=== PATIENT | female | born 1950 | race African-American/Black ===

== ENCOUNTER 2017-01-01 10:14 | Inpatient (IN) | payer MEDICARE ==
[~2017-01-01] VITALS: Ht 157.5 cm; Wt 42.6 kg
[2017-01-01] MEDS ORDERED: LORA0.5T IV (13:45)
[2017-01-01] MEDS ORDERED: CITA40TA12 PO (13:45)
[2017-01-01] MEDS ORDERED: POTA20TA82 PO (13:45)
[2017-01-01] MEDS ORDERED: NICO1PAT21 TD (13:45)
[2017-01-01] MEDS ORDERED: ALPR1TAB6 PO (13:45)
[2017-01-01] MEDS ORDERED: HYDR-2766 PO (13:45)
[2017-01-01] MEDS ORDERED: LISI-334 PO (13:45)
[2017-01-01] MEDS ORDERED: ONDA4TAB12 IV (13:45)
[2017-01-01] MEDS ORDERED: ZOLP10TA4 PO (13:45)
[2017-01-01] MEDS ORDERED: DRON5CAP PO (13:45)
[2017-01-01] MEDS ORDERED: CHLO25TA PO (13:45)
[2017-01-01 13:49] VITALS: BP 126/71
[2017-01-01 13:51] VITALS: BP 126/71
[2017-01-01] MEDS: POTASSIUM CHLORIDE 10MEQ 100 ML IV SCH ×2 (14:04→15:50)
[2017-01-01 15:31] VITALS: BP 137/75
[2017-01-01] MEDS ORDERED: hydrALAZINE 20 MG/ML VIAL. IVP PRN (15:45)
[2017-01-01] MEDS ORDERED: DOCUSATE SODIUM 100 MG CAPSULE. PO PRN (15:45)
[2017-01-01] MEDS ORDERED: DEXTROSE 50% 25 GM / 50ML DISP.SYRIN. IV PRN (15:45)
[2017-01-01] MEDS ORDERED: ACETAMINOPHEN 325 MG TABLET. PO PRN (15:45)
[2017-01-01] MEDS ORDERED: ALBUTEROL SULFATE 2.5 MG/3 ML NEBU. NEB PRN (15:45)
[2017-01-01] MEDS ORDERED: traMADol 50 MG TABLET PO PRN (15:45)
[2017-01-01] MEDS ORDERED: MORPHINE SULFATE 2 MG/ML DISP.SYRIN. IV PRN (15:45)
--- NOTE | 2017-01-01 15:48 | PDOC1 ---
History and Physical Date of Admission Date of Admission 01/01/17 Identification/Chief Complaint Chief Complaint N/V, abd pain, weight loss Problems: Source Source: Caregiver, Chart review, Patient History of Present Illness History of Present Illness 66yo F, h/o cervical Ca with RT 10s year ago, HTN, DM, was sent from [facility] for N/ V abd pain. Pt has been having intermittent N/V, abd pain for a couple years, worse since last Sunday. The pain is located at RUQ, severe, 10/10, no radiation, low po intake, lost 10 pounds over 2 months. N/V, non bloody, no bilious. Pt got moreno CT on 11/20/2016, showed some adenopathy, and RUQ fluid collection. pt visited dr. De Leon last Sunday, no intervention done. smoker. Past Medical History Cardiovascular: HTN Endocrine: Diabetes Past Surgical History Past Surgical History: No pertinent history Family History Family History: Hypertension Social History Smoke: 1 pack per day ALCOHOL: rare Drugs: None Current Medications Current Medications Current Medications Medications (Trade) Dose Ordered Sig/Ashley Start Time Stop Time Status Last Admin Dose Admin Potassium Chloride 100 ml @ 100 mls/hr Q1H 01/01/17 14:00 01/01/17 15:59 01/01/17 14:04 100 MLS/HR Allergies Allergies Allergies Coded Allergies Type Severity Reaction Last Updated Verified No Known Drug Allergies 01/01/17 No ROS Review of System CONSTITUTIONAL: No fever or chills EYES: No recent changes SKIN: No rash or itching CARDIOVASCULAR: No chest pain, syncope, palpitations, or edema RESPIRATORY: No SOB or cough GASTROINTESTINAL: No nausea, vomiting or abdominal pain NEUROLOGICAL: No headaches or weakness ENDOCRINE: No cold or heat intolerance GENITOURINARY: No urgency or frequency of urination MUSCULOSKELETAL: No back pain or joint pain LYMPHATICS: No enlarged lymph nodes PSYCHIATRIC: No anxiety or depression Physical Exam Physical Exam GEN.: No apparent distress. Alert and oriented. anxious, restless with pain. thin, poor nutrition. HEENT: Head is normocephalic, atraumatic NECK: Supple. LUNGS: bl coarse bs. HEART: RRR, S1, S2 present. Peripheral pulses intact ABDOMEN: Soft, Positive bowel sounds. RUQ moderate tenderness, no guarding or rebound. EXTREMITIES: Without any cyanosis. NEUROLOGIC: Normal speech, normal tone PSYCHIATRIC: Normal affect, normal mood. SKIN: No ulcerations Vitals Vitals Vital Signs Date Time Temp Pulse Resp B/P (MAP) Pulse Ox O2 Delivery O2 Flow Rate FiO2 01/01/17 15:31 98.6 90 12 137/75 (95) 100 Room Air 98.6 Labs Labs Laboratory Tests Test 01/01/17 13:32 Glucose (Fingerstick) 109 mg/dL (70-99) Laboratory Tests Test 01/01/17 13:32 Glucose (Fingerstick) 109 mg/dL (70-99) VTE Prophylaxis Ordered VTE Prophylaxis Devices: Yes VTE Pharmacological Prophylaxi: Yes Assessment/Plan Assessment/Plan N/V, abdominal pain with weight loss, not clear etiology yet CT 11/2016 showed adenopathy HTN DM2 ON MEtformin low po intake moderate malnutrition h/o cervical Ca post RT 10ys ago tobaccoism hypokalemia plan: gi, onco consult moreno CT again cont home meds PPN for now full liquid diet replete k pain control ssi dvt, gi ppx repeat all labs PTOT albuterol prn JESSEE HINTON MD Jan 01, 2017 15:48
[2017-01-01] MEDS: LISINOPRIL 20 MG TABLET PO SCH (16:00)
[2017-01-01] MEDS: CITALOPRAM 20 MG TABLET. PO SCH (16:00)
[2017-01-01] MEDS ORDERED: IOHEXOL 300 MG/ML 75 ML VIAL IV ONE (16:00)
[2017-01-01] MEDS ORDERED: IOHEXOL 240 MG/ML 50ML VIAL. PO ONE (16:00)
[2017-01-01] MEDS: CHLORTHALIDONE 25 MG TABLET. PO SCH (16:00)
[2017-01-01] MEDS ORDERED: CONTRAST GIVEN MC PRN (16:00)
[2017-01-01] MEDS: HYDROcodone/APAP 10/325 1 TAB TABLET PO PRN ×2 (16:12→22:12)
[2017-01-01] MEDS: ONDANSETRON PF 4 MG/2 ML VIAL. IV PRN (16:13)
[2017-01-01] MEDS: DRONABINOL 2.5 MG CAPSULE. PO SCH (16:13)
[2017-01-01] MEDS: ALPRAZolam 1 MG TABLET PO SCH ×2 (16:13→20:22)
[2017-01-01] MEDS: AMINO AC 3%/ELECTROLYTE/GLYCER 1,000 ML IV SCH (16:14)
[2017-01-01 16:55] LABS: PROTHROMBIN TIME PATIENT 12.4 SEC (11.7-14.0)
[2017-01-01] MEDS: INSULIN ASPART 300 UNITS/3 ML INSULN.PEN SQ SCH (17:00)
--- NOTE | 2017-01-01 17:09 | PDOC ---
Provider Note Provider Note Med onc consult: Central retroperitoneal lymphadenopathy as well as probable lymphadenopathy in the disha hepatis and hepatogastric region. There may be serosal implants along the liver dome. Findings are suggestive of a neoplasm per CT at [facility] to obtain f/u CT and GI consult. see dictation [id number]. KATHY AQUINO MD Jan 01, 2017 17:09
[2017-01-01] MEDS: ENOXAPARIN 40 MG/0.4 ML SYRINGE. SQ SCH (17:46)
[2017-01-01 19:20] VITALS: BP 141/87
[2017-01-01] MEDS: ZOLPIDEM 5 MG TABLET. PO PRN (20:22)
[2017-01-01 23:25] VITALS: BP 152/96
[2017-01-02] MEDS: LORazepam 0.5 MG TABLET PO PRN ×3 (01:55→20:38)
[2017-01-02 03:25] VITALS: BP 165/87
[2017-01-02] MEDS: ONDANSETRON PF 4 MG/2 ML VIAL. IV PRN (03:27)
--- NOTE | 2017-01-02 04:10 | CONS ---
DATE OF CONSULTATION: 01/01/2017 REQUESTING PHYSICIAN: Dr. Ainsley Zaragoza. REASON FOR CONSULTATION: Lymphadenopathy, abdominal discomfort, nausea, vomiting and concerned for possible malignancy. HISTORY OF PRESENT ILLNESS: The patient is a 66-year-old -[place] female, who reports poor appetite and weight loss for at least a year that started in 2015 and she has lost about 22 pounds as of 01/01/2017. She also reports chronic nausea and vomiting, but she experienced worsening symptoms from 12/29/2016, which prompted her to go to the Emergency Room. She was evaluated at [facility] and subsequently admitted to [facility] on 01/01/2017. She also reports abdominal pain, mostly in the right side. She denies hematemesis, melena or hematochezia, no hemoptysis or hematuria. She had a CT scan done on 11/20/2016 that showed lymphadenopathy and right upper quadrant fluid collection. I will obtain these reports. No fevers, chills or night sweats. No history of diarrhea or constipation. She reports having had a colonoscopy in 2015. She is up to date on mammogram for screening. She denies any lymphadenopathy, no history of a lumps or masses noted. PAST MEDICAL HISTORY: Hypertension and diabetes mellitus. PAST SURGICAL HISTORY: None. FAMILY HISTORY: Both her brother and sister had cancer, one known type. SOCIAL HISTORY: She smokes 1 pack of cigarettes per day since the age of 22. I have advised her to quit smoking. No alcohol abuse. REVIEW OF SYSTEMS: A 12-point review of system was performed. Pertinent positives are mentioned in the history of present illness. Rest of the system review is negative. PHYSICAL EXAMINATION: GENERAL APPEARANCE: The patient is a 66-year-old -[place] female, who is in no acute cardiorespiratory distress. VITAL SIGNS: Blood pressure 137/75, temperature 98.6. HEENT: Head atraumatic, normocephalic. Eyes: No icterus. NECK: Supple. CHEST: Bilaterally symmetrical. HEART: S1, S2 normal. ABDOMEN: Soft, nontender. No hepatosplenomegaly. CENTRAL NERVOUS SYSTEM: No focal deficits. LYMPHATICS: No lymphadenopathy. SKIN: No rashes. PSYCHOLOGIC: Mood and affect are appropriate. MUSCULOSKELETAL: No joint effusions. LABORATORY DATA: Glucose 109 on 01/01/2017. On 12/31/2016, WBC 9.8, hemoglobin 13.3, platelet count 484, MCV 85. Other labs from 12/31/2016 revealed sodium 136 potassium 3, creatinine 0.9, glucose 117, calcium 9.1, total bilirubin 0.3, AST 14, ALT 15, alkaline phosphatase 66, total protein 7.6, albumin 3.7. CT chest, abdomen and pelvis on 11/20/2016 at [facility], revealed central retroperitoneal lymphadenopathy as the last probable lymphadenopathy in the disha hepatis and hepatogastric region. There may be serosal implants along the liver dome. Findings are suggestive of neoplasm or lymphoma. IMPRESSION AND PLAN: 1. Lymphadenopathy noted on CT scan on 11/20/2016 at [facility]. There is evidence of central retroperitoneal lymphadenopathy as well as probable lymphadenopathy in the disha hepatis and hepatogastric region. The conglomerate film notes in the aortocaval region measuring 3.6 x 2.5 cm. There is abnormal region of low density along the dome of the liver measuring 6 cm, which may represent serosal implants. This is concerning for a malignancy. She has symptoms of nausea and vomiting, abdominal pain, weight loss and poor appetite. I agreed to consult Gastroenterology for further evaluation. She may need upper endoscopy to reevaluate for malignancy. I discussed in detail with the patient regarding the concern for malignancy and need for further workup. She understands and agrees with the plan. 2. Nausea, vomiting. Plan gastrointestinal consultation. 3. Abdominal pain. Continue supportive care. GI evaluation awaited. CT chest reveals evidence of lymphadenopathy in the subcarinal region as well as cardiophrenic and internal mammary region. The patient is also concerning for metastatic lymph nodes. ` KATHY AQUINO MD DR: SUNITHA/kathy JOB#: [id number] / [id number] CHERI
[2017-01-02] MEDS: HYDROcodone/APAP 10/325 1 TAB TABLET PO PRN ×4 (04:42→22:23)
[2017-01-02] MEDS: AMINO AC 3%/ELECTROLYTE/GLYCER 1,000 ML IV SCH ×2 (04:48→16:12)
[2017-01-02 06:29] LABS: BASO # 0.1 x10^3/uL (0.0-0.2); BASO % 1 % (0-3); EOS % 1 % (0-3); HEMATOCRIT 38.8 % (36.0-47.0); HEMOGLOBIN 12.8 g/dL (12.0-15.5); LYMPH # 1.3 x10^3/uL (1.0-4.8); LYMPH % 17 % (24-48); MEAN CORPUSCULAR HEMOGLOBIN 29 pg (25-35); MEAN CORPUSCULAR HGB CONC 33 g/dL (31-37); MEAN CORPUSCULAR VOLUME 87 fL (79-100); MONO % 15 % (0-9); NEUT % 66 % (31-73); PLATELET COUNT 470 x10^3/uL (140-400); RED BLOOD COUNT 4.45 x10^6/uL (3.50-5.40); RED CELL DISTRIBUTION WIDTH 14.3 % (11.5-14.5); WHITE BLOOD COUNT 7.3 x10^3/uL (4.0-11.0)
[2017-01-02 07:00] VITALS: BP 143/87
[2017-01-02 07:06] LABS: CALCIUM 8.8 mg/dL (8.5-10.1); CREATININE 0.8 mg/dL (0.6-1.0); GFR 86.3; POTASSIUM 4.5 mmol/L (3.5-5.1)
[2017-01-02 07:09] LABS: ALBUMIN 3.3 g/dL (3.4-5.0); DIRECT BILIRUBIN 0.2 mg/dL (0.0-0.2); TOTAL BILIRUBIN 0.5 mg/dL (0.2-1.0); TOTAL PROTEIN 6.8 g/dL (6.4-8.2)
[2017-01-02] MEDS: POTASSIUM CHLORIDE 20 MEQ TABLET.ER. PO SCH (07:51)
[2017-01-02] MEDS: PANTOPRAZOLE 40 MG TABLET.DR. PO SCH (07:51)
[2017-01-02] MEDS: ALPRAZolam 1 MG TABLET PO SCH ×3 (07:51→22:23)
[2017-01-02] MEDS: CITALOPRAM 20 MG TABLET. PO SCH (07:51)
[2017-01-02] MEDS: LISINOPRIL 20 MG TABLET PO SCH (07:52)
[2017-01-02] MEDS: CHLORTHALIDONE 25 MG TABLET. PO SCH (07:52)
[2017-01-02] MEDS: INSULIN ASPART 300 UNITS/3 ML INSULN.PEN SQ SCH ×3 (07:55→16:54)
--- NOTE | 2017-01-02 09:13 | PDOC2 ---
GI CONSULT Reason For Consult: Abd pain HPI: HPI: 66 y/o AA female transferred from [facility]. Records indicate she was evaluated there for n/v, abd pain, and dehydration. She tells me she has had decreased appetite and weight loss of about 22 pounds during the past year w/ episodic n/ v. On Marinol (says no help) and Zofran at home. Usually doesn't have abd pain , currently has some right-sided discomfort. Occasional GERD symptoms, avoids spicy foods. Had some loose stools after CT yesterday, usually no issues w/ diarrhea or constipation. Denies hematemesis, hematochezia, melena. No NSAIDs , takes hydrocodone for headaches. Had CT A/P w/ IV contrast in 11/2016 which showed lymphadenopathy in subcarinal, cardiophrenia, and internal mammary region concerning for metastasis; also central retroperitoneal lymphadenopathy w / probable lymphadenopathy in the disha hepatis and hepatogastric region w/ possible serosal implants along the liver dome. Saw Dr. Jimenez yesterday, CT chest/A/P pending. EGD and colonoscopy w/ Dr. Mariah Jenkins in 01/2015 (for weight loss and h/o colon polyps) showed suspect extrinsic pressure along greater curvature of stomach, irregular Z-line (path c/w reflux, no Arteaga's), and hyperplastic colon polyp w/ fair prep. Gastric biopsy + for H. pylori and random small bowel biopsy negative for pathology. Unclear if treated for H. pylori. Chart suggests h/o pancreatitis; she's unsure about this. PMH: PMH: COPD, HTN, DM, osteoporosis, anxiety/depression, cervical cancer, appendectomy, hysterectomy FH: Family History: Cancer, Other (brother was an alcoholic, sister had lupus, another sister had a "hole in her stomach") Social History: Smoke: 1 pack per day ALCOHOL: none (previously drank occasionally) Drugs: None ROS: GEN: +night sweats HEENT: Denies blurred vision, sore throat CV: Denies chest pain RESP: +SOA (stable) GI: Per HPI : Denies hematuria, dysuria ENDO: +weight loss NEURO: Denies confusion, dizziness MSK: +weakness SKIN: Denies jaundice, pruritus Vitals: Vitals: Vital Signs Date Time Temp Pulse Resp B/P (MAP) Pulse Ox O2 Delivery O2 Flow Rate FiO2 01/02/17 07:52 111 143/87 01/02/17 07:00 98.0 16 Room Air 94.0 98.0 01/02/17 03:25 95 Labs: Labs: Laboratory Tests Test 01/01/17 13:32 01/01/17 16:40 01/01/17 17:00 01/01/17 21:18 Glucose (Fingerstick) 109 mg/dL (70-99) 105 mg/dL (70-99) 104 mg/dL (70-99) Prothrombin Time 12.4 SEC (11.7-14.0) Prothromb Time International Ratio 1.0 (0.8-1.1) Test 01/02/17 04:40 01/02/17 07:34 White Blood Count 7.3 x10^3/uL (4.0-11.0) Red Blood Count 4.45 x10^6/uL (3.50-5.40) Hemoglobin 12.8 g/dL (12.0-15.5) Hematocrit 38.8 % (36.0-47.0) Mean Corpuscular Volume 87 fL (79-100) Mean Corpuscular Hemoglobin 29 pg (25-35) Mean Corpuscular Hemoglobin Concent 33 g/dL (31-37) Red Cell Distribution Width 14.3 % (11.5-14.5) Platelet Count 470 x10^3/uL (140-400) Neutrophils (%) (Auto) 66 % (31-73) Lymphocytes (%) (Auto) 17 % (24-48) Monocytes (%) (Auto) 15 % (0-9) Eosinophils (%) (Auto) 1 % (0-3) Basophils (%) (Auto) 1 % (0-3) Neutrophils # (Auto) 4.9 x10^3uL (1.8-7.7) Lymphocytes # (Auto) 1.3 x10^3/uL (1.0-4.8) Monocytes # (Auto) 1.1 x10^3/uL (0.0-1.1) Eosinophils # (Auto) 0.0 x10^3/uL (0.0-0.7) Basophils # (Auto) 0.1 x10^3/uL (0.0-0.2) Sodium Level 130 mmol/L (136-145) Potassium Level 4.5 mmol/L (3.5-5.1) Chloride Level 95 mmol/L (98-107) Carbon Dioxide Level 25 mmol/L (21-32) Anion Gap 10 (6-14) Blood Urea Nitrogen 28 mg/dL (7-20) Creatinine 0.8 mg/dL (0.6-1.0) Estimated GFR (Cockcroft-Gault) 86.3 Glucose Level 105 mg/dL (70-99) Calcium Level 8.8 mg/dL (8.5-10.1) Total Bilirubin 0.5 mg/dL (0.2-1.0) Direct Bilirubin 0.2 mg/dL (0.0-0.2) Aspartate Amino Transf (AST/SGOT) 14 U/L (15-37) Alanine Aminotransferase (ALT/SGPT) 15 U/L (14-59) Alkaline Phosphatase 56 U/L (46-116) Total Protein 6.8 g/dL (6.4-8.2) Albumin 3.3 g/dL (3.4-5.0) Glucose (Fingerstick) 120 mg/dL (70-99) Allergies: Coded Allergies: No Known Drug Allergies (Unverified , 01/01/17) Medications: Current Medications Medications (Trade) Dose Ordered Sig/Ashley Route PRN Reason Start Time Stop Time Status Last Admin Dose Admin Potassium Chloride 100 ml @ 100 mls/hr Q1H IV 01/01/17 14:00 01/01/17 15:59 DC 01/01/17 15:50 Alprazolam (Xanax) 1 mg TID PO 01/01/17 16:00 01/02/17 07:51 Chlorthalidone (Thalitone) 25 mg DAILY PO 01/01/17 16:00 01/02/17 07:52 Acetaminophen/ Hydrocodone Bitart (Lortab 10/325) 1 tab PRN QID PRN PO PAIN 01/01/17 15:45 01/02/17 04:42 Lisinopril (Prinivil) 20 mg DAILY PO 01/01/17 16:00 01/02/17 07:52 Lorazepam (Ativan) 0.5 mg PRN Q8HRS PRN PO ANXIETY 01/01/17 16:00 01/02/17 01:55 Citalopram Hydrobromide (CeleXA) 40 mg DAILY PO 01/01/17 16:00 01/02/17 07:51 Dronabinol (Marinol) 5 mg BIDACLD PO 01/01/17 16:30 01/01/17 16:13 Potassium Chloride (Klor-Con) 20 meq DAILYWBKFT PO 01/02/17 08:00 01/02/17 07:51 Zolpidem Tartrate (Ambien) 5 mg PRN QHS PRN PO INSOMNIA 01/01/17 15:45 01/01/17 20:22 Ondansetron HCl (Zofran) 4 mg PRN Q6HRS PRN IV NAUSEA/VOMITING 01/01/17 15:45 01/02/17 03:27 Pantoprazole Sodium (Protonix) 40 mg DAILYAC PO 01/02/17 07:30 01/02/17 07:51 Enoxaparin Sodium (Lovenox 40mg Syringe) 40 mg Q24H SQ 01/01/17 17:00 01/01/17 17:46 Amino Acids/ Glycerin/ Electrolytes 1,000 ml @ 80 mls/hr [id number] IV 01/01/17 17:00 01/02/17 04:48 Iohexol (Omnipaque 240 Mg/ml) 50 ml 1X ONCE PO 01/01/17 16:00 01/01/17 16:01 DC 01/01/17 17:13 Iohexol (Omnipaque 300 Mg/ml) 75 ml 1X ONCE IV 01/01/17 16:00 01/01/17 16:01 DC 01/01/17 17:11 Imaging: Imaging: CT chest/abd/pelv 01/01/17 PENDING PE: GEN: NAD, thin HEENT: Atraumatic, PERRL LUNGS: decreased HEART: RRR ABD: NABS, S/ND, some RUQ to RLQ discomfort, ?right flank EXTREMITY: No edema SKIN: No rashes, no jaundice NEURO/PSYCH: A & O 3 A/P: A/P: Decreased appetite, weight loss, n/v -for 1 year, 22 pounds lost -on Marinol and Zofran at home Right-sided pain -on this occasion only Abnormal CT A/P -from 11/2016: lymphadenopathy in subcarinal, cardiophrenia, and internal mammary region concerning for metastasis; also central retroperitoneal lymphadenopathy w/ probable lymphadenopathy in the disha hepatis and hepatogastric region w/ possible serosal implants along the liver dome GERD -occasional symptoms, avoids spicy foods H. pylori -on gastric biopsy from EGD in 01/2015, ?treated CRC screen -colonoscopy w/ fair prep in 01/2015, hyperplastic polyp -- Await CT results, will review w/ Dr. Bowles. SHAAN PITTMAN Jan 02, 2017 09:13
--- NOTE | 2017-01-02 09:18 | PDOC ---
PROGRESS NOTES Chief Complaint Chief Complaint Possible GI malignancy noted on CT abd (? Mets vs Lymphoma) Wt Loss DN HTN History of Present Illness History of Present Illness Pt seen and examined Very anxious Notes and labs reviewed Ct reviewed Vitals Vitals Vital Signs Date Time Temp Pulse Resp B/P (MAP) Pulse Ox O2 Delivery O2 Flow Rate FiO2 01/02/17 08:00 Room Air 01/02/17 07:52 111 143/87 01/02/17 07:00 98.0 16 94.0 98.0 01/02/17 03:25 95 Physical Exam General: Alert, Oriented X3, Cooperative Heart: Regular rate, Normal S1, Normal S2 Lungs: Clear Abdomen: Normal bowel sounds, Soft Extremities: No clubbing, No cyanosis Skin: No rashes, No breakdown Labs LABS Laboratory Tests Test 01/01/17 13:32 01/01/17 16:40 01/01/17 17:00 01/01/17 21:18 Glucose (Fingerstick) 109 mg/dL (70-99) 105 mg/dL (70-99) 104 mg/dL (70-99) Prothrombin Time 12.4 SEC (11.7-14.0) Prothromb Time International Ratio 1.0 (0.8-1.1) Test 01/02/17 04:40 01/02/17 07:34 White Blood Count 7.3 x10^3/uL (4.0-11.0) Red Blood Count 4.45 x10^6/uL (3.50-5.40) Hemoglobin 12.8 g/dL (12.0-15.5) Hematocrit 38.8 % (36.0-47.0) Mean Corpuscular Volume 87 fL (79-100) Mean Corpuscular Hemoglobin 29 pg (25-35) Mean Corpuscular Hemoglobin Concent 33 g/dL (31-37) Red Cell Distribution Width 14.3 % (11.5-14.5) Platelet Count 470 x10^3/uL (140-400) Neutrophils (%) (Auto) 66 % (31-73) Lymphocytes (%) (Auto) 17 % (24-48) Monocytes (%) (Auto) 15 % (0-9) Eosinophils (%) (Auto) 1 % (0-3) Basophils (%) (Auto) 1 % (0-3) Neutrophils # (Auto) 4.9 x10^3uL (1.8-7.7) Lymphocytes # (Auto) 1.3 x10^3/uL (1.0-4.8) Monocytes # (Auto) 1.1 x10^3/uL (0.0-1.1) Eosinophils # (Auto) 0.0 x10^3/uL (0.0-0.7) Basophils # (Auto) 0.1 x10^3/uL (0.0-0.2) Sodium Level 130 mmol/L (136-145) Potassium Level 4.5 mmol/L (3.5-5.1) Chloride Level 95 mmol/L (98-107) Carbon Dioxide Level 25 mmol/L (21-32) Anion Gap 10 (6-14) Blood Urea Nitrogen 28 mg/dL (7-20) Creatinine 0.8 mg/dL (0.6-1.0) Estimated GFR (Cockcroft-Gault) 86.3 Glucose Level 105 mg/dL (70-99) Calcium Level 8.8 mg/dL (8.5-10.1) Total Bilirubin 0.5 mg/dL (0.2-1.0) Direct Bilirubin 0.2 mg/dL (0.0-0.2) Aspartate Amino Transf (AST/SGOT) 14 U/L (15-37) Alanine Aminotransferase (ALT/SGPT) 15 U/L (14-59) Alkaline Phosphatase 56 U/L (46-116) Total Protein 6.8 g/dL (6.4-8.2) Albumin 3.3 g/dL (3.4-5.0) Glucose (Fingerstick) 120 mg/dL (70-99) Review of Systems Review of Systems co anxiety co pain Assessment and Plan Assessmemt and Plan Possible GI malignancy noted on CT abd (? Mets vs Lymphoma) Wt Loss DN HTN Plan GI consult to consider endoscopy Recheck labs Dr Jimenez Following Home meds PPN Narcotics Prognosis guarded Problems: Comment Review of Relevant I have reviewed the following items arnulfo (where applicable) has been applied. Labs Laboratory Tests Test 01/01/17 13:32 01/01/17 16:40 01/01/17 17:00 01/01/17 21:18 Glucose (Fingerstick) 109 mg/dL (70-99) 105 mg/dL (70-99) 104 mg/dL (70-99) Prothrombin Time 12.4 SEC (11.7-14.0) Prothromb Time International Ratio 1.0 (0.8-1.1) Test 01/02/17 04:40 01/02/17 07:34 White Blood Count 7.3 x10^3/uL (4.0-11.0) Red Blood Count 4.45 x10^6/uL (3.50-5.40) Hemoglobin 12.8 g/dL (12.0-15.5) Hematocrit 38.8 % (36.0-47.0) Mean Corpuscular Volume 87 fL (79-100) Mean Corpuscular Hemoglobin 29 pg (25-35) Mean Corpuscular Hemoglobin Concent 33 g/dL (31-37) Red Cell Distribution Width 14.3 % (11.5-14.5) Platelet Count 470 x10^3/uL (140-400) Neutrophils (%) (Auto) 66 % (31-73) Lymphocytes (%) (Auto) 17 % (24-48) Monocytes (%) (Auto) 15 % (0-9) Eosinophils (%) (Auto) 1 % (0-3) Basophils (%) (Auto) 1 % (0-3) Neutrophils # (Auto) 4.9 x10^3uL (1.8-7.7) Lymphocytes # (Auto) 1.3 x10^3/uL (1.0-4.8) Monocytes # (Auto) 1.1 x10^3/uL (0.0-1.1) Eosinophils # (Auto) 0.0 x10^3/uL (0.0-0.7) Basophils # (Auto) 0.1 x10^3/uL (0.0-0.2) Sodium Level 130 mmol/L (136-145) Potassium Level 4.5 mmol/L (3.5-5.1) Chloride Level 95 mmol/L (98-107) Carbon Dioxide Level 25 mmol/L (21-32) Anion Gap 10 (6-14) Blood Urea Nitrogen 28 mg/dL (7-20) Creatinine 0.8 mg/dL (0.6-1.0) Estimated GFR (Cockcroft-Gault) 86.3 Glucose Level 105 mg/dL (70-99) Calcium Level 8.8 mg/dL (8.5-10.1) Total Bilirubin 0.5 mg/dL (0.2-1.0) Direct Bilirubin 0.2 mg/dL (0.0-0.2) Aspartate Amino Transf (AST/SGOT) 14 U/L (15-37) Alanine Aminotransferase (ALT/SGPT) 15 U/L (14-59) Alkaline Phosphatase 56 U/L (46-116) Total Protein 6.8 g/dL (6.4-8.2) Albumin 3.3 g/dL (3.4-5.0) Glucose (Fingerstick) 120 mg/dL (70-99) Laboratory Tests Test 01/01/17 13:32 01/01/17 16:40 01/01/17 17:00 01/01/17 21:18 Glucose (Fingerstick) 109 mg/dL (70-99) 105 mg/dL (70-99) 104 mg/dL (70-99) Prothrombin Time 12.4 SEC (11.7-14.0) Prothromb Time International Ratio 1.0 (0.8-1.1) Test 01/02/17 04:40 01/02/17 07:34 White Blood Count 7.3 x10^3/uL (4.0-11.0) Red Blood Count 4.45 x10^6/uL (3.50-5.40) Hemoglobin 12.8 g/dL (12.0-15.5) Hematocrit 38.8 % (36.0-47.0) Mean Corpuscular Volume 87 fL (79-100) Mean Corpuscular Hemoglobin 29 pg (25-35) Mean Corpuscular Hemoglobin Concent 33 g/dL (31-37) Red Cell Distribution Width 14.3 % (11.5-14.5) Platelet Count 470 x10^3/uL (140-400) Neutrophils (%) (Auto) 66 % (31-73) Lymphocytes (%) (Auto) 17 % (24-48) Monocytes (%) (Auto) 15 % (0-9) Eosinophils (%) (Auto) 1 % (0-3) Basophils (%) (Auto) 1 % (0-3) Neutrophils # (Auto) 4.9 x10^3uL (1.8-7.7) Lymphocytes # (Auto) 1.3 x10^3/uL (1.0-4.8) Monocytes # (Auto) 1.1 x10^3/uL (0.0-1.1) Eosinophils # (Auto) 0.0 x10^3/uL (0.0-0.7) Basophils # (Auto) 0.1 x10^3/uL (0.0-0.2) Sodium Level 130 mmol/L (136-145) Potassium Level 4.5 mmol/L (3.5-5.1) Chloride Level 95 mmol/L (98-107) Carbon Dioxide Level 25 mmol/L (21-32) Anion Gap 10 (6-14) Blood Urea Nitrogen 28 mg/dL (7-20) Creatinine 0.8 mg/dL (0.6-1.0) Estimated GFR (Cockcroft-Gault) 86.3 Glucose Level 105 mg/dL (70-99) Calcium Level 8.8 mg/dL (8.5-10.1) Total Bilirubin 0.5 mg/dL (0.2-1.0) Direct Bilirubin 0.2 mg/dL (0.0-0.2) Aspartate Amino Transf (AST/SGOT) 14 U/L (15-37) Alanine Aminotransferase (ALT/SGPT) 15 U/L (14-59) Alkaline Phosphatase 56 U/L (46-116) Total Protein 6.8 g/dL (6.4-8.2) Albumin 3.3 g/dL (3.4-5.0) Glucose (Fingerstick) 120 mg/dL (70-99) Medications Current Medications Potassium Chloride 100 ml @ 100 mls/hr Q1H IV Last administered on 01/01/17 15:50; Start 01/01/17 at 14:00; Stop 01/01/17 at 15:59; Status DC Alprazolam (Xanax) 1 mg TID PO Last administered on 01/02/17 07:51; Start at 16:00 Chlorthalidone (Thalitone) 25 mg DAILY PO Last administered on 01/02/17 07:52 ; Start 01/01/17 at 16:00 Acetaminophen/ Hydrocodone Bitart (Lortab 10) 1 tab PRN QID PRN PO PAIN Last administered on 01/02/17 04:42; Start 01/01/17 at 15:45 Lisinopril (Prinivil) 20 mg DAILY PO Last administered on 01/02/17 07:52; Start 01/01/17 at 16:00 Lorazepam (Ativan) 0.5 mg PRN Q8HRS PRN PO ANXIETY Last administered on 01:55; Start 01/01/17 at 16:00 Citalopram Hydrobromide (CeleXA) 40 mg DAILY PO Last administered on 01/02/17 07:51; Start 01/01/17 at 16:00 Dronabinol (Marinol) 5 mg BIDACLD PO Last administered on 01/01/17 16:13; Start 01/01/17 at 16:30 Potassium Chloride (Klor-Con) 20 meq DAILYWBKFT PO Last administered on 07:51; Start 01/02/17 at 08:00 Zolpidem Tartrate (Ambien) 5 mg PRN QHS PRN PO INSOMNIA Last administered on 20:22; Start 01/01/17 at 15:45 Acetaminophen (Tylenol) 650 mg PRN Q6HRS PRN PO FEVER; Start 01/01/17 at 15:45 Ondansetron HCl (Zofran) 4 mg PRN Q6HRS PRN IV NAUSEA/VOMITING Last administered on 01/02/17 03:27; Start 01/01/17 at 15:45 Morphine Sulfate 2 mg PRN Q2HR PRN IV PAIN; Start 01/01/17 at 15:45 Tramadol HCl (Ultram) 50 mg PRN Q6HRS PRN PO PAIN; Start 01/01/17 at 15:45 Hydralazine HCl (Apresoline) 10 mg PRN Q4HRS PRN IVP ELEVATED BP, SEE COMMENTS ; Start 01/01/17 at 15:45 Docusate Sodium (Colace) 100 mg PRN DAILY PRN PO CONSTIPATION; Start 01/01/17 at 15:45 Pantoprazole Sodium (Protonix) 40 mg DAILYAC PO Last administered on 01/02/17 07:51; Start 01/02/17 at 07:30 Enoxaparin Sodium (Lovenox 40mg Syringe) 40 mg Q24H SQ Last administered on 17:46; Start 01/01/17 at 17:00 Amino Acids/ Glycerin/ Electrolytes 1,000 ml @ 80 mls/hr [id number] IV Last administered on 01/02/17 04:48; Start 01/01/17 at 17:00 Albuterol Sulfate (Ventolin Neb Soln) 2.5 mg PRN Q4HRS PRN NEB SHORTNESS OF BREATH; Start 01/01/17 at 15:45 Insulin Aspart (NovoLOG) 0-9 UNITS TIDWMEALS SQ ; Start 01/01/17 at 17:00 Dextrose (Dextrose 50%-Water Syringe) 12.5 gm PRN Q15MIN PRN IV SEE COMMENTS; Start 01/01/17 at 15:45 Iohexol (Omnipaque 240 Mg/ml) 50 ml 1X ONCE PO Last administered on 01/01/17 17:13; Start 01/01/17 at 16:00; Stop 01/01/17 at 16:01; Status DC Iohexol (Omnipaque 300 Mg/ml) 75 ml 1X ONCE IV Last administered on 01/01/17 17:11; Start 01/01/17 at 16:00; Stop 01/01/17 at 16:01; Status DC Info (Do NOT chart on this entry -- for MONITORING) 1 each PRN DAILY PRN MC SEE COMMENTS; Start 01/01/17 at 16:00; Stop 01/03/17 at 15:59 Nicotine (Nicoderm Cq 21mg) 1 patch PRN DAILY PRN TD SMOKING CESSATION; Start 01/02/17 at 09:15 Active Scripts Active Reported Zolpidem Tartrate 10 Mg Tablet 10 Mg PO PRN QHS PRN Potassium Chloride 20 Meq Tablet.er 20 Meq PO DAILY Ondansetron Odt (Ondansetron) 4 Mg Tab.rapdis 4 Mg IV PRN Q4HRS PRN NICODERM CQ 21mg (Nicotine) 1 Each Patch.td24 1 Patch TD DAILY Lorazepam 0.5 Mg Tablet 0.5 Mg IV Q8HRS Lisinopril 20 Mg Tablet 20 Mg PO DAILY Hydrocodone-Apap 10-325 (Hydrocodone Bit/Acetaminophen) 1 Each Tablet 1 Tab PO QID PRN Marinol (Dronabinol) 5 Mg Capsule 5 Mg PO BIDACLD Celexa (Citalopram Hydrobromide) 40 Mg Tablet 40 Mg PO DAILY Chlorthalidone 25 Mg Tablet 25 Mg PO DAILY Alprazolam 1 Mg Tablet 1 Mg PO TID Vitals/I & O Vital Sign - Last 24 Hours 01/01/17 01/01/17 01/01/17 01/01/17 12:41 13:49 13:51 15:31 Temp 97.9 97.9 98.6 97.9 97.9 98.6 Pulse 98 98 90 Resp 12 12 12 B/P (MAP) 126/71 (89) 126/71 (89) 137/75 (95) Pulse Ox 98 98 100 O2 Delivery Room Air Room Air Room Air 01/01/17 01/01/17 01/01/17 01/01/17 16:00 16:12 19:20 20:00 Temp 98.4 98.4 Pulse 90 99 Resp 18 B/P (MAP) 137/75 141/87 (105) Pulse Ox 97 O2 Delivery Room Air Room Air Room Air 01/01/17 01/01/17 01/01/17 01/02/17 22:12 23:12 23:25 03:25 Temp 98.6 98.4 98.6 98.4 Pulse 113 93 Resp 16 16 18 18 B/P (MAP) 152/96 (114) 165/87 (113) Pulse Ox 95 95 O2 Delivery Room Air Room Air Room Air Room Air 01/02/17 01/02/17 01/02/17 01/02/17 04:42 07:00 07:52 08:00 Temp 98.0 98.0 Pulse 113 111 Resp 16 16 B/P (MAP) 143/87 (105) 143/87 O2 Delivery Room Air Room Air Room Air O2 Flow Rate 94.0 Intake and Output 01/01/17 01/01/17 01/02/17 15:00 23:00 07:00 Intake Total 0 ml 0 ml 0 ml Balance 0 ml 0 ml 0 ml ANGEL RENE III DO Jan 02, 2017 09:18
--- NOTE | 2017-01-02 09:36 | RAD ---
Indication: right upper quadrant pain. History of lymphoma. Axial images of the chest abdomen and pelvis were obtained. Both oral and IV contrast were administered. 75 cc of Omnipaque 300 was administered intravenously. Note is made of a previous exam 11/20/2016. CT chest: Findings There is no significant axillary adenopathy. No significant hilar adenopathy is seen. Mild prominence of the subcarinal region compatible with some adenopathy as well as in the cardiophrenic fat is noted, unchanged. A few intramammary lymph nodes are noted also appearing similar. There is no acute parenchymal infiltrate. There is an unchanged pulmonary nodule in the right lower lobe. There has not been a significant change in the appearance of the chest compared to the previous exam CT abdomen and pelvis: Findings The liver and spleen appear unremarkable. Spleen size is normal. There is a left renal cysts similar to the previous exam. The adrenal glands are unchanged. Some enlargement of the right adrenal gland is noted similar to the previous exam likely reflecting an adenoma. The pancreas appears unremarkable. Periaortic adenopathy is noted as well as some enlarged nodes in the area of the disha hepatis. There may be similar findings along the dome of the liver medially.. All of these findings are similar to the previous exam. A new finding in the abdomen is not seen. There is no significant adenopathy identified in either groin. No acute finding is apparent in the pelvis. IMPRESSION: No acute finding in the chest. Unchanged soft tissue masses, likely reflecting adenopathy as outlined above Unchanged pulmonary nodule in the right lower lobe. No acute finding seen in the abdomen or pelvis. Retroperitoneal adenopathy is noted appearing similar to the study 11/20/2016 PQRS Compliance Statement: One or more of the following individualized dose reduction techniques were utilized for this examination: 1. Automated exposure control 2. Adjustment of the mA and/or kV according to patient size 3. Use of iterative reconstruction technique
[2017-01-02] MEDS: DRONABINOL 2.5 MG CAPSULE. PO SCH ×2 (10:19→16:13)
[2017-01-02] MEDS: NICOTINE 21MG PATCH. TD PRN (10:19)
[2017-01-02 11:00] VITALS: BP 177/99
[2017-01-02] MEDS: fentaNYL PF VIAL 100 MCG/2 ML VIAL IV PRN ×2 (14:48→20:33)
[2017-01-02 14:56] VITALS: BP 138/89
[2017-01-02] MEDS: ENOXAPARIN 40 MG/0.4 ML SYRINGE. SQ SCH (16:16)
--- NOTE | 2017-01-02 17:25 | PDOC ---
PROGRESS NOTES Subjective Subjective c/c - f/u of Lymphadenopathy ROS - -has abd pain Objective Objective Vital Signs Date Time Temp Pulse Resp B/P (MAP) Pulse Ox O2 Delivery O2 Flow Rate FiO2 01/02/17 17:05 Room Air 01/02/17 14:56 98.0 96 18 138/89 (105) 97 98.0 01/02/17 07:00 94.0 Intake and Output 01/02/17 07:00 Intake Total 0 ml Balance 0 ml Intake Oral 0 ml Physical Exam Heart: Normal S1, Normal S2 General: Alert, Oriented X3 Lungs: Clear to auscultation Neuro: Normal speech Psych/Mental Status: Mental status NL Assessment Assessment IMPRESSION AND PLAN: 1. Lymphadenopathy noted on CT scan on 11/20/[address] [facility]. There is evidence of central retroperitoneal lymphadenopathy as well as probable lymphadenopathy in the disha hepatis and hepatogastric region. The conglomerate film notes in the aortocaval region measuring 3.6 x 2.5 cm. There is abnormal region of low density along the dome of the liver measuring 6 cm, which may represent serosal implants. This is concerning for a malignancy. She has symptoms of nausea and vomiting, abdominal pain, weight loss and poor appetite. I agreed to consult Gastroenterology for further evaluation. She may need upper endoscopy to reevaluate for malignancy. I discussed in detail with the patient regarding the concern for malignancy and need for further workup. She understands and agrees with the plan. 2. Nausea, vomiting. Appreciate gastrointestinal consultation. EGD planned , if non-diagnostic, then plan CT guided LN bx. 3. Abdominal pain. Continue supportive care. GI evaluation awaited. CT chest reveals evidence of lymphadenopathy in the subcarinal region as well as cardiophrenic and internal mammary region. The patient is also concerning for metastatic lymph nodes. Comment Review of Relevant I have reviewed the following items arnulfo (where applicable) has been applied. Labs Laboratory Tests Test 01/01/17 13:32 01/01/17 16:40 01/01/17 17:00 01/01/17 21:18 Glucose (Fingerstick) 109 mg/dL (70-99) 105 mg/dL (70-99) 104 mg/dL (70-99) Prothrombin Time 12.4 SEC (11.7-14.0) Prothromb Time International Ratio 1.0 (0.8-1.1) Test 01/02/17 04:40 01/02/17 07:34 01/02/17 16:41 White Blood Count 7.3 x10^3/uL (4.0-11.0) Red Blood Count 4.45 x10^6/uL (3.50-5.40) Hemoglobin 12.8 g/dL (12.0-15.5) Hematocrit 38.8 % (36.0-47.0) Mean Corpuscular Volume 87 fL (79-100) Mean Corpuscular Hemoglobin 29 pg (25-35) Mean Corpuscular Hemoglobin Concent 33 g/dL (31-37) Red Cell Distribution Width 14.3 % (11.5-14.5) Platelet Count 470 x10^3/uL (140-400) Neutrophils (%) (Auto) 66 % (31-73) Lymphocytes (%) (Auto) 17 % (24-48) Monocytes (%) (Auto) 15 % (0-9) Eosinophils (%) (Auto) 1 % (0-3) Basophils (%) (Auto) 1 % (0-3) Neutrophils # (Auto) 4.9 x10^3uL (1.8-7.7) Lymphocytes # (Auto) 1.3 x10^3/uL (1.0-4.8) Monocytes # (Auto) 1.1 x10^3/uL (0.0-1.1) Eosinophils # (Auto) 0.0 x10^3/uL (0.0-0.7) Basophils # (Auto) 0.1 x10^3/uL (0.0-0.2) Sodium Level 130 mmol/L (136-145) Potassium Level 4.5 mmol/L (3.5-5.1) Chloride Level 95 mmol/L (98-107) Carbon Dioxide Level 25 mmol/L (21-32) Anion Gap 10 (6-14) Blood Urea Nitrogen 28 mg/dL (7-20) Creatinine 0.8 mg/dL (0.6-1.0) Estimated GFR (Cockcroft-Gault) 86.3 Glucose Level 105 mg/dL (70-99) Calcium Level 8.8 mg/dL (8.5-10.1) Total Bilirubin 0.5 mg/dL (0.2-1.0) Direct Bilirubin 0.2 mg/dL (0.0-0.2) Aspartate Amino Transf (AST/SGOT) 14 U/L (15-37) Alanine Aminotransferase (ALT/SGPT) 15 U/L (14-59) Alkaline Phosphatase 56 U/L (46-116) Total Protein 6.8 g/dL (6.4-8.2) Albumin 3.3 g/dL (3.4-5.0) Glucose (Fingerstick) 120 mg/dL (70-99) 106 mg/dL (70-99) Laboratory Tests Test 01/01/17 21:18 01/02/17 04:40 01/02/17 07:34 01/02/17 16:41 Glucose (Fingerstick) 104 mg/dL (70-99) 120 mg/dL (70-99) 106 mg/dL (70-99) White Blood Count 7.3 x10^3/uL (4.0-11.0) Red Blood Count 4.45 x10^6/uL (3.50-5.40) Hemoglobin 12.8 g/dL (12.0-15.5) Hematocrit 38.8 % (36.0-47.0) Mean Corpuscular Volume 87 fL (79-100) Mean Corpuscular Hemoglobin 29 pg (25-35) Mean Corpuscular Hemoglobin Concent 33 g/dL (31-37) Red Cell Distribution Width 14.3 % (11.5-14.5) Platelet Count 470 x10^3/uL (140-400) Neutrophils (%) (Auto) 66 % (31-73) Lymphocytes (%) (Auto) 17 % (24-48) Monocytes (%) (Auto) 15 % (0-9) Eosinophils (%) (Auto) 1 % (0-3) Basophils (%) (Auto) 1 % (0-3) Neutrophils # (Auto) 4.9 x10^3uL (1.8-7.7) Lymphocytes # (Auto) 1.3 x10^3/uL (1.0-4.8) Monocytes # (Auto) 1.1 x10^3/uL (0.0-1.1) Eosinophils # (Auto) 0.0 x10^3/uL (0.0-0.7) Basophils # (Auto) 0.1 x10^3/uL (0.0-0.2) Sodium Level 130 mmol/L (136-145) Potassium Level 4.5 mmol/L (3.5-5.1) Chloride Level 95 mmol/L (98-107) Carbon Dioxide Level 25 mmol/L (21-32) Anion Gap 10 (6-14) Blood Urea Nitrogen 28 mg/dL (7-20) Creatinine 0.8 mg/dL (0.6-1.0) Estimated GFR (Cockcroft-Gault) 86.3 Glucose Level 105 mg/dL (70-99) Calcium Level 8.8 mg/dL (8.5-10.1) Total Bilirubin 0.5 mg/dL (0.2-1.0) Direct Bilirubin 0.2 mg/dL (0.0-0.2) Aspartate Amino Transf (AST/SGOT) 14 U/L (15-37) Alanine Aminotransferase (ALT/SGPT) 15 U/L (14-59) Alkaline Phosphatase 56 U/L (46-116) Total Protein 6.8 g/dL (6.4-8.2) Albumin 3.3 g/dL (3.4-5.0) Medications Current Medications Potassium Chloride 100 ml @ 100 mls/hr Q1H IV Last administered on 01/01/17 15:50; Start 01/01/17 at 14:00; Stop 01/01/17 at 15:59; Status DC Alprazolam (Xanax) 1 mg TID PO Last administered on 01/02/17 12:50; Start at 16:00 Chlorthalidone (Thalitone) 25 mg DAILY PO Last administered on 01/02/17 07:52 ; Start 01/01/17 at 16:00 Acetaminophen/ Hydrocodone Bitart (Lortab 10/325) 1 tab PRN QID PRN PO PAIN Last administered on 01/02/17 16:12; Start 01/01/17 at 15:45 Lisinopril (Prinivil) 20 mg DAILY PO Last administered on 01/02/17 07:52; Start 01/01/17 at 16:00 Lorazepam (Ativan) 0.5 mg PRN Q8HRS PRN PO ANXIETY Last administered on 10:46; Start 01/01/17 at 16:00 Citalopram Hydrobromide (CeleXA) 40 mg DAILY PO Last administered on 01/02/17 07:51; Start 01/01/17 at 16:00 Dronabinol (Marinol) 5 mg BIDACLD PO Last administered on 01/02/17 16:13; Start 01/01/17 at 16:30 Potassium Chloride (Klor-Con) 20 meq DAILYWBKFT PO Last administered on 07:51; Start 01/02/17 at 08:00 Zolpidem Tartrate (Ambien) 5 mg PRN QHS PRN PO INSOMNIA Last administered on 20:22; Start 01/01/17 at 15:45 Acetaminophen (Tylenol) 650 mg PRN Q6HRS PRN PO FEVER; Start 01/01/17 at 15:45 Ondansetron HCl (Zofran) 4 mg PRN Q6HRS PRN IV NAUSEA/VOMITING Last administered on 01/02/17 03:27; Start 01/01/17 at 15:45 Morphine Sulfate 2 mg PRN Q2HR PRN IV PAIN; Start 01/01/17 at 15:45 Tramadol HCl (Ultram) 50 mg PRN Q6HRS PRN PO PAIN; Start 01/01/17 at 15:45 Hydralazine HCl (Apresoline) 10 mg PRN Q4HRS PRN IVP ELEVATED BP, SEE COMMENTS ; Start 01/01/17 at 15:45 Docusate Sodium (Colace) 100 mg PRN DAILY PRN PO CONSTIPATION; Start 01/01/17 at 15:45 Pantoprazole Sodium (Protonix) 40 mg DAILYAC PO Last administered on 01/02/17 07:51; Start 01/02/17 at 07:30 Enoxaparin Sodium (Lovenox 40mg Syringe) 40 mg Q24H SQ Last administered on 16:16; Start 01/01/17 at 17:00 Amino Acids/ Glycerin/ Electrolytes 1,000 ml @ 80 mls/hr [id number] IV Last administered on 01/02/17 16:12; Start 01/01/17 at 17:00 Albuterol Sulfate (Ventolin Neb Soln) 2.5 mg PRN Q4HRS PRN NEB SHORTNESS OF BREATH; Start 01/01/17 at 15:45 Insulin Aspart (NovoLOG) 0-9 UNITS TIDWMEALS SQ ; Start 01/01/17 at 17:00 Dextrose (Dextrose 50%-Water Syringe) 12.5 gm PRN Q15MIN PRN IV SEE COMMENTS; Start 01/01/17 at 15:45 Iohexol (Omnipaque 240 Mg/ml) 50 ml 1X ONCE PO Last administered on 01/01/17 17:13; Start 01/01/17 at 16:00; Stop 01/01/17 at 16:01; Status DC Iohexol (Omnipaque 300 Mg/ml) 75 ml 1X ONCE IV Last administered on 01/01/17 17:11; Start 01/01/17 at 16:00; Stop 01/01/17 at 16:01; Status DC Info (Do NOT chart on this entry -- for MONITORING) 1 each PRN DAILY PRN MC SEE COMMENTS; Start 01/01/17 at 16:00; Stop 01/03/17 at 15:59 Nicotine (Nicoderm Cq 21mg) 1 patch PRN DAILY PRN TD SMOKING CESSATION Last administered on 01/02/17 10:19; Start 01/02/17 at 09:15 Fentanyl Citrate (Fentanyl 2ml Vial) 50 mcg PRN Q2HR PRN IV PAIN Last administered on 01/02/17 14:48; Start 01/02/17 at 10:30 Ringer's Solution 1,000 ml @ 50 mls/hr Q20H IV ; Start 01/03/17 at 07:00; Stop 01/03/17 at 18:59 Active Scripts Active Reported Zolpidem Tartrate 10 Mg Tablet 10 Mg PO PRN QHS PRN Potassium Chloride 20 Meq Tablet.er 20 Meq PO DAILY Ondansetron Odt (Ondansetron) 4 Mg Tab.rapdis 4 Mg IV PRN Q4HRS PRN NICODERM CQ 21mg (Nicotine) 1 Each Patch.td24 1 Patch TD DAILY Lorazepam 0.5 Mg Tablet 0.5 Mg IV Q8HRS Lisinopril 20 Mg Tablet 20 Mg PO DAILY Hydrocodone-Apap 10-325 (Hydrocodone Bit/Acetaminophen) 1 Each Tablet 1 Tab PO QID PRN Marinol (Dronabinol) 5 Mg Capsule 5 Mg PO BIDACLD Celexa (Citalopram Hydrobromide) 40 Mg Tablet 40 Mg PO DAILY Chlorthalidone 25 Mg Tablet 25 Mg PO DAILY Alprazolam 1 Mg Tablet 1 Mg PO TID Vitals/I & O Vital Sign - Last 24 Hours 01/01/17 01/01/17 01/01/17 01/01/17 19:20 20:00 22:12 23:12 Temp 98.4 98.4 Pulse 99 Resp 18 16 16 B/P (MAP) 141/87 (105) Pulse Ox 97 O2 Delivery Room Air Room Air Room Air 01/01/17 01/02/17 01/02/17 01/02/17 23:25 03:25 04:42 07:00 Temp 98.6 98.4 98.0 98.6 98.4 98.0 Pulse 113 93 113 Resp 18 18 16 16 B/P (MAP) 152/96 (114) 165/87 (113) 143/87 (105) Pulse Ox 95 95 O2 Delivery Room Air Room Air Room Air Room Air O2 Flow Rate 94.0 01/02/17 01/02/17 01/02/17 01/02/17 07:52 08:00 10:19 11:00 Temp 98.1 98.1 Pulse 111 96 Resp 14 18 B/P (MAP) 143/87 177/99 (125) Pulse Ox 97 O2 Delivery Room Air Room Air Room Air 01/02/17 01/02/17 01/02/17 01/02/17 14:48 14:56 15:17 16:12 Temp 98.0 98.0 Pulse 96 Resp 18 B/P (MAP) 138/89 (105) Pulse Ox 97 97 O2 Delivery Room Air Room Air Room Air Room Air 01/02/17 17:05 O2 Delivery Room Air Intake and Output 01/01/17 01/01/17 01/02/17 15:00 23:00 07:00 Intake Total 0 ml 0 ml 0 ml Balance 0 ml 0 ml 0 ml Nutrition Consultation Dietary Evaluation: Recommendations by RD: PPN/TPN, Add supplement feedings Comments: continue ppn for short term nutrition at this time Ensure w/ meals in place of milk Expected Outcomes/Goals: to meet > 50% est nutr needs via po intake Interpretation of weight loss: >1-2% in 1 week Malnutrition Findings: Food and Nutrition Intake (Sev: <50% est energy req 5days 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
[2017-01-02 19:25] VITALS: BP 114/72
[2017-01-02] MEDS: ZOLPIDEM 5 MG TABLET. PO PRN (22:23)
[2017-01-02 23:25] VITALS: BP 132/85
[2017-01-03] VITALS (16 sets, daily range): BP systolic 104–144; BP diastolic 58–87
[2017-01-03] MEDS: fentaNYL PF VIAL 100 MCG/2 ML VIAL IV PRN ×4 (04:20→20:04)
[2017-01-03] MEDS: AMINO AC 3%/ELECTROLYTE/GLYCER 1,000 ML IV SCH ×2 (04:21→16:40)
[2017-01-03] MEDS: PANTOPRAZOLE 40 MG TABLET.DR. PO SCH ×2 (06:55→07:30)
[2017-01-03] MEDS: POTASSIUM CHLORIDE 20 MEQ TABLET.ER. PO SCH ×2 (06:55→08:00)
[2017-01-03] MEDS: CITALOPRAM 20 MG TABLET. PO SCH ×2 (06:55→09:00)
[2017-01-03] MEDS: LISINOPRIL 20 MG TABLET PO SCH (06:55)
[2017-01-03] MEDS: ALPRAZolam 1 MG TABLET PO SCH ×4 (06:56→21:54)
[2017-01-03] MEDS: CHLORTHALIDONE 25 MG TABLET. PO SCH ×2 (06:56→09:00)
[2017-01-03] MEDS ORDERED: IV RINGERS,LACTATED 1000ML 1,000 ML IV SCH (07:00)
[2017-01-03] MEDS: INSULIN ASPART 300 UNITS/3 ML INSULN.PEN SQ SCH ×3 (07:51→16:41)
[2017-01-03] MEDS ORDERED: PROPOFOL 20 ML IV ONE (09:14)
--- NOTE | 2017-01-03 09:26 | PDOC4 ---
PROCEDURE Procedure EGD Indication; N, V, wt. loss Meds: per anesthesia Findings: E--Grade II-III reflux esophagitis at 39cm. G--2mm AVM distal body, otherwise normal. Known H.pylori, so not biopsied. D--Normal to proximal 3rd portion. Radha. well. IMP: Reflux esophagitis; some likely related to the vomiting. Non-bleeding gastric AVM REC: PPI po Would pursue LN bx. If continued emesis, SBFT. Thanks. JOSE LUIS PEDRAZA MD Jan 03, 2017 09:26
[2017-01-03] MEDS: DRONABINOL 2.5 MG CAPSULE. PO SCH ×2 (11:02→16:40)
[2017-01-03] MEDS ORDERED: LIDOCAINE 1% / SOD BICARB 8.4% 20 ML VIAL. IJ ONE ×2 (14:41→15:30)
[2017-01-03] MEDS ORDERED: MIDAZOLAM HCL/PF 2 MG/2 ML VIAL. ONE ×2 (15:01→15:24)
[2017-01-03] MEDS ORDERED: fentaNYL PF VIAL 100 MCG/2 ML VIAL IV ONE (15:30)
[2017-01-03] MEDS ORDERED: MIDAZOLAM HCL/PF 2 MG/2 ML VIAL. IV ONE (15:30)
--- NOTE | 2017-01-03 15:50 | PDOC ---
MODERATE SEDATION ASSESSMENT RISKS/ALTERNATIVES Risks/Alternatives Risks and alternatives of this type of sedation and procedure discussed with: RISK/ALTERNATIVES: Patient H & P ON CHART H & P H & P on chart and reviewed for co-morbid conditions and appropriate labs. H&P ON CHART: Yes STATUS PREG STATUS ASSESSED: N/A MEDS/ALLERGIES REVIEWED Meds/Allergies Reviewed Medications and Allergies including time and route of recently administered narcotics and sedatives. MEDS/ALLERGIES REVIEWED: Yes ASA RATING ASA RATING: III AIRWAY ASSESSMENT Airway Assessment Airway patency, oral function limitations, presence of caps, crowns, dentures, partials, and ability to extend neck assessed. AIRWAY ASSESSMENT: Yes MALLAMPATI SCORE MALLAMPATI SCORE: II PRE-SEDATION ASSESSMENT PRE-SEDATION ASSESSMENT: Yes GREGORY MEDINA MD Jan 03, 2017 15:50
--- NOTE | 2017-01-03 15:55 | PDOC ---
Exam Medical Center Manager Medical Center Manager Herlinda Sales Leader Sales Leader Tereso Corrales Pre-Procedure Diagnosis Pre-Procedure Diagnosis 56 YO female smoker with abdominal pain, weight loss, and multifocal lymphadenopathy---? met disease of unknown primary vs lymphoma Post-Procedure Diagnosis Post-Procedure Diagnosis Same Procedure Performed Procedure Performed CT guided bx of enlarged epicardial lymph node within right anterior cardiophrenic angle Type of Anesthesia Type of Anesthesia Local + Mod sedation Estimated Blood Loss EBL: Trace Specimens Specimans 5 18G core bx fragments---all in formalin---insufficient bx material for cell flow Condition of Patient Condition of Patient Stable. No apparent complication. Disposition Disposition From IR/CT return to 660 for recovery. F/u with HIMS, GI, and oncology. Full report to follow. GREGORY MEDINA MD Jan 03, 2017 15:55
--- NOTE | 2017-01-03 16:13 | RAD ---
CT-guided biopsy of enlarging epicardial lymphadenopathy Indication: 66-year-old female smoker with abdominal pain, significant weight loss, and multifocal lymphadenopathy. CT-guided biopsy of retroperitoneal lymphadenopathy was requested, however, an enlarging epicardial node projected within right anterior cardiophrenic angle, was considered more accessible, and was selected for biopsy. Anesthesia: 21 minutes moderate sedation was provided utilizing a total of 3 mg Versed and 150 mcg fentanyl, IV. The patient was appropriately monitored by a qualified independent observer throughout the time of moderate sedation. Consent: The procedure was explained in its entirety to the patient and/or the patient's designated visitor services representative by a member of the treatment team. This included a discussion of risks and benefits and acceptable alternatives to the procedure, as well as expected consequences of no treatment at all. Discussion of risks included, but was not limited to, those that are most frequent and those that are rare, but possibly severe or life-threatening, as well as the possibility of unforeseen complications. Procedure: Informed consent was obtained from the patient. She was placed supine on the CT scanner. Preliminary noncontrast CT images confirmed the presence of a 2 cm epicardial lymph node projecting into right anterior cardiophrenic angle. An overlying right anterior skin site suitable for CT-guided biopsy was selected and marked. That area was prepped and draped in the usual sterile fashion. Moderate sedation was provided with IV Versed and fentanyl. Using aseptic technique, local anesthesia, and CT guidance, a 17-gauge guide needle was successfully advanced to anterior margin of the enlarged epicardial node. A total of 5 18-gauge core biopsies were performed. These biopsies were productive of only very small fragments of tissue, all of which were submitted in formalin to pathology. The biopsy fragments were considered insufficient to submitted for cell flow. The biopsy guide needle was removed and a sterile dressing was applied. Patient tolerated the procedure well without apparent complication. Impression: Uneventful CT-guided biopsy of enlarged epicardial lymph node, as described. PQRS Compliance Statement: One or more of the following individualized dose reduction techniques was utilized for this procedure: 1. Automated exposure control. 2. Adjustment of MA and/or KV according to patient size. 3. Iterative reconstruction technique.
--- NOTE | 2017-01-03 16:27 | PDOC ---
PROGRESS NOTES Chief Complaint Chief Complaint Possible GI malignancy noted on CT abd (? Mets vs Lymphoma) Wt Loss DN HTN History of Present Illness History of Present Illness Pt seen and examined Very anxious Notes and labs reviewed Awaiting EGD Vitals Vitals Vital Signs Date Time Temp Pulse Resp B/P (MAP) Pulse Ox O2 Delivery O2 Flow Rate FiO2 01/03/17 15:36 98 17 95 Nasal Cannula 2.0 01/03/17 10:46 97.9 125/72 (89) 97.9 Physical Exam General: Alert, Oriented X3 Heart: Normal S1, Normal S2 Lungs: Clear Abdomen: Normal bowel sounds, Soft Extremities: No clubbing, No cyanosis Skin: No rashes, No breakdown Labs LABS Laboratory Tests Test 01/02/17 16:41 01/02/17 21:27 01/03/17 07:28 01/03/17 11:05 Glucose (Fingerstick) 106 mg/dL (70-99) 104 mg/dL (70-99) 107 mg/dL (70-99) 96 mg/dL (70-99) Test 01/03/17 16:13 Glucose (Fingerstick) 90 mg/dL (70-99) Review of Systems Review of Systems co severe anxiety co pain Assessment and Plan Assessmemt and Plan Possible GI malignancy noted on CT abd (? Mets vs Lymphoma) Wt Loss DN HTN Plan Await EGD with [facility] med[facility] PPN Problems: Comment Review of Relevant I have reviewed the following items arnulfo (where applicable) has been applied. Labs Laboratory Tests Test 01/01/17 16:40 01/01/17 17:00 01/01/17 21:18 01/02/17 04:40 Prothrombin Time 12.4 SEC (11.7-14.0) Prothromb Time International Ratio 1.0 (0.8-1.1) Glucose (Fingerstick) 105 mg/dL (70-99) 104 mg/dL (70-99) White Blood Count 7.3 x10^3/uL (4.0-11.0) Red Blood Count 4.45 x10^6/uL (3.50-5.40) Hemoglobin 12.8 g/dL (12.0-15.5) Hematocrit 38.8 % (36.0-47.0) Mean Corpuscular Volume 87 fL (79-100) Mean Corpuscular Hemoglobin 29 pg (25-35) Mean Corpuscular Hemoglobin Concent 33 g/dL (31-37) Red Cell Distribution Width 14.3 % (11.5-14.5) Platelet Count 470 x10^3/uL (140-400) Neutrophils (%) (Auto) 66 % (31-73) Lymphocytes (%) (Auto) 17 % (24-48) Monocytes (%) (Auto) 15 % (0-9) Eosinophils (%) (Auto) 1 % (0-3) Basophils (%) (Auto) 1 % (0-3) Neutrophils # (Auto) 4.9 x10^3uL (1.8-7.7) Lymphocytes # (Auto) 1.3 x10^3/uL (1.0-4.8) Monocytes # (Auto) 1.1 x10^3/uL (0.0-1.1) Eosinophils # (Auto) 0.0 x10^3/uL (0.0-0.7) Basophils # (Auto) 0.1 x10^3/uL (0.0-0.2) Sodium Level 130 mmol/L (136-145) Potassium Level 4.5 mmol/L (3.5-5.1) Chloride Level 95 mmol/L (98-107) Carbon Dioxide Level 25 mmol/L (21-32) Anion Gap 10 (6-14) Blood Urea Nitrogen 28 mg/dL (7-20) Creatinine 0.8 mg/dL (0.6-1.0) Estimated GFR (Cockcroft-Gault) 86.3 Glucose Level 105 mg/dL (70-99) Calcium Level 8.8 mg/dL (8.5-10.1) Total Bilirubin 0.5 mg/dL (0.2-1.0) Direct Bilirubin 0.2 mg/dL (0.0-0.2) Aspartate Amino Transf (AST/SGOT) 14 U/L (15-37) Alanine Aminotransferase (ALT/SGPT) 15 U/L (14-59) Alkaline Phosphatase 56 U/L (46-116) Total Protein 6.8 g/dL (6.4-8.2) Albumin 3.3 g/dL (3.4-5.0) Test 01/02/17 07:34 01/02/17 16:41 01/02/17 21:27 01/03/17 07:28 Glucose (Fingerstick) 120 mg/dL (70-99) 106 mg/dL (70-99) 104 mg/dL (70-99) 107 mg/dL (70-99) Test 01/03/17 11:05 01/03/17 16:13 Glucose (Fingerstick) 96 mg/dL (70-99) 90 mg/dL (70-99) Laboratory Tests Test 01/02/17 16:41 01/02/17 21:27 01/03/17 07:28 01/03/17 11:05 Glucose (Fingerstick) 106 mg/dL (70-99) 104 mg/dL (70-99) 107 mg/dL (70-99) 96 mg/dL (70-99) Test 01/03/17 16:13 Glucose (Fingerstick) 90 mg/dL (70-99) Medications Current Medications Potassium Chloride 100 ml @ 100 mls/hr Q1H IV Last administered on 01/01/17 15:50; Start 01/01/17 at 14:00; Stop 01/01/17 at 15:59; Status DC Alprazolam (Xanax) 1 mg TID PO Last administered on 01/02/17 22:23; Start at 16:00 Chlorthalidone (Thalitone) 25 mg DAILY PO Last administered on 01/02/17 07:52 ; Start 01/01/17 at 16:00 Acetaminophen/ Hydrocodone Bitart (Lortab 10/325) 1 tab PRN QID PRN PO PAIN Last administered on 01/02/17 22:23; Start 01/01/17 at 15:45 Lisinopril (Prinivil) 20 mg DAILY PO Last administered on 01/02/17 07:52; Start 01/01/17 at 16:00 Lorazepam (Ativan) 0.5 mg PRN Q8HRS PRN PO ANXIETY Last administered on 20:38; Start 01/01/17 at 16:00 Citalopram Hydrobromide (CeleXA) 40 mg DAILY PO Last administered on 01/02/17 07:51; Start 01/01/17 at 16:00 Dronabinol (Marinol) 5 mg BIDACLD PO Last administered on 01/02/17 16:13; Start 01/01/17 at 16:30 Potassium Chloride (Klor-Con) 20 meq DAILYWBKFT PO Last administered on 07:51; Start 01/02/17 at 08:00 Zolpidem Tartrate (Ambien) 5 mg PRN QHS PRN PO INSOMNIA Last administered on 22:23; Start 01/01/17 at 15:45 Acetaminophen (Tylenol) 650 mg PRN Q6HRS PRN PO FEVER; Start 01/01/17 at 15:45 Ondansetron HCl (Zofran) 4 mg PRN Q6HRS PRN IV NAUSEA/VOMITING Last administered on 01/02/17 03:27; Start 01/01/17 at 15:45 Morphine Sulfate 2 mg PRN Q2HR PRN IV PAIN; Start 01/01/17 at 15:45 Tramadol HCl (Ultram) 50 mg PRN Q6HRS PRN PO PAIN; Start 01/01/17 at 15:45 Hydralazine HCl (Apresoline) 10 mg PRN Q4HRS PRN IVP ELEVATED BP, SEE COMMENTS ; Start 01/01/17 at 15:45 Docusate Sodium (Colace) 100 mg PRN DAILY PRN PO CONSTIPATION; Start 01/01/17 at 15:45 Pantoprazole Sodium (Protonix) 40 mg DAILYAC PO Last administered on 01/02/17 07:51; Start 01/02/17 at 07:30 Enoxaparin Sodium (Lovenox 40mg Syringe) 40 mg Q24H SQ Last administered on 16:16; Start 01/01/17 at 17:00 Amino Acids/ Glycerin/ Electrolytes 1,000 ml @ 80 mls/hr [id number] IV Last administered on 01/03/17 04:21; Start 01/01/17 at 17:00 Albuterol Sulfate (Ventolin Neb Soln) 2.5 mg PRN Q4HRS PRN NEB SHORTNESS OF BREATH; Start 01/01/17 at 15:45 Insulin Aspart (NovoLOG) 0-9 UNITS TIDWMEALS SQ ; Start 01/01/17 at 17:00 Dextrose (Dextrose 50%-Water Syringe) 12.5 gm PRN Q15MIN PRN IV SEE COMMENTS; Start 01/01/17 at 15:45 Iohexol (Omnipaque 240 Mg/ml) 50 ml 1X ONCE PO Last administered on 01/01/17 17:13; Start 01/01/17 at 16:00; Stop 01/01/17 at 16:01; Status DC Iohexol (Omnipaque 300 Mg/ml) 75 ml 1X ONCE IV Last administered on 01/01/17 17:11; Start 01/01/17 at 16:00; Stop 01/01/17 at 16:01; Status DC Info (Do NOT chart on this entry -- for MONITORING) 1 each PRN DAILY PRN MC SEE COMMENTS; Start 01/01/17 at 16:00; Stop 01/03/17 at 15:59; Status DC Nicotine (Nicoderm Cq 21mg) 1 patch PRN DAILY PRN TD SMOKING CESSATION Last administered on 01/02/17 10:19; Start 01/02/17 at 09:15 Fentanyl Citrate (Fentanyl 2ml Vial) 50 mcg PRN Q2HR PRN IV PAIN Last administered on 01/03/17 10:12; Start 01/02/17 at 10:30 Ringer's Solution 1,000 ml @ 50 mls/hr Q20H IV Last administered on 01/03/17 09:06; Start 01/03/17 at 07:00; Stop 01/03/17 at 18:59 Propofol 20 ml @ As Directed STK-MED ONCE IV ; Start 01/03/17 at 09:14; Stop at 09:15; Status DC Lorazepam (Ativan) 1 mg PRN Q4HRS PRN IV ANXIETY / AGITATION Last administered on 01/03/17 11:12; Start 01/03/17 at 11:00 Lidocaine/Sodium Bicarbonate (Buffered Lidocaine 1%) 20 ml STK-MED ONCE IJ ; Start 01/03/17 at 14:41; Stop 01/03/17 at 14:42; Status DC Midazolam HCl (Versed) 2 mg STK-MED ONCE .ROUTE ; Start 01/03/17 at 15:01; Stop 01/03/17 at 15:02; Status DC Midazolam HCl (Versed) 2 mg STK-MED ONCE .ROUTE ; Start 01/03/17 at 15:24; Stop 01/03/17 at 15:25; Status DC Lidocaine/Sodium Bicarbonate (Buffered Lidocaine 1%) 2 ml 1X ONCE IJ Last administered on 01/03/17 15:35; Start 01/03/17 at 15:30; Stop 01/03/17 at 15:35 ; Status DC Midazolam HCl (Versed) 3 mg 1X ONCE IV Last administered on 01/03/17 15:36; Start 01/03/17 at 15:30; Stop 01/03/17 at 15:35; Status DC Fentanyl Citrate (Fentanyl 2ml Vial) 150 mcg 1X ONCE IV Last administered on 15:36; Start 01/03/17 at 15:30; Stop 01/03/17 at 15:35; Status DC Active Scripts Active Reported Zolpidem Tartrate 10 Mg Tablet 10 Mg PO PRN QHS PRN Potassium Chloride 20 Meq Tablet.er 20 Meq PO DAILY Ondansetron Odt (Ondansetron) 4 Mg Tab.rapdis 4 Mg IV PRN Q4HRS PRN NICODERM CQ 21mg (Nicotine) 1 Each Patch.td24 1 Patch TD DAILY Lorazepam 0.5 Mg Tablet 0.5 Mg IV Q8HRS Lisinopril 20 Mg Tablet 20 Mg PO DAILY Hydrocodone-Apap 10-325 (Hydrocodone Bit/Acetaminophen) 1 Each Tablet 1 Tab PO QID PRN Marinol (Dronabinol) 5 Mg Capsule 5 Mg PO BIDACLD Celexa (Citalopram Hydrobromide) 40 Mg Tablet 40 Mg PO DAILY Chlorthalidone 25 Mg Tablet 25 Mg PO DAILY Alprazolam 1 Mg Tablet 1 Mg PO TID Vitals/I & O Vital Sign - Last 24 Hours 01/02/17 01/02/17 01/02/17 01/02/17 19:25 20:00 20:33 22:23 Temp 98.6 98.6 Pulse 106 Resp 18 17 B/P (MAP) 114/72 (86) Pulse Ox 94 97 97 O2 Delivery Room Air Room Air Room Air Room Air 01/02/17 01/02/17 01/03/17 01/03/17 23:23 23:25 04:20 04:50 Temp 98.1 98.1 Pulse 88 Resp 17 18 18 17 B/P (MAP) 132/85 (101) Pulse Ox 97 95 95 95 O2 Delivery Room Air Room Air Room Air 01/03/17 01/03/17 01/03/17 01/03/17 07:13 07:49 07:51 09:00 Temp 96.3 98.6 96.3 98.6 Pulse 107 86 Resp 18 20 B/P (MAP) 112/67 (82) Pulse Ox 96 96 O2 Delivery Room Air Room Air Room Air 01/03/17 01/03/17 01/03/17 01/03/17 09:13 09:22 09:32 09:42 Temp 98.3 98.3 98.3 98.3 98.3 98.3 Pulse 102 92 72 Resp 20 B/P (MAP) 85/50 109/65 142/80 Pulse Ox 99 91 94 O2 Delivery Room Air Room Air Room Air Room Air O2 Flow Rate 94.0 01/03/17 01/03/17 01/03/17 01/03/17 10:12 10:39 10:46 15:14 Temp 97.9 97.9 Pulse 86 90 Resp 18 19 B/P (MAP) 125/72 (89) Pulse Ox 94 95 O2 Delivery Room Air Room Air Room Air Nasal Cannula O2 Flow Rate 2.0 01/03/17 01/03/17 01/03/17 01/03/17 15:19 15:24 15:29 15:36 Pulse 91 98 98 Resp 12 12 14 17 Pulse Ox 96 95 95 96 O2 Delivery Nasal Cannula Nasal Cannula Nasal Cannula Nasal Cannula O2 Flow Rate 2.0 2.0 2.0 2.0 01/03/17 15:36 Pulse 98 Resp 17 Pulse Ox 95 O2 Delivery Nasal Cannula O2 Flow Rate 2.0 Intake and Output 01/02/17 01/02/17 01/03/17 15:00 23:00 07:00 Intake Total 350 ml 200 ml Balance 350 ml 200 ml Nutrition Consultation Dietary Evaluation: Recommendations by RD: PPN/TPN, Add supplement feedings Comments: continue ppn for short term nutrition at this time Ensure w/ meals in place of milk Expected Outcomes/Goals: to meet > 50% est nutr needs via po intake Interpretation of weight loss: >1-2% in 1 week Malnutrition Findings: Food and Nutrition Intake (Sev: <50% est energy req 5days 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
[2017-01-03] MEDS: ENOXAPARIN 40 MG/0.4 ML SYRINGE. SQ SCH (16:40)
[2017-01-03] MEDS: HYDROcodone/APAP 10/325 1 TAB TABLET PO PRN ×2 (16:41→21:54)
[2017-01-03] MEDS: ZOLPIDEM 5 MG TABLET. PO PRN (21:54)
[2017-01-04] MEDS: AMINO AC 3%/ELECTROLYTE/GLYCER 1,000 ML IV SCH ×2 (04:45→17:03)
[2017-01-04] MEDS: HYDROcodone/APAP 10/325 1 TAB TABLET PO PRN ×4 (04:47→19:02)
[2017-01-04 06:20] LABS: CEA 2.9 ng/mL (0.0-4.7)
[2017-01-04 07:00] VITALS: BP 111/70
[2017-01-04] MEDS: PANTOPRAZOLE 40 MG TABLET.DR. PO SCH (07:34)
[2017-01-04] MEDS: INSULIN ASPART 300 UNITS/3 ML INSULN.PEN SQ SCH ×3 (08:00→16:53)
[2017-01-04] MEDS: CHLORTHALIDONE 25 MG TABLET. PO SCH (08:21)
[2017-01-04] MEDS: ALPRAZolam 1 MG TABLET PO SCH ×3 (08:21→20:38)
[2017-01-04] MEDS: CITALOPRAM 20 MG TABLET. PO SCH (08:21)
[2017-01-04] MEDS: LISINOPRIL 20 MG TABLET PO SCH (08:22)
[2017-01-04] MEDS: POTASSIUM CHLORIDE 20 MEQ TABLET.ER. PO SCH (08:25)
[2017-01-04] MEDS: fentaNYL PF VIAL 100 MCG/2 ML VIAL IV PRN ×2 (08:28→21:55)
--- NOTE | 2017-01-04 09:19 | PDOC ---
PROGRESS NOTES Subjective Subjective c/c - Lymphadenopathy ROS - n/v better Objective Objective Vital Signs Date Time Temp Pulse Resp B/P (MAP) Pulse Ox O2 Delivery O2 Flow Rate FiO2 01/04/17 08:28 Room Air 01/04/17 08:22 91 111/70 01/04/17 07:00 98.0 16 93 98.0 01/03/17 15:36 2.0 Intake and Output 01/04/17 07:00 Intake Total 1200 ml Balance 1200 ml Intake Oral 700 ml IV Total 500 ml # Voids 3 Physical Exam Heart: Normal S1, Normal S2 General: Alert, Oriented X3 Lungs: Clear to auscultation Assessment Assessment IMPRESSION AND PLAN: 1. Lymphadenopathy noted on CT scan on 11/20/2016 at [facility]. There is evidence of central retroperitoneal lymphadenopathy as well as probable lymphadenopathy in the disha hepatis and hepatogastric region. The conglomerate film notes in the aortocaval region measuring 3.6 x 2.5 cm. There is abnormal region of low density along the dome of the liver measuring 6 cm, which may represent serosal implants. This is concerning for a malignancy. She has symptoms of nausea and vomiting, abdominal pain, weight loss and poor appetite. I agreed to consult Gastroenterology for further evaluation. She may need upper endoscopy to reevaluate for malignancy. I discussed in detail with the patient regarding the concern for malignancy and need for further workup. She understands and agrees with the plan. s/p EGD 01/02/17, showed reflux, no masses s/p CT guided LN bx 01/03/17. f/u with me next week to discuss results and management. 2. Nausea, vomiting. Appreciate gastrointestinal consultation. s/p EGD 01/02/17 , showed reflux, no masses s/p CT guided LN bx 01/03/17. 3. Abdominal pain. Continue supportive care. GI evaluation awaited. CT chest reveals evidence of lymphadenopathy in the subcarinal region as well as cardiophrenic and internal mammary region. The patient is also concerning for metastatic lymph nodes. Comment Review of Relevant I have reviewed the following items arnulfo (where applicable) has been applied. Labs Laboratory Tests Test 01/02/17 16:41 01/02/17 21:27 01/03/17 07:28 01/03/17 11:05 Glucose (Fingerstick) 106 mg/dL (70-99) 104 mg/dL (70-99) 107 mg/dL (70-99) 96 mg/dL (70-99) Test 01/03/17 16:13 01/03/17 20:30 Glucose (Fingerstick) 90 mg/dL (70-99) 94 mg/dL (70-99) Laboratory Tests Test 01/03/17 11:05 01/03/17 16:13 01/03/17 20:30 Glucose (Fingerstick) 96 mg/dL (70-99) 90 mg/dL (70-99) 94 mg/dL (70-99) Medications Current Medications Potassium Chloride 100 ml @ 100 mls/hr Q1H IV Last administered on 01/01/17 15:50; Start 01/01/17 at 14:00; Stop 01/01/17 at 15:59; Status DC Alprazolam (Xanax) 1 mg TID PO Last administered on 01/04/17 08:21; Start at 16:00 Chlorthalidone (Thalitone) 25 mg DAILY PO Last administered on 01/04/17 08:21 ; Start 01/01/17 at 16:00 Acetaminophen/ Hydrocodone Bitart (Lortab 10/325) 1 tab PRN QID PRN PO PAIN Last administered on 01/04/17 04:47; Start 01/01/17 at 15:45 Lisinopril (Prinivil) 20 mg DAILY PO Last administered on 01/04/17 08:22; Start 01/01/17 at 16:00 Lorazepam (Ativan) 0.5 mg PRN Q8HRS PRN PO ANXIETY Last administered on 20:38; Start 01/01/17 at 16:00 Citalopram Hydrobromide (CeleXA) 40 mg DAILY PO Last administered on 01/04/17 08:21; Start 01/01/17 at 16:00 Dronabinol (Marinol) 5 mg BIDACLD PO Last administered on 01/03/17 16:40; Start 01/01/17 at 16:30 Potassium Chloride (Klor-Con) 20 meq DAILYWBKFT PO Last administered on 08:25; Start 01/02/17 at 08:00 Zolpidem Tartrate (Ambien) 5 mg PRN QHS PRN PO INSOMNIA Last administered on 21:54; Start 01/01/17 at 15:45 Acetaminophen (Tylenol) 650 mg PRN Q6HRS PRN PO FEVER; Start 01/01/17 at 15:45 Ondansetron HCl (Zofran) 4 mg PRN Q6HRS PRN IV NAUSEA/VOMITING Last administered on 01/02/17 03:27; Start 01/01/17 at 15:45 Morphine Sulfate 2 mg PRN Q2HR PRN IV PAIN; Start 01/01/17 at 15:45 Tramadol HCl (Ultram) 50 mg PRN Q6HRS PRN PO PAIN; Start 01/01/17 at 15:45 Hydralazine HCl (Apresoline) 10 mg PRN Q4HRS PRN IVP ELEVATED BP, SEE COMMENTS ; Start 01/01/17 at 15:45 Docusate Sodium (Colace) 100 mg PRN DAILY PRN PO CONSTIPATION; Start 01/01/17 at 15:45 Pantoprazole Sodium (Protonix) 40 mg DAILYAC PO Last administered on 01/04/17 07:34; Start 01/02/17 at 07:30 Enoxaparin Sodium (Lovenox 40mg Syringe) 40 mg Q24H SQ Last administered on 16:40; Start 01/01/17 at 17:00 Amino Acids/ Glycerin/ Electrolytes 1,000 ml @ 80 mls/hr [id number] IV Last administered on 01/04/17 04:45; Start 01/01/17 at 17:00 Albuterol Sulfate (Ventolin Neb Soln) 2.5 mg PRN Q4HRS PRN NEB SHORTNESS OF BREATH; Start 01/01/17 at 15:45 Insulin Aspart (NovoLOG) 0-9 UNITS TIDWMEALS SQ ; Start 01/01/17 at 17:00 Dextrose (Dextrose 50%-Water Syringe) 12.5 gm PRN Q15MIN PRN IV SEE COMMENTS; Start 01/01/17 at 15:45 Iohexol (Omnipaque 240 Mg/ml) 50 ml 1X ONCE PO Last administered on 01/01/17 17:13; Start 01/01/17 at 16:00; Stop 01/01/17 at 16:01; Status DC Iohexol (Omnipaque 300 Mg/ml) 75 ml 1X ONCE IV Last administered on 01/01/17 17:11; Start 01/01/17 at 16:00; Stop 01/01/17 at 16:01; Status DC Info (Do NOT chart on this entry -- for MONITORING) 1 each PRN DAILY PRN MC SEE COMMENTS; Start 01/01/17 at 16:00; Stop 01/03/17 at 15:59; Status DC Nicotine (Nicoderm Cq 21mg) 1 patch PRN DAILY PRN TD SMOKING CESSATION Last administered on 01/02/17 10:19; Start 01/02/17 at 09:15 Fentanyl Citrate (Fentanyl 2ml Vial) 50 mcg PRN Q2HR PRN IV PAIN Last administered on 01/04/17 08:28; Start 01/02/17 at 10:30 Ringer's Solution 1,000 ml @ 50 mls/hr Q20H IV Last administered on 01/03/17 09:06; Start 01/03/17 at 07:00; Stop 01/03/17 at 18:59; Status DC Propofol 20 ml @ As Directed STK-MED ONCE IV ; Start 01/03/17 at 09:14; Stop at 09:15; Status DC Lorazepam (Ativan) 1 mg PRN Q4HRS PRN IV ANXIETY / AGITATION Last administered on 01/03/17 11:12; Start 01/03/17 at 11:00 Lidocaine/Sodium Bicarbonate (Buffered Lidocaine 1%) 20 ml STK-MED ONCE IJ ; Start 01/03/17 at 14:41; Stop 01/03/17 at 14:42; Status DC Midazolam HCl (Versed) 2 mg STK-MED ONCE .ROUTE ; Start 01/03/17 at 15:01; Stop 01/03/17 at 15:02; Status DC Midazolam HCl (Versed) 2 mg STK-MED ONCE .ROUTE ; Start 01/03/17 at 15:24; Stop 01/03/17 at 15:25; Status DC Lidocaine/Sodium Bicarbonate (Buffered Lidocaine 1%) 2 ml 1X ONCE IJ Last administered on 01/03/17 15:35; Start 01/03/17 at 15:30; Stop 01/03/17 at 15:35 ; Status DC Midazolam HCl (Versed) 3 mg 1X ONCE IV Last administered on 01/03/17 15:36; Start 01/03/17 at 15:30; Stop 01/03/17 at 15:35; Status DC Fentanyl Citrate (Fentanyl 2ml Vial) 150 mcg 1X ONCE IV Last administered on t 15:36; Start 01/03/17 at 15:30; Stop 01/03/17 at 15:35; Status DC Active Scripts Active Reported Zolpidem Tartrate 10 Mg Tablet 10 Mg PO PRN QHS PRN Potassium Chloride 20 Meq Tablet.er 20 Meq PO DAILY Ondansetron Odt (Ondansetron) 4 Mg Tab.rapdis 4 Mg IV PRN Q4HRS PRN NICODERM CQ 21mg (Nicotine) 1 Each Patch.td24 1 Patch TD DAILY Lorazepam 0.5 Mg Tablet 0.5 Mg IV Q8HRS Lisinopril 20 Mg Tablet 20 Mg PO DAILY Hydrocodone-Apap 10-325 (Hydrocodone Bit/Acetaminophen) 1 Each Tablet 1 Tab PO QID PRN Marinol (Dronabinol) 5 Mg Capsule 5 Mg PO BIDACLD Celexa (Citalopram Hydrobromide) 40 Mg Tablet 40 Mg PO DAILY Chlorthalidone 25 Mg Tablet 25 Mg PO DAILY Alprazolam 1 Mg Tablet 1 Mg PO TID Vitals/I & O Vital Sign - Last 24 Hours 01/03/17 01/03/17 01/03/17 01/03/17 09:22 09:32 09:42 10:12 Temp 98.3 98.3 98.3 98.3 98.3 98.3 Pulse 102 92 72 Resp 20 20 20 B/P (MAP) 85/50 109/65 142/80 Pulse Ox 99 91 94 O2 Delivery Room Air Room Air Room Air Room Air 01/03/17 01/03/17 01/03/17 01/03/17 10:46 15:14 15:19 15:24 Temp 97.9 97.9 Pulse 86 90 91 98 Resp 18 19 12 12 B/P (MAP) 125/72 (89) Pulse Ox 94 95 96 95 O2 Delivery Room Air Nasal Cannula Nasal Cannula Nasal Cannula O2 Flow Rate 2.0 2.0 2.0 01/03/17 01/03/17 01/03/17 01/03/17 15:29 15:36 15:36 16:00 Temp 97.9 97.9 Pulse 98 98 92 Resp 14 17 17 18 B/P (MAP) 112/76 (88) Pulse Ox 95 96 95 95 O2 Delivery Nasal Cannula Nasal Cannula Nasal Cannula Room Air O2 Flow Rate 2.0 2.0 2.0 01/03/17 01/03/17 01/03/17 01/03/17 16:15 16:30 16:41 16:45 Pulse 95 79 82 Resp 17 17 17 B/P (MAP) 120/72 (88) 111/68 (82) 105/69 (81) Pulse Ox 95 95 97 O2 Delivery Room Air Room Air Room Air Room Air 01/03/17 01/03/17 01/03/17 01/03/17 16:49 17:15 17:44 18:40 Pulse 93 85 101 Resp 17 B/P (MAP) 125/77 (93) 128/86 (100) 109/58 (75) Pulse Ox 96 97 95 O2 Delivery Room Air Room Air Room Air Room Air 01/03/17 01/03/17 01/03/17 01/03/17 19:50 20:00 20:04 20:34 Temp 97.5 97.5 Pulse 93 Resp 18 17 18 B/P (MAP) 107/64 (78) Pulse Ox 97 95 95 O2 Delivery Room Air Room Air Room Air Room Air 01/03/17 01/03/17 01/04/17 01/04/17 21:54 22:52 04:47 05:47 Temp 97.9 97.9 Pulse 88 Resp 18 18 B/P (MAP) 115/74 (88) Pulse Ox 95 98 99 99 O2 Delivery Room Air Room Air Room Air Room Air 01/04/17 01/04/17 01/04/17 07:00 08:22 08:28 Temp 98.0 98.0 Pulse 91 91 Resp 16 B/P (MAP) 111/70 (84) 111/70 Pulse Ox 93 O2 Delivery Room Air Room Air Intake and Output 01/03/17 01/03/17 01/04/17 15:00 23:00 07:00 Intake Total 500 ml 300 ml 400 ml Balance 500 ml 300 ml 400 ml Nutrition Consultation Dietary Evaluation: Recommendations by RD: PPN/TPN, Add supplement feedings Comments: continue ppn for short term nutrition at this time Ensure w/ meals in place of milk Expected Outcomes/Goals: to meet > 50% est nutr needs via po intake Interpretation of weight loss: >1-2% in 1 week Malnutrition Findings: Food and Nutrition Intake (Sev: <50% est energy req 5days 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
[2017-01-04] MEDS: NICOTINE 21MG PATCH. TD PRN (09:30)
--- NOTE | 2017-01-04 10:25 | PDOC ---
Subjective: Subjective: Feeling better, tolerating diet. Objective: Objective: D/w Dr. Jimenez. Had lymph node biopsy yesterday. Per RN - doing well, tolerating PO, plans to advance diet at lunch. Back pain only. Vital Signs: Vital Signs Date Time Temp Pulse Resp B/P (MAP) Pulse Ox O2 Delivery O2 Flow Rate FiO2 01/04/17 09:32 Room Air 01/04/17 08:22 91 111/70 01/04/17 07:00 98.0 16 93 98.0 01/03/17 15:36 2.0 Labs: Laboratory Tests Test 01/03/17 11:05 01/03/17 16:13 01/03/17 20:30 Glucose (Fingerstick) 96 mg/dL (70-99) 90 mg/dL (70-99) 94 mg/dL (70-99) Imaging: EGD 01/03/17 E--Grade II-III reflux esophagitis at 39cm. G--2mm AVM distal body, otherwise normal. Known H.pylori, so not biopsied. D--Normal to proximal 3rd portion. IMP: Reflux esophagitis; some likely related to the vomiting. Non-bleeding gastric AVM PE: GEN: NAD, sitting on edge of bed, thin LUNGS: CTAB HEART: RRR ABD: S/ND/NT NEURO/PSYCH: A & O 3 A/P: Decreased appetite, weight loss, n/v -EGD as above w/ reflux and non-bleeding gastric AVM, on PPI -colonoscopy w/ fair prep in 01/2015, hyperplastic polyp Lymphadenopathy -s/p biopsy yesterday -- Tolerating PO. Continue PPI, DC per primary, plans to f/u w/ onc for results. SHAAN PITTMAN Jan 04, 2017 10:25
[2017-01-04 11:00] VITALS: BP 100/58
[2017-01-04] MEDS: DRONABINOL 2.5 MG CAPSULE. PO SCH ×2 (11:34→16:54)
--- NOTE | 2017-01-04 11:37 | PDOC ---
PROGRESS NOTES Chief Complaint Chief Complaint Possible GI malignancy noted on CT abd (? Mets vs Lymphoma) Wt Loss DN HTN History of Present Illness History of Present Illness Pt seen and examined Very anxious Notes and labs reviewed Awaiting pathology report. Tried to call path Vitals Vitals Vital Signs Date Time Temp Pulse Resp B/P (MAP) Pulse Ox O2 Delivery O2 Flow Rate FiO2 01/04/17 11:00 97.9 100 16 100/58 (72) 95 Room Air 97.9 01/03/17 15:36 2.0 Physical Exam General: Alert, Oriented X3 Heart: Normal S1, Normal S2 Lungs: Clear Abdomen: Normal bowel sounds, Soft Extremities: No clubbing, No cyanosis Skin: No rashes, No breakdown Labs LABS Laboratory Tests Test 01/03/17 16:13 01/03/17 20:30 Glucose (Fingerstick) 90 mg/dL (70-99) 94 mg/dL (70-99) Review of Systems Review of Systems co pain co anxiety Assessment and Plan Assessmemt and Plan Possible GI malignancy noted on CT abd (? Mets vs Lymphoma) Wt Loss DN HTN Plan Awaiting path report PTOT Labs Home meds Ativan Problems: Comment Review of Relevant I have reviewed the following items arnulfo (where applicable) has been applied. Labs Laboratory Tests Test 01/02/17 16:41 01/02/17 21:27 01/03/17 07:28 01/03/17 11:05 Glucose (Fingerstick) 106 mg/dL (70-99) 104 mg/dL (70-99) 107 mg/dL (70-99) 96 mg/dL (70-99) Test 01/03/17 16:13 01/03/17 20:30 Glucose (Fingerstick) 90 mg/dL (70-99) 94 mg/dL (70-99) Laboratory Tests Test 01/03/17 16:13 01/03/17 20:30 Glucose (Fingerstick) 90 mg/dL (70-99) 94 mg/dL (70-99) Medications Current Medications Potassium Chloride 100 ml @ 100 mls/hr Q1H IV Last administered on 01/01/17 15:50; Start 01/01/17 at 14:00; Stop 01/01/17 at 15:59; Status DC Alprazolam (Xanax) 1 mg TID PO Last administered on 01/04/17 08:21; Start at 16:00 Chlorthalidone (Thalitone) 25 mg DAILY PO Last administered on 01/04/17 08:21 ; Start 01/01/17 at 16:00 Acetaminophen/ Hydrocodone Bitart (Lortab 10/325) 1 tab PRN QID PRN PO PAIN Last administered on 01/04/17 09:32; Start 01/01/17 at 15:45 Lisinopril (Prinivil) 20 mg DAILY PO Last administered on 01/04/17 08:22; Start 01/01/17 at 16:00 Lorazepam (Ativan) 0.5 mg PRN Q8HRS PRN PO ANXIETY Last administered on 20:38; Start 01/01/17 at 16:00 Citalopram Hydrobromide (CeleXA) 40 mg DAILY PO Last administered on 01/04/17 08:21; Start 01/01/17 at 16:00 Dronabinol (Marinol) 5 mg BIDACLD PO Last administered on 01/04/17 11:34; Start 01/01/17 at 16:30 Potassium Chloride (Klor-Con) 20 meq DAILYWBKFT PO Last administered on 08:25; Start 01/02/17 at 08:00 Zolpidem Tartrate (Ambien) 5 mg PRN QHS PRN PO INSOMNIA Last administered on 21:54; Start 01/01/17 at 15:45 Acetaminophen (Tylenol) 650 mg PRN Q6HRS PRN PO FEVER; Start 01/01/17 at 15:45 Ondansetron HCl (Zofran) 4 mg PRN Q6HRS PRN IV NAUSEA/VOMITING Last administered on 01/02/17 03:27; Start 01/01/17 at 15:45 Morphine Sulfate 2 mg PRN Q2HR PRN IV PAIN; Start 01/01/17 at 15:45 Tramadol HCl (Ultram) 50 mg PRN Q6HRS PRN PO PAIN; Start 01/01/17 at 15:45 Hydralazine HCl (Apresoline) 10 mg PRN Q4HRS PRN IVP ELEVATED BP, SEE COMMENTS ; Start 01/01/17 at 15:45 Docusate Sodium (Colace) 100 mg PRN DAILY PRN PO CONSTIPATION; Start 01/01/17 at 15:45 Pantoprazole Sodium (Protonix) 40 mg DAILYAC PO Last administered on 01/04/17 07:34; Start 01/02/17 at 07:30 Enoxaparin Sodium (Lovenox 40mg Syringe) 40 mg Q24H SQ Last administered on 16:40; Start 01/01/17 at 17:00 Amino Acids/ Glycerin/ Electrolytes 1,000 ml @ 80 mls/hr [id number] IV Last administered on 01/04/17 04:45; Start 01/01/17 at 17:00 Albuterol Sulfate (Ventolin Neb Soln) 2.5 mg PRN Q4HRS PRN NEB SHORTNESS OF BREATH; Start 01/01/17 at 15:45 Insulin Aspart (NovoLOG) 0-9 UNITS TIDWMEALS SQ ; Start 01/01/17 at 17:00 Dextrose (Dextrose 50%-Water Syringe) 12.5 gm PRN Q15MIN PRN IV SEE COMMENTS; Start 01/01/17 at 15:45 Iohexol (Omnipaque 240 Mg/ml) 50 ml 1X ONCE PO Last administered on 01/01/17 17:13; Start 01/01/17 at 16:00; Stop 01/01/17 at 16:01; Status DC Iohexol (Omnipaque 300 Mg/ml) 75 ml 1X ONCE IV Last administered on 01/01/17 17:11; Start 01/01/17 at 16:00; Stop 01/01/17 at 16:01; Status DC Info (Do NOT chart on this entry -- for MONITORING) 1 each PRN DAILY PRN MC SEE COMMENTS; Start 01/01/17 at 16:00; Stop 01/03/17 at 15:59; Status DC Nicotine (Nicoderm Cq 21mg) 1 patch PRN DAILY PRN TD SMOKING CESSATION Last administered on 01/04/17 09:30; Start 01/02/17 at 09:15 Fentanyl Citrate (Fentanyl 2ml Vial) 50 mcg PRN Q2HR PRN IV PAIN Last administered on 01/04/17 08:28; Start 01/02/17 at 10:30 Ringer's Solution 1,000 ml @ 50 mls/hr Q20H IV Last administered on 01/03/17 09:06; Start 01/03/17 at 07:00; Stop 01/03/17 at 18:59; Status DC Propofol 20 ml @ As Directed STK-MED ONCE IV ; Start 01/03/17 at 09:14; Stop at 09:15; Status DC Lorazepam (Ativan) 1 mg PRN Q4HRS PRN IV ANXIETY / AGITATION Last administered on 01/03/17 11:12; Start 01/03/17 at 11:00 Lidocaine/Sodium Bicarbonate (Buffered Lidocaine 1%) 20 ml STK-MED ONCE IJ ; Start 01/03/17 at 14:41; Stop 01/03/17 at 14:42; Status DC Midazolam HCl (Versed) 2 mg STK-MED ONCE .ROUTE ; Start 01/03/17 at 15:01; Stop 01/03/17 at 15:02; Status DC Midazolam HCl (Versed) 2 mg STK-MED ONCE .ROUTE ; Start 01/03/17 at 15:24; Stop 01/03/17 at 15:25; Status DC Lidocaine/Sodium Bicarbonate (Buffered Lidocaine 1%) 2 ml 1X ONCE IJ Last administered on 01/03/17 15:35; Start 01/03/17 at 15:30; Stop 01/03/17 at 15:35 ; Status DC Midazolam HCl (Versed) 3 mg 1X ONCE IV Last administered on 01/03/17 15:36; Start 01/03/17 at 15:30; Stop 01/03/17 at 15:35; Status DC Fentanyl Citrate (Fentanyl 2ml Vial) 150 mcg 1X ONCE IV Last administered on 15:36; Start 01/03/17 at 15:30; Stop 01/03/17 at 15:35; Status DC Active Scripts Active Reported Zolpidem Tartrate 10 Mg Tablet 10 Mg PO PRN QHS PRN Potassium Chloride 20 Meq Tablet.er 20 Meq PO DAILY Ondansetron Odt (Ondansetron) 4 Mg Tab.rapdis 4 Mg IV PRN Q4HRS PRN NICODERM CQ 21mg (Nicotine) 1 Each Patch.td24 1 Patch TD DAILY Lorazepam 0.5 Mg Tablet 0.5 Mg IV Q8HRS Lisinopril 20 Mg Tablet 20 Mg PO DAILY Hydrocodone-Apap 10-325 (Hydrocodone Bit/Acetaminophen) 1 Each Tablet 1 Tab PO QID PRN Marinol (Dronabinol) 5 Mg Capsule 5 Mg PO BIDACLD Celexa (Citalopram Hydrobromide) 40 Mg Tablet 40 Mg PO DAILY Chlorthalidone 25 Mg Tablet 25 Mg PO DAILY Alprazolam 1 Mg Tablet 1 Mg PO TID Vitals/I & O Vital Sign - Last 24 Hours 01/03/17 01/03/17 01/03/17 01/03/17 15:14 15:19 15:24 15:29 Pulse 90 91 98 98 Resp 19 12 12 14 Pulse Ox 95 96 95 95 O2 Delivery Nasal Cannula Nasal Cannula Nasal Cannula Nasal Cannula O2 Flow Rate 2.0 2.0 2.0 2.0 01/03/17 01/03/17 01/03/17 01/03/17 15:36 15:36 16:00 16:15 Temp 97.9 97.9 Pulse 98 92 95 Resp 18 17 B/P (MAP) 112/76 (88) 120/72 (88) Pulse Ox 96 95 95 95 O2 Delivery Nasal Cannula Nasal Cannula Room Air Room Air O2 Flow Rate 2.0 2.0 01/03/17 01/03/17 01/03/17 01/03/17 16:30 16:41 16:45 16:49 Pulse 79 82 Resp 17 17 B/P (MAP) 111/68 (82) 105/69 (81) Pulse Ox 95 97 O2 Delivery Room Air Room Air Room Air Room Air 01/03/17 01/03/17 01/03/17 01/03/17 17:15 17:44 18:40 19:50 Temp 97.5 97.5 Pulse 93 85 101 93 Resp 17 17 17 18 B/P (MAP) 125/77 (93) 128/86 (100) 109/58 (75) 107/64 (78) Pulse Ox 96 97 95 97 O2 Delivery Room Air Room Air Room Air Room Air 01/03/17 01/03/17 01/03/17 01/03/17 20:00 20:04 20:34 21:54 Resp 17 18 Pulse Ox 95 95 95 O2 Delivery Room Air Room Air Room Air Room Air 01/03/17 01/04/17 01/04/1722/17 22:52 04:47 05:47 07:00 Temp 97.9 98.0 97.9 98.0 Pulse 88 91 Resp 18 18 16 B/P (MAP) 115/74 (88) 111/70 (84) Pulse Ox 98 99 99 93 O2 Delivery Room Air Room Air Room Air Room Air 01/04/17 01/04/17 01/04/17 01/04/17 07:40 08:22 08:28 09:32 Pulse 91 B/P (MAP) 111/70 O2 Delivery Room Air Room Air Room Air 01/04/17 11:00 Temp 97.9 97.9 Pulse 100 Resp 16 B/P (MAP) 100/58 (72) Pulse Ox 95 O2 Delivery Room Air Intake and Output 01/03/17 01/03/17 01/04/17 15:00 23:00 07:00 Intake Total 500 ml 300 ml 400 ml Balance 500 ml 300 ml 400 ml Nutrition Consultation Dietary Evaluation: Recommendations by RD: PPN/TPN, Add supplement feedings Comments: continue ppn for short term nutrition at this time Ensure w/ meals in place of milk Expected Outcomes/Goals: to meet > 50% est nutr needs via po intake Interpretation of weight loss: >1-2% in 1 week Malnutrition Findings: Food and Nutrition Intake (Sev: <50% est energy req 5days 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
[2017-01-04 15:00] VITALS: BP 99/59
[2017-01-04] MEDS: ENOXAPARIN 40 MG/0.4 ML SYRINGE. SQ SCH (16:57)
[2017-01-04 19:00] VITALS: BP 109/64
[2017-01-04] MEDS: ZOLPIDEM 5 MG TABLET. PO PRN (21:55)
[2017-01-04] MEDS: LORazepam 0.5 MG TABLET PO PRN (21:55)
[2017-01-04 23:00] VITALS: BP 100/56
[2017-01-05] MEDS: fentaNYL PF VIAL 100 MCG/2 ML VIAL IV PRN ×2 (00:52→03:08)
[2017-01-05] MEDS: AMINO AC 3%/ELECTROLYTE/GLYCER 1,000 ML IV SCH (03:09)
[2017-01-05] MEDS: HYDROcodone/APAP 10/325 1 TAB TABLET PO PRN ×2 (05:59→11:53)
[2017-01-05 07:00] VITALS: BP 112/69
[2017-01-05] MEDS: INSULIN ASPART 300 UNITS/3 ML INSULN.PEN SQ SCH ×2 (08:00→11:53)
[2017-01-05] MEDS: ALPRAZolam 1 MG TABLET PO SCH (08:01)
[2017-01-05] MEDS: PANTOPRAZOLE 40 MG TABLET.DR. PO SCH (08:01)
[2017-01-05] MEDS: CHLORTHALIDONE 25 MG TABLET. PO SCH (08:01)
[2017-01-05 08:03] VITALS: BP 112/69
[2017-01-05] MEDS: POTASSIUM CHLORIDE 20 MEQ TABLET.ER. PO SCH (08:03)
[2017-01-05] MEDS: CITALOPRAM 20 MG TABLET. PO SCH (08:03)
[2017-01-05] MEDS: LISINOPRIL 20 MG TABLET PO SCH (08:03)
--- NOTE | 2017-01-05 10:55 | PDOC ---
PROGRESS NOTES Subjective Subjective c/c - f/u of Lymphadenopathy Objective Objective Vital Signs Date Time Temp Pulse Resp B/P (MAP) Pulse Ox O2 Delivery O2 Flow Rate FiO2 01/05/17 08:03 84 112/69 01/05/17 08:01 Room Air 01/05/17 07:00 98.2 16 95 98.2 01/04/17 21:55 18.0 Intake and Output 01/05/17 07:00 Intake Total 1729 ml Balance 1729 ml Intake Oral 840 ml IV Total 889 ml # Voids 4 Physical Exam Heart: Normal S1, Normal S2 General: Alert, Oriented X3 Lungs: Clear to auscultation Neuro: Normal speech Psych/Mental Status: Mental status NL Assessment Assessment IMPRESSION AND PLAN: 1. Lymphadenopathy noted on CT scan on 11/20/2016 at [facility]. There is evidence of central retroperitoneal lymphadenopathy as well as probable lymphadenopathy in the disha hepatis and hepatogastric region. The conglomerate film notes in the aortocaval region measuring 3.6 x 2.5 cm. There is abnormal region of low density along the dome of the liver measuring 6 cm, which may represent serosal implants. This is concerning for a malignancy. She has symptoms of nausea and vomiting, abdominal pain, weight loss and poor appetite. I agreed to consult Gastroenterology for further evaluation. She may need upper endoscopy to reevaluate for malignancy. I discussed in detail with the patient regarding the concern for malignancy and need for further workup. She understands and agrees with the plan. s/p EGD 01/02/17, showed reflux, no masses s/p CT guided LN bx 01/03/17. f/u with me next week to discuss results and management. I d/w RN. 2. Nausea, vomiting. Appreciate gastrointestinal consultation. s/p EGD 01/02/17 , showed reflux, no masses s/p CT guided LN bx 01/03/17. Improved. 3. Abdominal pain. Continue supportive care. GI evaluation awaited. CT chest reveals evidence of lymphadenopathy in the subcarinal region as well as cardiophrenic and internal mammary region. The patient is also concerning for metastatic lymph nodes. Improved. Comment Review of Relevant I have reviewed the following items arnulfo (where applicable) has been applied. Labs Laboratory Tests Test 01/03/17 11:05 01/03/17 16:13 01/03/17 20:30 01/04/17 07:22 Glucose (Fingerstick) 96 mg/dL (70-99) 90 mg/dL (70-99) 94 mg/dL (70-99) 106 mg/dL (70-99) Test 01/04/17 11:55 01/04/17 16:37 01/04/17 20:58 01/05/17 07:37 Glucose (Fingerstick) 82 mg/dL (70-99) 89 mg/dL (70-99) 91 mg/dL (70-99) 89 mg/dL (70-99) Laboratory Tests Test 01/04/17 11:55 01/04/17 16:37 01/04/17 20:58 01/05/17 07:37 Glucose (Fingerstick) 82 mg/dL (70-99) 89 mg/dL (70-99) 91 mg/dL (70-99) 89 mg/dL (70-99) Medications Current Medications Potassium Chloride 100 ml @ 100 mls/hr Q1H IV Last administered on 01/01/17 15:50; Start 01/01/17 at 14:00; Stop 01/01/17 at 15:59; Status DC Alprazolam (Xanax) 1 mg TID PO Last administered on 01/05/17 08:01; Start at 16:00 Chlorthalidone (Thalitone) 25 mg DAILY PO Last administered on 01/05/17 08:01 ; Start 01/01/17 at 16:00 Acetaminophen/ Hydrocodone Bitart (Lortab 10/325) 1 tab PRN QID PRN PO PAIN Last administered on 01/05/17 05:59; Start 01/01/17 at 15:45 Lisinopril (Prinivil) 20 mg DAILY PO Last administered on 01/05/17 08:03; Start 01/01/17 at 16:00 Lorazepam (Ativan) 0.5 mg PRN Q8HRS PRN PO ANXIETY Last administered on 21:55; Start 01/01/17 at 16:00 Citalopram Hydrobromide (CeleXA) 40 mg DAILY PO Last administered on 01/05/17 08:03; Start 01/01/17 at 16:00 Dronabinol (Marinol) 5 mg BIDACLD PO Last administered on 01/04/17 16:54; Start 01/01/17 at 16:30 Potassium Chloride (Klor-Con) 20 meq DAILYWBKFT PO Last administered on 08:03; Start 01/02/17 at 08:00 Zolpidem Tartrate (Ambien) 5 mg PRN QHS PRN PO INSOMNIA Last administered on 21:55; Start 01/01/17 at 15:45 Acetaminophen (Tylenol) 650 mg PRN Q6HRS PRN PO FEVER; Start 01/01/17 at 15:45 Ondansetron HCl (Zofran) 4 mg PRN Q6HRS PRN IV NAUSEA/VOMITING Last administered on 01/02/17 03:27; Start 01/01/17 at 15:45 Morphine Sulfate 2 mg PRN Q2HR PRN IV PAIN; Start 01/01/17 at 15:45 Tramadol HCl (Ultram) 50 mg PRN Q6HRS PRN PO PAIN; Start 01/01/17 at 15:45 Hydralazine HCl (Apresoline) 10 mg PRN Q4HRS PRN IVP ELEVATED BP, SEE COMMENTS ; Start 01/01/17 at 15:45 Docusate Sodium (Colace) 100 mg PRN DAILY PRN PO CONSTIPATION; Start 01/01/17 at 15:45 Pantoprazole Sodium (Protonix) 40 mg DAILYAC PO Last administered on 01/05/17 08:01; Start 01/02/17 at 07:30 Enoxaparin Sodium (Lovenox 40mg Syringe) 40 mg Q24H SQ Last administered on 16:57; Start 01/01/17 at 17:00 Amino Acids/ Glycerin/ Electrolytes 1,000 ml @ 80 mls/hr [id number] IV Last administered on 01/05/17 03:09; Start 01/01/17 at 17:00 Albuterol Sulfate (Ventolin Neb Soln) 2.5 mg PRN Q4HRS PRN NEB SHORTNESS OF BREATH; Start 01/01/17 at 15:45 Insulin Aspart (NovoLOG) 0-9 UNITS TIDWMEALS SQ ; Start 01/01/17 at 17:00 Dextrose (Dextrose 50%-Water Syringe) 12.5 gm PRN Q15MIN PRN IV SEE COMMENTS; Start 01/01/17 at 15:45 Iohexol (Omnipaque 240 Mg/ml) 50 ml 1X ONCE PO Last administered on 01/01/17 17:13; Start 01/01/17 at 16:00; Stop 01/01/17 at 16:01; Status DC Iohexol (Omnipaque 300 Mg/ml) 75 ml 1X ONCE IV Last administered on 01/01/17 17:11; Start 01/01/17 at 16:00; Stop 01/01/17 at 16:01; Status DC Info (Do NOT chart on this entry -- for MONITORING) 1 each PRN DAILY PRN MC SEE COMMENTS; Start 01/01/17 at 16:00; Stop 01/03/17 at 15:59; Status DC Nicotine (Nicoderm Cq 21mg) 1 patch PRN DAILY PRN TD SMOKING CESSATION Last administered on 01/04/17 09:30; Start 01/02/17 at 09:15 Fentanyl Citrate (Fentanyl 2ml Vial) 50 mcg PRN Q2HR PRN IV PAIN Last administered on 01/05/17 03:08; Start 01/02/17 at 10:30 Ringer's Solution 1,000 ml @ 50 mls/hr Q20H IV Last administered on 01/03/17 09:06; Start 01/03/17 at 07:00; Stop 01/03/17 at 18:59; Status DC Propofol 20 ml @ As Directed STK-MED ONCE IV ; Start 01/03/17 at 09:14; Stop at 09:15; Status DC Lorazepam (Ativan) 1 mg PRN Q4HRS PRN IV ANXIETY / AGITATION Last administered on 01/03/17 11:12; Start 01/03/17 at 11:00 Lidocaine/Sodium Bicarbonate (Buffered Lidocaine 1%) 20 ml STK-MED ONCE IJ ; Start 01/03/17 at 14:41; Stop 01/03/17 at 14:42; Status DC Midazolam HCl (Versed) 2 mg STK-MED ONCE .ROUTE ; Start 01/03/17 at 15:01; Stop 01/03/17 at 15:02; Status DC Midazolam HCl (Versed) 2 mg STK-MED ONCE .ROUTE ; Start 01/03/17 at 15:24; Stop 01/03/17 at 15:25; Status DC Lidocaine/Sodium Bicarbonate (Buffered Lidocaine 1%) 2 ml 1X ONCE IJ Last administered on 01/03/17 15:35; Start 01/03/17 at 15:30; Stop 01/03/17 at 15:35 ; Status DC Midazolam HCl (Versed) 3 mg 1X ONCE IV Last administered on 01/03/17 15:36; Start 01/03/17 at 15:30; Stop 01/03/17 at 15:35; Status DC Fentanyl Citrate (Fentanyl 2ml Vial) 150 mcg 1X ONCE IV Last administered on 15:36; Start 01/03/17 at 15:30; Stop 01/03/17 at 15:35; Status DC Active Scripts Active Reported Zolpidem Tartrate 10 Mg Tablet 10 Mg PO PRN QHS PRN Potassium Chloride 20 Meq Tablet.er 20 Meq PO DAILY Ondansetron Odt (Ondansetron) 4 Mg Tab.rapdis 4 Mg IV PRN Q4HRS PRN NICODERM CQ 21mg (Nicotine) 1 Each Patch.td24 1 Patch TD DAILY Lisinopril 20 Mg Tablet 20 Mg PO DAILY Hydrocodone-Apap 10-325 (Hydrocodone Bit/Acetaminophen) 1 Each Tablet 1 Tab PO QID PRN Marinol (Dronabinol) 5 Mg Capsule 5 Mg PO BIDACLD Celexa (Citalopram Hydrobromide) 40 Mg Tablet 40 Mg PO DAILY Chlorthalidone 25 Mg Tablet 25 Mg PO DAILY Alprazolam 1 Mg Tablet 1 Mg PO TID Vitals/I & O Vital Sign - Last 24 Hours 01/04/17 01/04/17 01/04/17 01/04/17 11:00 14:13 15:00 19:00 Temp 97.9 97.9 98.1 97.9 97.9 98.1 Pulse 100 94 103 Resp 16 16 18 B/P (MAP) 100/58 (72) 99/59 (72) 109/64 (79) Pulse Ox 95 96 95 O2 Delivery Room Air Room Air Room Air Room Air 01/04/17 01/04/17 01/04/17 01/04/17 19:02 20:00 20:02 21:55 Resp 17 Pulse Ox 96 96 O2 Delivery Room Air Room Air Room Air O2 Flow Rate 18.0 01/04/17 01/05/17 01/05/17 01/05/17 23:00 00:52 03:08 03:38 Temp 97.9 97.9 Pulse 102 Resp 18 17 17 B/P (MAP) 100/56 (71) Pulse Ox 94 95 96 96 O2 Delivery Room Air Room Air Room Air Room Air 01/05/17 01/05/17 01/05/17 01/05/17 05:59 07:00 08:00 08:01 Temp 98.2 98.2 Pulse 84 Resp 17 16 B/P (MAP) 112/69 (83) Pulse Ox 96 95 O2 Delivery Room Air Room Air Room Air Room Air 01/05/17 08:03 Pulse 84 B/P (MAP) 112/69 Intake and Output 01/04/17 01/04/17 01/05/17 15:00 23:00 07:00 Intake Total 1489 ml 240 ml Balance 1489 ml 240 ml Nutrition Consultation Dietary Evaluation: Recommendations by RD: PPN/TPN, Add supplement feedings Comments: continue ppn for short term nutrition at this time Ensure w/ meals in place of milk Expected Outcomes/Goals: to meet > 50% est nutr needs via po intake Interpretation of weight loss: >1-2% in 1 week Malnutrition Findings: Food and Nutrition Intake (Sev: <50% est energy req 5days 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
[2017-01-05] MEDS: DRONABINOL 2.5 MG CAPSULE. PO SCH (11:53)
--- NOTE | 2017-01-05 17:15 | DS ---
DATE OF DISCHARGE: 01/05/2017 ADMISSION DIAGNOSIS: Lymphoma versus some other neoplasm and weight loss. DISCHARGE DIAGNOSIS: Probable neoplasm. (Biopsy was done. We are awaiting the results. She wants to go home. We are going to have her follow up with Hematology/Oncology next week). CONSULTS: Dr. Jimenez and Dr. Bowles. PROCEDURES: EGD with biopsy. HOSPITAL COURSE: The patient is a pleasant elderly female who basically presented with weight loss, weakness, nausea, and abdominal pain. A CAT scan was showing lymphadenopathy and possible mass in her abdomen. She was admitted. She was taken for an EGD with biopsies. We are still awaiting the results of the pathology. ANGEL RENE DO DR: GILLIAN/kathy JOB#: [id number] / [id number]
--- NOTE | 2017-01-05 19:06 | DS ---
DATE OF DISCHARGE: 01/05/2017 DISCHARGE DIAGNOSIS: Lymphadenopathy versus possible gastrointestinal malignancy. DISCHARGE DIAGNOSIS: Lymphoma versus gastrointestinal malignancy (biopsy was done by Dr. Pate. We are awaiting pathology report). HOSPITAL COURSE: The patient is a pleasant elderly female who presented with weight loss, weakness, nausea, and some pain. CAT scan was showing concerns for lymphadenopathy versus possible malignancy. She was admitted. We consulted Gastroenterology. An EGD was done. No obvious cancers were noted. We then consulted Interventional Radiology to perform a biopsy of one of the lymph nodes. That biopsy was done, but the results are pending. The patient wants to go home. We plan to discharge. She was seen and examined this morning. Her heart sounds were normal. Her lungs were clear. Abdomen was soft. Extremities have no edema. We plan to discharge. She is to see Dr. Jimenez next week. DISPOSITION: Home. ACTIVITY: As tolerated. DIET: Low sodium. MEDICATIONS: Please see the MRAD. TOTAL TIME ON DISCHARGE: 31 minutes. ANGEL RENE DO DR: GILLIAN/kathy JOB#: [id number] / [id number]
--- NOTE | 2017-01-08 12:23 | PATHOLOGY ---
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 COMMENT: Immunoperoxidase stains were performed and reveal the following results: TTF-1: negative CK7: positive P40: negative P63: negative P16: positive CK20: negative ER: positive IL: positive BRST positive This case was discussed with Dr. Holden Pate on 01/05/2017 2 pm. Based on the immunoperoxidase stains the primaries include breast, uterus, cervix and ovary. ER, IL and BRST are positive in breast tumors. P16 suggest uterine cervix and uterus. Suggest clinical correlation and mammogram of the breast. This case was also reviewed by Dr. Maritza Bejarano. ([facility]; d/t: 01/05/2017) REPORT ELECTRONICALLY SIGNED BY: Trent Vera M.D. DATE/TIME: 01/08/2017 12:21 * * * * * * * * GROSS PATHOLOGY: Received in formalin labeled "Yeimy Marin, right anterior chest wall nodule," are multiple fragmented needle cores of catalan soft tissue ranging from 0.1 to 0.3 cm in length, which are submitted entirely in cassette A1. ([facility]; 01/04/17) INITIAL CPT CODE(S): A; 15769, 85735, 64504, 47822, 10998, 46425, 30296, 42620, 58703 Professional services performed by [facility] [place] [address] Technical services performed by [facility] at [address] [place] [address], [facility] [address], [place] [address]. SPECIMEN(S) RECEIVED: A.Epicardial node biopsy CLINICAL HISTORY: Metastatic disease with unknown primary vs. lymphoma; weight loss, adenopathy, remote history of cervical cancer PATIENT: YEIMY MARIN /AGE: 3 1950 (Age: 66) PATIENT #: [id number] ALT CASE #: SPECIMEN COLLECTION DATE: 01/03/2017 SPECIMEN RECEIVED DATE: 01/04/2017 [facility] - [id number] [place] [address] - PHONE: [phone] * * * END OF REPORT * * *
== END 2017-01-05 12:45 | disposition home or self-care (01) | DRG 829 ==
LOC: 6 SOUTH 12:21
PROVIDERS: ADMIT Internal Medicine; ATTEND Internal Medicine
PROC: 07BD3ZX Excision of Aortic Lymphatic, Percutaneous Approach, Diagnostic (ICD-10-PCS; 2017-01-03)
PROC: 0DJ08ZZ Inspection of Upper Intestinal Tract, Via Natural or Artificial Opening Endoscopic (ICD-10-PCS; principal; 2017-01-03 10:00)
DX: C76.8 Malignant neoplasm of other specified ill-defined sites (principal); C85.93 Non-Hodgkin lymphoma, unspecified, intra-abdominal lymph nodes; E44.0 Moderate protein-calorie malnutrition; Z68.1 Body mass index [BMI] 19.9 or less, adult; K55.20 Angiodysplasia of colon without hemorrhage; K21.0 Gastro-esophageal reflux disease with esophagitis; Z85.41 Personal history of malignant neoplasm of cervix uteri; E11.9 Type 2 diabetes mellitus without complications; E87.6 Hypokalemia; E86.0 Dehydration; F17.210 Nicotine dependence, cigarettes, uncomplicated; F32.9 Major depressive disorder, single episode, unspecified; F41.9 Anxiety disorder, unspecified; I10 Essential (primary) hypertension; R59.1 Generalized enlarged lymph nodes; J44.9 Chronic obstructive pulmonary disease, unspecified; M81.0 Age-related osteoporosis without current pathological fracture; Z80.9 Family history of malignant neoplasm, unspecified; Z81.1 Family history of alcohol abuse and dependence; Z82.49 Family history of ischemic heart disease and other diseases of the circulatory system; Z86.010 Personal history of colon polyps; Z90.710 Acquired absence of both cervix and uterus; Z90.49 Acquired absence of other specified parts of digestive tract
CPT/HCPCS: 36415; 38505; 71260; 74177; 77012; 80048; 80076; 82378; 82962; 85027; 85610; 86301; 88305; 88341; 88342; 99406; C1892; J1650; J1815; J2060; J2250; J2405; J2704; J3010; J3480; J7120; Q0167; Q9966; Q9967

== ENCOUNTER → 2017-01-25 | Outpatient (CLI) | payer MEDICARE ==
[2017-01-05 08:03] VITALS: BP 112/69
[~2017-01-25] MED LIST: ALPR1TAB6 PO; CHLO25TA PO; CITA40TA12 PO; DRON5CAP PO; HYDR-2766 PO; LISI-334 PO; LORA0.5T IV; NICO1PAT21 TD; ONDA4TAB12 IV; POTA20TA82 PO; ZOLP10TA4 PO
--- NOTE | 2017-01-26 10:20 | RAD ---
FDG tumor localization scan, PET/CT, 01/25/2017: History: Cervical cancer, metastatic disease, possible breast cancer Following IV injection of 11.4 mCi of 18 F-FDG, imaging was performed from the skull base to the proximal thighs. The noncontrast CT component was performed for attenuation correction and anatomic localization purposes rather than for primary diagnosis. The patient's blood glucose level the time of injection was 190 MG/DL. No hypermetabolic lesion is identified in the neck. There is a hypermetabolic lymph node in the internal mammary region in the right upper chest. There is also hypermetabolic adenopathy in the subcarinal region demonstrating a maximum SUV of 10.2. Nodules in the right epicardial fat along the superomedial aspect of the right hemidiaphragm are also hypermetabolic. The larges of these measures 2.1 cm and demonstrates maximum SUV of 8.0 This is the nodule which was recently biopsied. A 6 mm right lower lobe pulmonary nodule does not demonstrate abnormal FDG uptake. There are multiple hypermetabolic lymph nodes in the upper abdomen including the disha hepatis, celiac, pericaval, para-aortic and retrocrural regions. There is a plaque-lie area of hypermetabolic soft tissue along the medial aspect of the right lobe of the liver extending up into the subdiaphragmatic region. There is hypermetabolic tissue involving the right adrenal gland. This upper abdominal hypermetabolic tissue demonstrates maximum SUVs in the 10-12 range. Normal GI tract and urinary tract activity is present. There is a paucity of intra-abdominal fat in this patient. The bowel activity in the pelvis is confluent due to poor separation of these bowel loops. No underlying hypermetabolic pelvic mass is identified, although if present, it would be difficult to distinguish from this bowel activity. No abnormal breast FDG uptake is seen. No hypermetabolic bony lesion is detected. IMPRESSION: Multiple hypermetabolic foci in the upper abdomen, right epicardial/pleurodiaphragmatic region, subcarinal and right internal mammary regions compatible with metastatic disease.
== END | disposition home or self-care (01) ==
LOC: PETSC 12:56
PROVIDERS: ATTEND Internal Medicine Hematology & Oncology
DX: C53.9 Malignant neoplasm of cervix uteri, unspecified (principal); C50.911 Malignant neoplasm of unspecified site of right female breast; R59.1 Generalized enlarged lymph nodes
CPT/HCPCS: 78815; A9552

== ENCOUNTER → 2017-01-31 | Outpatient (CLI) | payer MEDICARE ==
[~2017-01-31] VITALS: Ht 157.5 cm; Wt 39.5 kg
[~2017-01-31] MED LIST changes: +ALEN70TA5 PO; +HEPARIN PF 500 UNIT/5 ML DISP.SYRIN. IV ONE; +LIDOCAINE 1%/EPI 1:100,000 20 ML VIAL. INJ ONE; +LIDOCAINE 1%/EPI 1:100,000 20 ML VIAL. ONE; +METF500T4 PO; +METO100T2 PO; +MIDAZOLAM HCL/PF 2 MG/2 ML VIAL. IV ONE; +UBID100C26 PO; +VANCOMYCIN 1GM IVPB FOR OMNI 250 ML IRR ONE; +fentaNYL PF VIAL 100 MCG/2 ML VIAL IV ONE
[2017-01-31 09:08] VITALS: BP 108/74
[2017-01-31 09:37] LABS: BASO % 0 % (0-3); EOS % 3 % (0-3); HEMATOCRIT 38.6 % (36.0-47.0); HEMOGLOBIN 12.8 g/dL (12.0-15.5); LYMPH # 1.3 x10^3/uL (1.0-4.8); LYMPH % 23 % (24-48); MEAN CORPUSCULAR HEMOGLOBIN 29 pg (25-35); MEAN CORPUSCULAR HGB CONC 33 g/dL (31-37); MEAN CORPUSCULAR VOLUME 86 fL (79-100); MONO % 13 % (0-9); NEUT % 60 % (31-73); PLATELET COUNT 399 x10^3/uL (140-400); RED BLOOD COUNT 4.47 x10^6/uL (3.50-5.40); RED CELL DISTRIBUTION WIDTH 14.1 % (11.5-14.5); WHITE BLOOD COUNT 5.6 x10^3/uL (4.0-11.0)
[2017-01-31 09:40] LABS: PROTHROMBIN TIME PATIENT 12.4 SEC (11.7-14.0)
[2017-01-31 10:55] VITALS: BP 112/65
--- NOTE | 2017-01-31 11:02 | RAD ---
Procedure: Ultrasound and fluoroscopically guided placement of right internal jugular power port.. 01/31/2017 10:56 AM Clinical Indication: Chemotherapy access. Sedation: Conscious sedation was administered for 30 minutes. The patient was monitored by a qualified independent observer throughout the time of sedation. Please refer to the medical record for exact doses of medications utilized to achieve moderate sedation. Fluoroscopy time: 0.4 minutes Dose area product: 0.4 Gycm2 Consent: The procedure was explained in its entirety to the patient or the patients designated credit and collections representative by a member of the treatment team, including a discussion of the risks, benefits and commonly accepted alternatives to the procedure, as well as the expected consequences of no therapy whatsoever. Discussion of the risks included, but was not limited to, those that are most frequent and those that are rare but possibly severe or life-threatening, as well as the possibility of unforeseen complications. Sterility: All elements of maximal sterile barrier technique including the use of a cap, mask, sterile gown, sterile gloves, large sterile sheet, appropriate hand hygiene, and 2% chlorhexidine for cutaneous antisepsis (or acceptable alternative antiseptic per current guidelines) were followed for this procedure. Technique and Findings: Following informed consent, the patient was prepped and draped in the usual sterile fashion. Ultrasound interrogation of the right neck revealed patency and compressibility of the right internal jugular vein. A 21-gauge micropuncture was then used to gain access to this vein under ultrasound guidance. A hard copy ultrasound image was recorded. The needle was exchanged over a wire for a sheath. A 1 inch incision was made several centimeters inferior to the sternotomy site. The catheter was tunneled from this site dermatotomy site in the neck. Catheter was advanced through peel-away sheath such that its tip was in the proximal right atrium with the patient supine. The catheter was trimmed to length and connected to the port reservoir. The wound was closed in layers using 4-0 Vicryl suture. Sterile dressing was applied. Impression: Successful ultrasound and fluoroscopically guided placement of a right internal jugular PowerPort
[2017-01-31 11:21] VITALS: BP 111/67
[2017-01-31 11:30] VITALS: BP 102/66
[2017-01-31 11:45] VITALS: BP 124/74
[2017-01-31 12:00] VITALS: BP 102/66
== END | disposition home or self-care (01) ==
LOC: INTRAD 08:19
PROVIDERS: ATTEND Internal Medicine Hematology & Oncology
DX: C50.919 Malignant neoplasm of unspecified site of unspecified female breast (principal); I10 Essential (primary) hypertension; J44.9 Chronic obstructive pulmonary disease, unspecified; K21.9 Gastro-esophageal reflux disease without esophagitis; E11.9 Type 2 diabetes mellitus without complications; F41.9 Anxiety disorder, unspecified; Z79.01 Long term (current) use of anticoagulants; Z85.41 Personal history of malignant neoplasm of cervix uteri; Z90.710 Acquired absence of both cervix and uterus; Z87.39 Personal history of other diseases of the musculoskeletal system and connective tissue; Z86.39 Personal history of other endocrine, nutritional and metabolic disease; Z72.0 Tobacco use
CPT/HCPCS: 36415; 36561; 76937; 77001; 85027; 85610; 99152; 99153; C1751; C1887; C1892; J0690; J1644; J2250; J3010; J3490

== ENCOUNTER → 2017-04-19 | Outpatient (CLI) | payer MEDICARE ==
[2017-01-31 12:00] VITALS: BP 102/66
[~2017-04-19] MED LIST changes: -HEPARIN PF 500 UNIT/5 ML DISP.SYRIN. IV ONE; -LIDOCAINE 1%/EPI 1:100,000 20 ML VIAL. INJ ONE; -LIDOCAINE 1%/EPI 1:100,000 20 ML VIAL. ONE; -MIDAZOLAM HCL/PF 2 MG/2 ML VIAL. IV ONE; -VANCOMYCIN 1GM IVPB FOR OMNI 250 ML IRR ONE; -fentaNYL PF VIAL 100 MCG/2 ML VIAL IV ONE
--- NOTE | 2017-04-19 12:04 | RAD ---
PET ONCOLOGY CLINICAL INDICATION: History of right breast cancer status post hemotherapy. Restaging scan. FDG PET-CT of the Body TECHNIQUE: The patient received an IV injection of 10.6 mCi 18F-FDG in the right antecubital fossa. After an initial uptake phase of approximately 60-90 minutes, a CT scan without oral contrast, without IV contrast was acquired. Subsequently, positron emission tomography images from the skull base to mid thigh were obtained. CT, PET and fused images were reconstructed in transaxial, coronal, and sagittal projections and interpreted from a workstation. The patient's plasma glucose was 24 mg/dl. An IV contrast enhanced CT scan of the neck/chest/abdomen/pelvis was also acquired as part of this study. Please see separate dictation. PRIOR STUDIES: 01/25/2017 CORRELATIVE STUDIES: CT from 01/01/2017 FINDINGS: CT: Limited study due to lack of IV contrast. The visualized sections through the head are within normal limits. Thyroid within normal limits. Left chest wall Chemo-Port noted with its tear in the SVC. No axillary, mediastinal adenopathy. Evaluation of hilar adenopathy limited due to lack of IV contrast. Heart is normal in size. Coronary artery calcifications noted. No pericardial or pleural effusion. 1.6 x 1.1 cm oval base nodule seen in the anterior aspect of the right lower lobe (series 3 image 190), previously 2.0 x 1.8 cm. Stable 6 mm right lower lobe. Visualized noncontrast appearance of the liver, spleen, gallbladder, pancreas, kidneys within normal limits. Bilateral adrenal gland thickening noted. No bowel obstruction. Severe scarring disease of the abdominal aorta and bilateral iliac arteries. Rectum is significantly distended with stool. Surgical clips are seen in the pelvis. Uterus is surgically absent. No obvious blastic or lytic osseous lesions. PET: The right pericardial pleural-based nodule demonstrates no significant metabolic activity. Previously seen hypermetabolic right internal mammary chain lymph nodes not visualized on current study. Previously seen hypermetabolic subcarinal lymph node does not show hypermetabolic activity on current study. Interval decrease in the hypermetabolic activity in the right subdiaphragmatic recess with SUV max of 4, previously 5. Interval decrease in the hypermetabolic activity in the paracaval region with SUV max of 4, previously 8. Interval decrease in the metabolic activity in the right retrocrural lymph node with SUV max of 2, previously 5. IMPRESSION: PET-CT from the skull base to mid thigh demonstrates: Limited evaluation due to lack of IV contrast. CT was primarily used for anatomic localization. 1. Interval decrease in the metabolic activity in the previously seen right epicardial, subcarinal ,upper abdominal lymph nodes suggesting treatment response. 2. Stable 6 mm right lower lobe pulmonary nodule.
== END | disposition home or self-care (01) ==
LOC: PETSC 07:40
PROVIDERS: ATTEND Internal Medicine Hematology & Oncology
DX: R91.1 Solitary pulmonary nodule (principal); Z85.3 Personal history of malignant neoplasm of breast
CPT/HCPCS: 78815; A9552

== ENCOUNTER → 2017-08-02 | Outpatient (CLI) | payer MEDICARE | END | disposition home or self-care (01) | LOC: PETSC 12:30 | DX: C50.911 Malignant neoplasm of unspecified site of right female breast (principal); J43.9 Emphysema, unspecified; I25.10 Atherosclerotic heart disease of native coronary artery without angina pectoris; R91.1 Solitary pulmonary nodule | CPT/HCPCS: 78815; A9552 ==

== ENCOUNTER → 2017-09-20 | Outpatient (CLI) | payer MEDICARE ==
[~2017-09-20] MED LIST changes: -ALEN70TA5 PO; -ALPR1TAB6 PO; -CHLO25TA PO; -CITA40TA12 PO; +CONTRAST GIVEN MC; -DRON5CAP PO; -HYDR-2766 PO; -LISI-334 PO; -LORA0.5T IV; -METF500T4 PO; -METO100T2 PO; -NICO1PAT21 TD; -ONDA4TAB12 IV; -POTA20TA82 PO; -UBID100C26 PO; -ZOLP10TA4 PO
[2017-09-20] MEDS: IOHEXOL 300 MG/ML 100ML VIAL. IV (08:55)
== END | disposition home or self-care (01) ==
LOC: CT 08:33
DX: J43.9 Emphysema, unspecified (principal); I25.10 Atherosclerotic heart disease of native coronary artery without angina pectoris; R91.1 Solitary pulmonary nodule
CPT/HCPCS: 71275; Q9967

== ENCOUNTER → 2017-10-04 | Outpatient (CLI) | payer MEDICARE ==
[2017-10-04] MEDS: GADOBUTROL 7.5 MMOL/7.5 ML VIAL IV (11:21)
== END | disposition home or self-care (01) ==
LOC: NM 09:35
DX: C50.811 Malignant neoplasm of overlapping sites of right female breast (principal); Z17.0 Estrogen receptor positive status [ER+]; Z86.73 Personal history of transient ischemic attack (TIA), and cerebral infarction without residual deficits
CPT/HCPCS: 70553; 78306; 96374; A9503; A9585

== ENCOUNTER 2017-11-30 09:37 | Inpatient (IN) | payer MEDICARE ==
[2017-11-30 10:39] LABS: ADD MAN DIFF? NO
[2017-11-30 10:43] LABS: BILIRUBIN,URINE NEGATIVE (NEG); CLARITY,URINE CLEAR; COLOR,URINE YELLOW; GLUCOSE,URINE NEGATIVE (NEG); NITRITE,URINE NEGATIVE (NEG); PH,URINE 5.5; PROTEIN,URINE 30 mg/dL (NEG-TRACE); UROBILINOGEN,URINE 0.2 mg/dL (0.2 mg/dL)
[2017-11-30 10:45] LABS: BASO # 0.1 x10^3/uL (0.0-0.2); BASO % 2 % (0-3); EOS # 0.1 x10^3/uL (0.0-0.7); EOS % 2 % (0-3); HEMATOCRIT 35.2 % (36.0-47.0); HEMOGLOBIN 11.7 g/dL (12.0-15.5); LYMPH # 1.8 x10^3/uL (1.0-4.8); LYMPH % 31 % (24-48); MEAN CORPUSCULAR HEMOGLOBIN 29 pg (25-35); MEAN CORPUSCULAR HGB CONC 33 g/dL (31-37); MEAN CORPUSCULAR VOLUME 86 fL (79-100); MONO # 0.8 x10^3/uL (0.0-1.1); MONO % 13 % (0-9); NEUT # 3.1 x10^3uL (1.8-7.7); NEUT % 52 % (31-73); PLATELET COUNT 433 x10^3/uL (140-400); RED CELL DISTRIBUTION WIDTH 16.5 % (11.5-14.5); WHITE BLOOD COUNT 5.9 x10^3/uL (4.0-11.0)
[2017-11-30 10:49] LABS: ANION GAP 12 (6-14); BLOOD UREA NITROGEN 48 mg/dL (7-20); BUN/CREATININE RATIO 17 (6-20); CALCIUM 8.5 mg/dL (8.5-10.1); CARBON DIOXIDE 25 mmol/L (21-32); CHLORIDE 95 mmol/L (98-107); CREATININE 2.9 mg/dL (0.6-1.0); GFR 19.5; GLUCOSE 90 mg/dL (70-99); POTASSIUM 4.5 mmol/L (3.5-5.1); SODIUM 132 mmol/L (136-145)
[2017-11-30 10:55] LABS: ALBUMIN 3.7 g/dL (3.4-5.0); ALK PHOS 72 U/L (46-116); ALT (SGPT) 12 U/L (14-59); AST (SGOT) 11 U/L (15-37); LIPASE 107 U/L (73-393); MAGNESIUM 1.6 mg/dL (1.8-2.4); TOTAL BILIRUBIN 0.3 mg/dL (0.2-1.0); TOTAL PROTEIN 7.5 g/dL (6.4-8.2)
[2017-11-30] MEDS: IV NORMAL SALINE 1000ML BAG 1,000 ML IV ×3 (10:56→21:24)
[2017-11-30 10:57] LABS: LACTIC ACID 1.4 mmol/L (0.4-2.0)
[2017-11-30 11:07] LABS: BACTERIA,URINE 0 /HPF (0-FEW); RBC,URINE 0 /HPF (0-2); SQUAMOUS EPITHELIAL CELL,UR FEW /LPF; WBC,URINE 0 /HPF (0-4)
[2017-11-30] MEDS: MAGNESIUM OXIDE 400 MG TABLET PO ×2 (12:31→16:49)
[2017-11-30] MEDS: ONDANSETRON PF 4 MG/2 ML VIAL. IV (14:41)
[2017-11-30] MEDS ORDERED: ONDANSETRON ODT 4 MG TAB.RAPDIS. PO (15:15)
[2017-11-30] MEDS: NICOTINE 21MG PATCH. TD (15:36)
[2017-11-30] MEDS: ALPRAZolam 1 MG TABLET PO ×2 (15:38→21:17)
[2017-11-30] MEDS: metFORMIN 500 MG TABLET PO (15:39)
[2017-11-30] MEDS: HYDROcodone/APAP 10/325 1 TAB TABLET PO ×2 (15:39→21:25)
[2017-11-30] MEDS: CITALOPRAM 20 MG TABLET. PO (16:00)
[2017-11-30] MEDS: CHLORTHALIDONE 25 MG TABLET. PO (16:49)
[2017-11-30] MEDS: LISINOPRIL 20 MG TABLET PO (16:49)
[2017-11-30] MEDS: DRONABINOL 2.5 MG CAPSULE. PO (16:50)
[2017-11-30 17:02] LABS: POC GLUCOSE 102 mg/dL (70-99)
[2017-11-30] MEDS: METOPROLOL TART IMMED RELEASE 50 MG TABLET. PO (20:15)
[2017-11-30 21:28] LABS: POC GLUCOSE 59 mg/dL (70-99)
[2017-11-30] MEDS: ZOLPIDEM 5 MG TABLET. PO (22:18)
[2017-11-30] MEDS: NICOTINE POLACRILEX 2MG GUM PACKAGE of 12. BC (22:31)
[2017-11-30 22:37] LABS: POC GLUCOSE 100 mg/dL (70-99)
[2017-12-01] MEDS: HYDROcodone/APAP 10/325 1 TAB TABLET PO ×3 (04:02→17:31)
[2017-12-01 08:04] LABS: POC GLUCOSE 96 mg/dL (70-99)
[2017-12-01] MEDS ORDERED: NON FORMULARY ITEM (Ubidecarenone (Coq-10) 200 MG) PO (09:00)
[2017-12-01] MEDS: NICOTINE 21MG PATCH. TD (09:00)
[2017-12-01] MEDS: metFORMIN 500 MG TABLET PO ×2 (09:15→17:28)
[2017-12-01] MEDS: LISINOPRIL 20 MG TABLET PO (09:15)
[2017-12-01] MEDS: CITALOPRAM 20 MG TABLET. PO (09:15)
[2017-12-01] MEDS: ALPRAZolam 1 MG TABLET PO ×3 (09:16→20:55)
[2017-12-01] MEDS: METOPROLOL TART IMMED RELEASE 50 MG TABLET. PO ×2 (09:16→20:56)
[2017-12-01] MEDS: CHLORTHALIDONE 25 MG TABLET. PO (09:16)
[2017-12-01] MEDS: NICOTINE POLACRILEX 2MG GUM PACKAGE of 12. BC (09:22)
[2017-12-01] MEDS: IV NORMAL SALINE 1000ML BAG 1,000 ML IV (10:48)
[2017-12-01 11:11] LABS: POC GLUCOSE 75 mg/dL (70-99)
[2017-12-01 12:29] LABS: HEMATOCRIT 32.9 % (36.0-47.0); HEMOGLOBIN 10.8 g/dL (12.0-15.5); MEAN CORPUSCULAR HEMOGLOBIN 29 pg (25-35); MEAN CORPUSCULAR HGB CONC 33 g/dL (31-37); MEAN CORPUSCULAR VOLUME 88 fL (79-100); PLATELET COUNT 399 x10^3/uL (140-400); RED BLOOD COUNT 3.73 x10^6/uL (3.50-5.40); RED CELL DISTRIBUTION WIDTH 17.1 % (11.5-14.5); WHITE BLOOD COUNT 5.1 x10^3/uL (4.0-11.0)
[2017-12-01] MEDS: DRONABINOL 2.5 MG CAPSULE. PO ×2 (12:45→17:28)
[2017-12-01 12:50] LABS: ALBUMIN/GLOBULIN RATIO 0.8 (1.0-1.7); ALK PHOS 57 U/L (46-116); ALT (SGPT) 11 U/L (14-59); ANION GAP 6 (6-14); AST (SGOT) 10 U/L (15-37); BLOOD UREA NITROGEN 32 mg/dL (7-20); BUN/CREATININE RATIO 27 (6-20); CALCIUM 8.1 mg/dL (8.5-10.1); CARBON DIOXIDE 26 mmol/L (21-32); CHLORIDE 106 mmol/L (98-107); CREATININE 1.2 mg/dL (0.6-1.0); GFR 53.9; GLUCOSE 103 mg/dL (70-99); POTASSIUM 4.6 mmol/L (3.5-5.1); SODIUM 138 mmol/L (136-145); TOTAL BILIRUBIN 0.4 mg/dL (0.2-1.0); TOTAL PROTEIN 6.6 g/dL (6.4-8.2)
[2017-12-01 16:52] LABS: POC GLUCOSE 56 mg/dL (70-99)
[2017-12-01] MEDS: ZOLPIDEM 5 MG TABLET. PO (20:55)
[2017-12-01 21:22] LABS: POC GLUCOSE 101 mg/dL (70-99)
[2017-12-02] MEDS: HYDROcodone/APAP 10/325 1 TAB TABLET PO ×3 (00:37→12:13)
[2017-12-02 04:57] LABS: HEMATOCRIT 33.3 % (36.0-47.0); HEMOGLOBIN 10.9 g/dL (12.0-15.5); MEAN CORPUSCULAR HEMOGLOBIN 29 pg (25-35); MEAN CORPUSCULAR HGB CONC 33 g/dL (31-37); MEAN CORPUSCULAR VOLUME 88 fL (79-100); PLATELET COUNT 439 x10^3/uL (140-400); RED BLOOD COUNT 3.78 x10^6/uL (3.50-5.40); RED CELL DISTRIBUTION WIDTH 16.9 % (11.5-14.5); WHITE BLOOD COUNT 4.4 x10^3/uL (4.0-11.0)
[2017-12-02 05:25] LABS: ALBUMIN 2.9 g/dL (3.4-5.0); ALBUMIN/GLOBULIN RATIO 0.9 (1.0-1.7); ALK PHOS 104 U/L (46-116); ALT (SGPT) 51 U/L (14-59); ANION GAP 7 (6-14); AST (SGOT) 48 U/L (15-37); BLOOD UREA NITROGEN 23 mg/dL (7-20); BUN/CREATININE RATIO 23 (6-20); CARBON DIOXIDE 27 mmol/L (21-32); CHLORIDE 109 mmol/L (98-107); GFR 66.5; GLUCOSE 90 mg/dL (70-99); POTASSIUM 4.5 mmol/L (3.5-5.1); SODIUM 143 mmol/L (136-145); TOTAL BILIRUBIN 0.2 mg/dL (0.2-1.0); TOTAL PROTEIN 6.3 g/dL (6.4-8.2)
[2017-12-02 08:13] LABS: POC GLUCOSE 65 mg/dL (70-99)
[2017-12-02] MEDS: METOPROLOL TART IMMED RELEASE 50 MG TABLET. PO (08:15)
[2017-12-02] MEDS: CITALOPRAM 20 MG TABLET. PO (08:16)
[2017-12-02] MEDS: metFORMIN 500 MG TABLET PO (08:16)
[2017-12-02] MEDS: ALPRAZolam 1 MG TABLET PO ×2 (08:16→14:00)
[2017-12-02] MEDS: MAGNESIUM OXIDE 400 MG TABLET PO (08:16)
[2017-12-02] MEDS: LISINOPRIL 20 MG TABLET PO (08:16)
[2017-12-02] MEDS: NICOTINE POLACRILEX 2MG GUM PACKAGE of 12. BC (08:17)
[2017-12-02] MEDS: CHLORTHALIDONE 25 MG TABLET. PO (08:17)
[2017-12-02] MEDS: NICOTINE 21MG PATCH. TD (09:00)
[2017-12-02 11:48] LABS: POC GLUCOSE 132 mg/dL (70-99)
[2017-12-02] MEDS: DRONABINOL 2.5 MG CAPSULE. PO (12:10)
[2017-12-02 17:12] LABS: POC GLUCOSE 72 mg/dL (70-99)
[2017-12-07] MEDS ORDERED: NON FORMULARY ITEM (Alendronate Sodium 70 MG) PO (09:00)
== END 2017-12-02 16:00 | disposition home or self-care (01) | DRG 683 ==
LOC: ER 09:37 → 5 NORTH 12:10
DX: N17.9 Acute kidney failure, unspecified (principal); C85.90 Non-Hodgkin lymphoma, unspecified, unspecified site; C50.819 Malignant neoplasm of overlapping sites of unspecified female breast; E83.42 Hypomagnesemia; E87.1 Hypo-osmolality and hyponatremia; D47.3 Essential (hemorrhagic) thrombocythemia; E86.0 Dehydration; D63.0 Anemia in neoplastic disease; E11.9 Type 2 diabetes mellitus without complications; F12.90 Cannabis use, unspecified, uncomplicated; I10 Essential (primary) hypertension; J44.9 Chronic obstructive pulmonary disease, unspecified; K21.9 Gastro-esophageal reflux disease without esophagitis; K52.9 Noninfective gastroenteritis and colitis, unspecified; Z17.0 Estrogen receptor positive status [ER+]; Z80.9 Family history of malignant neoplasm, unspecified; Z83.3 Family history of diabetes mellitus; Z85.41 Personal history of malignant neoplasm of cervix uteri; Z87.891 Personal history of nicotine dependence; Z90.49 Acquired absence of other specified parts of digestive tract; Z90.710 Acquired absence of both cervix and uterus; Z92.21 Personal history of antineoplastic chemotherapy; F32.9 Major depressive disorder, single episode, unspecified; Z71.89 Other specified counseling
CPT/HCPCS: 36415; 80053; 81001; 82962; 83605; 83690; 83735; 85025; 85027; 96360; 99285; 99285-25; J2405; J7030; Q0167

== ENCOUNTER → 2017-12-13 | Outpatient (CLI) | payer MEDICARE | END | disposition home or self-care (01) | LOC: PETSC 14:01 | DX: C50.811 Malignant neoplasm of overlapping sites of right female breast (principal); Z17.0 Estrogen receptor positive status [ER+] | CPT/HCPCS: 78815; A9552 ==

== ENCOUNTER → 2018-03-14 | Outpatient (CLI) | payer MEDICARE ==
[2017-12-02 08:16] VITALS: BP 179/74
[~2018-03-14] MED LIST changes: +ALEN70TA5 PO; +ALPR1TAB6 PO; +CHLO25TA PO; +CITA40TA12 PO; -CONTRAST GIVEN MC; +DRON5CAP PO; +HYDR-2766 PO; +LISI-334 PO; +LORA0.5T IV; +MAGN400T22 PO; +METF500T5 PO; +METO100T7 PO; +NICO1PAT21 TD; +ONDA4TAB12 IV; +POTA20TA82 PO; +UBID100C26 PO; +ZOLP10TA4 PO
--- NOTE | 2018-03-14 11:49 | RAD ---
FDG tumor localization scan, PET/CT, 03/14/2018: History: Restaging breast cancer Following IV injection of 13.6 mCi of 18 F-FDG, imaging was performed from the skull base to the proximal thighs. The noncontrast CT component was performed for attenuation correction and anatomic localization purposes rather than for primary diagnosis. The patient's blood glucose level at the time of injection was 93 MG/DL. Physiologic activity is present in the neck. There is a hypermetabolic soft tissue nodule in the right internal mammary region which demonstrates a maximum SUV of 3.4. This nodule measures approximately 8 x 18 mm and has increased in size since 12/13/2017. A small nodule in the right epicardial fat just posterior to the lower chest wall has also increased slightly in size. It is hypermetabolic with a maximum SUV of 4.5 compared to a value of 4.1 on the previous study. The hypermetabolic process along the superomedial aspect of the right lobe of the liver has increased in size. It demonstrates a maximum SUV of 5.6 similar to that seen on the previous study. There are now small hypermetabolic retrocrural foci noted in the right retrocrural region. Hypermetabolic foci seen in the periaortic and celiac regions also appear to progress slightly. These are difficult to clearly localize on the CT component due to a paucity of intra-abdominal fat and cannot be clearly from bowel in some areas. The celiac region hypermetabolic focus demonstrates a maximum SUV of 6.2, similar to that seen on the previous study. A hypermetabolic lesion which probably involves the right adrenal gland demonstrates a maximum SUV of 5.9 compared to value of 5.5 on the previous study. The CT component demonstrates a 6 mm nodule in the right lower lobe which appears to be unchanged and remains FDG-PET negative. There is a new 5 mm spiculated nodule in the posterior aspect of the right lower lobe as seen on image 133 of series [address] images. It does not demonstrate increased FDG uptake. IMPRESSION: 1. Hypermetabolic foci in the upper abdomen, liver and right. peridiaphragmatic region have progressed slightly with new hypermetabolic foci now seen in the right internal mammary and right retrocrural regions, compatible with worsening metastatic disease. 2. New small right lower lobe pulmonary nodule which does not show abnormal FDG uptake, however, that may be due to its small size.
== END | disposition home or self-care (01) ==
LOC: PETSC 08:15
PROVIDERS: ATTEND Internal Medicine Hematology & Oncology
DX: R91.1 Solitary pulmonary nodule (principal); I10 Essential (primary) hypertension; E11.9 Type 2 diabetes mellitus without complications; J43.9 Emphysema, unspecified; E87.6 Hypokalemia; K21.9 Gastro-esophageal reflux disease without esophagitis; Z87.891 Personal history of nicotine dependence; Z85.3 Personal history of malignant neoplasm of breast; Z86.39 Personal history of other endocrine, nutritional and metabolic disease; Z87.39 Personal history of other diseases of the musculoskeletal system and connective tissue; Z86.010 Personal history of colon polyps; Z92.21 Personal history of antineoplastic chemotherapy; Z90.49 Acquired absence of other specified parts of digestive tract; Z90.710 Acquired absence of both cervix and uterus; Z68.1 Body mass index [BMI] 19.9 or less, adult; Z83.3 Family history of diabetes mellitus; Z81.1 Family history of alcohol abuse and dependence
CPT/HCPCS: 78815; A9552

== ENCOUNTER 2018-05-03 10:05 | Inpatient (IN) | payer MEDICARE ==
[~2018-05-03] VITALS: Ht 157.5 cm; Wt 37.6 kg
[~2018-05-03 10:05] MED LIST changes: +METF500T16 PO; -METF500T5 PO
[2018-05-03] MEDS ORDERED: IV NORMAL SALINE 500ML BAG 500 ML IV ONE (10:30)
[2018-05-03 10:36] LABS: BASO % 1 % (0-3); EOS # 0.1 x10^3/uL (0.0-0.7); EOS % 2 % (0-3); HEMATOCRIT 36.8 % (36.0-47.0); HEMOGLOBIN 12.7 g/dL (12.0-15.5); LYMPH # 1.7 x10^3/uL (1.0-4.8); LYMPH % 38 % (24-48); MEAN CORPUSCULAR HEMOGLOBIN 30 pg (25-35); MEAN CORPUSCULAR HGB CONC 34 g/dL (31-37); MEAN CORPUSCULAR VOLUME 88 fL (79-100); MONO # 0.3 x10^3/uL (0.0-1.1); MONO % 7 % (0-9); NEUT # 2.4 x10^3uL (1.8-7.7); NEUT % 53 % (31-73); PLATELET COUNT 370 x10^3/uL (140-400); RED BLOOD COUNT 4.19 x10^6/uL (3.50-5.40); RED CELL DISTRIBUTION WIDTH 15.1 % (11.5-14.5); WHITE BLOOD COUNT 4.6 x10^3/uL (4.0-11.0)
--- NOTE | 2018-05-03 10:47 | PHYS DOC ---
Past Medical History Past Medical History: Diabetes-Type II, Hypertension Additional Past Medical Histor: LYMPHOMA,CERVICAL CANCER Past Surgical History: Appendectomy, Hysterectomy Additional Past Surgical Histo: LEFT FOOT Smoking: Cigarettes Alcohol Use: None Adult General Chief Complaint Chief Complaint: DIZZY/LIGHT HEADED HPI HPI 67-year-old female currently undergoing chemotherapy for age for breast cancer. She started her chemotherapy (Ibrance) about one week ago. She's been having nausea and vomiting for the first few days of therapy and then over the past 2- 3 days she's been very weak at home. She denies any pain at this point. Her weaknesses worse when she stands up. She denies fevers or chills. adenocarcinoma of breast origin. Cancer Hx: "PET scan on 01/25/2017 revealed multiple hypermetabolic foci in the upper abdomen, right epicardial/pleurodiaphragmatic region, subcarinal and right internal mammary region compatible with metastatic disease. Mammogram on 01/24/2017 was negative. The ER was positive at 76%, MS positive 14.7%, HER-2/soha negative. She was started on palliative chemotherapy with Abraxane on 02/02/2017 for management of stage IV breast cancer. She has been responding well. Followup PET scans revealed improvement in the metabolic activity in the above-mentioned lymph nodes. She received cycle #10, day #8 of Abraxane treatment on 11/23/2017. " "PAST MEDICAL HISTORY: Cancer of the cervix on 07/19/2005, T1b N0 M0. She had surgery at [facility]. No history of radiation therapy. Other history also includes hypertension, diabetes mellitus. FAMILY HISTORY: Positive for diabetes. Brother and sister had cancer of unknown type. SOCIAL HISTORY: She has a history of smoking 1 pack of cigarettes per day since the age of 22." Review of systems is negative for chest pain shortness of breath abdominal pain. Positive for vomiting. Negative for neck pain or headache. All other review of systems is negative unless otherwise noted in history of present illness. ED course: 67-year-old female with a history of stage IV breast cancer currently healing undergoing palliative chemotherapy presenting to the emergency department with nausea vomiting and dehydration. On arrival she is hypotensive. IV fluids initiated. Blood work obtained along with EKG. EKG shows sinus rhythm with a regular rate. ST segments congruent. Not suggestive of ACS. Patient's blood pressure came up with IV fluid administration. Chemistry shows elevated creatinine with mildly low magnesium. We will admit the patient in the hospital for renal consultation. Dr. AZAR excessive patient for admission. Impression: Hypomagnesemia, acute kidney injury versus renal failure, stage IV breast cancer. Dehydration. Review of Systems Review of Systems SEE ABOVE. Current Medications Current Medications Current Medications Medications (Trade) Dose Ordered Sig/Ashley Start Time Stop Time Status Last Admin Dose Admin Sodium Chloride 500 ml @ 500 mls/hr 1X ONCE 05/03/18 10:30 05/03/18 11:29 DC 05/03/18 10:35 500 MLS/HR Allergies Allergies Allergies Coded Allergies Type Severity Reaction Last Updated Verified No Known Drug Allergies 01/03/17 No Physical Exam Physical Exam SEE ABOVE Constitutional: moderately cachectic in appearance, no acute distress. HENT: Normocephalic, atraumatic, bilateral external ears normal, oropharynx moist, no oral exudates, nose normal. [] Eyes: PERRLA, EOMI, conjunctiva normal, no discharge. [] Neck: Normal range of motion, no tenderness, supple, no stridor. Cardiovascular:Heart rate regular rhythm, no murmur [] Lungs & Thorax: Bilateral breath sounds clear to auscultation Abdomen: Bowel sounds normal, soft, no tenderness, no masses, no pulsatile masses. [] Skin: Warm, dry, no erythema, no rash. [] Back: No tenderness, no CVA tenderness. [] Extremities: No tenderness, no cyanosis, no clubbing, ROM intact, no edema. Neurologic: Alert and oriented X 3, normal motor function, normal sensory function, no focal deficits noted. [] Psychologic: Affect normal, judgement normal, mood normal. [] Current Patient Data Vital Signs Vital Signs Date Time Temp Pulse Resp B/P (MAP) Pulse Ox O2 Delivery O2 Flow Rate FiO2 05/03/18 10:29 98.0 87 16 73/52 (59) 94 Room Air 98.0 Lab Values Laboratory Tests Test 05/03/18 10:11 05/03/18 10:50 05/03/18 11:35 White Blood Count 4.6 x10^3/uL (4.0-11.0) Red Blood Count 4.19 x10^6/uL (3.50-5.40) Hemoglobin 12.7 g/dL (12.0-15.5) Hematocrit 36.8 % (36.0-47.0) Mean Corpuscular Volume 88 fL (79-100) Mean Corpuscular Hemoglobin 30 pg (25-35) Mean Corpuscular Hemoglobin Concent 34 g/dL (31-37) Red Cell Distribution Width 15.1 % (11.5-14.5) H Platelet Count 370 x10^3/uL (140-400) Neutrophils (%) (Auto) 53 % (31-73) Lymphocytes (%) (Auto) 38 % (24-48) Monocytes (%) (Auto) 7 % (0-9) Eosinophils (%) (Auto) 2 % (0-3) Basophils (%) (Auto) 1 % (0-3) Neutrophils # (Auto) 2.4 x10^3uL (1.8-7.7) Lymphocytes # (Auto) 1.7 x10^3/uL (1.0-4.8) Monocytes # (Auto) 0.3 x10^3/uL (0.0-1.1) Eosinophils # (Auto) 0.1 x10^3/uL (0.0-0.7) Basophils # (Auto) 0.0 x10^3/uL (0.0-0.2) Sodium Level 131 mmol/L (136-145) L Potassium Level 3.5 mmol/L (3.5-5.1) Chloride Level 93 mmol/L (98-107) L Carbon Dioxide Level 26 mmol/L (21-32) Anion Gap 12 (6-14) Blood Urea Nitrogen 72 mg/dL (7-20) H Creatinine 3.7 mg/dL (0.6-1.0) H Estimated GFR (Cockcroft-Gault) 14.7 Glucose Level 101 mg/dL (70-99) H Calcium Level 8.4 mg/dL (8.5-10.1) L Magnesium Level 1.6 mg/dL (1.8-2.4) L Total Bilirubin 0.5 mg/dL (0.2-1.0) Direct Bilirubin 0.2 mg/dL (0.0-0.2) Aspartate Amino Transferase (AST) 11 U/L (15-37) L Alanine Aminotransferase (ALT) 13 U/L (14-59) L Alkaline Phosphatase 49 U/L (46-116) Troponin I Quantitative < 0.017 ng/mL (0.000-0.055) Total Protein 6.2 g/dL (6.4-8.2) L Albumin 3.3 g/dL (3.4-5.0) L Lipase 78 U/L (73-393) Urine Collection Type Unknown Urine Color Yellow Urine Clarity Clear Urine pH 5.0 Urine Specific [place] 1.020 Urine Protein Negative mg/dL (NEG-TRACE) Urine Glucose (UA) Negative mg/dL (NEG) Urine Ketones (Stick) Negative mg/dL (NEG) Urine Blood Negative (NEG) Urine Nitrite Negative (NEG) Urine Bilirubin Negative (NEG) Urine Urobilinogen Dipstick 0.2 mg/dL (0.2 mg/dL) Urine Leukocyte Esterase Negative (NEG) Urine RBC 0 /HPF (0-2) Urine WBC 0 /HPF (0-4) Urine Squamous Epithelial Cells Few /LPF Urine Bacteria 0 /HPF (0-FEW) Laboratory Tests 05/03/18 10:11 Laboratory Tests 05/03/18 10:50 EKG EKG [] Radiology/Procedures Radiology/Procedures [] Course & Med Decision Making Course & Med Decision Making Pertinent Labs and Imaging studies reviewed. (See chart for details) [] Dragon Disclaimer Dragon Disclaimer This electronic medical record was generated, in whole or in part, using a voice recognition dictation system. Departure Departure Disposition: ADMITTED INPATIENT Condition: STABLE Referrals: SHELBY TRAN MD (PCP) DANGELO POTTS MD May 03, 2018 10:46
[2018-05-03 11:08] LABS: CALCIUM 8.4 mg/dL (8.5-10.1); CREATININE 3.7 mg/dL (0.6-1.0); GFR 14.7; POTASSIUM 3.5 mmol/L (3.5-5.1)
[2018-05-03 11:14] LABS: ALBUMIN 3.3 g/dL (3.4-5.0); DIRECT BILIRUBIN 0.2 mg/dL (0.0-0.2); MAGNESIUM 1.6 mg/dL (1.8-2.4); TOTAL BILIRUBIN 0.5 mg/dL (0.2-1.0); TOTAL PROTEIN 6.2 g/dL (6.4-8.2)
[2018-05-03 11:47] LABS: BILIRUBIN,URINE NEGATIVE (NEG); CLARITY,URINE CLEAR; COLOR,URINE YELLOW; NITRITE,URINE NEGATIVE (NEG); PROTEIN,URINE NEGATIVE (NEG-TRACE); UROBILINOGEN,URINE 0.2 mg/dL (0.2 mg/dL)
[2018-05-03 12:00] LABS: BACTERIA,URINE 0 /HPF (0-FEW); RBC,URINE 0 /HPF (0-2); SQUAMOUS EPITHELIAL CELL,UR FEW /LPF; WBC,URINE 0 /HPF (0-4)
[2018-05-03] MEDS ORDERED: MORPHINE SULFATE 2 MG/ML VIAL. IV PRN (12:00)
[2018-05-03] MEDS ORDERED: IV NORMAL SALINE 1000ML BAG 1,000 ML IV SCH (12:00)
[2018-05-03] MEDS ORDERED: ONDANSETRON PF 4 MG/2 ML VIAL. IV PRN ×2 (12:00→15:45)
[2018-05-03] MEDS ORDERED: HYDROcodone/APAP 5/325MG 1 TAB TABLET PO ONE (12:45)
--- NOTE | 2018-05-03 13:26 | EKG ---
[facility] [address] [place] [address] Test Date: 2018-05-03 Test Time: 10:23:21 Pat Name: MATEO PORTER Department: Room: 410 Gender: F Protocol Manager: : [id number] Requested By: DANGELO POTTS Order Number: [id number] Reading MD: Ryan Villanueva MD Measurements Intervals [place] Rate: 83 P: 76 FL: 118 QRS: 74 QRSD: 86 T: 84 QT: 400 QTc: 471 Interpretive Statements SINUS RHYTHM PAC Electronically Signed On 05-04-2018 13:46:46 CDT by Ryan Villanueva MD
[2018-05-03] MEDS ORDERED: DEXTROSE 50% 25 GM / 50ML DISP.SYRIN. IV PRN ×2 (14:00→16:15)
[2018-05-03] MEDS ORDERED: MAGNESIUM SULFATE 2GM 50 ML IV ONE (14:30)
[2018-05-03 15:00] VITALS: BP_SYST 100; BP_SYST 104; BP_SYST 121; BP_DIAS 61; BP_DIAS 65; BP_DIAS 66
[2018-05-03] MEDS ORDERED: HYDROcodone/APAP 5/325MG 1 TAB TABLET PO PRN (15:00)
[2018-05-03] MEDS ORDERED: ONDANSETRON ODT 4 MG TAB.RAPDIS. PO PRN (15:45)
[2018-05-03] MEDS: IV RINGERS,LACTATED 1000ML 1,000 ML IV SCH ×3 (15:45→23:00)
[2018-05-03] MEDS ORDERED: LACTULOSE 20 GM/30 ML SOLUTION. PO PRN (15:45)
[2018-05-03] MEDS ORDERED: HYDROcodone/APAP 10/325 1 TAB TABLET PO PRN (15:45)
[2018-05-03] MEDS: ALPRAZolam 1 MG TABLET PO SCH ×2 (15:56→20:59)
[2018-05-03] MEDS: PSYLLIUM HUSK (SUGAR FREE) 1 PKT PACKET PO SCH (16:00)
[2018-05-03] MEDS: POLYETHYLENE GLYCOL 3350 17 GM PACKET. PO SCH (16:00)
[2018-05-03] MEDS ORDERED: PROCHLORPERAZINE 10 MG/2 ML VIAL. IV PRN (16:00)
[2018-05-03] MEDS: DRONABINOL 2.5 MG CAPSULE. PO SCH (16:01)
[2018-05-03] MEDS: NICOTINE 21MG PATCH. TD SCH (16:03)
--- NOTE | 2018-05-03 16:13 | PDOC1 ---
History and Physical Date of Admission Date of Admission DATE: 05/03/18 TIME: 15:53 Identification/Chief Complaint Chief Complaint Nausea/Vomiting Abdominal pain Acute renal failure Failure to thrive Stage IV breast cancer Hypomagnesemia Source Source: Patient History of Present Illness History of Present Illness 67-year-old female w/ PMHx cervical cancer (07/19/2005 [id number]), HTN, DM, Depression, Anxiety who currently undergoing chemotherapy for breast cancer. She started new chemotherapy (Ibrance) about one week ago. She's been having nausea and vomiting for the first few days of therapy and then over the past 2- 3 days she's been very weak at home. She denies any pain at this point. Her weaknesses worse when she stands up. She denies fevers or chills. She has not eaten or drank anything for the past 3 days. On further review she has vague abdominal pain as well as some constipation. She also c/o nicotine dependence, still smoking, has a slight cough. She also c/ o weakness and insomnia. EKG shows sinus rhythm with a regular rate. ST segments congruent. Not suggestive of ACS. Patient's blood pressure came up with IV fluid administration. Chemistry shows elevated creatinine with mildly low magnesium. Accompanied by her daughter who is an RN. Cancer Hx: "PET scan on 01/25/2017 revealed multiple hypermetabolic foci in the upper abdomen, right epicardial/pleurodiaphragmatic region, subcarinal and right internal mammary region compatible with metastatic disease. Mammogram on 2016 was negative. The ER was positive at 76%, NV positive 14.7%, HER-2/soha negative. She was started on palliative chemotherapy with Abraxane on 2016 for management of stage IV breast cancer. Followup PET scans revealed improvement in the metabolic activity in the above- mentioned lymph nodes. She received cycle #10, day #8 of Abraxane treatment on 11/23/2017. " Review of systems is negative for chest pain shortness of breath abdominal pain. Positive for vomiting. Negative for neck pain or headache. All other review of systems is negative unless otherwise noted in history of present illness. Past Medical History Cardiovascular: HTN Endocrine: Diabetes Past Surgical History Past Surgical History: No pertinent history Family History Family History: Hypertension Social History ALCOHOL: none Drugs: None Current Problem List Problem List Problems Medical Problems: (1) Dehydration Status: Acute Current Medications Current Medications Current Medications Sodium Chloride 500 ml @ 500 mls/hr 1X ONCE IV Last administered on at 10:35; Start 05/03/18 at 10:30; Stop 05/03/18 at 11:29; Status DC Ondansetron HCl (Zofran) 4 mg PRN Q8HRS PRN IV NAUSEA/VOMITING; Start at 12:00; Stop 05/03/18 at 15:40; Status DC Morphine Sulfate (Morphine Sulfate) 2 mg PRN Q2HR PRN IV PAIN; Start 05/03/18 at 12:00; Stop 05/04/18 at 11:59 Sodium Chloride 1,000 ml @ 100 mls/hr Q10H IV Last administered on 05/03/18at 12:44; Start 05/03/18 at 12:00; Stop 05/03/18 at 14:55; Status DC Acetaminophen/ Hydrocodone Bitart (Lortab 5/325) 2 tab 1X ONCE PO Last administered on 05/03/18at 12:44; Start 05/03/18 at 12:45; Stop 05/03/18 at 12 :46; Status DC Dextrose (Dextrose 50%-Water Syringe) 12.5 gm PRN Q15MIN PRN IV SEE COMMENTS; Start 05/03/18 at 14:00 Magnesium Sulfate 50 ml @ 25 mls/hr 1X ONCE IV ; Start 05/03/18 at 14:30; Stop 05/03/18 at 16:29 Ringer's Solution 1,000 ml @ 125 mls/hr Q8H IV ; Start 05/03/18 at 15:00 Acetaminophen/ Hydrocodone Bitart (Lortab 5/325) 1 tab PRN Q4HRS PRN PO MILD PAIN; Start 05/03/18 at 15:00 Acetaminophen/ Hydrocodone Bitart (Lortab 5/325) 2 tab PRN Q4HRS PRN PO MODERATE PAIN; Start 05/03/18 at 15:00 Ondansetron HCl (Zofran) 4 mg PRN Q6HRS PRN IV NAUSEA/VOMITING; Start at 15:45 Senna/Docusate Sodium (Senna Plus) 1 tab BID PO ; Start 05/03/18 at 21:00 Lactulose (Lactulose) 20 gm PRN Q12HR PRN PO CONSTIPATION; Start 05/03/18 at 15:45 Heparin Sodium (Porcine) (Heparin Sodium) 5,000 unit Q8HRS SQ ; Start 05/03/18 at 22:00 Alprazolam (Xanax) 1 mg TID PO ; Start 05/03/18 at 16:00 Ondansetron HCl (Zofran Odt) 4 mg PRN Q4HRS PRN PO NAUSEA/VOMITING; Start at 15:45 Citalopram Hydrobromide (CeleXA) 40 mg DAILY PO ; Start 05/04/18 at 09:00 Dronabinol (Marinol) 5 mg BIDACLD PO ; Start 05/03/18 at 16:30 Acetaminophen/ Hydrocodone Bitart (Lortab 10/325) 1 tab PRN QID PRN PO SEVERE PAIN; Start 05/03/18 at 15:45 Magnesium Oxide (Magnesium Oxide) 400 mg DAILY PO ; Start 05/04/18 at 09:00 Metoprolol Tartrate (Lopressor) 100 mg BID PO ; Start 05/03/18 at 21:00 Non-Formulary Medication (Ubidecarenone (Coq-10)) 200 mg DAILY PO ; Start 05/04 at 09:00; Status UNV Ringer's Solution 1,000 ml @ 125 mls/hr Q8H IV ; Start 05/03/18 at 15:45 Prochlorperazine Edisylate (Compazine) 10 mg PRN Q6HRS PRN IV NAUSEA/VOMITING; Start 05/03/18 at 16:00 Mirtazapine (Remeron) 7.5 mg QHS PO ; Start 05/03/18 at 21:00; Status UNV Active Scripts Active Mag-Oxide (Magnesium Oxide) 400 Mg Tablet 400 Mg PO DAILY 30 Days Reported Coq-10 (Ubidecarenone) 100 Mg Capsule 200 Mg PO DAILY Metoprolol Tartrate 100 Mg Tablet 100 Mg PO BID Metformin Hcl 500 Mg Tablet 500 Mg PO BIDWMEALS Ondansetron Odt (Ondansetron) 4 Mg Tab.rapdis 4 Mg IV PRN Q4HRS PRN Lisinopril 20 Mg Tablet 20 Mg PO DAILY Hydrocodone-Apap 10-325 (Hydrocodone Bit/Acetaminophen) 1 Each Tablet 1 Tab PO QID PRN Marinol (Dronabinol) 5 Mg Capsule 5 Mg PO BIDACLD Celexa (Citalopram Hydrobromide) 40 Mg Tablet 40 Mg PO DAILY Alprazolam 1 Mg Tablet 1 Mg PO TID Allergies Allergies: Coded Allergies: No Known Drug Allergies (Unverified , 01/03/17) ROS General: YES: Fatigue, Malaise, Appetite; No: Chills, Night Sweats, Other PSYCHOLOGICAL ROS: YES: Anxiety, Depression; No: Behavioral Disorder, Concentration difficultie, Decreased libido, Disorientation, Hallucinations, Hostility, Irritablity, Memory difficulties, Mood Swings, Obsessive thoughts, Physical abuse, Sexual abuse, Sleep disturbances, Suicidal ideation, Other Eyes: No Blurry vision, No Decreased vision, No Double vision, No Dry eyes, No Excessive tearing, No Eye Pain, No Itchy Eyes, No Loss of vision, No Photophobia , No Scotomata, No Uses contacts, No Uses glasses, No Other HEENT: No: Heacaches, Visual Changes, Hearing change, Nasal congestion, Nasal discharge, Oral lesions, Sinus pain, Sore Throat, Epistaxis, Sneezing, Snoring, Tinnitus, Vertigo, Vocal changes, Other ALLERGY AND IMMUNOLOGY: No: Hives, Insect Bite Sensitivity, Itchy/Watery Eyes, Nasal Congestion, Post Nasal Drip, Seasonal Allergies, Other Hematological and Lymphatic: No: Bleeding Problems, Blood Clots, Blood Transfusions, Brusing, Night Sweats, Pallor, Swollen Lymph Nodes, Other ENDOCRINE: YES: Hair Pattern Changes, Malaise/lethargy, Unexpected Weight Changes; No: Breast Changes, Galactorrhea, Hot Flashes, Mood Swings, Palpitations, Polydipsia/polyuria, Skin Changes, Temperature Intolerance, Other Breast: No New/Changing Breast Lumps, No Nipple changes, No Nipple discharge, No Other Respiratory: YES: Cough; No: Hemoptysis, Orthopnea, Pleuritic Pain, Shortness of breath, SOB with excertion, Sputum Changes, Stridor, Tachypnea, Wheezing, Other Cardiovascular: No Chest Pain, No Palpitations, No Orthopnea, No Paroxysmal Noc. Dyspnea, No Edema, No Lt Headedness, No Other Gastrointestinal: Yes Nausea, Yes Vomiting, Yes Abdominal Pain, Yes Constipation; No Diarrhea, No Melena, No Hematochezia, No Other Genitourinary: YES Retention; No Dysuria, No Frequency, No Incontinence, No Hematuria, No Discharge, No Urgency, No Pain, No Flank Pain, No Other, No , No , No , No , No , No , No Musculoskeletal: Yes Muscular Weakness; No Gait Disturbance, No Joint Pain, No Joint Stiffness, No Joint Swelling, No Muscle Pain, No Pain In:, No Swelling In:, No Other Neurological: No Behavorial Changes, No Bowel/Bladder ControlChng, No Confusion , No Dizziness, No Gait Disturbance, No Headaches, No Impaired Coord/balance, No Memory Loss, No Numbness/Tingling, No Seizures, No Speech Problems, No Tremors, No Visual Changes, No Weakness, No Other Skin: No Dry Skin, No Eczema, No Hair Changes, No Lumps, No Mole Changes, No Mottling, No Nail Changes, No Pruritus, No Rash, No Skin Lesion Changes, No Other, No Acne Physical Exam General: Alert, Oriented X3, Cooperative, No acute distress, Other (Cachexia, wasting temporal and muscular) HEENT: Atraumatic, PERRLA, EOMI, Mucous membr. moist/pink Lungs: Normal air movement, Other (Slight wheeze) Heart: S1S2, RRR, no murmurs Abdomen: Normal bowel sounds, Soft, No hepatosplenomegaly, No masses, Other ( RUQ tenderness) Male Genitals Exam: normal genitalia, normal prostate Rectal Exam: not examined Extremities: No clubbing, No cyanosis, No edema, Normal pulses, No tenderness/ swelling Skin: No rashes, No breakdown, No significant lesion Neuro: Normal gait, Normal speech, Strength at 5/5 X4 ext, Normal tone, Sensation intact, Cranial nerves 3-12 NL, Reflexes 2+ Psych/Mental Status: Mental status NL, Mood NL Vitals Vitals Vital Signs Date Time Temp Pulse Resp B/P (MAP) Pulse Ox O2 Delivery O2 Flow Rate FiO2 05/03/18 15:00 107 104/65 (78) 97 Room Air 05/03/18 15:00 97.7 18 97.7 Labs Labs Laboratory Tests Test 05/03/18 10:11 05/03/18 10:50 05/03/18 11:35 05/03/18 13:40 White Blood Count 4.6 x10^3/uL (4.0-11.0) Red Blood Count 4.19 x10^6/uL (3.50-5.40) Hemoglobin 12.7 g/dL (12.0-15.5) Hematocrit 36.8 % (36.0-47.0) Mean Corpuscular Volume 88 fL (79-100) Mean Corpuscular Hemoglobin 30 pg (25-35) Mean Corpuscular Hemoglobin Concent 34 g/dL (31-37) Red Cell Distribution Width 15.1 % (11.5-14.5) Platelet Count 370 x10^3/uL (140-400) Neutrophils (%) (Auto) 53 % (31-73) Lymphocytes (%) (Auto) 38 % (24-48) Monocytes (%) (Auto) 7 % (0-9) Eosinophils (%) (Auto) 2 % (0-3) Basophils (%) (Auto) 1 % (0-3) Neutrophils # (Auto) 2.4 x10^3uL (1.8-7.7) Lymphocytes # (Auto) 1.7 x10^3/uL (1.0-4.8) Monocytes # (Auto) 0.3 x10^3/uL (0.0-1.1) Eosinophils # (Auto) 0.1 x10^3/uL (0.0-0.7) Basophils # (Auto) 0.0 x10^3/uL (0.0-0.2) Sodium Level 131 mmol/L (136-145) Potassium Level 3.5 mmol/L (3.5-5.1) Chloride Level 93 mmol/L (98-107) Carbon Dioxide Level 26 mmol/L (21-32) Anion Gap 12 (6-14) Blood Urea Nitrogen 72 mg/dL (7-20) Creatinine 3.7 mg/dL (0.6-1.0) Estimated GFR (Cockcroft-Gault) 14.7 Glucose Level 101 mg/dL (70-99) Calcium Level 8.4 mg/dL (8.5-10.1) Magnesium Level 1.6 mg/dL (1.8-2.4) Total Bilirubin 0.5 mg/dL (0.2-1.0) Direct Bilirubin 0.2 mg/dL (0.0-0.2) Aspartate Amino Transf (AST/SGOT) 11 U/L (15-37) Alanine Aminotransferase (ALT/SGPT) 13 U/L (14-59) Alkaline Phosphatase 49 U/L (46-116) Troponin I Quantitative < 0.017 ng/mL (0.000-0.055) Total Protein 6.2 g/dL (6.4-8.2) Albumin 3.3 g/dL (3.4-5.0) Lipase 78 U/L (73-393) Urine Collection Type Unknown Urine Color Yellow Urine Clarity Clear Urine pH 5.0 Urine Specific [place] 1.020 Urine Protein Negative mg/dL (NEG-TRACE) Urine Glucose (UA) Negative mg/dL (NEG) Urine Ketones (Stick) Negative mg/dL (NEG) Urine Blood Negative (NEG) Urine Nitrite Negative (NEG) Urine Bilirubin Negative (NEG) Urine Urobilinogen Dipstick 0.2 mg/dL (0.2 mg/dL) Urine Leukocyte Esterase Negative (NEG) Urine RBC 0 /HPF (0-2) Urine WBC 0 /HPF (0-4) Urine Squamous Epithelial Cells Few /LPF Urine Bacteria 0 /HPF (0-FEW) Glucose (Fingerstick) 77 mg/dL (70-99) Test 05/03/18 13:54 Glucose (Fingerstick) 75 mg/dL (70-99) Laboratory Tests Test 05/03/18 10:11 05/03/18 10:50 05/03/18 11:35 05/03/18 13:40 White Blood Count 4.6 x10^3/uL (4.0-11.0) Red Blood Count 4.19 x10^6/uL (3.50-5.40) Hemoglobin 12.7 g/dL (12.0-15.5) Hematocrit 36.8 % (36.0-47.0) Mean Corpuscular Volume 88 fL (79-100) Mean Corpuscular Hemoglobin 30 pg (25-35) Mean Corpuscular Hemoglobin Concent 34 g/dL (31-37) Red Cell Distribution Width 15.1 % (11.5-14.5) Platelet Count 370 x10^3/uL (140-400) Neutrophils (%) (Auto) 53 % (31-73) Lymphocytes (%) (Auto) 38 % (24-48) Monocytes (%) (Auto) 7 % (0-9) Eosinophils (%) (Auto) 2 % (0-3) Basophils (%) (Auto) 1 % (0-3) Neutrophils # (Auto) 2.4 x10^3uL (1.8-7.7) Lymphocytes # (Auto) 1.7 x10^3/uL (1.0-4.8) Monocytes # (Auto) 0.3 x10^3/uL (0.0-1.1) Eosinophils # (Auto) 0.1 x10^3/uL (0.0-0.7) Basophils # (Auto) 0.0 x10^3/uL (0.0-0.2) Sodium Level 131 mmol/L (136-145) Potassium Level 3.5 mmol/L (3.5-5.1) Chloride Level 93 mmol/L (98-107) Carbon Dioxide Level 26 mmol/L (21-32) Anion Gap 12 (6-14) Blood Urea Nitrogen 72 mg/dL (7-20) Creatinine 3.7 mg/dL (0.6-1.0) Estimated GFR (Cockcroft-Gault) 14.7 Glucose Level 101 mg/dL (70-99) Calcium Level 8.4 mg/dL (8.5-10.1) Magnesium Level 1.6 mg/dL (1.8-2.4) Total Bilirubin 0.5 mg/dL (0.2-1.0) Direct Bilirubin 0.2 mg/dL (0.0-0.2) Aspartate Amino Transf (AST/SGOT) 11 U/L (15-37) Alanine Aminotransferase (ALT/SGPT) 13 U/L (14-59) Alkaline Phosphatase 49 U/L (46-116) Troponin I Quantitative < 0.017 ng/mL (0.000-0.055) Total Protein 6.2 g/dL (6.4-8.2) Albumin 3.3 g/dL (3.4-5.0) Lipase 78 U/L (73-393) Urine Collection Type Unknown Urine Color Yellow Urine Clarity Clear Urine pH 5.0 Urine Specific [place] 1.020 Urine Protein Negative mg/dL (NEG-TRACE) Urine Glucose (UA) Negative mg/dL (NEG) Urine Ketones (Stick) Negative mg/dL (NEG) Urine Blood Negative (NEG) Urine Nitrite Negative (NEG) Urine Bilirubin Negative (NEG) Urine Urobilinogen Dipstick 0.2 mg/dL (0.2 mg/dL) Urine Leukocyte Esterase Negative (NEG) Urine RBC 0 /HPF (0-2) Urine WBC 0 /HPF (0-4) Urine Squamous Epithelial Cells Few /LPF Urine Bacteria 0 /HPF (0-FEW) Glucose (Fingerstick) 77 mg/dL (70-99) Test 05/03/18 13:54 Glucose (Fingerstick) 75 mg/dL (70-99) VTE Prophylaxis Ordered VTE Prophylaxis Devices: Yes VTE Pharmacological Prophylaxi: Yes Assessment/Plan Assessment/Plan A/P: Nausea/Vomiting - possibly chemo related or gastroenteritis, renal failure related. Zofran, compazine Abdominal pain - Likely gastroenteritis, supportive care, IVF, pain control Acute renal failure - likely pre-renal dehydration, IVF, consulted nephrology Failure to thrive - likely related to overwhelming cancer diagnosis, will add remeron, nutritional supplements. PT/OT if she is stronger tomorrow Stage IV breast cancer - extensive history Hypomagnesemia - replaced, will repeat level and follow this and K, may account for her weakness DM - hold metformin, sliding scale HTN - hold lisinopril for ARF, will monitor Diet - ADA PPX - heparin FULL CODE Inpatient for acute renal failure at least 2 midnights [place] MCGHEE MD May 03, 2018 16:13
[2018-05-03] MEDS: INSULIN LISPRO 300 UNITS/3 ML INSULN.PEN. SQ SCH (16:14)
--- NOTE | 2018-05-03 16:36 | PDOC2 ---
CONSULT Date of Consult Date of Consult DATE: 05/03/18 TIME: 16:26 Reason for Consult Reason for Consult: ROMULO Identification/Chief Complaint Chief Complaint Nausea, Vomiting Source Source: Caregiver, Chart review, Patient History of Present Illness Reason for Visit: 67-year-old AAF w/ PMHx cervical cancer HTN, DM, currently undergoing chemotherapy for breast cancer. She started new chemotherapy (Ibrance) about one week ago. She's been having nausea and vomiting since Sunday/sunday and feeling weak at home. As per daughter refused to go to hospital as she is stubborn No fevers or chills. Decreased PO intake , unable to keep anything down Had vague abdominal pain n. She is still smoking, denies any UTI symptoms, she did notice decreased UOP Yesterday, but improved since recieving IVF . Denies Orthostatic symptoms currently. No more Vomiting since Hospitalization Past Medical History Cardiovascular: HTN Endocrine: Diabetes Past Surgical History Past Surgical History: No pertinent history Family History Family History: Hypertension Social History ALCOHOL: none Drugs: None Current Problem List Problem List Problems Medical Problems: (1) Dehydration Status: Acute Current Medications Current Medications Current Medications Sodium Chloride 500 ml @ 500 mls/hr 1X ONCE IV Last administered on at 10:35; Start 05/03/18 at 10:30; Stop 05/03/18 at 11:29; Status DC Ondansetron HCl (Zofran) 4 mg PRN Q8HRS PRN IV NAUSEA/VOMITING; Start at 12:00; Stop 05/03/18 at 15:40; Status DC Morphine Sulfate (Morphine Sulfate) 2 mg PRN Q2HR PRN IV PAIN; Start 05/03/18 at 12:00; Stop 05/04/18 at 11:59 Sodium Chloride 1,000 ml @ 100 mls/hr Q10H IV Last administered on 05/03/18at 12:44; Start 05/03/18 at 12:00; Stop 05/03/18 at 14:55; Status DC Acetaminophen/ Hydrocodone Bitart (Lortab 5/325) 2 tab 1X ONCE PO Last administered on 05/03/18at 12:44; Start 05/03/18 at 12:45; Stop 05/03/18 at 12 :46; Status DC Dextrose (Dextrose 50%-Water Syringe) 12.5 gm PRN Q15MIN PRN IV SEE COMMENTS; Start 05/03/18 at 14:00; Stop 05/03/18 at 16:10; Status DC Magnesium Sulfate 50 ml @ 25 mls/hr 1X ONCE IV Last administered on at 15:56; Start 05/03/18 at 14:30; Stop 05/03/18 at 16:29 Ringer's Solution 1,000 ml @ 125 mls/hr Q8H IV Last administered on at 15:56; Start 05/03/18 at 15:00 Acetaminophen/ Hydrocodone Bitart (Lortab 5/325) 1 tab PRN Q4HRS PRN PO MILD PAIN; Start 05/03/18 at 15:00 Acetaminophen/ Hydrocodone Bitart (Lortab 5/325) 2 tab PRN Q4HRS PRN PO MODERATE PAIN; Start 05/03/18 at 15:00 Ondansetron HCl (Zofran) 4 mg PRN Q6HRS PRN IV NAUSEA/VOMITING; Start at 15:45 Senna/Docusate Sodium (Senna Plus) 1 tab BID PO ; Start 05/03/18 at 21:00 Lactulose (Lactulose) 20 gm PRN Q12HR PRN PO CONSTIPATION; Start 05/03/18 at 15:45 Heparin Sodium (Porcine) (Heparin Sodium) 5,000 unit Q8HRS SQ ; Start 05/03/18 at 22:00 Alprazolam (Xanax) 1 mg TID PO Last administered on 05/03/18at 15:56; Start at 16:00 Ondansetron HCl (Zofran Odt) 4 mg PRN Q4HRS PRN PO NAUSEA/VOMITING; Start at 15:45 Citalopram Hydrobromide (CeleXA) 40 mg DAILY PO ; Start 05/04/18 at 09:00 Dronabinol (Marinol) 5 mg BIDACLD PO Last administered on 05/03/18at 16:01; Start 05/03/18 at 16:30 Acetaminophen/ Hydrocodone Bitart (Lortab 10/325) 1 tab PRN QID PRN PO SEVERE PAIN; Start 05/03/18 at 15:45 Magnesium Oxide (Magnesium Oxide) 400 mg DAILY PO ; Start 05/04/18 at 09:00 Metoprolol Tartrate (Lopressor) 100 mg BID PO ; Start 05/03/18 at 21:00 Non-Formulary Medication (Ubidecarenone (Coq-10)) 200 mg DAILY PO ; Start 05/04 at 09:00; Status UNV Ringer's Solution 1,000 ml @ 125 mls/hr Q8H IV ; Start 05/03/18 at 15:45 Prochlorperazine Edisylate (Compazine) 10 mg PRN Q6HRS PRN IV NAUSEA/VOMITING; Start 05/03/18 at 16:00 Mirtazapine (Remeron) 7.5 mg QHS PO ; Start 05/03/18 at 21:00 Psyllium Hydrophilic Mucilloid (Metamucil Fiber Packet) 1 pkt DAILY PO Last administered on 05/03/18at 16:00; Start 05/03/18 at 16:30 Polyethylene Glycol (miraLAX PACKET) 17 gm DAILY PO Last administered on at 16:00; Start 05/03/18 at 16:30 Nicotine (Nicoderm Cq 21mg) 1 patch DAILY TD Last administered on 05/03/18at 16 :03; Start 05/03/18 at 16:30 Insulin Human Lispro (HumaLOG) 0-5 UNITS TIDWMEALS SQ ; Start 05/03/18 at 17:00 Dextrose (Dextrose 50%-Water Syringe) 12.5 gm PRN Q15MIN PRN IV SEE COMMENTS; Start 05/03/18 at 16:15 Active Scripts Active Mag-Oxide (Magnesium Oxide) 400 Mg Tablet 400 Mg PO DAILY 30 Days Reported Coq-10 (Ubidecarenone) 100 Mg Capsule 200 Mg PO DAILY Metoprolol Tartrate 100 Mg Tablet 100 Mg PO BID Metformin Hcl 500 Mg Tablet 500 Mg PO BIDWMEALS Ondansetron Odt (Ondansetron) 4 Mg Tab.rapdis 4 Mg IV PRN Q4HRS PRN Lisinopril 20 Mg Tablet 20 Mg PO DAILY Hydrocodone-Apap 10-325 (Hydrocodone Bit/Acetaminophen) 1 Each Tablet 1 Tab PO QID PRN Marinol (Dronabinol) 5 Mg Capsule 5 Mg PO BIDACLD Celexa (Citalopram Hydrobromide) 40 Mg Tablet 40 Mg PO DAILY Alprazolam 1 Mg Tablet 1 Mg PO TID Allergies Allergies: Coded Allergies: No Known Drug Allergies (Unverified , 01/03/17) ROS Review of System As per HPI Physical Exam Physical Exam GEN: NAD HEENT- OM dry NECK: No CVS: RRR Resp- CTA, Non labored GI: BS + ve, NO Bruit, Non Tender, Non Distended : No CVA tenderness, No Suprapubic Tenderness, No [place] Skin No rash Neuro- Grossly normal Ext- No LE edema Vital Signs Vital Signs Date Time Temp Pulse Resp B/P (MAP) Pulse Ox O2 Delivery O2 Flow Rate FiO2 05/03/18 15:00 107 104/65 (78) 97 Room Air 05/03/18 15:00 97.7 18 97.7 Assessment & Plan ROMULO- Pre-renal - dehydration sec to vomiting K and Bicarb stable holding PETER-I Continue IVF , monitor I/O Hyponatremia Mild- pre-renal , continue IVF Nausea/Vomiting - due to chemo for Breast cancer Stage IV breast cancer - As per onc Hypomagnesemia - replaced, DM - metformin held , HTN - BP Low Agree with holding lisinopril for ARF Discussed with Pt , daughter and RN Labs Labs Laboratory Tests Test 05/03/18 10:11 05/03/18 10:50 05/03/18 11:35 05/03/18 13:40 White Blood Count 4.6 x10^3/uL (4.0-11.0) Red Blood Count 4.19 x10^6/uL (3.50-5.40) Hemoglobin 12.7 g/dL (12.0-15.5) Hematocrit 36.8 % (36.0-47.0) Mean Corpuscular Volume 88 fL (79-100) Mean Corpuscular Hemoglobin 30 pg (25-35) Mean Corpuscular Hemoglobin Concent 34 g/dL (31-37) Red Cell Distribution Width 15.1 % (11.5-14.5) Platelet Count 370 x10^3/uL (140-400) Neutrophils (%) (Auto) 53 % (31-73) Lymphocytes (%) (Auto) 38 % (24-48) Monocytes (%) (Auto) 7 % (0-9) Eosinophils (%) (Auto) 2 % (0-3) Basophils (%) (Auto) 1 % (0-3) Neutrophils # (Auto) 2.4 x10^3uL (1.8-7.7) Lymphocytes # (Auto) 1.7 x10^3/uL (1.0-4.8) Monocytes # (Auto) 0.3 x10^3/uL (0.0-1.1) Eosinophils # (Auto) 0.1 x10^3/uL (0.0-0.7) Basophils # (Auto) 0.0 x10^3/uL (0.0-0.2) Sodium Level 131 mmol/L (136-145) Potassium Level 3.5 mmol/L (3.5-5.1) Chloride Level 93 mmol/L (98-107) Carbon Dioxide Level 26 mmol/L (21-32) Anion Gap 12 (6-14) Blood Urea Nitrogen 72 mg/dL (7-20) Creatinine 3.7 mg/dL (0.6-1.0) Estimated GFR (Cockcroft-Gault) 14.7 Glucose Level 101 mg/dL (70-99) Calcium Level 8.4 mg/dL (8.5-10.1) Magnesium Level 1.6 mg/dL (1.8-2.4) Total Bilirubin 0.5 mg/dL (0.2-1.0) Direct Bilirubin 0.2 mg/dL (0.0-0.2) Aspartate Amino Transf (AST/SGOT) 11 U/L (15-37) Alanine Aminotransferase (ALT/SGPT) 13 U/L (14-59) Alkaline Phosphatase 49 U/L (46-116) Troponin I Quantitative < 0.017 ng/mL (0.000-0.055) Total Protein 6.2 g/dL (6.4-8.2) Albumin 3.3 g/dL (3.4-5.0) Lipase 78 U/L (73-393) Urine Collection Type Unknown Urine Color Yellow Urine Clarity Clear Urine pH 5.0 Urine Specific [place] 1.020 Urine Protein Negative mg/dL (NEG-TRACE) Urine Glucose (UA) Negative mg/dL (NEG) Urine Ketones (Stick) Negative mg/dL (NEG) Urine Blood Negative (NEG) Urine Nitrite Negative (NEG) Urine Bilirubin Negative (NEG) Urine Urobilinogen Dipstick 0.2 mg/dL (0.2 mg/dL) Urine Leukocyte Esterase Negative (NEG) Urine RBC 0 /HPF (0-2) Urine WBC 0 /HPF (0-4) Urine Squamous Epithelial Cells Few /LPF Urine Bacteria 0 /HPF (0-FEW) Glucose (Fingerstick) 77 mg/dL (70-99) Test 05/03/18 13:54 Glucose (Fingerstick) 75 mg/dL (70-99) Laboratory Tests Test 05/03/18 10:11 05/03/18 10:50 05/03/18 11:35 05/03/18 13:40 White Blood Count 4.6 x10^3/uL (4.0-11.0) Red Blood Count 4.19 x10^6/uL (3.50-5.40) Hemoglobin 12.7 g/dL (12.0-15.5) Hematocrit 36.8 % (36.0-47.0) Mean Corpuscular Volume 88 fL (79-100) Mean Corpuscular Hemoglobin 30 pg (25-35) Mean Corpuscular Hemoglobin Concent 34 g/dL (31-37) Red Cell Distribution Width 15.1 % (11.5-14.5) Platelet Count 370 x10^3/uL (140-400) Neutrophils (%) (Auto) 53 % (31-73) Lymphocytes (%) (Auto) 38 % (24-48) Monocytes (%) (Auto) 7 % (0-9) Eosinophils (%) (Auto) 2 % (0-3) Basophils (%) (Auto) 1 % (0-3) Neutrophils # (Auto) 2.4 x10^3uL (1.8-7.7) Lymphocytes # (Auto) 1.7 x10^3/uL (1.0-4.8) Monocytes # (Auto) 0.3 x10^3/uL (0.0-1.1) Eosinophils # (Auto) 0.1 x10^3/uL (0.0-0.7) Basophils # (Auto) 0.0 x10^3/uL (0.0-0.2) Sodium Level 131 mmol/L (136-145) Potassium Level 3.5 mmol/L (3.5-5.1) Chloride Level 93 mmol/L (98-107) Carbon Dioxide Level 26 mmol/L (21-32) Anion Gap 12 (6-14) Blood Urea Nitrogen 72 mg/dL (7-20) Creatinine 3.7 mg/dL (0.6-1.0) Estimated GFR (Cockcroft-Gault) 14.7 Glucose Level 101 mg/dL (70-99) Calcium Level 8.4 mg/dL (8.5-10.1) Magnesium Level 1.6 mg/dL (1.8-2.4) Total Bilirubin 0.5 mg/dL (0.2-1.0) Direct Bilirubin 0.2 mg/dL (0.0-0.2) Aspartate Amino Transf (AST/SGOT) 11 U/L (15-37) Alanine Aminotransferase (ALT/SGPT) 13 U/L (14-59) Alkaline Phosphatase 49 U/L (46-116) Troponin I Quantitative < 0.017 ng/mL (0.000-0.055) Total Protein 6.2 g/dL (6.4-8.2) Albumin 3.3 g/dL (3.4-5.0) Lipase 78 U/L (73-393) Urine Collection Type Unknown Urine Color Yellow Urine Clarity Clear Urine pH 5.0 Urine Specific [place] 1.020 Urine Protein Negative mg/dL (NEG-TRACE) Urine Glucose (UA) Negative mg/dL (NEG) Urine Ketones (Stick) Negative mg/dL (NEG) Urine Blood Negative (NEG) Urine Nitrite Negative (NEG) Urine Bilirubin Negative (NEG) Urine Urobilinogen Dipstick 0.2 mg/dL (0.2 mg/dL) Urine Leukocyte Esterase Negative (NEG) Urine RBC 0 /HPF (0-2) Urine WBC 0 /HPF (0-4) Urine Squamous Epithelial Cells Few /LPF Urine Bacteria 0 /HPF (0-FEW) Glucose (Fingerstick) 77 mg/dL (70-99) Test 05/03/18 13:54 Glucose (Fingerstick) 75 mg/dL (70-99) Review All relevant outside records, renal labs, imaging studies, telemetry/EKG's were reviewed. DEBBY CASTANON MD May 03, 2018 16:36
[2018-05-03] MEDS ORDERED: ZOLP10TA4 PO (17:11)
[2018-05-03] MEDS: HYDROcodone/APAP 5/325MG 1 TAB TABLET PO PRN ×2 (17:55→21:49)
[2018-05-03 19:20] VITALS: BP 99/56
[2018-05-03] MEDS: SENNOSIDES/DOCUSATE 8.6/50MG TABLET. PO SCH (20:59)
[2018-05-03] MEDS: MIRTAZAPINE 7.5 MG TABLET. PO SCH (20:59)
[2018-05-03] MEDS: HEPARIN for SUB-Q USE 5,000 UNIT/ML VIAL. SQ SCH (21:53)
[2018-05-03] MEDS: METOPROLOL TART IMMED RELEASE 50 MG TABLET. PO SCH (23:25)
[2018-05-03 23:33] VITALS: BP 85/49
[2018-05-04] VITALS (9 sets, daily range): BP systolic 93–135; BP diastolic 53–78
[2018-05-04] MEDS: IV RINGERS,LACTATED 1000ML 1,000 ML IV SCH ×5 (00:30→17:07)
--- NOTE | 2018-05-04 00:44 | CONS ---
DATE OF CONSULTATION: 05/03/2018 REQUESTING PHYSICIAN: Dr. Ziggy Lu. REASON FOR CONSULTATION: Breast cancer, now admitted with renal failure. HISTORY OF PRESENT ILLNESS: The patient is a 67-year-old female who was diagnosed with poorly differentiated adenocarcinoma of breast origin by a CT-guided lymph node biopsy of the epicardial lymph node on 01/03/2017. PET scan on 01/25/2017 revealed multiple hypermetabolic foci in the upper abdomen, right epicardial and pleural diaphragmatic region, subcarinal and right internal mammary regions compatible with metastatic disease. ER positive 76%, NE positive 14.7%, HER2/soha negative. She was started on chemotherapy with Abraxane on 02/02/2017. She received 13 cycles that was completed on 03/08/2018. PET scan on 03/14/2018 revealed hypermetabolic foci in the upper abdomen and the liver and the right tomas-diaphragmatic region, which have progressed and there is also a new foci in the right internal mammary and retrocrural regions compatible with worsening metastatic disease. She was started on treatment on Ibrance and letrozole on 04/24/2018. She took her last dose of Ibrance on 05/01/2018 and then she quit taking it because of significant nausea and vomiting. Her oral intake has been very poor and she has noticed worsening generalized weakness. She was advised to go to the Emergency Room. She was admitted to [facility] on 05/03/2018 and she was started on IV fluids. She was noted to be in renal failure with a creatinine of 3.7 and a BUN of 72 on 05/03/2018. PAST MEDICAL HISTORY: Arthritis, cervical cancer, diabetes mellitus, hypertension, stomach cancer. FAMILY HISTORY: Positive for hypertension. SOCIAL HISTORY: She is single. She has history of cigarette smoking 1 pack per day. REVIEW OF SYSTEMS: A 12-point review of system was performed. Pertinent positives are mentioned in the history of present illness. Rest of the system review is negative. PHYSICAL EXAMINATION: GENERAL APPEARANCE: The patient is a 67-year-old female who is in no acute cardiorespiratory distress. VITAL SIGNS: Blood pressure 121/66, temperature 97.7. HEENT: Atraumatic, normocephalic. Eyes: No icterus. NECK: Supple. CHEST: Bilaterally symmetrical. No crepitations or rhonchi heard. HEART: S1, S2 normal. ABDOMEN: Soft, nontender. CENTRAL NERVOUS SYSTEM: No focal deficits. LYMPHATICS: No lymphadenopathy. SKIN: No rashes. PSYCHOLOGIC: Mood and affect are appropriate. MUSCULOSKELETAL: No joint effusions. LABORATORY DATA: WBC 4.6, hemoglobin 12.7, platelet count 370, BUN 72, creatinine 3.7. IMPRESSION AND PLAN: 1. Stage 4 breast cancer with evidence of metastatic disease to the epicardial lymph node, which was biopsied on 01/03/2017 and confirmed the diagnosis. She also has evidence of lymphadenopathy in the retroperitoneum and peritoneal implants. ER positive, NE positive, HER2/soha negative. She was initially started on Abraxane and she had a good response. She received treatment from 02/02/2017 through 03/08/2018. PET scan on 03/14/2018 revealed progressive disease and hence this was discontinued and she was started on Ibrance and letrozole on 04/24/2018 and she stopped it on 05/01/2018 because of side effects. I have advised her not to resume Ibrance anymore as she is unable to tolerate it. Okay to continue letrozole as a single agent. I will continue to monitor for response. Letrozole can be resumed after she feels better. 2. Acute renal failure secondary to dehydration. She has had nausea and vomiting contributing to poor oral intake and dehydration. Appreciate Nephrology consultation. Continue hydration and management per Nephrology. 3. Nausea, vomiting due to Ibrance, resolved. KATHY AQUINO MD DR: SUNITHA/kathy JOB#: [id number] / [id number] MTDD
[2018-05-04 05:03] LABS: BASO % 1 % (0-3); EOS # 0.1 x10^3/uL (0.0-0.7); EOS % 4 % (0-3); HEMATOCRIT 31.7 % (36.0-47.0); HEMOGLOBIN 10.8 g/dL (12.0-15.5); LYMPH # 2.1 x10^3/uL (1.0-4.8); LYMPH % 53 % (24-48); MEAN CORPUSCULAR HEMOGLOBIN 30 pg (25-35); MEAN CORPUSCULAR HGB CONC 34 g/dL (31-37); MEAN CORPUSCULAR VOLUME 88 fL (79-100); MONO # 0.4 x10^3/uL (0.0-1.1); MONO % 9 % (0-9); NEUT # 1.3 x10^3uL (1.8-7.7); NEUT % 34 % (31-73); PLATELET COUNT 302 x10^3/uL (140-400); RED BLOOD COUNT 3.61 x10^6/uL (3.50-5.40); RED CELL DISTRIBUTION WIDTH 14.8 % (11.5-14.5)
[2018-05-04 05:09] LABS: CALCIUM 8.6 mg/dL (8.5-10.1); CREATININE 2.4 mg/dL (0.6-1.0); GFR 24.2; POTASSIUM 3.8 mmol/L (3.5-5.1)
[2018-05-04] MEDS: HYDROcodone/APAP 5/325MG 1 TAB TABLET PO PRN ×4 (05:56→21:05)
[2018-05-04] MEDS: HEPARIN for SUB-Q USE 5,000 UNIT/ML VIAL. SQ SCH ×3 (06:02→21:10)
--- NOTE | 2018-05-04 07:36 | PDOC ---
PROGRESS NOTES Chief Complaint Chief Complaint ARF History of Present Illness History of Present Illness 67-year-old female w/ PMHx cervical cancer (07/19/2005 [id number]), HTN, DM, Depression, Anxiety who currently undergoing chemotherapy for breast cancer. She started new chemotherapy (Ibrance) about one week ago. She's been having nausea and vomiting for the first few days of therapy and then over the past 2- 3 days she's been very weak at home. She denies any pain at this point. Her weaknesses worse when she stands up. She denies fevers or chills. She had not eaten or drank anything for the past 3 days prior to admit. On further review she has vague abdominal pain as well as some constipation. She also c/o nicotine dependence, still smoking, has a slight cough. She also c/ o weakness and insomnia. EKG shows sinus rhythm with a regular rate. ST segments congruent. Not suggestive of ACS. Patient's blood pressure came up with IV fluid administration. Chemistry shows elevated creatinine with mildly low magnesium. Cancer Hx: "PET scan on 01/25/2017 revealed multiple hypermetabolic foci in the upper abdomen, right epicardial/pleurodiaphragmatic region, subcarinal and right internal mammary region compatible with metastatic disease. Mammogram on 2016 was negative. The ER was positive at 76%, FL positive 14.7%, HER-2/soha negative. She was started on palliative chemotherapy with Abraxane on 2016 for management of stage IV breast cancer. Followup PET scans revealed improvement in the metabolic activity in the above- mentioned lymph nodes. She received cycle #10, day #8 of Abraxane treatment on 11/23/2017. " Review of systems is negative for chest pain shortness of breath abdominal pain. Positive for vomiting. Negative for neck pain or headache. All other review of systems is negative unless otherwise noted in history of present illness. Today she is feeling a little better, c/o constipation and tenesmus. No CP or SOB, has a little better appetite. No dysuria. Cr improved to 2.4 A/P: Nausea/Vomiting - possibly chemo related or gastroenteritis, renal failure related. Zofran, compazine Abdominal pain - Likely gastroenteritis, supportive care, IVF, pain control. Bowel regimen today Acute renal failure - likely pre-renal dehydration, IVF, consulted nephrology Failure to thrive - likely related to overwhelming cancer diagnosis, remeron, nutritional supplements. PT/OT if she is stronger tomorrow Stage IV breast cancer - extensive history Hypomagnesemia - replaced, will repeat level and follow this and K, may account for her weakness DM - hold metformin, sliding scale HTN - hold lisinopril for ARF, will monitor Diet - ADA PPX - heparin FULL CODE Inpatient for acute renal failure at least 2 midnights Vitals Vitals Vital Signs Date Time Temp Pulse Resp B/P (MAP) Pulse Ox O2 Delivery O2 Flow Rate FiO2 05/04/18 07:00 16 Nasal Cannula 05/04/18 03:38 98.0 99 135/78 (97) 93 98.0 05/04/18 01:30 2.0 Physical Exam General: Alert, Oriented X3, Cooperative, No acute distress, Other (Cachexia, wasting temporal and muscular) Lungs: Clear Abdomen: Normal bowel sounds, Soft, No hepatosplenomegaly, No masses, Other ( RUQ tenderness) Extremities: No clubbing, No cyanosis, No edema, Normal pulses, No tenderness/ swelling Skin: No rashes, No breakdown, No significant lesion Labs LABS Laboratory Tests Test 05/03/18 10:11 05/03/18 10:50 05/03/18 11:35 05/03/18 13:40 White Blood Count 4.6 x10^3/uL (4.0-11.0) Red Blood Count 4.19 x10^6/uL (3.50-5.40) Hemoglobin 12.7 g/dL (12.0-15.5) Hematocrit 36.8 % (36.0-47.0) Mean Corpuscular Volume 88 fL (79-100) Mean Corpuscular Hemoglobin 30 pg (25-35) Mean Corpuscular Hemoglobin Concent 34 g/dL (31-37) Red Cell Distribution Width 15.1 % (11.5-14.5) Platelet Count 370 x10^3/uL (140-400) Neutrophils (%) (Auto) 53 % (31-73) Lymphocytes (%) (Auto) 38 % (24-48) Monocytes (%) (Auto) 7 % (0-9) Eosinophils (%) (Auto) 2 % (0-3) Basophils (%) (Auto) 1 % (0-3) Neutrophils # (Auto) 2.4 x10^3uL (1.8-7.7) Lymphocytes # (Auto) 1.7 x10^3/uL (1.0-4.8) Monocytes # (Auto) 0.3 x10^3/uL (0.0-1.1) Eosinophils # (Auto) 0.1 x10^3/uL (0.0-0.7) Basophils # (Auto) 0.0 x10^3/uL (0.0-0.2) Sodium Level 131 mmol/L (136-145) Potassium Level 3.5 mmol/L (3.5-5.1) Chloride Level 93 mmol/L (98-107) Carbon Dioxide Level 26 mmol/L (21-32) Anion Gap 12 (6-14) Blood Urea Nitrogen 72 mg/dL (7-20) Creatinine 3.7 mg/dL (0.6-1.0) Estimated GFR (Cockcroft-Gault) 14.7 Glucose Level 101 mg/dL (70-99) Calcium Level 8.4 mg/dL (8.5-10.1) Magnesium Level 1.6 mg/dL (1.8-2.4) Total Bilirubin 0.5 mg/dL (0.2-1.0) Direct Bilirubin 0.2 mg/dL (0.0-0.2) Aspartate Amino Transf (AST/SGOT) 11 U/L (15-37) Alanine Aminotransferase (ALT/SGPT) 13 U/L (14-59) Alkaline Phosphatase 49 U/L (46-116) Troponin I Quantitative < 0.017 ng/mL (0.000-0.055) Total Protein 6.2 g/dL (6.4-8.2) Albumin 3.3 g/dL (3.4-5.0) Lipase 78 U/L (73-393) Urine Collection Type Unknown Urine Color Yellow Urine Clarity Clear Urine pH 5.0 Urine Specific [place] 1.020 Urine Protein Negative mg/dL (NEG-TRACE) Urine Glucose (UA) Negative mg/dL (NEG) Urine Ketones (Stick) Negative mg/dL (NEG) Urine Blood Negative (NEG) Urine Nitrite Negative (NEG) Urine Bilirubin Negative (NEG) Urine Urobilinogen Dipstick 0.2 mg/dL (0.2 mg/dL) Urine Leukocyte Esterase Negative (NEG) Urine RBC 0 /HPF (0-2) Urine WBC 0 /HPF (0-4) Urine Squamous Epithelial Cells Few /LPF Urine Bacteria 0 /HPF (0-FEW) Glucose (Fingerstick) 77 mg/dL (70-99) Test 05/03/18 13:54 05/03/18 16:06 05/03/18 21:30 05/04/18 03:30 Glucose (Fingerstick) 75 mg/dL (70-99) 115 mg/dL (70-99) 102 mg/dL (70-99) White Blood Count 4.0 x10^3/uL (4.0-11.0) Red Blood Count 3.61 x10^6/uL (3.50-5.40) Hemoglobin 10.8 g/dL (12.0-15.5) Hematocrit 31.7 % (36.0-47.0) Mean Corpuscular Volume 88 fL (79-100) Mean Corpuscular Hemoglobin 30 pg (25-35) Mean Corpuscular Hemoglobin Concent 34 g/dL (31-37) Red Cell Distribution Width 14.8 % (11.5-14.5) Platelet Count 302 x10^3/uL (140-400) Neutrophils (%) (Auto) 34 % (31-73) Lymphocytes (%) (Auto) 53 % (24-48) Monocytes (%) (Auto) 9 % (0-9) Eosinophils (%) (Auto) 4 % (0-3) Basophils (%) (Auto) 1 % (0-3) Neutrophils # (Auto) 1.3 x10^3uL (1.8-7.7) Lymphocytes # (Auto) 2.1 x10^3/uL (1.0-4.8) Monocytes # (Auto) 0.4 x10^3/uL (0.0-1.1) Eosinophils # (Auto) 0.1 x10^3/uL (0.0-0.7) Basophils # (Auto) 0.0 x10^3/uL (0.0-0.2) Sodium Level 134 mmol/L (136-145) Potassium Level 3.8 mmol/L (3.5-5.1) Chloride Level 97 mmol/L (98-107) Carbon Dioxide Level 26 mmol/L (21-32) Anion Gap 11 (6-14) Blood Urea Nitrogen 72 mg/dL (7-20) Creatinine 2.4 mg/dL (0.6-1.0) Estimated GFR (Cockcroft-Gault) 24.2 Glucose Level 89 mg/dL (70-99) Calcium Level 8.6 mg/dL (8.5-10.1) Assessment and Plan Assessmemt and Plan Problems Medical Problems: (1) Dehydration Status: Acute Comment Review of Relevant I have reviewed the following items arnulfo (where applicable) has been applied. Labs Laboratory Tests Test 05/03/18 10:11 05/03/18 10:50 05/03/18 11:35 05/03/18 13:40 White Blood Count 4.6 x10^3/uL (4.0-11.0) Red Blood Count 4.19 x10^6/uL (3.50-5.40) Hemoglobin 12.7 g/dL (12.0-15.5) Hematocrit 36.8 % (36.0-47.0) Mean Corpuscular Volume 88 fL (79-100) Mean Corpuscular Hemoglobin 30 pg (25-35) Mean Corpuscular Hemoglobin Concent 34 g/dL (31-37) Red Cell Distribution Width 15.1 % (11.5-14.5) Platelet Count 370 x10^3/uL (140-400) Neutrophils (%) (Auto) 53 % (31-73) Lymphocytes (%) (Auto) 38 % (24-48) Monocytes (%) (Auto) 7 % (0-9) Eosinophils (%) (Auto) 2 % (0-3) Basophils (%) (Auto) 1 % (0-3) Neutrophils # (Auto) 2.4 x10^3uL (1.8-7.7) Lymphocytes # (Auto) 1.7 x10^3/uL (1.0-4.8) Monocytes # (Auto) 0.3 x10^3/uL (0.0-1.1) Eosinophils # (Auto) 0.1 x10^3/uL (0.0-0.7) Basophils # (Auto) 0.0 x10^3/uL (0.0-0.2) Sodium Level 131 mmol/L (136-145) Potassium Level 3.5 mmol/L (3.5-5.1) Chloride Level 93 mmol/L (98-107) Carbon Dioxide Level 26 mmol/L (21-32) Anion Gap 12 (6-14) Blood Urea Nitrogen 72 mg/dL (7-20) Creatinine 3.7 mg/dL (0.6-1.0) Estimated GFR (Cockcroft-Gault) 14.7 Glucose Level 101 mg/dL (70-99) Calcium Level 8.4 mg/dL (8.5-10.1) Magnesium Level 1.6 mg/dL (1.8-2.4) Total Bilirubin 0.5 mg/dL (0.2-1.0) Direct Bilirubin 0.2 mg/dL (0.0-0.2) Aspartate Amino Transf (AST/SGOT) 11 U/L (15-37) Alanine Aminotransferase (ALT/SGPT) 13 U/L (14-59) Alkaline Phosphatase 49 U/L (46-116) Troponin I Quantitative < 0.017 ng/mL (0.000-0.055) Total Protein 6.2 g/dL (6.4-8.2) Albumin 3.3 g/dL (3.4-5.0) Lipase 78 U/L (73-393) Urine Collection Type Unknown Urine Color Yellow Urine Clarity Clear Urine pH 5.0 Urine Specific [place] 1.020 Urine Protein Negative mg/dL (NEG-TRACE) Urine Glucose (UA) Negative mg/dL (NEG) Urine Ketones (Stick) Negative mg/dL (NEG) Urine Blood Negative (NEG) Urine Nitrite Negative (NEG) Urine Bilirubin Negative (NEG) Urine Urobilinogen Dipstick 0.2 mg/dL (0.2 mg/dL) Urine Leukocyte Esterase Negative (NEG) Urine RBC 0 /HPF (0-2) Urine WBC 0 /HPF (0-4) Urine Squamous Epithelial Cells Few /LPF Urine Bacteria 0 /HPF (0-FEW) Glucose (Fingerstick) 77 mg/dL (70-99) Test 05/03/18 13:54 05/03/18 16:06 05/03/18 21:30 05/04/18 03:30 Glucose (Fingerstick) 75 mg/dL (70-99) 115 mg/dL (70-99) 102 mg/dL (70-99) White Blood Count 4.0 x10^3/uL (4.0-11.0) Red Blood Count 3.61 x10^6/uL (3.50-5.40) Hemoglobin 10.8 g/dL (12.0-15.5) Hematocrit 31.7 % (36.0-47.0) Mean Corpuscular Volume 88 fL (79-100) Mean Corpuscular Hemoglobin 30 pg (25-35) Mean Corpuscular Hemoglobin Concent 34 g/dL (31-37) Red Cell Distribution Width 14.8 % (11.5-14.5) Platelet Count 302 x10^3/uL (140-400) Neutrophils (%) (Auto) 34 % (31-73) Lymphocytes (%) (Auto) 53 % (24-48) Monocytes (%) (Auto) 9 % (0-9) Eosinophils (%) (Auto) 4 % (0-3) Basophils (%) (Auto) 1 % (0-3) Neutrophils # (Auto) 1.3 x10^3uL (1.8-7.7) Lymphocytes # (Auto) 2.1 x10^3/uL (1.0-4.8) Monocytes # (Auto) 0.4 x10^3/uL (0.0-1.1) Eosinophils # (Auto) 0.1 x10^3/uL (0.0-0.7) Basophils # (Auto) 0.0 x10^3/uL (0.0-0.2) Sodium Level 134 mmol/L (136-145) Potassium Level 3.8 mmol/L (3.5-5.1) Chloride Level 97 mmol/L (98-107) Carbon Dioxide Level 26 mmol/L (21-32) Anion Gap 11 (6-14) Blood Urea Nitrogen 72 mg/dL (7-20) Creatinine 2.4 mg/dL (0.6-1.0) Estimated GFR (Cockcroft-Gault) 24.2 Glucose Level 89 mg/dL (70-99) Calcium Level 8.6 mg/dL (8.5-10.1) Laboratory Tests Test 05/03/18 10:11 05/03/18 10:50 05/03/18 11:35 10/19/18 13:40 White Blood Count 4.6 x10^3/uL (4.0-11.0) Red Blood Count 4.19 x10^6/uL (3.50-5.40) Hemoglobin 12.7 g/dL (12.0-15.5) Hematocrit 36.8 % (36.0-47.0) Mean Corpuscular Volume 88 fL (79-100) Mean Corpuscular Hemoglobin 30 pg (25-35) Mean Corpuscular Hemoglobin Concent 34 g/dL (31-37) Red Cell Distribution Width 15.1 % (11.5-14.5) Platelet Count 370 x10^3/uL (140-400) Neutrophils (%) (Auto) 53 % (31-73) Lymphocytes (%) (Auto) 38 % (24-48) Monocytes (%) (Auto) 7 % (0-9) Eosinophils (%) (Auto) 2 % (0-3) Basophils (%) (Auto) 1 % (0-3) Neutrophils # (Auto) 2.4 x10^3uL (1.8-7.7) Lymphocytes # (Auto) 1.7 x10^3/uL (1.0-4.8) Monocytes # (Auto) 0.3 x10^3/uL (0.0-1.1) Eosinophils # (Auto) 0.1 x10^3/uL (0.0-0.7) Basophils # (Auto) 0.0 x10^3/uL (0.0-0.2) Sodium Level 131 mmol/L (136-145) Potassium Level 3.5 mmol/L (3.5-5.1) Chloride Level 93 mmol/L (98-107) Carbon Dioxide Level 26 mmol/L (21-32) Anion Gap 12 (6-14) Blood Urea Nitrogen 72 mg/dL (7-20) Creatinine 3.7 mg/dL (0.6-1.0) Estimated GFR (Cockcroft-Gault) 14.7 Glucose Level 101 mg/dL (70-99) Calcium Level 8.4 mg/dL (8.5-10.1) Magnesium Level 1.6 mg/dL (1.8-2.4) Total Bilirubin 0.5 mg/dL (0.2-1.0) Direct Bilirubin 0.2 mg/dL (0.0-0.2) Aspartate Amino Transf (AST/SGOT) 11 U/L (15-37) Alanine Aminotransferase (ALT/SGPT) 13 U/L (14-59) Alkaline Phosphatase 49 U/L (46-116) Troponin I Quantitative < 0.017 ng/mL (0.000-0.055) Total Protein 6.2 g/dL (6.4-8.2) Albumin 3.3 g/dL (3.4-5.0) Lipase 78 U/L (73-393) Urine Collection Type Unknown Urine Color Yellow Urine Clarity Clear Urine pH 5.0 Urine Specific [place] 1.020 Urine Protein Negative mg/dL (NEG-TRACE) Urine Glucose (UA) Negative mg/dL (NEG) Urine Ketones (Stick) Negative mg/dL (NEG) Urine Blood Negative (NEG) Urine Nitrite Negative (NEG) Urine Bilirubin Negative (NEG) Urine Urobilinogen Dipstick 0.2 mg/dL (0.2 mg/dL) Urine Leukocyte Esterase Negative (NEG) Urine RBC 0 /HPF (0-2) Urine WBC 0 /HPF (0-4) Urine Squamous Epithelial Cells Few /LPF Urine Bacteria 0 /HPF (0-FEW) Glucose (Fingerstick) 77 mg/dL (70-99) Test 05/03/18 13:54 05/03/18 16:06 05/03/18 21:30 05/04/18 03:30 Glucose (Fingerstick) 75 mg/dL (70-99) 115 mg/dL (70-99) 102 mg/dL (70-99) White Blood Count 4.0 x10^3/uL (4.0-11.0) Red Blood Count 3.61 x10^6/uL (3.50-5.40) Hemoglobin 10.8 g/dL (12.0-15.5) Hematocrit 31.7 % (36.0-47.0) Mean Corpuscular Volume 88 fL (79-100) Mean Corpuscular Hemoglobin 30 pg (25-35) Mean Corpuscular Hemoglobin Concent 34 g/dL (31-37) Red Cell Distribution Width 14.8 % (11.5-14.5) Platelet Count 302 x10^3/uL (140-400) Neutrophils (%) (Auto) 34 % (31-73) Lymphocytes (%) (Auto) 53 % (24-48) Monocytes (%) (Auto) 9 % (0-9) Eosinophils (%) (Auto) 4 % (0-3) Basophils (%) (Auto) 1 % (0-3) Neutrophils # (Auto) 1.3 x10^3uL (1.8-7.7) Lymphocytes # (Auto) 2.1 x10^3/uL (1.0-4.8) Monocytes # (Auto) 0.4 x10^3/uL (0.0-1.1) Eosinophils # (Auto) 0.1 x10^3/uL (0.0-0.7) Basophils # (Auto) 0.0 x10^3/uL (0.0-0.2) Sodium Level 134 mmol/L (136-145) Potassium Level 3.8 mmol/L (3.5-5.1) Chloride Level 97 mmol/L (98-107) Carbon Dioxide Level 26 mmol/L (21-32) Anion Gap 11 (6-14) Blood Urea Nitrogen 72 mg/dL (7-20) Creatinine 2.4 mg/dL (0.6-1.0) Estimated GFR (Cockcroft-Gault) 24.2 Glucose Level 89 mg/dL (70-99) Calcium Level 8.6 mg/dL (8.5-10.1) Medications Current Medications Sodium Chloride 500 ml @ 500 mls/hr 1X ONCE IV Last administered on at 10:35; Start 05/03/18 at 10:30; Stop 05/03/18 at 11:29; Status DC Ondansetron HCl (Zofran) 4 mg PRN Q8HRS PRN IV NAUSEA/VOMITING; Start at 12:00; Stop 05/03/18 at 15:40; Status DC Morphine Sulfate (Morphine Sulfate) 2 mg PRN Q2HR PRN IV PAIN; Start 05/03/18 at 12:00; Stop 05/04/18 at 11:59 Sodium Chloride 1,000 ml @ 100 mls/hr Q10H IV Last administered on 05/03/18at 12:44; Start 05/03/18 at 12:00; Stop 05/03/18 at 14:55; Status DC Acetaminophen/ Hydrocodone Bitart (Lortab 5/325) 2 tab 1X ONCE PO Last administered on 05/03/18at 12:44; Start 05/03/18 at 12:45; Stop 05/03/18 at 12 :46; Status DC Dextrose (Dextrose 50%-Water Syringe) 12.5 gm PRN Q15MIN PRN IV SEE COMMENTS; Start 05/03/18 at 14:00; Stop 05/03/18 at 16:10; Status DC Magnesium Sulfate 50 ml @ 25 mls/hr 1X ONCE IV Last administered on at 15:56; Start 05/03/18 at 14:30; Stop 05/03/18 at 16:29; Status DC Ringer's Solution 1,000 ml @ 125 mls/hr Q8H IV Last administered on at 07:20; Start 05/03/18 at 15:00 Acetaminophen/ Hydrocodone Bitart (Lortab 5/325) 1 tab PRN Q4HRS PRN PO MILD PAIN; Start 05/03/18 at 15:00 Acetaminophen/ Hydrocodone Bitart (Lortab 5/325) 2 tab PRN Q4HRS PRN PO MODERATE PAIN Last administered on 05/04/18at 05:56; Start 05/03/18 at 15:00 Ondansetron HCl (Zofran) 4 mg PRN Q6HRS PRN IV NAUSEA/VOMITING; Start at 15:45 Senna/Docusate Sodium (Senna Plus) 1 tab BID PO Last administered on at 20:59; Start 05/03/18 at 21:00 Lactulose (Lactulose) 20 gm PRN Q12HR PRN PO CONSTIPATION; Start 05/03/18 at 15:45 Heparin Sodium (Porcine) (Heparin Sodium) 5,000 unit Q8HRS SQ Last administered on 05/04/18at 06:02; Start 05/03/18 at 22:00 Alprazolam (Xanax) 1 mg TID PO Last administered on 05/03/18at 20:59; Start at 16:00 Ondansetron HCl (Zofran Odt) 4 mg PRN Q4HRS PRN PO NAUSEA/VOMITING; Start at 15:45 Citalopram Hydrobromide (CeleXA) 40 mg DAILY PO ; Start 05/04/18 at 09:00 Dronabinol (Marinol) 5 mg BIDACLD PO Last administered on 05/03/18at 16:01; Start 05/03/18 at 16:30 Acetaminophen/ Hydrocodone Bitart (Lortab 10/325) 1 tab PRN QID PRN PO SEVERE PAIN; Start 05/03/18 at 15:45 Magnesium Oxide (Magnesium Oxide) 400 mg DAILY PO ; Start 05/04/18 at 09:00 Metoprolol Tartrate (Lopressor) 100 mg BID PO ; Start 05/03/18 at 21:00 Non-Formulary Medication (Ubidecarenone (Coq-10)) 200 mg DAILY PO ; Start 05/04 at 09:00; Status UNV Ringer's Solution 1,000 ml @ 125 mls/hr Q8H IV Last administered on at 00:44; Start 05/03/18 at 15:45 Prochlorperazine Edisylate (Compazine) 10 mg PRN Q6HRS PRN IV NAUSEA/VOMITING; Start 05/03/18 at 16:00 Mirtazapine (Remeron) 7.5 mg QHS PO Last administered on 05/03/18at 20:59; Start 05/03/18 at 21:00 Psyllium Hydrophilic Mucilloid (Metamucil Fiber Packet) 1 pkt DAILY PO Last administered on 05/03/18at 16:00; Start 05/03/18 at 16:30 Polyethylene Glycol (miraLAX PACKET) 17 gm DAILY PO Last administered on at 16:00; Start 05/03/18 at 16:30 Nicotine (Nicoderm Cq 21mg) 1 patch DAILY TD Last administered on 05/03/18at 16 :03; Start 05/03/18 at 16:30 Insulin Human Lispro (HumaLOG) 0-5 UNITS TIDWMEALS SQ ; Start 05/03/18 at 17:00 Dextrose (Dextrose 50%-Water Syringe) 12.5 gm PRN Q15MIN PRN IV SEE COMMENTS; Start 05/03/18 at 16:15 Active Scripts Active Mag-Oxide (Magnesium Oxide) 400 Mg Tablet 400 Mg PO DAILY 30 Days Reported Zolpidem Tartrate 10 Mg Tablet 10 Mg PO HS PRN Coq-10 (Ubidecarenone) 100 Mg Capsule 200 Mg PO DAILY Metoprolol Tartrate 100 Mg Tablet 100 Mg PO BID Metformin Hcl 500 Mg Tablet 500 Mg PO BIDWMEALS Ondansetron Odt (Ondansetron) 4 Mg Tab.rapdis 4 Mg IV PRN Q4HRS PRN Lisinopril 20 Mg Tablet 20 Mg PO DAILY Hydrocodone-Apap 10-325 (Hydrocodone Bit/Acetaminophen) 1 Each Tablet 1 Tab PO QID PRN Marinol (Dronabinol) 5 Mg Capsule 5 Mg PO BIDACLD Celexa (Citalopram Hydrobromide) 40 Mg Tablet 40 Mg PO DAILY Alprazolam 1 Mg Tablet 1 Mg PO TID Vitals/I & O Vital Sign - Last 24 Hours 05/03/18 05/03/18 05/03/18 05/03/18 10:29 11:00 12:30 14:30 Temp 98.0 98.0 Pulse 87 72 72 Resp 16 16 16 B/P (MAP) 73/52 (59) Pulse Ox 94 97 97 O2 Delivery Room Air Room Air 05/03/18 05/03/18 05/03/18 05/03/18 15:00 15:00 15:00 17:55 Temp 97.7 97.7 Pulse 91 70 107 Resp 18 B/P (MAP) 121/66 (84) 100/61 (74) 104/65 (78) Pulse Ox 97 97 97 O2 Delivery Room Air Room Air Room Air 05/03/18 05/03/18 05/03/18 05/03/18 19:20 20:30 21:49 23:25 Temp 98.2 98.2 Pulse 105 85 Resp 18 18 B/P (MAP) 99/56 (70) 49/81 Pulse Ox 93 O2 Delivery Room Air Room Air Room Air 05/03/18 05/04/18 05/04/18 05/04/18 23:33 00:30 01:00 01:30 Temp 98.3 98.4 98.3 98.4 98.3 98.4 98.3 98.4 Pulse 81 82 82 86 Resp 18 18 18 18 B/P (MAP) 85/49 (61) 124/53 (76) 120/53 (75) 118/53 (74) Pulse Ox 95 97 98 98 O2 Delivery Room Air Nasal Cannula Nasal Cannula Nasal Cannula O2 Flow Rate 2.0 2.0 2.0 05/04/18 05/04/18 05/04/18 03:38 05:56 07:00 Temp 98.0 98.0 Pulse 99 Resp 18 16 16 B/P (MAP) 135/78 (97) Pulse Ox 93 O2 Delivery Room Air Room Air Nasal Cannula Intake and Output 05/03/18 05/03/18 05/04/18 15:00 23:00 07:00 Intake Total 500 ml 1291 ml Output Total 800 ml Balance 500 ml 491 ml W[place] MCGHEE MD May 04, 2018 07:36
[2018-05-04] MEDS: INSULIN LISPRO 300 UNITS/3 ML INSULN.PEN. SQ SCH ×3 (08:00→17:00)
[2018-05-04] MEDS: METOPROLOL TART IMMED RELEASE 50 MG TABLET. PO SCH ×2 (09:00→21:00)
[2018-05-04] MEDS ORDERED: NON FORMULARY ITEM (Ubidecarenone (Coq-10) 200 MG) PO SCH (09:00)
[2018-05-04] MEDS: POLYETHYLENE GLYCOL 3350 17 GM PACKET. PO SCH ×2 (09:00→09:52)
[2018-05-04] MEDS: MAGNESIUM OXIDE 400 MG TABLET PO SCH (09:51)
[2018-05-04] MEDS: ALPRAZolam 1 MG TABLET PO SCH ×3 (09:52→21:05)
[2018-05-04] MEDS: CITALOPRAM 20 MG TABLET. PO SCH (09:52)
[2018-05-04] MEDS: PSYLLIUM HUSK (SUGAR FREE) 1 PKT PACKET PO SCH (09:52)
[2018-05-04] MEDS: NICOTINE 21MG PATCH. TD SCH (09:54)
[2018-05-04] MEDS: SENNOSIDES/DOCUSATE 8.6/50MG TABLET. PO SCH ×2 (09:54→21:04)
[2018-05-04] MEDS: DRONABINOL 2.5 MG CAPSULE. PO SCH ×2 (11:41→17:05)
--- NOTE | 2018-05-04 12:48 | PDOC ---
SUBJECTIVE ROS F/u[ pAKI Patient is feeling much better today. She has used the bathroom a few times. Urine output is improving. She denies orthostasis currently CVS: no Orthopnea, no CP RESP: no SOB, no FAIRCHILD GI: no Nausea, no Vomiting : no Dysuria, no Urgency OBJECTIVE Vital Signs Vital Signs Date Time Temp Pulse Resp B/P (MAP) Pulse Ox O2 Delivery O2 Flow Rate FiO2 05/04/18 11:44 18 05/04/18 11:00 98.5 105 100/56 (71) 92 Room Air 98.5 05/04/18 01:30 2.0 I & 0 Intake and Output 05/04/18 07:00 Intake Total 1791 ml Output Total 800 ml Balance 991 ml Intake Oral 360 ml IV Total 1431 ml Output Urine Total 800 ml # Voids 3 # Bowel Movements 1 PHYSICAL EXAM Physical Exam GEN: Awake, Oriented x 3, In no distress, somewhat thin and cachectic Afro- [place] female EYES: Vision Unchanged, Conjunctiva Normal EN: No EN Drainage, Mucous Membranes moist NECK: no JVD, no JVP, Supple, no Thyromegaly CVS: S1S2, ? Soft Murmur, No Gallop, No Rub,no Edema RESP: no Rales, no Rhonchi,no Acc. Muscle Use GI: BS + ve, NO Bruit, Non Tender, Non Distended : no CVA tenderness, n Suprapubic Tenderness DIAGNOSIS/ASSESSMENT Assessment & Plan Acute renal failure: This appears to be improving with volume repletion. Low blood pressure may have contributed also. Hemodynamics appeared to be improving Volume depletion: This appears to be improving currently. She is relatively asymptomatic now. We suspect this is due to nausea vomiting Hyponatremia Mild- as above and associated with nausea vomiting also. Improving with IVF as ordered. Nausea/Vomiting - due to chemo for Breast cancer Hypotension appears to be improving now with volume repletion, Ct iVf fo rnow COMMENT/RELEVANT DATA Meds Current Medications Medications (Trade) Dose Ordered Sig/Ashley Start Time Stop Time Status Last Admin Dose Admin Acetaminophen/ Hydrocodone Bitart (Lortab 10/325) 1 tab PRN QID PRN 05/03/18 15:45 05/04/18 11:12 DC Acetaminophen/ Hydrocodone Bitart (Lortab 5/325) 2 tab PRN Q4HRS PRN 05/03/18 15:00 05/04/18 11:44 2 TAB Alprazolam (Xanax) 1 mg TID 05/03/18 16:00 05/04/18 09:52 1 MG Citalopram Hydrobromide (CeleXA) 40 mg DAILY 05/04/18 09:00 05/04/18 09:52 40 MG Dextrose (Dextrose 50%-Water Syringe) 12.5 gm PRN Q15MIN PRN 05/03/18 16:15 Dronabinol (Marinol) 5 mg BIDACLD 05/03/18 16:30 05/04/18 11:41 5 MG Heparin Sodium (Porcine) (Heparin Sodium) 5,000 unit Q8HRS 05/03/18 22:00 05/04/18 06:02 5,000 UNIT Insulin Human Lispro (HumaLOG) 0-5 UNITS TIDWMEALS 05/03/18 17:00 Lactulose (Lactulose) 20 gm PRN Q12HR PRN 05/03/18 15:45 Magnesium Oxide (Magnesium Oxide) 400 mg DAILY 05/04/18 09:00 05/04/18 09:51 400 MG Magnesium Sulfate 50 ml @ 25 mls/hr 1X ONCE 05/03/18 14:30 05/03/18 16:29 DC 05/03/18 15:56 25 MLS/HR Metoprolol Tartrate (Lopressor) 100 mg BID 05/03/18 21:00 Mirtazapine (Remeron) 7.5 mg QHS 05/03/18 21:00 05/03/18 20:59 7.5 MG Morphine Sulfate (Morphine Sulfate) 2 mg PRN Q2HR PRN 05/03/18 12:00 05/04/18 11:59 DC Nicotine (Nicoderm Cq 21mg) 1 patch DAILY 05/03/18 16:30 05/04/18 09:54 1 PATCH Non-Formulary Medication (Ubidecarenone (Coq-10)) 200 mg DAILY 05/04/18 09:00 UNV Ondansetron HCl (Zofran Odt) 4 mg PRN Q4HRS PRN 05/03/18 15:45 Ondansetron HCl (Zofran) 4 mg PRN Q6HRS PRN 05/03/18 15:45 Polyethylene Glycol (miraLAX PACKET) 17 gm DAILY 05/03/18 16:30 05/03/18 16:00 17 GM Prochlorperazine Edisylate (Compazine) 10 mg PRN Q6HRS PRN 05/03/18 16:00 Psyllium Hydrophilic Mucilloid (Metamucil Fiber Packet) 1 pkt DAILY 05/03/18 16:30 05/04/18 09:52 1 PKT Ringer's Solution 1,000 ml @ 125 mls/hr Q8H 05/03/18 15:45 05/04/18 10:02 125 MLS/HR Senna/Docusate Sodium (Senna Plus) 1 tab BID 05/03/18 21:00 05/04/18 09:54 1 TAB Sodium Chloride 1,000 ml @ 100 mls/hr Q10H 05/03/18 12:00 05/03/18 14:55 DC 05/03/18 12:44 100 MLS/HR Lab Laboratory Tests Test 05/03/18 13:40 05/03/18 13:54 05/03/18 16:06 05/03/18 21:30 Glucose (Fingerstick) 77 mg/dL (70-99) 75 mg/dL (70-99) 115 mg/dL (70-99) 102 mg/dL (70-99) Test 05/04/18 03:30 05/04/18 08:01 05/04/18 11:44 White Blood Count 4.0 x10^3/uL (4.0-11.0) Red Blood Count 3.61 x10^6/uL (3.50-5.40) Hemoglobin 10.8 g/dL (12.0-15.5) Hematocrit 31.7 % (36.0-47.0) Mean Corpuscular Volume 88 fL (79-100) Mean Corpuscular Hemoglobin 30 pg (25-35) Mean Corpuscular Hemoglobin Concent 34 g/dL (31-37) Red Cell Distribution Width 14.8 % (11.5-14.5) Platelet Count 302 x10^3/uL (140-400) Neutrophils (%) (Auto) 34 % (31-73) Lymphocytes (%) (Auto) 53 % (24-48) Monocytes (%) (Auto) 9 % (0-9) Eosinophils (%) (Auto) 4 % (0-3) Basophils (%) (Auto) 1 % (0-3) Neutrophils # (Auto) 1.3 x10^3uL (1.8-7.7) Lymphocytes # (Auto) 2.1 x10^3/uL (1.0-4.8) Monocytes # (Auto) 0.4 x10^3/uL (0.0-1.1) Eosinophils # (Auto) 0.1 x10^3/uL (0.0-0.7) Basophils # (Auto) 0.0 x10^3/uL (0.0-0.2) Sodium Level 134 mmol/L (136-145) Potassium Level 3.8 mmol/L (3.5-5.1) Chloride Level 97 mmol/L (98-107) Carbon Dioxide Level 26 mmol/L (21-32) Anion Gap 11 (6-14) Blood Urea Nitrogen 72 mg/dL (7-20) Creatinine 2.4 mg/dL (0.6-1.0) Estimated GFR (Cockcroft-Gault) 24.2 Glucose Level 89 mg/dL (70-99) Calcium Level 8.6 mg/dL (8.5-10.1) Glucose (Fingerstick) 89 mg/dL (70-99) 130 mg/dL (70-99) Results All relevant outside records, renal labs, imaging studies, telemetry/EKG's were reviewed. NIGHAT MARSHALL MD May 04, 2018 12:48
[2018-05-04] MEDS: MIRTAZAPINE 7.5 MG TABLET. PO SCH (21:05)
[2018-05-05 03:00] VITALS: BP 136/83
[2018-05-05] MEDS: HYDROcodone/APAP 5/325MG 1 TAB TABLET PO PRN ×5 (03:59→23:09)
[2018-05-05] MEDS: HEPARIN for SUB-Q USE 5,000 UNIT/ML VIAL. SQ SCH ×3 (05:59→23:12)
[2018-05-05 07:00] VITALS: BP 130/86
--- NOTE | 2018-05-05 07:27 | PDOC ---
PROGRESS NOTES Chief Complaint Chief Complaint ARF Deconditioning Constipation Lung Cancer stage IV History of Present Illness History of Present Illness 67-year-old female w/ PMHx cervical cancer (07/19/2005 [id number]), HTN, DM, Depression, Anxiety who currently undergoing chemotherapy for breast cancer. She started new chemotherapy (Ibrance) about one week ago. She's been having nausea and vomiting for the first few days of therapy and then over the past 2- 3 days she's been very weak at home. She denies any pain at this point. Her weaknesses worse when she stands up. She denies fevers or chills. She had not eaten or drank anything for the past 3 days prior to admit. On further review she has vague abdominal pain as well as some constipation. She also c/o nicotine dependence, still smoking, has a slight cough. She also c/ o weakness and insomnia. EKG shows sinus rhythm with a regular rate. ST segments congruent. Not suggestive of ACS. Patient's blood pressure came up with IV fluid administration. Chemistry shows elevated creatinine with mildly low magnesium. Cancer Hx: "PET scan on 01/25/2017 revealed multiple hypermetabolic foci in the upper abdomen, right epicardial/pleurodiaphragmatic region, subcarinal and right internal mammary region compatible with metastatic disease. Mammogram on 2016 was negative. The ER was positive at 76%, [place] positive 14.7%, HER-2/soha negative. She was started on palliative chemotherapy with Abraxane on 2016 for management of stage IV breast cancer. Followup PET scans revealed improvement in the metabolic activity in the above- mentioned lymph nodes. She received cycle #10, day #8 of Abraxane treatment on 11/23/2017. " Review of systems is negative for chest pain shortness of breath abdominal pain. Positive for vomiting. Negative for neck pain or headache. All other review of systems is negative unless otherwise noted in history of present illness. Today she is feeling much better, c/o constipation and tenesmus. No CP or SOB, has a little better appetite. No dysuria. Cr improved, labs still pending today. Phos was low and she muscularly weak. A/P: Nausea/Vomiting - possibly chemo related or gastroenteritis, renal failure related. Zofran, compazine Abdominal pain - Likely gastroenteritis, supportive care, IVF, pain control. Bowel regimen today Hypophosphatemia - will replace prior to d/c home Acute renal failure - likely pre-renal dehydration, IVF, consulted nephrology Failure to thrive - likely related to overwhelming cancer diagnosis, remeron, nutritional supplements. PT/OT if she is stronger tomorrow Stage IV breast cancer - extensive history Hypomagnesemia - replaced, will repeat level and follow this and K, may account for her weakness DM - hold metformin, sliding scale HTN - hold lisinopril for ARF, will monitor Diet - ADA PPX - heparin FULL CODE Inpatient for acute renal failure at least 2 midnights Vitals Vitals Vital Signs Date Time Temp Pulse Resp B/P (MAP) Pulse Ox O2 Delivery O2 Flow Rate FiO2 05/05/18 03:59 20 95 Room Air 05/05/18 03:00 98.4 98 136/83 (100) 98.4 Physical Exam General: Alert, Oriented X3, Cooperative, No acute distress, Other (Cachexia, wasting temporal and muscular) Lungs: Clear Abdomen: Normal bowel sounds, Soft, No hepatosplenomegaly, No masses, Other ( RUQ tenderness) Extremities: No clubbing, No cyanosis, No edema, Normal pulses, No tenderness/ swelling Skin: No rashes, No breakdown, No significant lesion Labs LABS Laboratory Tests Test 05/04/18 08:01 05/04/18 11:44 05/04/18 17:21 05/04/18 20:46 Glucose (Fingerstick) 89 mg/dL (70-99) 130 mg/dL (70-99) 88 mg/dL (70-99) 113 mg/dL (70-99) Assessment and Plan Assessmemt and Plan Problems Medical Problems: (1) Dehydration Status: Acute Comment Review of Relevant I have reviewed the following items arnulfo (where applicable) has been applied. Labs Laboratory Tests Test 05/03/18 10:11 05/03/18 10:50 05/03/18 11:35 05/03/18 13:40 White Blood Count 4.6 x10^3/uL (4.0-11.0) Red Blood Count 4.19 x10^6/uL (3.50-5.40) Hemoglobin 12.7 g/dL (12.0-15.5) Hematocrit 36.8 % (36.0-47.0) Mean Corpuscular Volume 88 fL (79-100) Mean Corpuscular Hemoglobin 30 pg (25-35) Mean Corpuscular Hemoglobin Concent 34 g/dL (31-37) Red Cell Distribution Width 15.1 % (11.5-14.5) Platelet Count 370 x10^3/uL (140-400) Neutrophils (%) (Auto) 53 % (31-73) Lymphocytes (%) (Auto) 38 % (24-48) Monocytes (%) (Auto) 7 % (0-9) Eosinophils (%) (Auto) 2 % (0-3) Basophils (%) (Auto) 1 % (0-3) Neutrophils # (Auto) 2.4 x10^3uL (1.8-7.7) Lymphocytes # (Auto) 1.7 x10^3/uL (1.0-4.8) Monocytes # (Auto) 0.3 x10^3/uL (0.0-1.1) Eosinophils # (Auto) 0.1 x10^3/uL (0.0-0.7) Basophils # (Auto) 0.0 x10^3/uL (0.0-0.2) Sodium Level 131 mmol/L (136-145) Potassium Level 3.5 mmol/L (3.5-5.1) Chloride Level 93 mmol/L (98-107) Carbon Dioxide Level 26 mmol/L (21-32) Anion Gap 12 (6-14) Blood Urea Nitrogen 72 mg/dL (7-20) Creatinine 3.7 mg/dL (0.6-1.0) Estimated GFR (Cockcroft-Gault) 14.7 Glucose Level 101 mg/dL (70-99) Calcium Level 8.4 mg/dL (8.5-10.1) Magnesium Level 1.6 mg/dL (1.8-2.4) Total Bilirubin 0.5 mg/dL (0.2-1.0) Direct Bilirubin 0.2 mg/dL (0.0-0.2) Aspartate Amino Transf (AST/SGOT) 11 U/L (15-37) Alanine Aminotransferase (ALT/SGPT) 13 U/L (14-59) Alkaline Phosphatase 49 U/L (46-116) Troponin I Quantitative < 0.017 ng/mL (0.000-0.055) Total Protein 6.2 g/dL (6.4-8.2) Albumin 3.3 g/dL (3.4-5.0) Lipase 78 U/L (73-393) Urine Collection Type Unknown Urine Color Yellow Urine Clarity Clear Urine pH 5.0 Urine Specific [place] 1.020 Urine Protein Negative mg/dL (NEG-TRACE) Urine Glucose (UA) Negative mg/dL (NEG) Urine Ketones (Stick) Negative mg/dL (NEG) Urine Blood Negative (NEG) Urine Nitrite Negative (NEG) Urine Bilirubin Negative (NEG) Urine Urobilinogen Dipstick 0.2 mg/dL (0.2 mg/dL) Urine Leukocyte Esterase Negative (NEG) Urine RBC 0 /HPF (0-2) Urine WBC 0 /HPF (0-4) Urine Squamous Epithelial Cells Few /LPF Urine Bacteria 0 /HPF (0-FEW) Glucose (Fingerstick) 77 mg/dL (70-99) Test 05/03/18 13:54 05/03/18 16:06 05/03/18 21:30 05/04/18 03:30 Glucose (Fingerstick) 75 mg/dL (70-99) 115 mg/dL (70-99) 102 mg/dL (70-99) White Blood Count 4.0 x10^3/uL (4.0-11.0) Red Blood Count 3.61 x10^6/uL (3.50-5.40) Hemoglobin 10.8 g/dL (12.0-15.5) Hematocrit 31.7 % (36.0-47.0) Mean Corpuscular Volume 88 fL (79-100) Mean Corpuscular Hemoglobin 30 pg (25-35) Mean Corpuscular Hemoglobin Concent 34 g/dL (31-37) Red Cell Distribution Width 14.8 % (11.5-14.5) Platelet Count 302 x10^3/uL (140-400) Neutrophils (%) (Auto) 34 % (31-73) Lymphocytes (%) (Auto) 53 % (24-48) Monocytes (%) (Auto) 9 % (0-9) Eosinophils (%) (Auto) 4 % (0-3) Basophils (%) (Auto) 1 % (0-3) Neutrophils # (Auto) 1.3 x10^3uL (1.8-7.7) Lymphocytes # (Auto) 2.1 x10^3/uL (1.0-4.8) Monocytes # (Auto) 0.4 x10^3/uL (0.0-1.1) Eosinophils # (Auto) 0.1 x10^3/uL (0.0-0.7) Basophils # (Auto) 0.0 x10^3/uL (0.0-0.2) Sodium Level 134 mmol/L (136-145) Potassium Level 3.8 mmol/L (3.5-5.1) Chloride Level 97 mmol/L (98-107) Carbon Dioxide Level 26 mmol/L (21-32) Anion Gap 11 (6-14) Blood Urea Nitrogen 72 mg/dL (7-20) Creatinine 2.4 mg/dL (0.6-1.0) Estimated GFR (Cockcroft-Gault) 24.2 Glucose Level 89 mg/dL (70-99) Calcium Level 8.6 mg/dL (8.5-10.1) Test 05/04/18 08:01 05/04/18 11:44 05/04/18 17:21 05/04/18 20:46 Glucose (Fingerstick) 89 mg/dL (70-99) 130 mg/dL (70-99) 88 mg/dL (70-99) 113 mg/dL (70-99) Laboratory Tests Test 05/04/18 08:01 05/04/18 11:44 05/04/18 17:21 05/04/18 20:46 Glucose (Fingerstick) 89 mg/dL (70-99) 130 mg/dL (70-99) 88 mg/dL (70-99) 113 mg/dL (70-99) Medications Current Medications Sodium Chloride 500 ml @ 500 mls/hr 1X ONCE IV Last administered on at 10:35; Start 05/03/18 at 10:30; Stop 05/03/18 at 11:29; Status DC Ondansetron HCl (Zofran) 4 mg PRN Q8HRS PRN IV NAUSEA/VOMITING; Start at 12:00; Stop 05/03/18 at 15:40; Status DC Morphine Sulfate (Morphine Sulfate) 2 mg PRN Q2HR PRN IV PAIN; Start 05/03/18 at 12:00; Stop 05/04/18 at 11:59; Status DC Sodium Chloride 1,000 ml @ 100 mls/hr Q10H IV Last administered on 05/03/18at 12:44; Start 05/03/18 at 12:00; Stop 05/03/18 at 14:55; Status DC Acetaminophen/ Hydrocodone Bitart (Lortab 5/325) 2 tab 1X ONCE PO Last administered on 05/03/18at 12:44; Start 05/03/18 at 12:45; Stop 05/03/18 at 12 :46; Status DC Dextrose (Dextrose 50%-Water Syringe) 12.5 gm PRN Q15MIN PRN IV SEE COMMENTS; Start 05/03/18 at 14:00; Stop 05/03/18 at 16:10; Status DC Magnesium Sulfate 50 ml @ 25 mls/hr 1X ONCE IV Last administered on at 15:56; Start 05/03/18 at 14:30; Stop 05/03/18 at 16:29; Status DC Ringer's Solution 1,000 ml @ 125 mls/hr Q8H IV Last administered on at 07:20; Start 05/03/18 at 15:00; Stop 05/04/18 at 11:13; Status DC Acetaminophen/ Hydrocodone Bitart (Lortab 5/325) 1 tab PRN Q4HRS PRN PO MILD PAIN; Start 05/03/18 at 15:00 Acetaminophen/ Hydrocodone Bitart (Lortab 5/325) 2 tab PRN Q4HRS PRN PO MODERATE-SEVERE PAIN Last administered on 05/05/18at 03:59; Start 05/03/18 at 15:00 Ondansetron HCl (Zofran) 4 mg PRN Q6HRS PRN IV NAUSEA/VOMITING 1ST CHOICE; Start 05/03/18 at 15:45 Senna/Docusate Sodium (Senna Plus) 1 tab BID PO Last administered on at 21:04; Start 05/03/18 at 21:00 Lactulose (Lactulose) 20 gm PRN Q12HR PRN PO CONSTIPATION; Start 05/03/18 at 15:45 Heparin Sodium (Porcine) (Heparin Sodium) 5,000 unit Q8HRS SQ Last administered on 05/05/18at 05:59; Start 05/03/18 at 22:00 Alprazolam (Xanax) 1 mg TID PO Last administered on 05/04/18at 21:05; Start at 16:00 Ondansetron HCl (Zofran Odt) 4 mg PRN Q4HRS PRN PO NAUSEA/VOMITING; Start at 15:45 Citalopram Hydrobromide (CeleXA) 40 mg DAILY PO Last administered on at 09:52; Start 05/04/18 at 09:00 Dronabinol (Marinol) 5 mg BIDACLD PO Last administered on 05/04/18 17:05; Start 05/03/18 at 16:30 Acetaminophen/ Hydrocodone Bitart (Lortab 10/325) 1 tab PRN QID PRN PO SEVERE PAIN; Start 05/03/18 at 15:45; Stop 05/04/18 at 11:12; Status DC Magnesium Oxide (Magnesium Oxide) 400 mg DAILY PO Last administered on at 09:51; Start 05/04/18 at 09:00 Metoprolol Tartrate (Lopressor) 100 mg BID PO ; Start 05/03/18 at 21:00 Non-Formulary Medication (Ubidecarenone (Coq-10)) 200 mg DAILY PO ; Start 05/04 at 09:00; Status UNV Ringer's Solution 1,000 ml @ 125 mls/hr Q8H IV Last administered on at 00:30; Start 05/03/18 at 15:45 Prochlorperazine Edisylate (Compazine) 10 mg PRN Q6HRS PRN IV NAUSEA/VOMITING 2ND CHOICE; Start 05/03/18 at 16:00 Mirtazapine (Remeron) 7.5 mg QHS PO Last administered on 05/04/18at 21:05; Start 05/03/18 at 21:00 Psyllium Hydrophilic Mucilloid (Metamucil Fiber Packet) 1 pkt DAILY PO Last administered on 05/04/18 09:52; Start 05/03/18 at 16:30 Polyethylene Glycol (miraLAX PACKET) 17 gm DAILY PO Last administered on at 16:00; Start 05/03/18 at 16:30 Nicotine (Nicoderm Cq 21mg) 1 patch DAILY TD Last administered on 05/04/18at 09 :54; Start 05/03/18 at 16:30 Insulin Human Lispro (HumaLOG) 0-5 UNITS TIDWMEALS SQ ; Start 05/03/18 at 17:00 Dextrose (Dextrose 50%-Water Syringe) 12.5 gm PRN Q15MIN PRN IV SEE COMMENTS; Start 05/03/18 at 16:15 Active Scripts Active Mag-Oxide (Magnesium Oxide) 400 Mg Tablet 400 Mg PO DAILY 30 Days Reported Zolpidem Tartrate 10 Mg Tablet 10 Mg PO HS PRN Coq-10 (Ubidecarenone) 100 Mg Capsule 200 Mg PO DAILY Metoprolol Tartrate 100 Mg Tablet 100 Mg PO BID Metformin Hcl 500 Mg Tablet 500 Mg PO BIDWMEALS Ondansetron Odt (Ondansetron) 4 Mg Tab.rapdis 4 Mg IV PRN Q4HRS PRN Lisinopril 20 Mg Tablet 20 Mg PO DAILY Hydrocodone-Apap 10-325 (Hydrocodone Bit/Acetaminophen) 1 Each Tablet 1 Tab PO QID PRN Marinol (Dronabinol) 5 Mg Capsule 5 Mg PO BIDACLD Celexa (Citalopram Hydrobromide) 40 Mg Tablet 40 Mg PO DAILY Alprazolam 1 Mg Tablet 1 Mg PO TID Vitals/I & O Vital Sign - Last 24 Hours 05/04/18 05/04/18 05/04/18 05/04/18 08:00 09:00 11:00 11:44 Temp 98.5 98.5 Pulse 93 105 Resp 18 B/P (MAP) 126/72 100/56 (71) Pulse Ox 92 O2 Delivery Room Air Room Air 05/04/18 05/04/18 05/04/18 05/04/18 15:00 15:49 16:49 19:00 Temp 98.4 98.0 98.4 98.0 Pulse 109 107 Resp 18 18 B/P (MAP) 93/58 (70) 103/62 (76) Pulse Ox 92 96 O2 Delivery Room Air Room Air Room Air Room Air 05/04/18 05/04/18 05/04/18 05/05/18 20:00 21:00 23:00 03:00 Temp 98.2 98.4 98.2 98.4 Pulse 107 97 98 Resp 18 18 B/P (MAP) 103/62 110/73 (85) 136/83 (100) Pulse Ox 95 94 O2 Delivery Room Air Room Air Room Air 05/05/18 03:59 Resp 20 Pulse Ox 95 O2 Delivery Room Air WASHINGTON MCGHEE MD May 05, 2018 07:27
[2018-05-05] MEDS: MAGNESIUM OXIDE 400 MG TABLET PO SCH (08:26)
[2018-05-05] MEDS: METOPROLOL TART IMMED RELEASE 50 MG TABLET. PO SCH ×2 (08:26→20:39)
[2018-05-05] MEDS: CITALOPRAM 20 MG TABLET. PO SCH (08:26)
[2018-05-05] MEDS: SENNOSIDES/DOCUSATE 8.6/50MG TABLET. PO SCH ×2 (08:26→20:38)
[2018-05-05] MEDS: PSYLLIUM HUSK (SUGAR FREE) 1 PKT PACKET PO SCH (08:27)
[2018-05-05] MEDS: POLYETHYLENE GLYCOL 3350 17 GM PACKET. PO SCH (08:27)
[2018-05-05] MEDS: NICOTINE 21MG PATCH. TD SCH (08:27)
[2018-05-05] MEDS: ALPRAZolam 1 MG TABLET PO SCH ×3 (08:27→20:39)
[2018-05-05] MEDS: IV RINGERS,LACTATED 1000ML 1,000 ML IV SCH ×3 (08:30→23:09)
[2018-05-05] MEDS: INSULIN LISPRO 300 UNITS/3 ML INSULN.PEN. SQ SCH ×3 (08:36→17:06)
[2018-05-05 11:00] VITALS: BP 104/65
[2018-05-05] MEDS: DRONABINOL 2.5 MG CAPSULE. PO SCH ×2 (11:22→16:34)
[2018-05-05 15:00] VITALS: BP 118/75
[2018-05-05 19:57] VITALS: BP 117/69
[2018-05-05] MEDS: MIRTAZAPINE 7.5 MG TABLET. PO SCH (20:38)
[2018-05-05 23:17] VITALS: BP 145/82
[2018-05-06 03:26] VITALS: BP 155/90
[2018-05-06] MEDS: HYDROcodone/APAP 5/325MG 1 TAB TABLET PO PRN ×2 (04:14→08:58)
[2018-05-06] MEDS: IV RINGERS,LACTATED 1000ML 1,000 ML IV SCH (06:12)
[2018-05-06] MEDS: HEPARIN for SUB-Q USE 5,000 UNIT/ML VIAL. SQ SCH (06:15)
[2018-05-06 06:44] LABS: ALBUMIN 2.8 g/dL (3.4-5.0); CREATININE 1.1 mg/dL (0.6-1.0); GFR 59.6; PHOSPHORUS 1.4 mg/dL (2.6-4.7)
[2018-05-06 07:00] VITALS: BP 183/89
[2018-05-06] MEDS ORDERED: SODIUM PHOSPHATE 20 MMOL in IV DEXTROSE 5% 250 ML IV ONE (07:30)
--- NOTE | 2018-05-06 07:48 | PDOC ---
PROGRESS NOTES Chief Complaint Chief Complaint ARF Deconditioning Constipation Lung Cancer stage IV History of Present Illness History of Present Illness 67-year-old female w/ PMHx cervical cancer (07/19/2005 [id number]), HTN, DM, Depression, Anxiety who currently undergoing chemotherapy for breast cancer. She started new chemotherapy (Ibrance) about one week ago. She's been having nausea and vomiting for the first few days of therapy and then over the past 2- 3 days she's been very weak at home. She denies any pain at this point. Her weaknesses worse when she stands up. She denies fevers or chills. She had not eaten or drank anything for the past 3 days prior to admit. On further review she has vague abdominal pain as well as some constipation. She also c/o nicotine dependence, still smoking, has a slight cough. She also c/ o weakness and insomnia. EKG shows sinus rhythm with a regular rate. ST segments congruent. Not suggestive of ACS. Patient's blood pressure came up with IV fluid administration. Chemistry shows elevated creatinine with mildly low magnesium. Cancer Hx: "PET scan on 01/25/2017 revealed multiple hypermetabolic foci in the upper abdomen, right epicardial/pleurodiaphragmatic region, subcarinal and right internal mammary region compatible with metastatic disease. Mammogram on 2016 was negative. The ER was positive at 76%, [place] positive 14.7%, HER-2/soha negative. She was started on palliative chemotherapy with Abraxane on 2016 for management of stage IV breast cancer. Followup PET scans revealed improvement in the metabolic activity in the above- mentioned lymph nodes. She received cycle #10, day #8 of Abraxane treatment on 11/23/2017. " Review of systems is negative for chest pain shortness of breath abdominal pain. Positive for vomiting. Negative for neck pain or headache. All other review of systems is negative unless otherwise noted in history of present illness. Today she is feeling much better, c/o constipation and tenesmus. No CP or SOB, has a little better appetite. No dysuria. Cr improved, labs still pending today. Phos was low and she muscularly weak, 1.8, IV replacement and oral started. Cr improved to normal A/P: Nausea/Vomiting - possibly chemo related or gastroenteritis, renal failure related. Zofran, compazine Abdominal pain - Likely gastroenteritis, supportive care, IVF, pain control. Bowel regimen today Hypophosphatemia - will replace prior to d/c home Acute renal failure - likely pre-renal dehydration, IVF, consulted nephrology Failure to thrive - likely related to overwhelming cancer diagnosis, remeron, nutritional supplements. PT/OT if she is stronger tomorrow Stage IV breast cancer - extensive history Hypomagnesemia - replaced, will repeat level and follow this and K, may account for her weakness DM - hold metformin, sliding scale HTN - hold lisinopril for ARF, will monitor Diet - ADA PPX - heparin FULL CODE Inpatient for acute renal failure ok for d/c today Vitals Vitals Vital Signs Date Time Temp Pulse Resp B/P (MAP) Pulse Ox O2 Delivery O2 Flow Rate FiO2 05/06/18 03:26 97.7 82 18 155/90 (111) 92 Room Air 97.7 05/05/18 20:00 2.0 Physical Exam General: Alert, Oriented X3, Cooperative, No acute distress, Other (Cachexia, wasting temporal and muscular) Lungs: Clear Abdomen: Normal bowel sounds, Soft, No hepatosplenomegaly, No masses, Other ( RUQ tenderness) Extremities: No clubbing, No cyanosis, No edema, Normal pulses, No tenderness/ swelling Skin: No rashes, No breakdown, No significant lesion Labs LABS Laboratory Tests Test 05/05/18 12:04 05/05/18 17:03 05/05/18 20:11 05/06/18 04:35 Glucose (Fingerstick) 121 mg/dL (70-99) 77 mg/dL (70-99) 117 mg/dL (70-99) Sodium Level 141 mmol/L (136-145) Potassium Level 5.0 mmol/L (3.5-5.1) Chloride Level 104 mmol/L (98-107) Carbon Dioxide Level 34 mmol/L (21-32) Anion Gap 3 (6-14) Blood Urea Nitrogen 35 mg/dL (7-20) Creatinine 1.1 mg/dL (0.6-1.0) Estimated GFR (Cockcroft-Gault) 59.6 Glucose Level 89 mg/dL (70-99) Calcium Level 10.0 mg/dL (8.5-10.1) Phosphorus Level 1.4 mg/dL (2.6-4.7) Albumin 2.8 g/dL (3.4-5.0) Assessment and Plan Assessmemt and Plan Problems Medical Problems: (1) Dehydration Status: Acute Comment Review of Relevant I have reviewed the following items arnulfo (where applicable) has been applied. Labs Laboratory Tests Test 05/04/18 08:01 05/04/18 11:44 05/04/18 17:21 05/04/18 20:46 Glucose (Fingerstick) 89 mg/dL (70-99) 130 mg/dL (70-99) 88 mg/dL (70-99) 113 mg/dL (70-99) Test 05/05/18 07:45 05/05/18 12:04 05/05/18 17:03 05/05/18 20:11 Glucose (Fingerstick) 85 mg/dL (70-99) 121 mg/dL (70-99) 77 mg/dL (70-99) 117 mg/dL (70-99) Test 05/06/18 04:35 Sodium Level 141 mmol/L (136-145) Potassium Level 5.0 mmol/L (3.5-5.1) Chloride Level 104 mmol/L (98-107) Carbon Dioxide Level 34 mmol/L (21-32) Anion Gap 3 (6-14) Blood Urea Nitrogen 35 mg/dL (7-20) Creatinine 1.1 mg/dL (0.6-1.0) Estimated GFR (Cockcroft-Gault) 59.6 Glucose Level 89 mg/dL (70-99) Calcium Level 10.0 mg/dL (8.5-10.1) Phosphorus Level 1.4 mg/dL (2.6-4.7) Albumin 2.8 g/dL (3.4-5.0) Laboratory Tests Test 05/05/18 12:04 05/05/18 17:03 05/05/18 20:11 05/06/18 04:35 Glucose (Fingerstick) 121 mg/dL (70-99) 77 mg/dL (70-99) 117 mg/dL (70-99) Sodium Level 141 mmol/L (136-145) Potassium Level 5.0 mmol/L (3.5-5.1) Chloride Level 104 mmol/L (98-107) Carbon Dioxide Level 34 mmol/L (21-32) Anion Gap 3 (6-14) Blood Urea Nitrogen 35 mg/dL (7-20) Creatinine 1.1 mg/dL (0.6-1.0) Estimated GFR (Cockcroft-Gault) 59.6 Glucose Level 89 mg/dL (70-99) Calcium Level 10.0 mg/dL (8.5-10.1) Phosphorus Level 1.4 mg/dL (2.6-4.7) Albumin 2.8 g/dL (3.4-5.0) Medications Current Medications Sodium Chloride 500 ml @ 500 mls/hr 1X ONCE IV Last administered on at 10:35; Start 05/03/18 at 10:30; Stop 05/03/18 at 11:29; Status DC Ondansetron HCl (Zofran) 4 mg PRN Q8HRS PRN IV NAUSEA/VOMITING; Start at 12:00; Stop 05/03/18 at 15:40; Status DC Morphine Sulfate (Morphine Sulfate) 2 mg PRN Q2HR PRN IV PAIN; Start 05/03/18 at 12:00; Stop 05/04/18 at 11:59; Status DC Sodium Chloride 1,000 ml @ 100 mls/hr Q10H IV Last administered on 05/03/18at 12:44; Start 05/03/18 at 12:00; Stop 05/03/18 at 14:55; Status DC Acetaminophen/ Hydrocodone Bitart (Lortab 5/325) 2 tab 1X ONCE PO Last administered on 05/03/18at 12:44; Start 05/03/18 at 12:45; Stop 05/03/18 at 12 :46; Status DC Dextrose (Dextrose 50%-Water Syringe) 12.5 gm PRN Q15MIN PRN IV SEE COMMENTS; Start 05/03/18 at 14:00; Stop 05/03/18 at 16:10; Status DC Magnesium Sulfate 50 ml @ 25 mls/hr 1X ONCE IV Last administered on at 15:56; Start 05/03/18 at 14:30; Stop 05/03/18 at 16:29; Status DC Ringer's Solution 1,000 ml @ 125 mls/hr Q8H IV Last administered on at 07:20; Start 05/03/18 at 15:00; Stop 05/04/18 at 11:13; Status DC Acetaminophen/ Hydrocodone Bitart (Lortab 5/325) 1 tab PRN Q4HRS PRN PO MILD PAIN; Start 05/03/18 at 15:00 Acetaminophen/ Hydrocodone Bitart (Lortab 5/325) 2 tab PRN Q4HRS PRN PO MODERATE-SEVERE PAIN Last administered on 05/06/18at 04:14; Start 05/03/18 at 15:00 Ondansetron HCl (Zofran) 4 mg PRN Q6HRS PRN IV NAUSEA/VOMITING 1ST CHOICE; Start 05/03/18 at 15:45 Senna/Docusate Sodium (Senna Plus) 1 tab BID PO Last administered on at 20:38; Start 05/03/18 at 21:00 Lactulose (Lactulose) 20 gm PRN Q12HR PRN PO CONSTIPATION; Start 05/03/18 at 15:45 Heparin Sodium (Porcine) (Heparin Sodium) 5,000 unit Q8HRS SQ Last administered on 05/06/18at 06:15; Start 05/03/18 at 22:00 Alprazolam (Xanax) 1 mg TID PO Last administered on 05/05/18at 20:39; Start at 16:00 Ondansetron HCl (Zofran Odt) 4 mg PRN Q4HRS PRN PO NAUSEA/VOMITING; Start at 15:45 Citalopram Hydrobromide (CeleXA) 40 mg DAILY PO Last administered on at 08:26; Start 05/04/18 at 09:00 Dronabinol (Marinol) 5 mg BIDACLD PO Last administered on 05/05/18at 16:34; Start 05/03/18 at 16:30 Acetaminophen/ Hydrocodone Bitart (Lortab 10/325) 1 tab PRN QID PRN PO SEVERE PAIN; Start 05/03/18 at 15:45; Stop 05/04/18 at 11:12; Status DC Magnesium Oxide (Magnesium Oxide) 400 mg DAILY PO Last administered on at 08:26; Start 05/04/18 at 09:00 Metoprolol Tartrate (Lopressor) 100 mg BID PO Last administered on 05/05/18at 20:39; Start 05/03/18 at 21:00 Non-Formulary Medication (Ubidecarenone (Coq-10)) 200 mg DAILY PO ; Start 05/04 at 09:00; Status UNV Ringer's Solution 1,000 ml @ 125 mls/hr Q8H IV Last administered on at 06:12; Start 05/03/18 at 15:45 Prochlorperazine Edisylate (Compazine) 10 mg PRN Q6HRS PRN IV NAUSEA/VOMITING 2ND CHOICE; Start 05/03/18 at 16:00 Mirtazapine (Remeron) 7.5 mg QHS PO Last administered on 05/05/18at 20:38; Start 05/03/18 at 21:00 Psyllium Hydrophilic Mucilloid (Metamucil Fiber Packet) 1 pkt DAILY PO Last administered on 05/05/18at 08:27; Start 05/03/18 at 16:30 Polyethylene Glycol (miraLAX PACKET) 17 gm DAILY PO Last administered on at 08:27; Start 05/03/18 at 16:30 Nicotine (Nicoderm Cq 21mg) 1 patch DAILY TD Last administered on 05/05/18at 08 :27; Start 05/03/18 at 16:30 Insulin Human Lispro (HumaLOG) 0-5 UNITS TIDWMEALS SQ ; Start 05/03/18 at 17:00 Dextrose (Dextrose 50%-Water Syringe) 12.5 gm PRN Q15MIN PRN IV SEE COMMENTS; Start 05/03/18 at 16:15 Potassium Phos/ Sodium Phos (Phos-Nak) 1 pkt DAILY PO ; Start 05/06/18 at 09:00 Sodium Phosphate 20 mmol/Dextrose 256.6667 ml @ 64.167 m... 1X ONCE IV ; Start 05/06/18 at 07:30; Stop 05/06/18 at 11:29 Active Scripts Active Mag-Oxide (Magnesium Oxide) 400 Mg Tablet 400 Mg PO DAILY 30 Days Reported Zolpidem Tartrate 10 Mg Tablet 10 Mg PO HS PRN Coq-10 (Ubidecarenone) 100 Mg Capsule 200 Mg PO DAILY Metoprolol Tartrate 100 Mg Tablet 100 Mg PO BID Metformin Hcl 500 Mg Tablet 500 Mg PO BIDWMEALS Ondansetron Odt (Ondansetron) 4 Mg Tab.rapdis 4 Mg IV PRN Q4HRS PRN Lisinopril 20 Mg Tablet 20 Mg PO DAILY Hydrocodone-Apap 10-325 (Hydrocodone Bit/Acetaminophen) 1 Each Tablet 1 Tab PO QID PRN Marinol (Dronabinol) 5 Mg Capsule 5 Mg PO BIDACLD Celexa (Citalopram Hydrobromide) 40 Mg Tablet 40 Mg PO DAILY Alprazolam 1 Mg Tablet 1 Mg PO TID Vitals/I & O Vital Sign - Last 24 Hours 05/05/18 05/05/18 05/05/18 05/05/18 08:10 08:26 08:26 11:00 Temp 97.8 97.8 Pulse 89 62 Resp 16 B/P (MAP) 130/86 104/65 (78) Pulse Ox 95 O2 Delivery Room Air Room Air Room Air 05/05/18 05/05/18 05/05/18 05/05/18 13:43 15:00 16:35 18:34 Temp 98.1 98.1 Pulse 82 Resp 16 B/P (MAP) 118/75 (89) Pulse Ox 95 O2 Delivery Room Air Room Air Room Air Room Air 05/05/18 05/05/18 05/05/18 05/05/18 19:57 20:00 20:39 23:17 Temp 98.0 98.6 98.0 98.6 Pulse 93 93 85 Resp 18 16 B/P (MAP) 117/69 (85) 117/69 145/82 (103) Pulse Ox 94 96 O2 Delivery Room Air Room Air Room Air O2 Flow Rate 2.0 05/06/18 03:26 Temp 97.7 97.7 Pulse 82 Resp 18 B/P (MAP) 155/90 (111) Pulse Ox 92 O2 Delivery Room Air Intake and Output 05/05/18 05/05/18 05/06/18 15:00 23:00 07:00 Intake Total 200 ml Output Total 320 ml Balance -120 ml WASHINGTON MCGHEE MD May 06, 2018 07:48
--- NOTE | 2018-05-06 07:56 | PDOC3 ---
Discharge Summary Visit Information Date of Admission: May 03, 2018 Date of Discharge: May 06, 2018 Final Diagnosis Problems Medical Problems: (1) Dehydration Status: Acute Brief Hospital Course Allergies Allergies Coded Allergies Type Severity Reaction Last Updated Verified No Known Drug Allergies 01/03/17 No Vital Signs Vital Signs Date Time Temp Pulse Resp B/P (MAP) Pulse Ox O2 Delivery O2 Flow Rate FiO2 05/06/18 03:26 97.7 82 18 155/90 (111) 92 Room Air 97.7 05/05/18 20:00 2.0 Lab Results Laboratory Tests Test 05/04/18 08:01 05/04/18 11:44 05/04/18 17:21 05/04/18 20:46 Glucose (Fingerstick) 89 mg/dL (70-99) 130 mg/dL (70-99) 88 mg/dL (70-99) 113 mg/dL (70-99) Test 05/05/18 07:45 05/05/18 12:04 05/05/18 17:03 05/05/18 20:11 Glucose (Fingerstick) 85 mg/dL (70-99) 121 mg/dL (70-99) 77 mg/dL (70-99) 117 mg/dL (70-99) Test 05/06/18 04:35 Sodium Level 141 mmol/L (136-145) Potassium Level 5.0 mmol/L (3.5-5.1) Chloride Level 104 mmol/L (98-107) Carbon Dioxide Level 34 mmol/L (21-32) Anion Gap 3 (6-14) Blood Urea Nitrogen 35 mg/dL (7-20) Creatinine 1.1 mg/dL (0.6-1.0) Estimated GFR (Cockcroft-Gault) 59.6 Glucose Level 89 mg/dL (70-99) Calcium Level 10.0 mg/dL (8.5-10.1) Phosphorus Level 1.4 mg/dL (2.6-4.7) Albumin 2.8 g/dL (3.4-5.0) Laboratory Tests Test 05/05/18 12:04 05/05/18 17:03 05/05/18 20:11 05/06/18 04:35 Glucose (Fingerstick) 121 mg/dL (70-99) 77 mg/dL (70-99) 117 mg/dL (70-99) Sodium Level 141 mmol/L (136-145) Potassium Level 5.0 mmol/L (3.5-5.1) Chloride Level 104 mmol/L (98-107) Carbon Dioxide Level 34 mmol/L (21-32) Anion Gap 3 (6-14) Blood Urea Nitrogen 35 mg/dL (7-20) Creatinine 1.1 mg/dL (0.6-1.0) Estimated GFR (Cockcroft-Gault) 59.6 Glucose Level 89 mg/dL (70-99) Calcium Level 10.0 mg/dL (8.5-10.1) Phosphorus Level 1.4 mg/dL (2.6-4.7) Albumin 2.8 g/dL (3.4-5.0) Brief Hospital Course 67-year-old female w/ PMHx cervical cancer (07/19/2005 [id number]), HTN, DM, Depression, Anxiety who currently undergoing chemotherapy for breast cancer. She started new chemotherapy (Ibrance) about one week ago. She's been having nausea and vomiting for the first few days of therapy and then over the past 2- 3 days she's been very weak at home. She denies any pain at this point. Her weaknesses worse when she stands up. She denies fevers or chills. She had not eaten or drank anything for the past 3 days prior to admit. On further review she has vague abdominal pain as well as some constipation. She also c/o nicotine dependence, still smoking, has a slight cough. She also c/ o weakness and insomnia. EKG shows sinus rhythm with a regular rate. ST segments congruent. Not suggestive of ACS. Patient's blood pressure came up with IV fluid administration. Chemistry shows elevated creatinine with mildly low magnesium. Cancer Hx: "PET scan on 01/25/2017 revealed multiple hypermetabolic foci in the upper abdomen, right epicardial/pleurodiaphragmatic region, subcarinal and right internal mammary region compatible with metastatic disease. Mammogram on 2016 was negative. The ER was positive at 76%, RI positive 14.7%, HER-2/soha negative. She was started on palliative chemotherapy with Abraxane on 2016 for management of stage IV breast cancer. Followup PET scans revealed improvement in the metabolic activity in the above- mentioned lymph nodes. She received cycle #10, day #8 of Abraxane treatment on 11/23/2017. " Review of systems is negative for chest pain shortness of breath abdominal pain. Positive for vomiting. Negative for neck pain or headache. All other review of systems is negative unless otherwise noted in history of present illness. She is feeling much better since admission, c/o less constipation and tenesmus. No CP or SOB, has a little better appetite. No dysuria.Phos was low and she muscularly weak, 1.4, IV replacement and oral started. Cr improved to normal from 3.7 to 1.1 after IVF resuscitation and nausea control. A/P: Nausea/Vomiting - possibly chemo related or gastroenteritis, renal failure related. Zofran, compazine Abdominal pain - Likely gastroenteritis, supportive care, IVF, pain control. Bowel regimen today Hypophosphatemia - will replace prior to d/c home Acute renal failure - likely pre-renal dehydration, IVF, consulted nephrology Failure to thrive - likely related to overwhelming cancer diagnosis, remeron, nutritional supplements. Phos low and was replaced. Stage IV breast cancer - extensive history Hypomagnesemia - replaced, will repeat level and follow this and K, may account for her weakness DM - hold metformin, sliding scale HTN - hold lisinopril for ARF, will monitor Diet - ADA PPX - heparin FULL CODE Inpatient for acute renal failure ok for d/c today Discharge Information Condition at Discharge: Improved Follow Up: Weeks (2) Disposition/Orders: D/C to Home Scheduled Alprazolam (Alprazolam) 1 Mg Tablet, 1 MG PO TID, #90 (Reported) Entered as Reported by: СЕРГЕЙ PARK on 01/01/171344 Last Action: Continued on 05/03/181537 by WASHINGTON MCGHEE MD Citalopram Hydrobromide (Celexa) 40 Mg Tablet, 40 MG PO DAILY, (Reported) Entered as Reported by: СЕРГЕЙ PARK on 01/01/171344 Last Action: Converted on 05/03/181537 by WASHINGTON MGCHEE MD Dronabinol (Marinol) 5 Mg Capsule, 5 MG PO BIDACLD, (Reported) Entered as Reported by: СЕРГЕЙ PARK on 01/01/171344 Last Action: Converted on 05/03/181537 by WASHINGTON MCGHEE MD Magnesium Oxide (Mag-Oxide) 400 Mg Tablet, 400 MG PO DAILY for 30 Days, #30 Ref 3 Prescribed by: ROHAN BARBA on 12/02/17 1239 Last Action: Converted on 05/03/181537 by WASHINGTON MCGHEE MD Metoprolol Tartrate (Metoprolol Tartrate) 100 Mg Tablet, 100 MG PO BID for FOR HYPERTENSION, #60 Ref 0 (Reported) Entered as Reported by: JONAH BUTTS on 01/31/17905 Last Action: Converted on 05/03/181537 by WASHINGTON MCGHEE MD Ubidecarenone (Coq-10) 100 Mg Capsule, 200 MG PO DAILY, (Reported) Entered as Reported by: JONAH BUTTS on 01/31/17905 Last Action: Converted on 05/03/181537 by WASHINGTON MCGHEE MD [Nicotine 21MG] 1 PATCH PATCH, 1 PATCH TD DAILY for 30 Days, #30 Ref 3 Prescribed by: WASHINGTON MCGHEE MD on 05/06/18 0817 Scheduled PRN Hydrocodone Bit/Acetaminophen (Hydrocodone-Apap 10-325 ) 1 Each Tablet, 1 TAB PO QID PRN for PAIN, Ref 0 (Reported) Entered as Reported by: СЕРГЕЙ PARK on 01/01/171344 Last Action: Converted on 05/03/181537 by WASHINGTON MCGHEE MD Lactulose (Lactulose) 20 Gm/30 Ml Solution, 20 GM PO PRN Q12HR PRN for CONSTIPATION for 30 Days, #900 Ref 2 Prescribed by: WASHINGTON MCGHEE MD on 05/06/18 0817 Ondansetron (Ondansetron Odt) 4 Mg Tab.rapdis, 4 MG IV PRN Q4HRS PRN for NAUSEA/ VOMITING, (Reported) Entered as Reported by: СЕРГЕЙ PARK on 01/01/171344 Last Action: Continued on 05/03/181537 by WASHINGTON MCGHEE MD Zolpidem Tartrate (Zolpidem Tartrate) 10 Mg Tablet, 10 MG PO HS PRN for SEE COMMENTS, (Reported) Entered as Reported by: MIREILLE FRIEDMAN on 05/03/18 171 Last Action: New Order on 05/03/18 1711 by MIREILLE FRIEDMAN Discontinued Medications Lisinopril (Lisinopril) 20 Mg Tablet, 20 MG PO DAILY for FOR HYPERTENSION, #30 Ref 0 (Reported) Entered as Reported by: СЕРГЕЙ VIVIAN on 01/01/17 1345 Last Action: HELD on 05/03/181536 by WASHINGTON MCGHEE MD Metformin Hcl (Metformin Hcl) 500 Mg Tablet, 500 MG PO BIDWMEALS for ANTI- DIABETIC, Ref 0 (Reported) Entered as Reported by: JONAH BUTTS on 01/31/17 0906 Last Action: HELD on 05/03/181536 by MD TAZ ROACH CHRISTOPHER S MD May 06, 2018 07:56
[2018-05-06] MEDS: INSULIN LISPRO 300 UNITS/3 ML INSULN.PEN. SQ SCH (08:00)
[2018-05-06] MEDS ORDERED: Nicotine 21MG TD (08:17)
[2018-05-06] MEDS ORDERED: LACT20SO PO (08:17)
[2018-05-06 08:53] VITALS: BP 183/89
[2018-05-06] MEDS: MAGNESIUM OXIDE 400 MG TABLET PO SCH (08:53)
[2018-05-06] MEDS: ALPRAZolam 1 MG TABLET PO SCH (08:53)
[2018-05-06] MEDS: SENNOSIDES/DOCUSATE 8.6/50MG TABLET. PO SCH (08:53)
[2018-05-06] MEDS: CITALOPRAM 20 MG TABLET. PO SCH (08:53)
[2018-05-06] MEDS: METOPROLOL TART IMMED RELEASE 50 MG TABLET. PO SCH (08:53)
[2018-05-06] MEDS: PSYLLIUM HUSK (SUGAR FREE) 1 PKT PACKET PO SCH (08:54)
[2018-05-06] MEDS: POLYETHYLENE GLYCOL 3350 17 GM PACKET. PO SCH (08:54)
[2018-05-06] MEDS: NICOTINE 21MG PATCH. TD SCH (08:54)
--- NOTE | 2018-05-06 08:56 | PDOC ---
PROGRESS NOTES Subjective Subjective HPI - Stage 4 breast cancer with evidence of metastatic disease to the epicardial lymph node, which was biopsied on 01/03/2017 and confirmed the diagnosis ROS - no CP Objective Objective Vital Signs Date Time Temp Pulse Resp B/P (MAP) Pulse Ox O2 Delivery O2 Flow Rate FiO2 05/06/18 07:00 97.9 74 24 183/89 (120) 99 Room Air 97.9 05/05/18 20:00 2.0 Intake and Output 05/06/18 07:00 Intake Total 200 ml Output Total 320 ml Balance -120 ml Intake Oral 200 ml Output Urine Total 320 ml # Voids 6 # Bowel Movements 1 Physical Exam Heart: Normal S1, Normal S2 General: Alert, Oriented X3 Lungs: Clear to auscultation Neuro: Normal speech Psych/Mental Status: Mental status NL Assessment Assessment Problems Medical Problems: (1) Dehydration Status: Acute IMPRESSION AND PLAN: 1. Stage 4 breast cancer with evidence of metastatic disease to the epicardial lymph node, which was biopsied on 01/03/2017 and confirmed the diagnosis. She also has evidence of lymphadenopathy in the retroperitoneum and peritoneal implants. ER positive, OK positive, HER2/soha negative. She was initially started on Abraxane and she had a good response. She received treatment from 02/02/2017 through 03/08/2018. PET scan on 03/14/2018 revealed progressive disease and hence this was discontinued and she was started on Ibrance and letrozole on 04/24/2018 and she stopped it on 05/01/2018 because of side effects. I have advised her not to resume Ibrance anymore as she is unable to tolerate it. Okay to continue letrozole as a single agent. I will continue to monitor for response. Letrozole can be resumed after she feels better. 2. Acute renal failure secondary to dehydration. She has had nausea and vomiting contributing to poor oral intake and dehydration. Appreciate Nephrology consultation. Cr improved 1.1. 3. Nausea, vomiting due to Ibrance, resolved. Agree with discharge plans f/u next week Comment Review of Relevant I have reviewed the following items arnulfo (where applicable) has been applied. Labs Laboratory Tests Test 05/04/18 11:44 05/04/18 17:21 05/04/18 20:46 05/05/18 07:45 Glucose (Fingerstick) 130 mg/dL (70-99) 88 mg/dL (70-99) 113 mg/dL (70-99) 85 mg/dL (70-99) Test 05/05/18 12:04 05/05/18 17:03 05/05/18 20:11 05/06/18 04:35 Glucose (Fingerstick) 121 mg/dL (70-99) 77 mg/dL (70-99) 117 mg/dL (70-99) Sodium Level 141 mmol/L (136-145) Potassium Level 5.0 mmol/L (3.5-5.1) Chloride Level 104 mmol/L (98-107) Carbon Dioxide Level 34 mmol/L (21-32) Anion Gap 3 (6-14) Blood Urea Nitrogen 35 mg/dL (7-20) Creatinine 1.1 mg/dL (0.6-1.0) Estimated GFR (Cockcroft-Gault) 59.6 Glucose Level 89 mg/dL (70-99) Calcium Level 10.0 mg/dL (8.5-10.1) Phosphorus Level 1.4 mg/dL (2.6-4.7) Albumin 2.8 g/dL (3.4-5.0) Test 05/06/18 07:29 Glucose (Fingerstick) 79 mg/dL (70-99) Laboratory Tests Test 05/05/18 12:04 05/05/18 17:03 05/05/18 20:11 05/06/18 04:35 Glucose (Fingerstick) 121 mg/dL (70-99) 77 mg/dL (70-99) 117 mg/dL (70-99) Sodium Level 141 mmol/L (136-145) Potassium Level 5.0 mmol/L (3.5-5.1) Chloride Level 104 mmol/L (98-107) Carbon Dioxide Level 34 mmol/L (21-32) Anion Gap 3 (6-14) Blood Urea Nitrogen 35 mg/dL (7-20) Creatinine 1.1 mg/dL (0.6-1.0) Estimated GFR (Cockcroft-Gault) 59.6 Glucose Level 89 mg/dL (70-99) Calcium Level 10.0 mg/dL (8.5-10.1) Phosphorus Level 1.4 mg/dL (2.6-4.7) Albumin 2.8 g/dL (3.4-5.0) Test 05/06/18 07:29 Glucose (Fingerstick) 79 mg/dL (70-99) Medications Current Medications Sodium Chloride 500 ml @ 500 mls/hr 1X ONCE IV Last administered on at 10:35; Start 05/03/18 at 10:30; Stop 05/03/18 at 11:29; Status DC Ondansetron HCl (Zofran) 4 mg PRN Q8HRS PRN IV NAUSEA/VOMITING; Start at 12:00; Stop 05/03/18 at 15:40; Status DC Morphine Sulfate (Morphine Sulfate) 2 mg PRN Q2HR PRN IV PAIN; Start 05/03/18 at 12:00; Stop 05/04/18 at 11:59; Status DC Sodium Chloride 1,000 ml @ 100 mls/hr Q10H IV Last administered on 05/03/18at 12:44; Start 05/03/18 at 12:00; Stop 05/03/18 at 14:55; Status DC Acetaminophen/ Hydrocodone Bitart (Lortab 5/325) 2 tab 1X ONCE PO Last administered on 05/03/18at 12:44; Start 05/03/18 at 12:45; Stop 05/03/18 at 12 :46; Status DC Dextrose (Dextrose 50%-Water Syringe) 12.5 gm PRN Q15MIN PRN IV SEE COMMENTS; Start 05/03/18 at 14:00; Stop 05/03/18 at 16:10; Status DC Magnesium Sulfate 50 ml @ 25 mls/hr 1X ONCE IV Last administered on at 15:56; Start 05/03/18 at 14:30; Stop 05/03/18 at 16:29; Status DC Ringer's Solution 1,000 ml @ 125 mls/hr Q8H IV Last administered on at 07:20; Start 05/03/18 at 15:00; Stop 05/04/18 at 11:13; Status DC Acetaminophen/ Hydrocodone Bitart (Lortab 5/325) 1 tab PRN Q4HRS PRN PO MILD PAIN; Start 05/03/18 at 15:00 Acetaminophen/ Hydrocodone Bitart (Lortab 5/325) 2 tab PRN Q4HRS PRN PO MODERATE-SEVERE PAIN Last administered on 05/06/18 04:14; Start 05/03/18 at 15:00 Ondansetron HCl (Zofran) 4 mg PRN Q6HRS PRN IV NAUSEA/VOMITING 1ST CHOICE; Start 05/03/18 at 15:45 Senna/Docusate Sodium (Senna Plus) 1 tab BID PO Last administered on at 20:38; Start 05/03/18 at 21:00 Lactulose (Lactulose) 20 gm PRN Q12HR PRN PO CONSTIPATION; Start 05/03/18 at 15:45 Heparin Sodium (Porcine) (Heparin Sodium) 5,000 unit Q8HRS SQ Last administered on 05/06/18 06:15; Start 05/03/18 at 22:00 Alprazolam (Xanax) 1 mg TID PO Last administered on 05/05/18at 20:39; Start at 16:00 Ondansetron HCl (Zofran Odt) 4 mg PRN Q4HRS PRN PO NAUSEA/VOMITING; Start at 15:45 Citalopram Hydrobromide (CeleXA) 40 mg DAILY PO Last administered on at 08:26; Start 05/04/18 at 09:00 Dronabinol (Marinol) 5 mg BIDACLD PO Last administered on 05/05/18at 16:34; Start 05/03/18 at 16:30 Acetaminophen/ Hydrocodone Bitart (Lortab 10/325) 1 tab PRN QID PRN PO SEVERE PAIN; Start 05/03/18 at 15:45; Stop 05/04/18 at 11:12; Status DC Magnesium Oxide (Magnesium Oxide) 400 mg DAILY PO Last administered on at 08:26; Start 05/04/18 at 09:00 Metoprolol Tartrate (Lopressor) 100 mg BID PO Last administered on 05/05/18at 20:39; Start 05/03/18 at 21:00 Non-Formulary Medication (Ubidecarenone (Coq-10)) 200 mg DAILY PO ; Start 05/04 at 09:00; Status UNV Ringer's Solution 1,000 ml @ 125 mls/hr Q8H IV Last administered on 10/22/ 18at 06:12; Start 05/03/18 at 15:45 Prochlorperazine Edisylate (Compazine) 10 mg PRN Q6HRS PRN IV NAUSEA/VOMITING 2ND CHOICE; Start 05/03/18 at 16:00 Mirtazapine (Remeron) 7.5 mg QHS PO Last administered on 05/05/18at 20:38; Start 05/03/18 at 21:00 Psyllium Hydrophilic Mucilloid (Metamucil Fiber Packet) 1 pkt DAILY PO Last administered on 05/05/18at 08:27; Start 05/03/18 at 16:30 Polyethylene Glycol (miraLAX PACKET) 17 gm DAILY PO Last administered on at 08:27; Start 05/03/18 at 16:30 Nicotine (Nicoderm Cq 21mg) 1 patch DAILY TD Last administered on 05/05/18at 08 :27; Start 05/03/18 at 16:30 Insulin Human Lispro (HumaLOG) 0-5 UNITS TIDWMEALS SQ ; Start 05/03/18 at 17:00 Dextrose (Dextrose 50%-Water Syringe) 12.5 gm PRN Q15MIN PRN IV SEE COMMENTS; Start 05/03/18 at 16:15 Potassium Phos/ Sodium Phos (Phos-Nak) 1 pkt DAILY PO ; Start 05/06/18 at 09:00 Sodium Phosphate 20 mmol/Dextrose 256.6667 ml @ 64.167 m... 1X ONCE IV ; Start 05/06/18 at 07:30; Stop 05/06/18 at 11:29 Active Scripts Active Lactulose 20 Gm/30 Ml Solution 20 Gm PO PRN Q12HR PRN 30 Days [Nicotine 21MG] 1 PATCH Patch 1 Patch TD DAILY 30 Days Mag-Oxide (Magnesium Oxide) 400 Mg Tablet 400 Mg PO DAILY 30 Days Reported Zolpidem Tartrate 10 Mg Tablet 10 Mg PO HS PRN Coq-10 (Ubidecarenone) 100 Mg Capsule 200 Mg PO DAILY Metoprolol Tartrate 100 Mg Tablet 100 Mg PO BID Ondansetron Odt (Ondansetron) 4 Mg Tab.rapdis 4 Mg IV PRN Q4HRS PRN Hydrocodone-Apap 10-325 (Hydrocodone Bit/Acetaminophen) 1 Each Tablet 1 Tab PO QID PRN Marinol (Dronabinol) 5 Mg Capsule 5 Mg PO BIDACLD Celexa (Citalopram Hydrobromide) 40 Mg Tablet 40 Mg PO DAILY Alprazolam 1 Mg Tablet 1 Mg PO TID Vitals/I & O Vital Sign - Last 24 Hours 05/05/18 05/05/18 05/05/18 05/05/18 11:00 13:43 15:00 16:35 Temp 97.8 98.1 97.8 98.1 Pulse 62 82 Resp 16 16 B/P (MAP) 104/65 (78) 118/75 (89) Pulse Ox 95 95 O2 Delivery Room Air Room Air Room Air Room Air 05/05/18 05/05/18 05/05/18 05/05/18 18:34 19:57 20:00 20:39 Temp 98.0 98.0 Pulse 93 93 Resp 18 B/P (MAP) 117/69 (85) 117/69 Pulse Ox 94 O2 Delivery Room Air Room Air Room Air O2 Flow Rate 2.0 05/05/18 05/06/18 05/06/18 23:17 03:26 07:00 Temp 98.6 97.7 97.9 98.6 97.7 97.9 Pulse 85 82 74 Resp 16 18 24 B/P (MAP) 145/82 (103) 155/90 (111) 183/89 (120) Pulse Ox 96 92 99 O2 Delivery Room Air Room Air Room Air Intake and Output 05/05/18 05/05/18 05/06/18 15:00 23:00 07:00 Intake Total 200 ml Output Total 320 ml Balance -120 ml KATHY AQUINO MD May 06, 2018 08:56
[2018-05-06] MEDS ORDERED: POTASSIUM & SODIUM PHOSPHATES PACKET. PO SCH (09:00)
== END 2018-05-06 09:50 | disposition home or self-care (01) | DRG 393 ==
LOC: ER 10:05 → 4 NORTH 11:57
PROVIDERS: ADMIT Internal Medicine; ATTEND Internal Medicine
DX: K52.1 Toxic gastroenteritis and colitis (principal); N17.0 Acute kidney failure with tubular necrosis; E87.1 Hypo-osmolality and hyponatremia; C34.90 Malignant neoplasm of unspecified part of unspecified bronchus or lung; C78.7 Secondary malignant neoplasm of liver and intrahepatic bile duct; C50.919 Malignant neoplasm of unspecified site of unspecified female breast; E83.42 Hypomagnesemia; T45.1X5A Adverse effect of antineoplastic and immunosuppressive drugs, initial encounter; Y92.89 Other specified places as the place of occurrence of the external cause; E86.0 Dehydration; E11.9 Type 2 diabetes mellitus without complications; F17.200 Nicotine dependence, unspecified, uncomplicated; I10 Essential (primary) hypertension; G47.00 Insomnia, unspecified; K52.9 Noninfective gastroenteritis and colitis, unspecified; E83.39 Other disorders of phosphorus metabolism; F32.9 Major depressive disorder, single episode, unspecified; F41.9 Anxiety disorder, unspecified; M19.90 Unspecified osteoarthritis, unspecified site; K59.00 Constipation, unspecified; R62.7 Adult failure to thrive; Z79.811 Long term (current) use of aromatase inhibitors; Z80.9 Family history of malignant neoplasm, unspecified; Z82.49 Family history of ischemic heart disease and other diseases of the circulatory system; Z85.028 Personal history of other malignant neoplasm of stomach; Z83.3 Family history of diabetes mellitus; Z85.3 Personal history of malignant neoplasm of breast; Z85.41 Personal history of malignant neoplasm of cervix uteri; Z90.49 Acquired absence of other specified parts of digestive tract; Z90.710 Acquired absence of both cervix and uterus; Z85.72 Personal history of non-Hodgkin lymphomas; Z92.21 Personal history of antineoplastic chemotherapy
CPT/HCPCS: 36415; 80048; 80069; 80076; 81001; 82962; 83690; 83735; 84484; 85025; 93005; 96360; J1644; J1815; J3475; J7030; J7040; J7120; Q0167; 99285-25

== ENCOUNTER → 2018-07-04 | Outpatient (CLI) | payer MEDICARE ==
[~2018-07-04] MED LIST changes: -CHLO25TA PO; +CHLO25TA10 PO; -HYDR-2766 PO; +HYDR-2769 PO; +IOHEXOL 300 MG/ML 100ML VIAL. ONE; +LACT20SO PO; +Nicotine 21MG TD
--- NOTE | 2018-07-04 13:22 | RAD ---
CLINICAL HISTORY: Breast cancer INDICATION: Restaging. COMPARISON: CT chest abdomen pelvis 11/20/2016, PET/CT 03/14/2018, 12/13/2017, 08/02/2017, 04/19/2017 TECHNIQUE: Location of scan: [facility] Radiopharmaceutical Dose: 11.66 mCi F-18 FDG intravenous Blood glucose at time of study: 105 Images were obtained from the mid head to the mid thighs. A low dose, noncontrast CT study was performed for the purpose of attenuation correction and anatomic localization. FINDINGS: Head and Neck: Uptake within the left paraspinal muscles, possibly from patient positioning/strain. Physiologic activity is seen in the head and neck region. Chest: Increased metabolic activity in the right mammary region is again seen, measuring approximately 1.8 x 1.2 cm with an SUV max of 5.8, previously 3.4. This has increased in size. Metabolically active mediastinal lymph nodes are also seen. For example a AP window lymph node has an SUV max of 3.2, accurate size measurements are precluded by technique. A subcarinal lymph node measures 2.3 x 1.2 cm with an SUV max of 8.5. The previously seen nodule in the right epicardial fat measuring approximately 2.3 x 1.4 cm with an SUV max of 12.2, increased from prior. A 6 mm right lower lobe lung nodule seen, stable without increased metabolic activity. The previously seen spiculated 5 mm right lower lobe lung nodule is not definitively seen on the CT portion of today's exam. No definite increased metabolic activity is seen in this region. Vague ground glass opacities are seen dependently, likely atelectasis accentuated by motion artifact. Coronary artery calcifications are seen. Aortic calcifications are noted. Right port is seen with tip projecting over the distal SVC. Abdomen and Pelvis: Hypermetabolic focus at the superior/medial aspect of the right hepatic lobe has an SUV max of 7.6, measuring approximately 2.9 cm previously approximately 2.5 cm in size with prior SUV max of 5.6. Hypermetabolic activity in the periaortic region is seen in the region of soft tissue conglomeration/nodularity seen on the CT portion with an SUV max of approximately 9.3. This is difficult to delineate given lack of abdominal fat and contrast although conglomerate of lymphadenopathy is suspected. Hypermetabolic region in the level of the right adrenal gland has an SUV max of 7.5, previously 5.9. Physiologic activity within the bowel and bladder. The solid organs are grossly unremarkable within the constraints of this lower dose noncontrast examination. Moderate to large joint clonic stool content. Skeletal: No new suspicious focus of metabolic activity is seen Reference SUV Values: Mediastinal SUV Max: 2.4 Liver SUV Max: 1.8 IMPRESSION: 1. Increased metabolic activity and enlargement of the previously seen foci of FDG activity suggesting progression of metastatic disease. Specifically the foci within the liver, right adrenal, retroperitoneal suspected lymphadenopathy, mediastinal lymphadenopathy (some of which is new), and right anterior mammary nodular uptake has increased. 2. The previously new spiculated right lower lobe lung nodule has since resolved. The other previously seen right lower lobe lung nodule is stable. Radiation Dosimetry: The radiopharmaceutical used for this exam delivers approximately 0.7 mSv/mCi (70 mRem/mCi) Source: ICRP Publication 106
== END | disposition home or self-care (01) ==
LOC: PETSC 08:09
PROVIDERS: ATTEND Internal Medicine Hematology & Oncology
DX: I25.10 Atherosclerotic heart disease of native coronary artery without angina pectoris (principal); I70.0 Atherosclerosis of aorta; R91.1 Solitary pulmonary nodule; Z85.3 Personal history of malignant neoplasm of breast
CPT/HCPCS: 78815; A9552

== ENCOUNTER → 2018-11-07 | Outpatient (CLI) | payer MEDICARE ==
[2018-07-26 08:24] VITALS: BP 113/66
[~2018-11-07] MED LIST changes: -ALEN70TA5 PO; +ALEN70TA6 PO; +HYDR2TAB31 PO; -IOHEXOL 300 MG/ML 100ML VIAL. ONE; +IPRA3AMP29 NEB; +MIRT15TA3 PO
--- NOTE | 2018-11-07 16:46 | RAD ---
Examination: PET W CT SKULL TO MIDTHIGH History: Restaging of breast cancer Comparison/Correlation: 07/23/2018 CT abdomen and pelvis with IV and oral contrast, PET/CT exam 07/04/2018, CTA of the chest 07/22/2018 Findings: Dose of 13.68 mCi F-18 FDG was intravenously administered for PET/CT exam from skull base to proximal thighs. Hepatic reference uptake of SUV max of 1.2 is noted. Uptake of radiotracer involving the visualized head and neck is unremarkable. Right infusion port is present with catheter tip terminating at the superior cavoatrial junction. Incidental note is made of marked coronary arterial calcification. Right upper thoracic internal mammary lymph node region mass is present with SUV max of 5. Soft tissue masslike density at this site measures 2.4 cm x 1.1 cm. This has slightly increased by approximately 0.2 cm in the axial plane on CT images the interval. Right paratracheal lymph node with SUV max of 1.3 is present. This lymph node is not enlarged. It is best seen on axial image 67. Intense uptake corresponding to a left lower paratracheal, aorticopulmonary window lymph node with SUV max of 3.4 is present. This Subcarinal lymph node has SUV max of 5.1. This lymph node has a short axis diameter of 1 cm right anterior basilar pleural-based mass measuring 2.4 cm transverse x 1.5 cm anteroposterior is present with SUV max of 6.8. At the right medial basilar paraspinal pleural region, there is a soft tissue density measuring 3 cm x 1.3 cm which has SUV max of 4.5. Additional smaller retrocrural is also present with less intense uptake similar to the prior exam. Centrilobular emphysema is present. Nodular density which is very small in size adjacent to the minor failure at the midthoracic level appears to represent a lymph node. Right lower lobe pulmonary nodule measuring 0.5 similar diameter has no abnormal uptake identified on PET imaging. Gastrohepatic ligament lymph node has SUV max of 6.0. At the right hepatic vein level, there is a low-attenuation mass. There is a region of uptake involving this mass with SUV max of up to 5.4. Right adrenal gland masslike involvement is noted with SUV max of 7.4. Uptake involving celiac lymph nodes are small in size is noted. Lymph nodes haven't uptake of up to 4.3 SUV max. Uptake of radiotracer within the ascending colon is physiologic in distribution. No abnormal uptake of radiotracer involving the pelvis. Surgical clips involving the pelvis. Degenerative changes of cervical spine are present. L5-S1 disc space narrowing is notable. Impression: Overall, no significant change in distribution metastatic foci of uptake compatible with metastases to lymph nodes, liver, and the right adrenal gland in particular. There is slight increase in the right upper thoracic intramammary lymph node region mass. Right lower lobe small pulmonary nodule is similar in size compared to previous exam but of increased density. No abnormal uptake but this may be due to its small size. Attention on follow-up imaging studies recommended.
== END | disposition home or self-care (01) ==
LOC: PETSC 10:26
PROVIDERS: ATTEND Internal Medicine Hematology & Oncology
DX: C50.811 Malignant neoplasm of overlapping sites of right female breast (principal); J43.2 Centrilobular emphysema; R91.1 Solitary pulmonary nodule; M48.07 Spinal stenosis, lumbosacral region; M47.812 Spondylosis without myelopathy or radiculopathy, cervical region
CPT/HCPCS: 78815; A9552

== ENCOUNTER 2018-11-10 11:51 | Inpatient (IN) | payer MEDICARE ==
[~2018-11-10] VITALS: Ht 154.9 cm; Wt 39.2 kg
[~2018-11-10 11:51] MED LIST changes: -IPRA3AMP29 NEB
[2018-11-10] MEDS ORDERED: IV NORMAL SALINE 1000ML BAG 1,000 ML IV SCH ×2 (12:07→15:57)
[2018-11-10] MEDS ORDERED: ONDANSETRON PF 4 MG/2 ML VIAL. ONE (12:17)
[2018-11-10] MEDS ORDERED: fentaNYL PF VIAL 100 MCG/2 ML VIAL ONE (12:27)
[2018-11-10 12:28] LABS: BASO # 0.1 x10^3/uL (0.0-0.2); BASO % 1 % (0-3); EOS % 0 % (0-3); HEMATOCRIT 41.3 % (36.0-47.0); HEMOGLOBIN 13.7 g/dL (12.0-15.5); LYMPH # 0.8 x10^3/uL (1.0-4.8); LYMPH % 12 % (24-48); MEAN CORPUSCULAR HEMOGLOBIN 30 pg (25-35); MEAN CORPUSCULAR HGB CONC 33 g/dL (31-37); MEAN CORPUSCULAR VOLUME 91 fL (79-100); MONO # 0.4 x10^3/uL (0.0-1.1); MONO % 7 % (0-9); NEUT # 5.2 x10^3uL (1.8-7.7); NEUT % 80 % (31-73); PLATELET COUNT 458 x10^3/uL (140-400); RED BLOOD COUNT 4.54 x10^6/uL (3.50-5.40); WHITE BLOOD COUNT 6.5 x10^3/uL (4.0-11.0)
[2018-11-10] MEDS ORDERED: methylPREDNISolone SOD SUCC PF 125 MG/2 ML VIAL. IV ONE (12:45)
[2018-11-10] MEDS ORDERED: IPRATRPIUM/ALBUTEROL 0.5/2.5MG 3 ML NEBU. NEB ONE (12:45)
--- NOTE | 2018-11-10 12:47 | PHYS DOC ---
Past Medical History Past Medical History: Anxiety, Cancer, COPD, Diabetes-Type II, Hypertension, Other Additional Past Medical Histor: LYMPHOMA,CERVICAL CANCER, ABD CANCER, EMPHYSEMA Past Surgical History: Appendectomy, Hysterectomy, Other Additional Past Surgical Histo: LEFT FOOT Alcohol Use: None Drug Use: None Adult General Chief Complaint Chief Complaint: ABDOMINAL PAIN HPI HPI Patient is a 68 year old female presented ER today for further evaluation of right-sided abdominal pain for the last 24 hours. Patient also complains of nausea, vomiting, productive cough with yellow sputum. Patient feel weak and tired. Patient has history of breast cancer that Spreaded to lungs and abdomen. Patient currently under chemotherapy. Patient denies any fever. She also had h istory of COPD, she denies any chest pain. Review of Systems Review of Systems Constitutional: Denies fever or chills [] Eyes: Denies change in visual acuity, redness, or eye pain [] HENT: Denies nasal congestion or sore throat [] Respiratory: Positive cough and shortness of breath [] Cardiovascular: No additional information not addressed in HPI [] GI: Positive for abdominal pain, nausea, vomiting,NO bloody stools or diarrhea [] : Denies dysuria or hematuria [] Musculoskeletal: Denies back pain or joint pain [] Integument: Denies rash or skin lesions [] Neurologic: Denies headache, focal weakness or sensory changes. Positive for generalized weakness. Endocrine: Denies polyuria or polydipsia [] All other systems were reviewed and found to be within normal limits, except as documented in this note. Current Medications Current Medications Current Medications Medications (Trade) Dose Ordered Sig/Ashley Start Time Stop Time Status Last Admin Dose Admin Albuterol/ Ipratropium (Duoneb) 3 ml 1X ONCE 11/10/18 12:45 11/10/18 12:49 DC 11/10/18 12:56 3 ML Fentanyl Citrate (Fentanyl 2ml Vial) 50 mcg 1X ONCE 11/10/18 15:15 11/10/18 15:16 DC 11/10/18 15:12 50 MCG Info (CONTRAST GIVEN -- Rx MONITORING) 1 each PRN DAILY PRN 11/10/18 15:00 11/12/18 14:59 Iohexol (Omnipaque 300 Mg/ml) 100 ml STK-MED ONCE 11/10/18 14:46 11/10/18 14:47 DC Iohexol (Omnipaque 350 Mg/ml) 100 ml STK-MED ONCE 11/10/18 14:46 11/10/18 14:47 DC Methylprednisolone Sodium Succinate (SOLU-Medrol 125MG VIAL) 125 mg 1X ONCE 11/10/18 12:45 11/10/18 12:49 DC 11/10/18 12:45 125 MG Ondansetron HCl (Zofran) 4 mg 1X ONCE 11/10/18 13:30 11/10/18 13:31 DC 11/10/18 13:30 4 MG Prochlorperazine Edisylate (Compazine) 10 mg 1X ONCE 11/10/18 15:15 11/10/18 15:16 DC 11/10/18 15:05 10 MG Sodium Chloride 1,000 ml @ 1,000 mls/hr 1X ONCE 11/10/18 13:30 11/10/18 14:29 DC 11/10/18 13:30 1,000 MLS/HR Allergies Allergies Allergies Coded Allergies Type Severity Reaction Last Updated Verified No Known Drug Allergies 01/03/17 No Physical Exam Physical Exam Constitutional: Well developed, well nourished, no acute distress, non-toxic appearance. [] HENT: Normocephalic, atraumatic, bilateral external ears normal, oropharynx moist, no oral exudates, nose normal. [] Eyes: PERRLA, EOMI, conjunctiva normal, no discharge. [] Neck: Normal range of motion, no tenderness, supple, no stridor. [] Cardiovascular:Heart rate regular rhythm, no murmur [] Lungs & Thorax: crackles at bases of lung bilaterally. NO RESPIRATORY DISTRESS. Abdomen: Bowel sounds normal, soft, There is tenderness to right side, no masses, no pulsatile masses. [] Skin: Warm, dry, no erythema, no rash. [] Back: No tenderness, no CVA tenderness. [] Extremities: No tenderness, no cyanosis, no clubbing, ROM intact, no edema. [] Neurologic: Alert and oriented X 3, normal motor function, normal sensory function, no focal deficits noted. [] Psychologic: Affect normal, judgement normal, mood normal. [] Current Patient Data Vital Signs Vital Signs Date Time Temp Pulse Resp B/P (MAP) Pulse Ox O2 Delivery O2 Flow Rate FiO2 11/10/18 15:12 18 11/10/18 12:58 99 Room Air 11/10/18 12:05 98.0 109 161/87 (111) 98.0 Lab Values Laboratory Tests Test 11/10/18 12:10 11/10/18 13:44 11/10/18 14:13 White Blood Count 6.5 x10^3/uL (4.0-11.0) Red Blood Count 4.54 x10^6/uL (3.50-5.40) Hemoglobin 13.7 g/dL (12.0-15.5) Hematocrit 41.3 % (36.0-47.0) Mean Corpuscular Volume 91 fL (79-100) Mean Corpuscular Hemoglobin 30 pg (25-35) Mean Corpuscular Hemoglobin Concent 33 g/dL (31-37) Red Cell Distribution Width 23.0 % (11.5-14.5) H Platelet Count 458 x10^3/uL (140-400) H Neutrophils (%) (Auto) 80 % (31-73) H Lymphocytes (%) (Auto) 12 % (24-48) L Monocytes (%) (Auto) 7 % (0-9) Eosinophils (%) (Auto) 0 % (0-3) Basophils (%) (Auto) 1 % (0-3) Neutrophils # (Auto) 5.2 x10^3uL (1.8-7.7) Lymphocytes # (Auto) 0.8 x10^3/uL (1.0-4.8) L Monocytes # (Auto) 0.4 x10^3/uL (0.0-1.1) Eosinophils # (Auto) 0.0 x10^3/uL (0.0-0.7) Basophils # (Auto) 0.1 x10^3/uL (0.0-0.2) Platelet Estimate Increased (ADEQUATE) Poikilocytosis Slight Anisocytosis Mod Sodium Level 137 mmol/L (136-145) Potassium Level 3.3 mmol/L (3.5-5.1) L Chloride Level 100 mmol/L (98-107) Carbon Dioxide Level 28 mmol/L (21-32) Anion Gap 9 (6-14) Blood Urea Nitrogen 22 mg/dL (7-20) H Creatinine 1.0 mg/dL (0.6-1.0) Estimated GFR (Cockcroft-Gault) 66.3 BUN/Creatinine Ratio 22 (6-20) H Glucose Level 141 mg/dL (70-99) H Lactic Acid Level 1.3 mmol/L (0.4-2.0) Calcium Level 9.4 mg/dL (8.5-10.1) Total Bilirubin 0.4 mg/dL (0.2-1.0) Aspartate Amino Transferase (AST) 14 U/L (15-37) L Alanine Aminotransferase (ALT) 12 U/L (14-59) L Alkaline Phosphatase 87 U/L (46-116) Troponin I Quantitative < 0.017 ng/mL (0.000-0.055) Total Protein 8.0 g/dL (6.4-8.2) Albumin 3.6 g/dL (3.4-5.0) Albumin/Globulin Ratio 0.8 (1.0-1.7) L Lipase 65 U/L (73-393) L Urine Collection Type Unknown Urine Color Yellow Urine Clarity Clear Urine pH 7.0 Urine Specific [place] 1.015 Urine Protein Negative mg/dL (NEG-TRACE) Urine Glucose (UA) Negative mg/dL (NEG) Urine Ketones (Stick) Negative mg/dL (NEG) Urine Blood Negative (NEG) Urine Nitrite Negative (NEG) Urine Bilirubin Negative (NEG) Urine Urobilinogen Dipstick 1.0 mg/dL (0.2 mg/dL) Urine Leukocyte Esterase Negative (NEG) Urine RBC 0 /HPF (0-2) Urine WBC 0 /HPF (0-4) Urine Squamous Epithelial Cells Few /LPF Urine Bacteria 0 /HPF (0-FEW) Laboratory Tests 11/10/18 12:10 Laboratory Tests 11/10/18 13:44 EKG EKG [] Radiology/Procedures Radiology/Procedures [][facility] [address] [place], [place] [id number] IMAGING REPORT Signed 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 PHYSICIAN: HURTADO,PETER T DO REASON: abdominal pain PROCEDURE: CT ABD PELV W/ IV CONTRST ONLY CT ABD PELV W/ IV CONTRST ONLY Indication: Abdominal pain for 24 hours Technique: Postcontrast CT imaging was performed of the abdomen pelvis, multiplanar reconstruction images submitted. No oral contrast was given. One or more of the following individualized dose reduction techniques were utilized for this examination: 1. Automated exposure control 2. Adjustment of the mA and/or kV according to patient size 3. Use of iterative reconstruction technique. Comparison: July 23, 2018 Findings: There is again right lower lobe pulmonary nodule about 0.5 cm. There is a nodule of the right hemidiaphragm image 6 about 0.8 cm, present previously. There is again mass along the anterior right pleural surface of the lung base about 2.6 cm transverse by 1.5 cm AP, fairly similar. There is again hypodense mass of the right lobe of the liver more medially, about 3.5 cm transverse by 2.9 cm AP, previously about 3 cm transverse by 2.7 cm AP. There is again right adrenal mass about 2.3 cm AP by 1.8 cm transverse, fairly similar. There is similar mild fullness of the left adrenal gland. Both kidneys enhance, no hydronephrosis. There are again small hypodense foci of the kidneys bilaterally, largest superiorly on the left about 1.2 cm. Evaluation of the bowel is limited without oral contrast and also due to the paucity of intra-abdominal and intrapelvic fat. There is no free air. There is increased of bowel wall thickening such as in the proximal small bowel in the superior left abdomen with adjacent mild nonorganized fluid density, also some increased wall thickening gastroduodenal junction and duodenum. There is mild nonorganized fluid density near the celiac axis and retroperitoneum although fairly similar in appearance. There is some variable retained stool the colon. There is some fecalization of small bowel in the pelvis with poor definition of the individual hartman on this exam. Appendix is not confidently identified. There is advanced degenerative disc disease L5-S1. There is multilevel lumbar facet degenerative change. There is scattered atherosclerotic calcification of the abdominal aorta. There is a known right retrocrural roxana mass as seen previously which is fairly similar, adjacent portal caval node about 1.3 cm short axis dimension. There are some retroperitoneal nodes such as lateral to the left aspect of the proximal suprarenal abdominal aorta about 0.9 cm short axis dimension somewhat greater as previously about 0.5 cm. IMPRESSION: 1. Somewhat limited evaluation due to lack of oral contrast, there is increased bowel wall thickening most notable of the proximal small bowel in the abdomen to include duodenum and gastroduodenal junction as may be seen with enteritis. There is some nonspecific fecalization of small bowel in the pelvis, also retained stool in segments of colon. 2. There is known metastatic disease, liver lesion measuring somewhat larger than previously, right adrenal mass and right retrocrural mass fairly similar. Left retroperitoneal nodes are somewhat greater. There are again nodules of the visualized right lung base. 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 PHYSICIAN: SHELBY HURTADO DO REASON: cough PROCEDURE: PORTABLE CHEST 1V PORTABLE CHEST 1V History: Shortness of air, nausea, dehydration Comparison: July 22, 2018 Findings: Single view of the chest is submitted. There is some rotation for exam. There is again right internal jugular port catheter, tip near the cavoatrial junction. There is again tortuous thoracic aorta. There is no new lobar consolidation, pleural fluid, pneumothorax. Heart size is similar. There is similar mild interstitial opacity near the lung bases greater on the left. Impression: 1. There is no evidence of acute cardiopulmonary disease. Electronically signed by: Stanford Bernabe MD (11/10/2018 2:42 PM) [facility] DICTATED and SIGNED BY: STANFORD BERNABE MD DATE: 11/10/18 1442 Course & Med Decision Making Course & Med Decision Making Pertinent Labs and Imaging studies reviewed. (See chart for details) [] Dragon Disclaimer Dragon Disclaimer This electronic medical record was generated, in whole or in part, using a voice recognition dictation system. Departure Departure Impression: Primary Impression: Intractable abdominal pain Additional Impression: Nausea & vomiting Disposition: 09 ADMITTED INPATIENT Admitting Physician: Cesilia Field Condition: STABLE Referrals: SHELBY TRAN MD (PCP) Problem Qualifiers SHELBY HURTADO DO Nov 10, 2018 12:47
[2018-11-10] MEDS ORDERED: fentaNYL PF VIAL 100 MCG/2 ML VIAL IM ONE (13:00)
[2018-11-10] MEDS ORDERED: IV NORMAL SALINE 1000ML BAG 1,000 ML IV ONE (13:30)
[2018-11-10] MEDS ORDERED: fentaNYL PF VIAL 100 MCG/2 ML VIAL IV ONE ×4 (13:30→16:45)
[2018-11-10] MEDS ORDERED: ONDANSETRON PF 4 MG/2 ML VIAL. IV ONE (13:30)
[2018-11-10 13:56] LABS: PLT ESTIMATE INCREASED (ADEQUATE)
[2018-11-10 13:57] LABS: ANISOCYTOSIS MOD; POIKILOCYTOSIS SLIGHT
[2018-11-10 14:07] LABS: CALCIUM 9.4 mg/dL (8.5-10.1); GFR 66.3; POTASSIUM 3.3 mmol/L (3.5-5.1)
[2018-11-10 14:10] LABS: ALBUMIN 3.6 g/dL (3.4-5.0); ALBUMIN/GLOBULIN RATIO 0.8 (1.0-1.7); TOTAL BILIRUBIN 0.4 mg/dL (0.2-1.0)
[2018-11-10 14:26] LABS: BILIRUBIN,URINE NEGATIVE (NEG); CLARITY,URINE CLEAR; COLOR,URINE YELLOW; NITRITE,URINE NEGATIVE (NEG); PROTEIN,URINE NEGATIVE (NEG-TRACE)
[2018-11-10 14:38] LABS: BACTERIA,URINE 0 /HPF (0-FEW); RBC,URINE 0 /HPF (0-2); SQUAMOUS EPITHELIAL CELL,UR FEW /LPF; WBC,URINE 0 /HPF (0-4)
[2018-11-10] MEDS ORDERED: IOHEXOL 300 MG/ML 100ML VIAL. IV ONE (14:45)
--- NOTE | 2018-11-10 14:45 | RAD ---
PORTABLE CHEST 1V History: Shortness of air, nausea, dehydration Comparison: July 22, 2018 Findings: Single view of the chest is submitted. There is some rotation for exam. There is again right internal jugular port catheter, tip near the cavoatrial junction. There is again tortuous thoracic aorta. There is no new lobar consolidation, pleural fluid, pneumothorax. Heart size is similar. There is similar mild interstitial opacity near the lung bases greater on the left. Impression: 1. There is no evidence of acute cardiopulmonary disease. Electronically signed by: Tejinder Montesinos MD (11/10/2018 2:42 PM) [facility]
[2018-11-10] MEDS ORDERED: IOHEXOL 350 MG/ML 100 ML VIAL. ONE (14:46)
[2018-11-10] MEDS ORDERED: IOHEXOL 300 MG/ML 100ML VIAL. ONE (14:46)
[2018-11-10] MEDS ORDERED: CONTRAST GIVEN. MC PRN (15:00)
[2018-11-10] MEDS ORDERED: PROCHLORPERAZINE 10 MG/2 ML VIAL. ONE (15:03)
[2018-11-10] MEDS ORDERED: PROCHLORPERAZINE 10 MG/2 ML VIAL. IV ONE (15:15)
--- NOTE | 2018-11-10 15:45 | RAD ---
CT ABD PELV W/ IV CONTRST ONLY Indication: Abdominal pain for 24 hours Technique: Postcontrast CT imaging was performed of the abdomen pelvis, multiplanar reconstruction images submitted. No oral contrast was given. One or more of the following individualized dose reduction techniques were utilized for this examination: 1. Automated exposure control 2. Adjustment of the mA and/or kV according to patient size 3. Use of iterative reconstruction technique. Comparison: July 23, 2018 Findings: There is again right lower lobe pulmonary nodule about 0.5 cm. There is a nodule of the right hemidiaphragm image 6 about 0.8 cm, present previously. There is again mass along the anterior right pleural surface of the lung base about 2.6 cm transverse by 1.5 cm AP, fairly similar. There is again hypodense mass of the right lobe of the liver more medially, about 3.5 cm transverse by 2.9 cm AP, previously about 3 cm transverse by 2.7 cm AP. There is again right adrenal mass about 2.3 cm AP by 1.8 cm transverse, fairly similar. There is similar mild fullness of the left adrenal gland. Both kidneys enhance, no hydronephrosis. There are again small hypodense foci of the kidneys bilaterally, largest superiorly on the left about 1.2 cm. Evaluation of the bowel is limited without oral contrast and also due to the paucity of intra-abdominal and intrapelvic fat. There is no free air. There is increased of bowel wall thickening such as in the proximal small bowel in the superior left abdomen with adjacent mild nonorganized fluid density, also some increased wall thickening gastroduodenal junction and duodenum. There is mild nonorganized fluid density near the celiac axis and retroperitoneum although fairly similar in appearance. There is some variable retained stool the colon. There is some fecalization of small bowel in the pelvis with poor definition of the individual hartman on this exam. Appendix is not confidently identified. There is advanced degenerative disc disease L5-S1. There is multilevel lumbar facet degenerative change. There is scattered atherosclerotic calcification of the abdominal aorta. There is a known right retrocrural roxana mass as seen previously which is fairly similar, adjacent portal caval node about 1.3 cm short axis dimension. There are some retroperitoneal nodes such as lateral to the left aspect of the proximal suprarenal abdominal aorta about 0.9 cm short axis dimension somewhat greater as previously about 0.5 cm. IMPRESSION: 1. Somewhat limited evaluation due to lack of oral contrast, there is increased bowel wall thickening most notable of the proximal small bowel in the abdomen to include duodenum and gastroduodenal junction as may be seen with enteritis. There is some nonspecific fecalization of small bowel in the pelvis, also retained stool in segments of colon. 2. There is known metastatic disease, liver lesion measuring somewhat larger than previously, right adrenal mass and right retrocrural mass fairly similar. Left retroperitoneal nodes are somewhat greater. There are again nodules of the visualized right lung base. Electronically signed by: Tejinder Montesinos MD (11/10/2018 3:42 PM) [facility]
[2018-11-10] MEDS ORDERED: ONDANSETRON PF 4 MG/2 ML VIAL. IV PRN (16:00)
--- NOTE | 2018-11-10 16:10 | PDOC1 ---
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 Follows with Dr. Jimenez on oral chemotherapy agent which is twice a day, alternating weeks. Comes in because of lethargy, from nausea vomiting and 1 episode of loose stool on the way here. No fevers Potassium mildly low 3.3 with normal white count and normal hemoglobin with platelet of 458. Looking at old records was here July 2018 for pneumonia. MRI of the brain at that time showed maybe some ? spots. They were unsure if it was metastatic but was advised MRI in 3 months time which puts us in about this time now. Patient just had a recent PET scan and tumor markers and was told it was all good. She does not know results of the PET scan though Looking July she was a DNR but daughter verifies to me she is a full code today Quite sleepy from the medications appropriately administered by ER Past Medical History Cardiovascular: HTN Heme/Onc: Cancer Endocrine: Diabetes Past Surgical History Past Surgical History: No pertinent history Family History Family History: Hypertension Social History Smoke: No ALCOHOL: none Drugs: None Current Problem List Problem List Problems Medical Problems: (1) Intractable abdominal pain Status: Acute (2) Nausea & vomiting Status: Acute Current Medications Current Medications Current Medications Sodium Chloride 1,000 ml @ 1,000 mls/hr Q1H IV Last administered on 11/10/18at 12:30; Start 11/10/18 at 12:07; Stop 11/10/18 at 13:06; Status DC Ondansetron HCl (Zofran) 4 mg STK-MED ONCE .ROUTE ; Start 11/10/18 at 12:17; Stop 11/10/18 at 12:18; Status DC Fentanyl Citrate (Fentanyl 2ml Vial) 100 mcg STK-MED ONCE .ROUTE ; Start 11/10/18 at 12:27; Stop 11/10/18 at 12:28; Status DC Albuterol/ Ipratropium (Duoneb) 3 ml 1X ONCE NEB Last administered on 11/10/18at 12:56; Start 11/10/18 at 12:45; Stop 11/10/18 at 12:49; Status DC Methylprednisolone Sodium Succinate (SOLU-Medrol 125MG VIAL) 125 mg 1X ONCE IV Last administered on 11/10/18at 12:45; Start 11/10/18 at 12:45; Stop 11/10/18 at 12:49; Status DC Fentanyl Citrate (Fentanyl 2ml Vial) 50 mcg 1X ONCE IM ; Start 11/10/18 at 13:00; Stop 11/10/18 at 13:18; Status DC Fentanyl Citrate (Fentanyl 2ml Vial) 50 mcg 1X ONCE IV Last administered on 11/10/18at 13:30; Start 11/10/18 at 13:30; Stop 11/10/18 at 13:31; Status DC Ondansetron HCl (Zofran) 4 mg 1X ONCE IV Last administered on 11/10/18at 13:30; Start 11/10/18 at 13:30; Stop 11/10/18 at 13:31; Status DC Fentanyl Citrate (Fentanyl 2ml Vial) 50 mcg 1X ONCE IV Last administered on 11/10/18at 15:00; Start 11/10/18 at 13:30; Stop 11/10/18 at 13:31; Status DC Sodium Chloride 1,000 ml @ 1,000 mls/hr 1X ONCE IV Last administered on 11/10/18at 13:30; Start 11/10/18 at 13:30; Stop 11/10/18 at 14:29; Status DC Iohexol (Omnipaque 300 Mg/ml) 75 ml 1X ONCE IV Last administered on 11/10/18at 15:15; Start 11/10/18 at 14:45; Stop 11/10/18 at 14:47; Status DC Iohexol (Omnipaque 350 Mg/ml) 100 ml STK-MED ONCE .ROUTE ; Start 11/10/18 at 14:46; Stop 11/10/18 at 14:47; Status DC Iohexol (Omnipaque 300 Mg/ml) 100 ml STK-MED ONCE .ROUTE ; Start 11/10/18 at 14:46; Stop 11/10/18 at 14:47; Status DC Info (CONTRAST GIVEN -- Rx MONITORING) 1 each PRN DAILY PRN MC SEE COMMENTS; Start 11/10/18 at 15:00; Stop 11/12/18 at 14:59 Prochlorperazine Edisylate (Compazine) 10 mg STK-MED ONCE .ROUTE ; Start at 15:03; Stop 11/10/18 at 15:04; Status DC Prochlorperazine Edisylate (Compazine) 10 mg 1X ONCE IV Last administered on 11/10/18at 15:05; Start 11/10/18 at 15:15; Stop 11/10/18 at 15:16; Status DC Fentanyl Citrate (Fentanyl 2ml Vial) 50 mcg 1X ONCE IV Last administered on 11/10/18at 15:12; Start 11/10/18 at 15:15; Stop 11/10/18 at 15:16; Status DC Ondansetron HCl (Zofran) 4 mg PRN Q8HRS PRN IV NAUSEA/VOMITING; Start 11/10/18 at 16:00; Stop 11/10/18 at 16:04; Status DC Fentanyl Citrate (Fentanyl 2ml Vial) 50 mcg PRN Q1HR PRN IV PAIN; Start 11/10/18 at 16:00; Stop 11/11/18 at 15:59 Sodium Chloride 1,000 ml @ 75 mls/hr [id number] IV ; Start 11/10/18 at 15:57; Stop 11/10/18 at 16:04; Status DC Ondansetron HCl (Zofran) 4 mg PRN Q6HRS PRN IV NAUSEA/VOMITING; Start 11/10/18 at 16:15 Potassium Chloride/Dextrose/ Sod Cl 1,000 ml @ 75 mls/hr DAILY IV ; Start 11/11/18 at 09:00; Status UNV Prochlorperazine Edisylate (Compazine) 10 mg PRN Q6HRS PRN IV NAUSEA/VOMITING; Start 11/10/18 at 16:15; Status UNV Temazepam (Restoril) 7.5 mg PRN QHS PRN PO INSOMNIA; Start 11/10/18 at 16:15; Status UNV Acetaminophen (Tylenol) 500 mg PRN Q6HRS PRN PO MILD PAIN / TEMP; Start 11/10/18 at 16:15; Status UNV Acetaminophen/ Codeine Phosphate (Tylenol #3) 1 tab PRN Q6HRS PRN PO PAIN; Start 11/10/18 at 16:15; Status UNV Alprazolam (Xanax) 1 mg TID PO ; Start 11/10/18 at 21:00; Status UNV Ondansetron HCl (Zofran Odt) 4 mg PRN Q4HRS PRN PO NAUSEA/VOMITING; Start 11/10/18 at 16:15; Status UNV Non-Formulary Medication (Citalopram Hydrobromide (Celexa)) 40 mg DAILY PO ; Start 11/11/18 at 09:00; Status UNV Non-Formulary Medication (Dronabinol (Marinol)) 5 mg BIDACLD PO ; Start 11/10/18 at 16:30; Status UNV Non-Formulary Medication (Hydromorphone Hcl (Dilaudid)) 1 tab QID PO ; Start 11/10/18 at 17:00; Status UNV Non-Formulary Medication (Magnesium Oxide (Mag-Oxide)) 400 mg DAILY PO ; Start 11/11/18 at 09:00; Status UNV Non-Formulary Medication (Metoprolol Tartrate ) 100 mg BID PO ; Start 11/10/18 at 21:00; Status UNV Non-Formulary Medication (Mirtazapine ) 7.5 mg QHS PO ; Start 11/10/18 at 21:00; Status UNV Non-Formulary Medication (Ubidecarenone (Coq-10)) 200 mg DAILY PO ; Start 11/11/18 at 09:00; Status UNV Non-Formulary Medication (Zolpidem Tartrate ) 10 mg HS PRN PO SEE COMMENTS; Start 11/10/18 at 16:15; Status UNV Non-Formulary Medication ([Nicotine 21MG] ) 1 patch DAILY TD ; Start 11/11/18 at 09:00; Status UNV Active Scripts Active Dilaudid (Hydromorphone Hcl) 2 Mg Tablet 1 Tab PO QID Alprazolam 1 Mg Tablet 1 Mg PO TID 30 Days Lactulose 20 Gm/30 Ml Solution 20 Gm PO PRN Q12HR PRN 30 Days [Nicotine 21MG] 1 PATCH Patch 1 Patch TD DAILY 30 Days Mag-Oxide (Magnesium Oxide) 400 Mg Tablet 400 Mg PO DAILY 30 Days Reported Zolpidem Tartrate 10 Mg Tablet 10 Mg PO HS PRN Coq-10 (Ubidecarenone) 100 Mg Capsule 200 Mg PO DAILY Metoprolol Tartrate 100 Mg Tablet 100 Mg PO BID Ondansetron Odt (Ondansetron) 4 Mg Tab.rapdis 4 Mg IV PRN Q4HRS PRN Marinol (Dronabinol) 5 Mg Capsule 5 Mg PO BIDACLD Celexa (Citalopram Hydrobromide) 40 Mg Tablet 40 Mg PO DAILY Allergies Allergies: Coded Allergies: No Known Drug Allergies (Unverified , 01/03/17) ROS Review of System History of present illness, the rest of ROS 14 point negative Physical Exam General: Alert, Oriented X3, Cooperative, No acute distress HEENT: Atraumatic, PERRLA, EOMI Lungs: Clear to auscultation, Normal air movement Heart: S1S2, RRR, no thrills, no rubs, no gallops, no murmurs Cardiovascular: S1, S2 Abdomen: Normal bowel sounds, Soft, No tenderness, No hepatosplenomegaly, No masses Rectal Exam: not examined PELVIC: Nml ext genitalia Extremities: No clubbing, No cyanosis, No edema, Normal pulses, No tenderness/swelling Skin: No rashes, No breakdown, No significant lesion Neuro: Normal gait, Normal speech, Strength at 5/5 X4 ext, Normal tone, Sensation intact, Cranial nerves 3-12 NL, Reflexes 2+ Psych/Mental Status: Mental status NL, Mood NL Vitals Vitals Vital Signs Date Time Temp Pulse Resp B/P (MAP) Pulse Ox O2 Delivery O2 Flow Rate FiO2 11/10/18 15:12 18 11/10/18 12:58 99 Room Air 11/10/18 12:05 98.0 109 161/87 (111) 98.0 Labs Labs Laboratory Tests Test 11/10/18 12:10 11/10/18 13:44 11/10/18 14:13 White Blood Count 6.5 x10^3/uL (4.0-11.0) Red Blood Count 4.54 x10^6/uL (3.50-5.40) Hemoglobin 13.7 g/dL (12.0-15.5) Hematocrit 41.3 % (36.0-47.0) Mean Corpuscular Volume 91 fL (79-100) Mean Corpuscular Hemoglobin 30 pg (25-35) Mean Corpuscular Hemoglobin Concent 33 g/dL (31-37) Red Cell Distribution Width 23.0 % (11.5-14.5) Platelet Count 458 x10^3/uL (140-400) Neutrophils (%) (Auto) 80 % (31-73) Lymphocytes (%) (Auto) 12 % (24-48) Monocytes (%) (Auto) 7 % (0-9) Eosinophils (%) (Auto) 0 % (0-3) Basophils (%) (Auto) 1 % (0-3) Neutrophils # (Auto) 5.2 x10^3uL (1.8-7.7) Lymphocytes # (Auto) 0.8 x10^3/uL (1.0-4.8) Monocytes # (Auto) 0.4 x10^3/uL (0.0-1.1) Eosinophils # (Auto) 0.0 x10^3/uL (0.0-0.7) Basophils # (Auto) 0.1 x10^3/uL (0.0-0.2) Platelet Estimate Increased (ADEQUATE) Poikilocytosis Slight Anisocytosis Mod Sodium Level 137 mmol/L (136-145) Potassium Level 3.3 mmol/L (3.5-5.1) Chloride Level 100 mmol/L (98-107) Carbon Dioxide Level 28 mmol/L (21-32) Anion Gap 9 (6-14) Blood Urea Nitrogen 22 mg/dL (7-20) Creatinine 1.0 mg/dL (0.6-1.0) Estimated GFR (Cockcroft-Gault) 66.3 BUN/Creatinine Ratio 22 (6-20) Glucose Level 141 mg/dL (70-99) Lactic Acid Level 1.3 mmol/L (0.4-2.0) Calcium Level 9.4 mg/dL (8.5-10.1) Total Bilirubin 0.4 mg/dL (0.2-1.0) Aspartate Amino Transf (AST/SGOT) 14 U/L (15-37) Alanine Aminotransferase (ALT/SGPT) 12 U/L (14-59) Alkaline Phosphatase 87 U/L (46-116) Troponin I Quantitative < 0.017 ng/mL (0.000-0.055) Total Protein 8.0 g/dL (6.4-8.2) Albumin 3.6 g/dL (3.4-5.0) Albumin/Globulin Ratio 0.8 (1.0-1.7) Lipase 65 U/L (73-393) Urine Collection Type Unknown Urine Color Yellow Urine Clarity Clear Urine pH 7.0 Urine Specific [place] 1.015 Urine Protein Negative mg/dL (NEG-TRACE) Urine Glucose (UA) Negative mg/dL (NEG) Urine Ketones (Stick) Negative mg/dL (NEG) Urine Blood Negative (NEG) Urine Nitrite Negative (NEG) Urine Bilirubin Negative (NEG) Urine Urobilinogen Dipstick 1.0 mg/dL (0.2 mg/dL) Urine Leukocyte Esterase Negative (NEG) Urine RBC 0 /HPF (0-2) Urine WBC 0 /HPF (0-4) Urine Squamous Epithelial Cells Few /LPF Urine Bacteria 0 /HPF (0-FEW) Laboratory Tests Test 11/10/18 12:10 11/10/18 13:44 11/10/18 14:13 White Blood Count 6.5 x10^3/uL (4.0-11.0) Red Blood Count 4.54 x10^6/uL (3.50-5.40) Hemoglobin 13.7 g/dL (12.0-15.5) Hematocrit 41.3 % (36.0-47.0) Mean Corpuscular Volume 91 fL (79-100) Mean Corpuscular Hemoglobin 30 pg (25-35) Mean Corpuscular Hemoglobin Concent 33 g/dL (31-37) Red Cell Distribution Width 23.0 % (11.5-14.5) Platelet Count 458 x10^3/uL (140-400) Neutrophils (%) (Auto) 80 % (31-73) Lymphocytes (%) (Auto) 12 % (24-48) Monocytes (%) (Auto) 7 % (0-9) Eosinophils (%) (Auto) 0 % (0-3) Basophils (%) (Auto) 1 % (0-3) Neutrophils # (Auto) 5.2 x10^3uL (1.8-7.7) Lymphocytes # (Auto) 0.8 x10^3/uL (1.0-4.8) Monocytes # (Auto) 0.4 x10^3/uL (0.0-1.1) Eosinophils # (Auto) 0.0 x10^3/uL (0.0-0.7) Basophils # (Auto) 0.1 x10^3/uL (0.0-0.2) Platelet Estimate Increased (ADEQUATE) Poikilocytosis Slight Anisocytosis Mod Sodium Level 137 mmol/L (136-145) Potassium Level 3.3 mmol/L (3.5-5.1) Chloride Level 100 mmol/L (98-107) Carbon Dioxide Level 28 mmol/L (21-32) Anion Gap 9 (6-14) Blood Urea Nitrogen 22 mg/dL (7-20) Creatinine 1.0 mg/dL (0.6-1.0) Estimated GFR (Cockcroft-Gault) 66.3 BUN/Creatinine Ratio 22 (6-20) Glucose Level 141 mg/dL (70-99) Lactic Acid Level 1.3 mmol/L (0.4-2.0) Calcium Level 9.4 mg/dL (8.5-10.1) Total Bilirubin 0.4 mg/dL (0.2-1.0) Aspartate Amino Transf (AST/SGOT) 14 U/L (15-37) Alanine Aminotransferase (ALT/SGPT) 12 U/L (14-59) Alkaline Phosphatase 87 U/L (46-116) Troponin I Quantitative < 0.017 ng/mL (0.000-0.055) Total Protein 8.0 g/dL (6.4-8.2) Albumin 3.6 g/dL (3.4-5.0) Albumin/Globulin Ratio 0.8 (1.0-1.7) Lipase 65 U/L (73-393) Urine Collection Type Unknown Urine Color Yellow Urine Clarity Clear Urine pH 7.0 Urine Specific [place] 1.015 Urine Protein Negative mg/dL (NEG-TRACE) Urine Glucose (UA) Negative mg/dL (NEG) Urine Ketones (Stick) Negative mg/dL (NEG) Urine Blood Negative (NEG) Urine Nitrite Negative (NEG) Urine Bilirubin Negative (NEG) Urine Urobilinogen Dipstick 1.0 mg/dL (0.2 mg/dL) Urine Leukocyte Esterase Negative (NEG) Urine RBC 0 /HPF (0-2) Urine WBC 0 /HPF (0-4) Urine Squamous Epithelial Cells Few /LPF Urine Bacteria 0 /HPF (0-FEW) VTE Prophylaxis Ordered VTE Prophylaxis Devices: Yes VTE Pharmacological Prophylaxi: Yes Assessment/Plan Assessment/Plan Nausea, emesis, one episode of loose stool-could be chemotherapy related or just some viral gastroenteritis - check for loose stools C. difficile if that persists Otherwise supportive meds Admitted for basically supportive meds-has been in the ER for 4 hours and could not control symptoms Mild hypokalemia-replace orally, liquid diet then ADA T Reactive thrombocytosis Metastatic breast cancer stage IV to lungs, on oral chemotherapy-known to Dr. Jimenez ? Brain spots-July MRI brain Plan: Admit, full code, liquid diet then ADA T Replace potassium IV fluid 1 Okay to resume home meds PT OT when more able Consult Dr. Jimenez just because I'm unsure if he would want an MRI of the brain as per his note in July 2018. But then PET scan was just recently done as outpatient-hence I will defer to the service Discussed with daughter at bedside, seen at ER ELSA ALBA MD Nov 10, 2018 16:10
[2018-11-10] MEDS ORDERED: ONDANSETRON ODT 4 MG TAB.RAPDIS. PO PRN (16:15)
[2018-11-10] MEDS ORDERED: ACETAMINOPHEN 500 MG TABLET PO PRN (16:15)
[2018-11-10] MEDS ORDERED: ACETAMINOPHEN/CODEINE 300/30MG TABLET. PO PRN (16:15)
[2018-11-10] MEDS ORDERED: TEMAZEPAM 7.5 MG CAPSULE PO PRN (16:15)
[2018-11-10 17:25] VITALS: BP 173/105
[2018-11-10] MEDS: POTASSIUM CL 30MEQ D5-0.45NACL 1,000 ML IV SCH (18:00)
[2018-11-10] MEDS: DRONABINOL 2.5 MG CAPSULE. PO SCH (18:00)
[2018-11-10] MEDS: ONDANSETRON PF 4 MG/2 ML VIAL. IV PRN (18:10)
[2018-11-10] MEDS: fentaNYL PF VIAL 100 MCG/2 ML VIAL IV PRN ×3 (18:10→21:50)
[2018-11-10] MEDS ORDERED: METOPROLOL TARTRATE 5 MG/5 ML VIAL. IVP PRN (18:45)
[2018-11-10 19:00] VITALS: BP 159/100
[2018-11-10] MEDS ORDERED: ZOLPIDEM 5 MG TABLET. PO PRN (21:00)
[2018-11-10] MEDS: METOPROLOL TART IMMED RELEASE 50 MG TABLET. PO SCH (21:51)
[2018-11-10] MEDS: ALPRAZolam 1 MG TABLET PO SCH (21:51)
[2018-11-10] MEDS: MIRTAZAPINE 7.5 MG TABLET. PO SCH (22:09)
[2018-11-10 23:00] VITALS: BP 160/108
[2018-11-10] MEDS: HYDROmorphone 2 MG TABLET PO SCH (23:19)
[2018-11-10 23:20] VITALS: BP 160/108
[2018-11-11] VITALS (9 sets, daily range): BP systolic 149–183; BP diastolic 88–114
[2018-11-11] MEDS: HYDROcodone/APAP 10/325 1 TAB TABLET PO PRN ×4 (01:19→22:10)
[2018-11-11] MEDS ORDERED: METOPROLOL TARTRATE 5 MG/5 ML VIAL. IVP PRN (02:45)
[2018-11-11] MEDS: NICOTINE 21MG PATCH. TD SCH (04:36)
[2018-11-11] MEDS: fentaNYL PF VIAL 100 MCG/2 ML VIAL IV PRN ×5 (04:42→21:35)
--- NOTE | 2018-11-11 07:27 | EKG ---
[facility] [address] [place] [address] Test Date: 2018-11-10 Test Time: 13:03:04 Pat Name: MATEO PORTER Department: Room: 442 1 Gender: F [employer]: : [id number] Requested By: SHELBY HURTADO Order Number: [id number] Reading MD: Darek Sanchez Measurements Intervals [place] Rate: 92 P: 65 [place]: 146 QRS: 68 QRSD: 90 T: 77 QT: 376 QTc: 470 Interpretive Statements SINUS RHYTHM NONSPECIFIC ST-T WAVE CHANGES. Electronically Signed On 11-13-2018 17:40:41 CDT by Darek Sanchez
[2018-11-11] MEDS ORDERED: NON FORMULARY ITEM (Ubidecarenone (Coq-10) 200 MG) PO SCH (09:00)
[2018-11-11] MEDS: HYDROmorphone 2 MG TABLET PO SCH ×4 (09:00→21:00)
[2018-11-11] MEDS ORDERED: NICOTINE 21MG PATCH. TD SCH (09:00)
[2018-11-11] MEDS: CITALOPRAM 20 MG TABLET. PO SCH (09:03)
[2018-11-11] MEDS: MAGNESIUM OXIDE 400 MG TABLET PO SCH (09:04)
[2018-11-11] MEDS: ALPRAZolam 1 MG TABLET PO SCH ×3 (09:04→20:05)
[2018-11-11] MEDS: METOPROLOL TART IMMED RELEASE 50 MG TABLET. PO SCH ×2 (09:13→20:05)
[2018-11-11] MEDS: POTASSIUM CL 30MEQ D5-0.45NACL 1,000 ML IV SCH ×2 (09:14→20:06)
[2018-11-11] MEDS: ONDANSETRON PF 4 MG/2 ML VIAL. IV PRN (09:21)
--- NOTE | 2018-11-11 10:45 | PDOC ---
PROGRESS NOTES History of Present Illness History of Present Illness VTE Prophylaxis Ordered VTE Prophylaxis Devices: Yes VTE Pharmacological Prophylaxi: Yes Assessment/Plan Assessment/Plan Nausea, emesis, one episode of loose stool-could be chemotherapy related VS viral gastroenteritis check for loose stools C. difficile supportive meds Admitted for basically supportive meds-has been in the ER for 4 hours and could not control symptoms Mild hypokalemia-replace orally, liquid diet then ADA T Reactive thrombocytosis Metastatic breast cancer stage IV to lungs, on oral chemotherapy-known to Dr. Aquino ? Brain spots-July MRI brain distribution metastatic foci of uptake compatible with metastases to lymph nodes, liver, and the right adrenal gland in particular. There is slight increase in the right upper thoracic intramammary lymph node region mass. Right lower lobe small pulmonary nodule is similar in size compared to previous exam but of increased density. No abnormal uptake but this may be due to its small size. Attention on follow-up imaging studies recommended. focus of faint enhancement anterior right occipital lobe concerning for metastasis given history, other consideration of sequela of late subacute or early chronic as infarct given relatively mild degree of enhancement present. Given adjacent artifact, thin section postcontrast imaging such as with the treatment planning protocol may be beneficial for characterization. There also may be a tiny focus of enhancement of the left parietal lobe. multilevel cervical degenerative disc disease and spondylosis as well as abnormal alignment. Plan: Admit, full code, liquid diet then ADA T Replace potassium IV fluid 1 home meds PT OT when more able Consult Dr. AQUINO PET scan was REVIEWED Discussed with daughter Vitals Vitals Vital Signs Date Time Temp Pulse Resp B/P (MAP) Pulse Ox O2 Delivery O2 Flow Rate FiO2 11/11/18 09:14 Room Air 11/11/18 09:13 87 156/99 11/11/18 07:00 98.8 18 93 98.8 Physical Exam General: Alert, Oriented X3, Cooperative, No acute distress, mild distress Heart: Regular rate, Normal S1 Lungs: Clear Abdomen: Normal bowel sounds, Soft, No tenderness, No hepatosplenomegaly, No masses Extremities: No clubbing, No cyanosis, No edema, Normal pulses, No tenderness/swelling Skin: No rashes, No breakdown, No significant lesion Labs LABS History: Breast cancer, headaches, weakness Technique: Multiplanar, multi sequential pre and postcontrast MR imaging was performed of the brain. Comparison: October 04, 2017 Findings: There is motion degradation. There is no evidence of recent infarct. Somewhat poorly characterized due to motion and also adjacent phase coding artifact, there apparently is now focus of mild intra-axial enhancement of the right anterior occipital region axial image 12 series 10 about 1.1 cm transverse by 0.8 cm AP, corresponding enhancement seen on coronal image 7 about 0.4 cm CC. There is some faint FLAIR hyperintense signal in this region. There may be a tiny focus of intra-axial enhancement of the left parietal lobe such as seen axial image 15 and coronal image 6 about 0.3 cm in size also difficult to characterize due to motion. There is again multifocal [id number] T2 and FLAIR hyperintense signal abnormality of the supratentorial parenchyma bilaterally and jesenia. 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 Ventricular size is stable, within normal limits. T2 hyperintense signal of the bilateral inferior basal ganglia is unchanged. There is disconjugate gaze. There is increased moderate to severe fluid of the left mastoid air cells more posteriorly. There is preservation of the major arterial intracranial flow voids at the skull base. There is patchy minimal ethmoid air cell and right sphenoid sinus mucosal thickening, degree of right sphenoid sinus mucosal thickening decreased. Cerebellar tonsils are normal in location. There is multilevel cervical degenerative disc disease and spondylosis also abnormal alignment. Mild heterogeneity of the marrow of the clivus is similar. Impression: 1. Exam is degraded by motion, now focus of faint enhancement anterior right occipital lobe concerning for metastasis given history, other consideration of sequela of late subacute or early chronic as infarct given relatively mild degree of enhancement present. Given adjacent artifact, thin section postcontrast imaging such as with the treatment planning protocol may be beneficial for characterization. There also may be a tiny focus of enhancement of the left parietal lobe. 2. There is multilevel cervical degenerative disc disease and spondylosis as well as abnormal alignment. Electronically signed by: Tejinder Montesinos MD (07/22/2018 5:42 PM) [facility] Right upper thoracic internal mammary lymph node region mass is present with SUV max of 5. Soft tissue masslike density at this site measures 2.4 cm x 1.1 cm. This has slightly increased by approximately 0.2 cm in the axial plane on CT images the interval. Right paratracheal lymph node with SUV max of 1.3 is present. This lymph node is not enlarged. It is best seen on axial image 67. Intense uptake corresponding to a left lower paratracheal, aorticopulmonary window lymph node with SUV max of 3.4 is present. This Subcarinal lymph node has SUV max of 5.1. This lymph node has a short axis diameter of 1 cm right anterior basilar pleural-based mass measuring 2.4 cm transverse x 1.5 cm anteroposterior is present with SUV max of 6.8. At the right medial basilar paraspinal pleural region, there is a soft tissue density measuring 3 cm x 1.3 cm which has SUV max of 4.5. Additional smaller retrocrural is also present with less intense uptake similar to the prior exam. Centrilobular emphysema is present. Nodular density which is very small in size adjacent to the minor failure at the midthoracic level appears to represent a lymph node. Right lower lobe pulmonary nodule measuring 0.5 similar diameter has no abnormal uptake identified on PET imaging. Gastrohepatic ligament lymph node has SUV max of 6.0. At the right hepatic vein level, there is a low-attenuation mass. There is a region of uptake involving this mass with SUV max of up to 5.4. Right adrenal gland masslike involvement is noted with SUV max of 7.4. Uptake involving celiac lymph nodes are small in size is noted. Lymph nodes haven't uptake of up to 4.3 SUV max. Uptake of radiotracer within the ascending colon is physiologic in distribution. No abnormal uptake of radiotracer involving the pelvis. Surgical clips involving the pelvis. Degenerative changes of cervical spine are present. L5-S1 disc space narrowing is notable. Impression: Overall, no significant change in distribution metastatic foci of uptake compatible with metastases to lymph nodes, liver, and the right adrenal gland in particular. There is slight increase in the right upper thoracic intramammary lymph node region mass. Right lower lobe small pulmonary nodule is similar in size compared to previous exam but of increased density. No abnormal uptake but this may be due to its small size. Attention on follow-up imaging studies recommended. DICTATED and SIGNED BY: NOLVIA STARK MD DATE: 11/07/18 1515 Laboratory Tests Test 11/10/18 12:10 11/10/18 13:44 11/10/18 14:13 11/10/18 16:35 White Blood Count 6.5 x10^3/uL (4.0-11.0) Red Blood Count 4.54 x10^6/uL (3.50-5.40) Hemoglobin 13.7 g/dL (12.0-15.5) Hematocrit 41.3 % (36.0-47.0) Mean Corpuscular Volume 91 fL (79-100) Mean Corpuscular Hemoglobin 30 pg (25-35) Mean Corpuscular Hemoglobin Concent 33 g/dL (31-37) Red Cell Distribution Width 23.0 % (11.5-14.5) Platelet Count 458 x10^3/uL (140-400) Neutrophils (%) (Auto) 80 % (31-73) Lymphocytes (%) (Auto) 12 % (24-48) Monocytes (%) (Auto) 7 % (0-9) Eosinophils (%) (Auto) 0 % (0-3) Basophils (%) (Auto) 1 % (0-3) Neutrophils # (Auto) 5.2 x10^3uL (1.8-7.7) Lymphocytes # (Auto) 0.8 x10^3/uL (1.0-4.8) Monocytes # (Auto) 0.4 x10^3/uL (0.0-1.1) Eosinophils # (Auto) 0.0 x10^3/uL (0.0-0.7) Basophils # (Auto) 0.1 x10^3/uL (0.0-0.2) Platelet Estimate Increased (ADEQUATE) Poikilocytosis Slight Anisocytosis Mod Sodium Level 137 mmol/L (136-145) Potassium Level 3.3 mmol/L (3.5-5.1) Chloride Level 100 mmol/L (98-107) Carbon Dioxide Level 28 mmol/L (21-32) Anion Gap 9 (6-14) Blood Urea Nitrogen 22 mg/dL (7-20) Creatinine 1.0 mg/dL (0.6-1.0) Estimated GFR (Cockcroft-Gault) 66.3 BUN/Creatinine Ratio 22 (6-20) Glucose Level 141 mg/dL (70-99) Lactic Acid Level 1.3 mmol/L (0.4-2.0) 1.0 mmol/L (0.4-2.0) Calcium Level 9.4 mg/dL (8.5-10.1) Total Bilirubin 0.4 mg/dL (0.2-1.0) Aspartate Amino Transf (AST/SGOT) 14 U/L (15-37) Alanine Aminotransferase (ALT/SGPT) 12 U/L (14-59) Alkaline Phosphatase 87 U/L (46-116) Troponin I Quantitative < 0.017 ng/mL (0.000-0.055) Total Protein 8.0 g/dL (6.4-8.2) Albumin 3.6 g/dL (3.4-5.0) Albumin/Globulin Ratio 0.8 (1.0-1.7) Lipase 65 U/L (73-393) Urine Collection Type Unknown Urine Color Yellow Urine Clarity Clear Urine pH 7.0 Urine Specific Gardner 1.015 Urine Protein Negative mg/dL (NEG-TRACE) Urine Glucose (UA) Negative mg/dL (NEG) Urine Ketones (Stick) Negative mg/dL (NEG) Urine Blood Negative (NEG) Urine Nitrite Negative (NEG) Urine Bilirubin Negative (NEG) Urine Urobilinogen Dipstick 1.0 mg/dL (0.2 mg/dL) Urine Leukocyte Esterase Negative (NEG) Urine RBC 0 /HPF (0-2) Urine WBC 0 /HPF (0-4) Urine Squamous Epithelial Cells Few /LPF Urine Bacteria 0 /HPF (0-FEW) Test 11/11/18 06:37 Potassium Level 3.5 mmol/L (3.5-5.1) Assessment and Plan Assessmemt and Plan Problems Medical Problems: (1) Intractable abdominal pain Status: Acute (2) Nausea & vomiting Status: Acute Comment Review of Relevant I have reviewed the following items arnulfo (where applicable) has been applied. Labs Laboratory Tests Test 11/10/18 12:10 11/10/18 13:44 11/10/18 14:13 11/10/18 16:35 White Blood Count 6.5 x10^3/uL (4.0-11.0) Red Blood Count 4.54 x10^6/uL (3.50-5.40) Hemoglobin 13.7 g/dL (12.0-15.5) Hematocrit 41.3 % (36.0-47.0) Mean Corpuscular Volume 91 fL (79-100) Mean Corpuscular Hemoglobin 30 pg (25-35) Mean Corpuscular Hemoglobin Concent 33 g/dL (31-37) Red Cell Distribution Width 23.0 % (11.5-14.5) Platelet Count 458 x10^3/uL (140-400) Neutrophils (%) (Auto) 80 % (31-73) Lymphocytes (%) (Auto) 12 % (24-48) Monocytes (%) (Auto) 7 % (0-9) Eosinophils (%) (Auto) 0 % (0-3) Basophils (%) (Auto) 1 % (0-3) Neutrophils # (Auto) 5.2 x10^3uL (1.8-7.7) Lymphocytes # (Auto) 0.8 x10^3/uL (1.0-4.8) Monocytes # (Auto) 0.4 x10^3/uL (0.0-1.1) Eosinophils # (Auto) 0.0 x10^3/uL (0.0-0.7) Basophils # (Auto) 0.1 x10^3/uL (0.0-0.2) Platelet Estimate Increased (ADEQUATE) Poikilocytosis Slight Anisocytosis Mod Sodium Level 137 mmol/L (136-145) Potassium Level 3.3 mmol/L (3.5-5.1) Chloride Level 100 mmol/L (98-107) Carbon Dioxide Level 28 mmol/L (21-32) Anion Gap 9 (6-14) Blood Urea Nitrogen 22 mg/dL (7-20) Creatinine 1.0 mg/dL (0.6-1.0) Estimated GFR (Cockcroft-Gault) 66.3 BUN/Creatinine Ratio 22 (6-20) Glucose Level 141 mg/dL (70-99) Lactic Acid Level 1.3 mmol/L (0.4-2.0) 1.0 mmol/L (0.4-2.0) Calcium Level 9.4 mg/dL (8.5-10.1) Total Bilirubin 0.4 mg/dL (0.2-1.0) Aspartate Amino Transf (AST/SGOT) 14 U/L (15-37) Alanine Aminotransferase (ALT/SGPT) 12 U/L (14-59) Alkaline Phosphatase 87 U/L (46-116) Troponin I Quantitative < 0.017 ng/mL (0.000-0.055) Total Protein 8.0 g/dL (6.4-8.2) Albumin 3.6 g/dL (3.4-5.0) Albumin/Globulin Ratio 0.8 (1.0-1.7) Lipase 65 U/L (73-393) Urine Collection Type Unknown Urine Color Yellow Urine Clarity Clear Urine pH 7.0 Urine Specific Gardner 1.015 Urine Protein Negative mg/dL (NEG-TRACE) Urine Glucose (UA) Negative mg/dL (NEG) Urine Ketones (Stick) Negative mg/dL (NEG) Urine Blood Negative (NEG) Urine Nitrite Negative (NEG) Urine Bilirubin Negative (NEG) Urine Urobilinogen Dipstick 1.0 mg/dL (0.2 mg/dL) Urine Leukocyte Esterase Negative (NEG) Urine RBC 0 /HPF (0-2) Urine WBC 0 /HPF (0-4) Urine Squamous Epithelial Cells Few /LPF Urine Bacteria 0 /HPF (0-FEW) Test 11/11/18 06:37 Potassium Level 3.5 mmol/L (3.5-5.1) Laboratory Tests Test 11/10/18 12:10 11/10/18 13:44 11/10/18 14:13 11/10/18 16:35 White Blood Count 6.5 x10^3/uL (4.0-11.0) Red Blood Count 4.54 x10^6/uL (3.50-5.40) Hemoglobin 13.7 g/dL (12.0-15.5) Hematocrit 41.3 % (36.0-47.0) Mean Corpuscular Volume 91 fL (79-100) Mean Corpuscular Hemoglobin 30 pg (25-35) Mean Corpuscular Hemoglobin Concent 33 g/dL (31-37) Red Cell Distribution Width 23.0 % (11.5-14.5) Platelet Count 458 x10^3/uL (140-400) Neutrophils (%) (Auto) 80 % (31-73) Lymphocytes (%) (Auto) 12 % (24-48) Monocytes (%) (Auto) 7 % (0-9) Eosinophils (%) (Auto) 0 % (0-3) Basophils (%) (Auto) 1 % (0-3) Neutrophils # (Auto) 5.2 x10^3uL (1.8-7.7) Lymphocytes # (Auto) 0.8 x10^3/uL (1.0-4.8) Monocytes # (Auto) 0.4 x10^3/uL (0.0-1.1) Eosinophils # (Auto) 0.0 x10^3/uL (0.0-0.7) Basophils # (Auto) 0.1 x10^3/uL (0.0-0.2) Platelet Estimate Increased (ADEQUATE) Poikilocytosis Slight Anisocytosis Mod Sodium Level 137 mmol/L (136-145) Potassium Level 3.3 mmol/L (3.5-5.1) Chloride Level 100 mmol/L (98-107) Carbon Dioxide Level 28 mmol/L (21-32) Anion Gap 9 (6-14) Blood Urea Nitrogen 22 mg/dL (7-20) Creatinine 1.0 mg/dL (0.6-1.0) Estimated GFR (Cockcroft-Gault) 66.3 BUN/Creatinine Ratio 22 (6-20) Glucose Level 141 mg/dL (70-99) Lactic Acid Level 1.3 mmol/L (0.4-2.0) 1.0 mmol/L (0.4-2.0) Calcium Level 9.4 mg/dL (8.5-10.1) Total Bilirubin 0.4 mg/dL (0.2-1.0) Aspartate Amino Transf (AST/SGOT) 14 U/L (15-37) Alanine Aminotransferase (ALT/SGPT) 12 U/L (14-59) Alkaline Phosphatase 87 U/L (46-116) Troponin I Quantitative < 0.017 ng/mL (0.000-0.055) Total Protein 8.0 g/dL (6.4-8.2) Albumin 3.6 g/dL (3.4-5.0) Albumin/Globulin Ratio 0.8 (1.0-1.7) Lipase 65 U/L (73-393) Urine Collection Type Unknown Urine Color Yellow Urine Clarity Clear Urine pH 7.0 Urine Specific Gardner 1.015 Urine Protein Negative mg/dL (NEG-TRACE) Urine Glucose (UA) Negative mg/dL (NEG) Urine Ketones (Stick) Negative mg/dL (NEG) Urine Blood Negative (NEG) Urine Nitrite Negative (NEG) Urine Bilirubin Negative (NEG) Urine Urobilinogen Dipstick 1.0 mg/dL (0.2 mg/dL) Urine Leukocyte Esterase Negative (NEG) Urine RBC 0 /HPF (0-2) Urine WBC 0 /HPF (0-4) Urine Squamous Epithelial Cells Few /LPF Urine Bacteria 0 /HPF (0-FEW) Test 11/11/18 06:37 Potassium Level 3.5 mmol/L (3.5-5.1) Medications Current Medications Sodium Chloride 1,000 ml @ 1,000 mls/hr Q1H IV Last administered on 11/10/18at 12:30; Start 11/10/18 at 12:07; Stop 11/10/18 at 13:06; Status DC Ondansetron HCl (Zofran) 4 mg STK-MED ONCE .ROUTE ; Start 11/10/18 at 12:17; Stop 11/10/18 at 12:18; Status DC Fentanyl Citrate (Fentanyl 2ml Vial) 100 mcg STK-MED ONCE .ROUTE ; Start 11/10/18 at 12:27; Stop 11/10/18 at 12:28; Status DC Albuterol/ Ipratropium (Duoneb) 3 ml 1X ONCE NEB Last administered on at 12:56; Start 11/10/18 at 12:45; Stop 11/10/18 at 12:49; Status DC Methylprednisolone Sodium Succinate (SOLU-Medrol 125MG VIAL) 125 mg 1X ONCE IV Last administered on 11/10/18at 12:45; Start 11/10/18 at 12:45; Stop 11/10/18 at 12:49; Status DC Fentanyl Citrate (Fentanyl 2ml Vial) 50 mcg 1X ONCE IM ; Start 11/10/18 at 13:00; Stop 11/10/18 at 13:18; Status DC Fentanyl Citrate (Fentanyl 2ml Vial) 50 mcg 1X ONCE IV Last administered on 11/10/18at 13:30; Start 11/10/18 at 13:30; Stop 11/10/18 at 13:31; Status DC Ondansetron HCl (Zofran) 4 mg 1X ONCE IV Last administered on 11/10/18at 13:30; Start 11/10/18 at 13:30; Stop 11/10/18 at 13:31; Status DC Fentanyl Citrate (Fentanyl 2ml Vial) 50 mcg 1X ONCE IV Last administered on 11/10/18at 15:00; Start 11/10/18 at 13:30; Stop 11/10/18 at 13:31; Status DC Sodium Chloride 1,000 ml @ 1,000 mls/hr 1X ONCE IV Last administered on 11/10/18at 13:30; Start 11/10/18 at 13:30; Stop 11/10/18 at 14:29; Status DC Iohexol (Omnipaque 300 Mg/ml) 75 ml 1X ONCE IV Last administered on 11/10/18at 15:15; Start 11/10/18 at 14:45; Stop 11/10/18 at 14:47; Status DC Iohexol (Omnipaque 350 Mg/ml) 100 ml STK-MED ONCE .ROUTE ; Start 11/10/18 at 14:46; Stop 11/10/18 at 14:47; Status DC Iohexol (Omnipaque 300 Mg/ml) 100 ml STK-MED ONCE .ROUTE ; Start 11/10/18 at 14:46; Stop 11/10/18 at 14:47; Status DC Info (CONTRAST GIVEN -- Rx MONITORING) 1 each PRN DAILY PRN MC SEE COMMENTS; Start 11/10/18 at 15:00; Stop 11/12/18 at 14:59 Prochlorperazine Edisylate (Compazine) 10 mg STK-MED ONCE .ROUTE ; Start 11/10/18 at 15:03; Stop 11/10/18 at 15:04; Status DC Prochlorperazine Edisylate (Compazine) 10 mg 1X ONCE IV Last administered on 11/10/18at 15:05; Start 11/10/18 at 15:15; Stop 11/10/18 at 15:16; Status DC Fentanyl Citrate (Fentanyl 2ml Vial) 50 mcg 1X ONCE IV Last administered on 11/10/18at 15:12; Start 11/10/18 at 15:15; Stop 11/10/18 at 15:16; Status DC Ondansetron HCl (Zofran) 4 mg PRN Q8HRS PRN IV NAUSEA/VOMITING; Start 11/10/18 at 16:00; Stop 11/10/18 at 16:04; Status DC Fentanyl Citrate (Fentanyl 2ml Vial) 50 mcg PRN Q1HR PRN IV PAIN Last administered on 11/11/18at 06:39; Start 11/10/18 at 16:00; Stop 11/11/18 at 15:59 Sodium Chloride 1,000 ml @ 75 mls/hr [id number] IV ; Start 11/10/18 at 15:57; Stop 11/10/18 at 16:04; Status DC Ondansetron HCl (Zofran) 4 mg PRN Q6HRS PRN IV NAUSEA/VOMITING, 1ST CHOICE Last administered on 11/11/18at 09:21; Start 11/10/18 at 16:15 Potassium Chloride/Dextrose/ Sod Cl 1,000 ml @ 75 mls/hr DAILY IV Last administered on 11/11/18at 09:14; Start 11/10/18 at 18:00 Prochlorperazine Edisylate (Compazine) 10 mg PRN Q6HRS PRN IV NAUSEA/VOMITING, 2nd choice; Start 11/10/18 at 16:15 Temazepam (Restoril) 7.5 mg PRN QHS PRN PO INSOMNIA, 2nd CHOICE; Start 11/10/18 at 16:15 Acetaminophen (Tylenol) 500 mg PRN Q6HRS PRN PO MILD PAIN / TEMP; Start 11/10/18 at 16:15 Acetaminophen/ Codeine Phosphate (Tylenol #3) 1 tab PRN Q6HRS PRN PO MODERATE PAIN; Start 11/10/18 at 16:15 Alprazolam (Xanax) 1 mg TID PO Last administered on 11/11/18at 09:04; Start 11/10/18 at 21:00 Ondansetron HCl (Zofran Odt) 4 mg PRN Q4HRS PRN PO NAUSEA/VOMITING; Start 11/10/18 at 16:15 Citalopram Hydrobromide (CeleXA) 40 mg DAILY PO Last administered on 11/11/18at 09:03; Start 11/11/18 at 09:00 Dronabinol (Marinol) 5 mg BIDACLD PO ; Start 11/10/18 at 18:00 Hydromorphone HCl (Dilaudid) 2 mg QID PO Last administered on 11/10/18at 23:19; Start 11/10/18 at 21:00 Magnesium Oxide (Magnesium Oxide) 400 mg DAILY PO Last administered on 11/11/18at 09:04; Start 11/11/18 at 09:00 Metoprolol Tartrate (Lopressor) 100 mg BID PO Last administered on 11/11/18at 09:13; Start 11/10/18 at 21:00 Mirtazapine (Remeron) 7.5 mg QHS PO Last administered on 11/10/18at 22:09; Start 11/10/18 at 21:00 Non-Formulary Medication (Ubidecarenone (Coq-10)) 200 mg DAILY PO ; Start 11/11/18 at 09:00; Status UNV Zolpidem Tartrate (Ambien) 5 mg PRN QHS PRN PO INSOMNIA, MAY REPEAT X1; Start 11/10/18 at 21:00 Nicotine (Nicoderm Cq 21mg) 1 patch DAILY TD ; Start 11/11/18 at 09:00; Stop 11/11/18 at 09:00; Status DC Fentanyl Citrate (Fentanyl 2ml Vial) 50 mcg 1X ONCE IV Last administered on 11/10/18at 16:45; Start 11/10/18 at 16:45; Stop 11/10/18 at 16:46; Status DC Metoprolol Tartrate (Lopressor Vial) 5 mg PRN Q6HRS PRN IVP HYPERTENSION, FOR SBP > 160 Last administered on 11/11/18at 00:23; Start 11/10/18 at 18:45; Stop 11/11/18 at 02:35; Status DC Acetaminophen/ Hydrocodone Bitart (Lortab 10/325) 1 tab PRN Q6HRS PRN PO SEVERE PAIN Last administered on 11/11/18at 09:14; Start 11/11/18 at 01:15 Metoprolol Tartrate (Lopressor Vial) 10 mg PRN Q6HRS PRN IVP HYPERTENSION, FOR SBP > 160; Start 11/11/18 at 02:45 Nicotine (Nicoderm Cq 21mg) 1 patch DAILY TD Last administered on 11/11/18at 04:36; Start 11/11/18 at 04:30 Active Scripts Active Dilaudid (Hydromorphone Hcl) 2 Mg Tablet 1 Tab PO QID Alprazolam 1 Mg Tablet 1 Mg PO TID 30 Days Lactulose 20 Gm/30 Ml Solution 20 Gm PO PRN Q12HR PRN 30 Days [Nicotine 21MG] 1 PATCH Patch 1 Patch TD DAILY 30 Days Mag-Oxide (Magnesium Oxide) 400 Mg Tablet 400 Mg PO DAILY 30 Days Reported Zolpidem Tartrate 10 Mg Tablet 10 Mg PO HS PRN Coq-10 (Ubidecarenone) 100 Mg Capsule 200 Mg PO DAILY Metoprolol Tartrate 100 Mg Tablet 100 Mg PO BID Ondansetron Odt (Ondansetron) 4 Mg Tab.rapdis 4 Mg IV PRN Q4HRS PRN Marinol (Dronabinol) 5 Mg Capsule 5 Mg PO BIDACLD Celexa (Citalopram Hydrobromide) 40 Mg Tablet 40 Mg PO DAILY Vitals/I & O Vital Sign - Last 24 Hours 11/10/18 11/10/18 11/10/18 11/10/18 12:05 12:58 13:00 13:30 Temp 98.0 98.0 Pulse 109 102 Resp 16 18 16 B/P (MAP) 161/87 (111) 160/72 (101) Pulse Ox 96 99 O2 Delivery Room Air Room Air 11/10/18 11/10/18 11/10/18 11/10/18 14:00 15:00 15:12 16:00 Pulse 109 108 Resp 18 18 18 18 B/P (MAP) 166/76 (106) 160/70 (100) 11/10/18 11/10/18 11/10/18 11/10/18 16:45 17:00 17:25 17:30 Temp 98.4 98.4 Pulse 99 114 Resp 18 18 18 B/P (MAP) 142/78 (99) 173/105 (127) O2 Delivery Room Air Room Air 11/10/18 11/10/18 11/10/18 11/10/18 18:10 18:45 19:00 20:08 Temp 98.1 98.1 Pulse 103 Resp 18 B/P (MAP) 159/100 (119) Pulse Ox 99 99 91 99 O2 Delivery Room Air Room Air Room Air 11/10/18 11/10/18 11/10/18 11/10/18 20:25 21:50 21:51 23:00 Temp 98.6 98.6 Pulse 103 110 Resp 16 B/P (MAP) 159/100 160/108 (125) Pulse Ox 98 O2 Delivery Room Air Room Air Room Air 11/10/18 11/10/18 11/11/18 11/11/18 23:19 23:20 00:15 00:19 Pulse 116 94 B/P (MAP) 160/108 (125) 171/110 (130) O2 Delivery Room Air Room Air Room Air Room Air 11/11/18 11/11/18 11/11/18 11/11/18 00:23 01:19 01:20 02:19 Pulse 94 81 B/P (MAP) 171/110 183/106 (131) O2 Delivery Room Air Room Air 11/11/18 11/11/18 11/11/18 11/11/18 02:24 04:42 06:39 06:41 Pulse 91 81 B/P (MAP) 176/114 (134) 159/93 (115) O2 Delivery Room Air Room Air 11/11/18 11/11/18 11/11/18 11/11/18 07:00 07:10 08:00 09:13 Temp 98.8 98.8 Pulse 81 87 Resp 18 B/P (MAP) 156/99 (118) 156/99 Pulse Ox 93 O2 Delivery Room Air Room Air Room Air 11/11/18 09:14 O2 Delivery Room Air Intake and Output 11/10/18 11/10/18 11/11/18 14:59 22:59 06:59 Intake Total 1000 ml 1000 ml Balance 1000 ml 1000 ml HEATHER SMILEY MD Nov 11, 2018 10:45
[2018-11-11] MEDS: DRONABINOL 2.5 MG CAPSULE. PO SCH ×2 (11:30→16:05)
[2018-11-11] MEDS: MIRTAZAPINE 7.5 MG TABLET. PO SCH (20:05)
[2018-11-12] MEDS: fentaNYL PF VIAL 100 MCG/2 ML VIAL IV PRN ×5 (01:08→22:38)
[2018-11-12 03:18] VITALS: BP 144/92
[2018-11-12] MEDS: HYDROcodone/APAP 10/325 1 TAB TABLET PO PRN ×2 (04:08→17:14)
[2018-11-12 07:00] VITALS: BP 140/89
--- NOTE | 2018-11-12 08:50 | PDOC ---
PROGRESS NOTES Subjective Subjective HPI - f/u of Stage IV breast ca ROS - no vomiting Objective Objective Vital Signs Date Time Temp Pulse Resp B/P (MAP) Pulse Ox O2 Delivery O2 Flow Rate FiO2 11/12/18 06:45 Nasal Cannula 2.0 11/12/18 03:18 98.3 81 20 144/92 (109) 100 98.3 Intake and Output 11/12/18 07:00 Intake Total 300 ml Balance 300 ml Intake Oral 300 ml Physical Exam Heart: Normal S1, Normal S2 General: Alert, Oriented X3, No acute distress Lungs: Clear to auscultation Neuro: Normal speech Psych/Mental Status: Mental status NL Assessment Assessment Problems Medical Problems: (1) Intractable abdominal pain Status: Acute (2) Nausea & vomiting Status: Acute 1. Stage IV breast ca - resume xeloda as outpt after the current gastroenteritis resolves. 2. N/V - improving. Comment Review of Relevant I have reviewed the following items arnulfo (where applicable) has been applied. Labs Laboratory Tests Test 11/10/18 12:10 11/10/18 13:44 11/10/18 14:13 11/10/18 16:35 White Blood Count 6.5 x10^3/uL (4.0-11.0) Red Blood Count 4.54 x10^6/uL (3.50-5.40) Hemoglobin 13.7 g/dL (12.0-15.5) Hematocrit 41.3 % (36.0-47.0) Mean Corpuscular Volume 91 fL (79-100) Mean Corpuscular Hemoglobin 30 pg (25-35) Mean Corpuscular Hemoglobin Concent 33 g/dL (31-37) Red Cell Distribution Width 23.0 % (11.5-14.5) Platelet Count 458 x10^3/uL (140-400) Neutrophils (%) (Auto) 80 % (31-73) Lymphocytes (%) (Auto) 12 % (24-48) Monocytes (%) (Auto) 7 % (0-9) Eosinophils (%) (Auto) 0 % (0-3) Basophils (%) (Auto) 1 % (0-3) Neutrophils # (Auto) 5.2 x10^3uL (1.8-7.7) Lymphocytes # (Auto) 0.8 x10^3/uL (1.0-4.8) Monocytes # (Auto) 0.4 x10^3/uL (0.0-1.1) Eosinophils # (Auto) 0.0 x10^3/uL (0.0-0.7) Basophils # (Auto) 0.1 x10^3/uL (0.0-0.2) Platelet Estimate Increased (ADEQUATE) Poikilocytosis Slight Anisocytosis Mod Sodium Level 137 mmol/L (136-145) Potassium Level 3.3 mmol/L (3.5-5.1) Chloride Level 100 mmol/L (98-107) Carbon Dioxide Level 28 mmol/L (21-32) Anion Gap 9 (6-14) Blood Urea Nitrogen 22 mg/dL (7-20) Creatinine 1.0 mg/dL (0.6-1.0) Estimated GFR (Cockcroft-Gault) 66.3 BUN/Creatinine Ratio 22 (6-20) Glucose Level 141 mg/dL (70-99) Lactic Acid Level 1.3 mmol/L (0.4-2.0) 1.0 mmol/L (0.4-2.0) Calcium Level 9.4 mg/dL (8.5-10.1) Total Bilirubin 0.4 mg/dL (0.2-1.0) Aspartate Amino Transf (AST/SGOT) 14 U/L (15-37) Alanine Aminotransferase (ALT/SGPT) 12 U/L (14-59) Alkaline Phosphatase 87 U/L (46-116) Troponin I Quantitative < 0.017 ng/mL (0.000-0.055) Total Protein 8.0 g/dL (6.4-8.2) Albumin 3.6 g/dL (3.4-5.0) Albumin/Globulin Ratio 0.8 (1.0-1.7) Lipase 65 U/L (73-393) Urine Collection Type Unknown Urine Color Yellow Urine Clarity Clear Urine pH 7.0 Urine Specific [place] 1.015 Urine Protein Negative mg/dL (NEG-TRACE) Urine Glucose (UA) Negative mg/dL (NEG) Urine Ketones (Stick) Negative mg/dL (NEG) Urine Blood Negative (NEG) Urine Nitrite Negative (NEG) Urine Bilirubin Negative (NEG) Urine Urobilinogen Dipstick 1.0 mg/dL (0.2 mg/dL) Urine Leukocyte Esterase Negative (NEG) Urine RBC 0 /HPF (0-2) Urine WBC 0 /HPF (0-4) Urine Squamous Epithelial Cells Few /LPF Urine Bacteria 0 /HPF (0-FEW) Test 11/11/18 06:37 11/11/18 07:48 11/11/18 11:45 11/11/18 17:13 Potassium Level 3.5 mmol/L (3.5-5.1) Glucose (Fingerstick) 153 mg/dL (70-99) 153 mg/dL (70-99) 162 mg/dL (70-99) Test 11/11/18 20:58 Glucose (Fingerstick) 148 mg/dL (70-99) Laboratory Tests Test 11/11/18 11:45 11/11/18 17:13 11/11/18 20:58 Glucose (Fingerstick) 153 mg/dL (70-99) 162 mg/dL (70-99) 148 mg/dL (70-99) Microbiology 11/10/18 Blood Culture - Preliminary, Resulted NO GROWTH AFTER 1 DAY Medications Current Medications Sodium Chloride 1,000 ml @ 1,000 mls/hr Q1H IV Last administered on 11/10/18at 12:30; Start 11/10/18 at 12:07; Stop 11/10/18 at 13:06; Status DC Ondansetron HCl (Zofran) 4 mg STK-MED ONCE .ROUTE ; Start 11/10/18 at 12:17; Stop 11/10/18 at 12:18; Status DC Fentanyl Citrate (Fentanyl 2ml Vial) 100 mcg STK-MED ONCE .ROUTE ; Start 11/10/18 at 12:27; Stop 11/10/18 at 12:28; Status DC Albuterol/ Ipratropium (Duoneb) 3 ml 1X ONCE NEB Last administered on 11/10/18at 12:56; Start 11/10/18 at 12:45; Stop 11/10/18 at 12:49; Status DC Methylprednisolone Sodium Succinate (SOLU-Medrol 125MG VIAL) 125 mg 1X ONCE IV Last administered on 11/10/18at 12:45; Start 11/10/18 at 12:45; Stop 11/10/18 at 12:49; Status DC Fentanyl Citrate (Fentanyl 2ml Vial) 50 mcg 1X ONCE IM ; Start 11/10/18 at 13:00; Stop 11/10/18 at 13:18; Status DC Fentanyl Citrate (Fentanyl 2ml Vial) 50 mcg 1X ONCE IV Last administered on 11/10/18at 13:30; Start 11/10/18 at 13:30; Stop 11/10/18 at 13:31; Status DC Ondansetron HCl (Zofran) 4 mg 1X ONCE IV Last administered on 11/10/18at 13:30; Start 11/10/18 at 13:30; Stop 11/10/18 at 13:31; Status DC Fentanyl Citrate (Fentanyl 2ml Vial) 50 mcg 1X ONCE IV Last administered on 11/10/18at 15:00; Start 11/10/18 at 13:30; Stop 11/10/18 at 13:31; Status DC Sodium Chloride 1,000 ml @ 1,000 mls/hr 1X ONCE IV Last administered on 11/10/18at 13:30; Start 11/10/18 at 13:30; Stop 11/10/18 at 14:29; Status DC Iohexol (Omnipaque 300 Mg/ml) 75 ml 1X ONCE IV Last administered on 11/10/18at 15:15; Start 11/10/18 at 14:45; Stop 11/10/18 at 14:47; Status DC Iohexol (Omnipaque 350 Mg/ml) 100 ml STK-MED ONCE .ROUTE ; Start 11/10/18 at 14:46; Stop 11/10/18 at 14:47; Status DC Iohexol (Omnipaque 300 Mg/ml) 100 ml STK-MED ONCE .ROUTE ; Start 11/10/18 at 14:46; Stop 11/10/18 at 14:47; Status DC Info (CONTRAST GIVEN -- Rx MONITORING) 1 each PRN DAILY PRN MC SEE COMMENTS; Start 11/10/18 at 15:00; Stop 11/12/18 at 14:59 Prochlorperazine Edisylate (Compazine) 10 mg STK-MED ONCE .ROUTE ; Start at 15:03; Stop 11/10/18 at 15:04; Status DC Prochlorperazine Edisylate (Compazine) 10 mg 1X ONCE IV Last administered on 11/10/18at 15:05; Start 11/10/18 at 15:15; Stop 11/10/18 at 15:16; Status DC Fentanyl Citrate (Fentanyl 2ml Vial) 50 mcg 1X ONCE IV Last administered on 11/10/18at 15:12; Start 11/10/18 at 15:15; Stop 11/10/18 at 15:16; Status DC Ondansetron HCl (Zofran) 4 mg PRN Q8HRS PRN IV NAUSEA/VOMITING; Start 11/10/18 at 16:00; Stop 11/10/18 at 16:04; Status DC Fentanyl Citrate (Fentanyl 2ml Vial) 50 mcg PRN Q1HR PRN IV PAIN Last administered on 11/11/18at 14:09; Start 11/10/18 at 16:00; Stop 11/11/18 at 15:59; Status DC Sodium Chloride 1,000 ml @ 75 mls/hr [id number] IV ; Start 11/10/18 at 15:57; Stop 11/10/18 at 16:04; Status DC Ondansetron HCl (Zofran) 4 mg PRN Q6HRS PRN IV NAUSEA/VOMITING, 1ST CHOICE Last administered on 11/11/18at 09:21; Start 11/10/18 at 16:15 Potassium Chloride/Dextrose/ Sod Cl 1,000 ml @ 75 mls/hr DAILY IV Last administered on 11/11/18at 20:06; Start 11/10/18 at 18:00 Prochlorperazine Edisylate (Compazine) 10 mg PRN Q6HRS PRN IV NAUSEA/VOMITING, 2nd choice; Start 11/10/18 at 16:15 Temazepam (Restoril) 7.5 mg PRN QHS PRN PO INSOMNIA, 2nd CHOICE; Start 11/10/18 at 16:15 Acetaminophen (Tylenol) 500 mg PRN Q6HRS PRN PO MILD PAIN / TEMP; Start 11/10/18 at 16:15 Acetaminophen/ Codeine Phosphate (Tylenol #3) 1 tab PRN Q6HRS PRN PO MODERATE PAIN; Start 11/10/18 at 16:15 Alprazolam (Xanax) 1 mg TID PO Last administered on 11/11/18at 20:05; Start 11/10/18 at 21:00 Ondansetron HCl (Zofran Odt) 4 mg PRN Q4HRS PRN PO NAUSEA/VOMITING; Start 11/10/18 at 16:15 Citalopram Hydrobromide (CeleXA) 40 mg DAILY PO Last administered on 11/11/18at 09:03; Start 11/11/18 at 09:00 Dronabinol (Marinol) 5 mg BIDACLD PO Last administered on 11/11/18at 16:05; Start 11/10/18 at 18:00 Hydromorphone HCl (Dilaudid) 2 mg QID PO Last administered on 11/10/18at 23:19; Start 11/10/18 at 21:00 Magnesium Oxide (Magnesium Oxide) 400 mg DAILY PO Last administered on 11/11/18at 09:04; Start 11/11/18 at 09:00 Metoprolol Tartrate (Lopressor) 100 mg BID PO Last administered on 11/11/18at 20:05; Start 11/10/18 at 21:00 Mirtazapine (Remeron) 7.5 mg QHS PO Last administered on 11/11/18at 20:05; Start 11/10/18 at 21:00 Non-Formulary Medication (Ubidecarenone (Coq-10)) 200 mg DAILY PO ; Start 11/11/18 at 09:00; Status UNV Zolpidem Tartrate (Ambien) 5 mg PRN QHS PRN PO INSOMNIA, MAY REPEAT X1; Start 11/10/18 at 21:00 Nicotine (Nicoderm Cq 21mg) 1 patch DAILY TD ; Start 11/11/18 at 09:00; Stop 11/11/18 at 09:00; Status DC Fentanyl Citrate (Fentanyl 2ml Vial) 50 mcg 1X ONCE IV Last administered on 11/10/18at 16:45; Start 11/10/18 at 16:45; Stop 11/10/18 at 16:46; Status DC Metoprolol Tartrate (Lopressor Vial) 5 mg PRN Q6HRS PRN IVP HYPERTENSION, FOR SBP > 160 Last administered on 11/11/18at 00:23; Start 11/10/18 at 18:45; Stop 11/11/18 at 02:35; Status DC Acetaminophen/ Hydrocodone Bitart (Lortab 10/325) 1 tab PRN Q6HRS PRN PO SEVERE PAIN Last administered on 11/12/18at 04:08; Start 11/11/18 at 01:15 Metoprolol Tartrate (Lopressor Vial) 10 mg PRN Q6HRS PRN IVP HYPERTENSION, FOR SBP > 160; Start 11/11/18 at 02:45 Nicotine (Nicoderm Cq 21mg) 1 patch DAILY TD Last administered on 11/11/18at 04:36; Start 11/11/18 at 04:30 Fentanyl Citrate (Fentanyl 2ml Vial) 50 mcg PRN Q2HR PRN IV PAIN Last administered on 11/12/18at 06:15; Start 11/11/18 at 19:00 Active Scripts Active Dilaudid (Hydromorphone Hcl) 2 Mg Tablet 1 Tab PO QID Alprazolam 1 Mg Tablet 1 Mg PO TID 30 Days Lactulose 20 Gm/30 Ml Solution 20 Gm PO PRN Q12HR PRN 30 Days [Nicotine 21MG] 1 PATCH Patch 1 Patch TD DAILY 30 Days Mag-Oxide (Magnesium Oxide) 400 Mg Tablet 400 Mg PO DAILY 30 Days Reported Zolpidem Tartrate 10 Mg Tablet 10 Mg PO HS PRN Coq-10 (Ubidecarenone) 100 Mg Capsule 200 Mg PO DAILY Metoprolol Tartrate 100 Mg Tablet 100 Mg PO BID Ondansetron Odt (Ondansetron) 4 Mg Tab.rapdis 4 Mg IV PRN Q4HRS PRN Marinol (Dronabinol) 5 Mg Capsule 5 Mg PO BIDACLD Celexa (Citalopram Hydrobromide) 40 Mg Tablet 40 Mg PO DAILY Vitals/I & O Vital Sign - Last 24 Hours 11/11/18 11/11/18 11/11/18 11/11/18 09:13 09:14 11:00 14:09 Temp 98.4 98.4 Pulse 87 83 Resp 18 B/P (MAP) 156/99 159/98 (118) Pulse Ox 91 O2 Delivery Room Air Room Air Room Air 11/11/18 11/11/18 11/11/18 11/11/18 14:40 15:00 16:03 19:00 Temp 98.6 98.6 98.6 98.6 Pulse 84 87 Resp 18 18 B/P (MAP) 149/93 (111) 155/88 (110) Pulse Ox 100 94 O2 Delivery Room Air Room Air Room Air Room Air 11/11/18 11/11/18 11/11/18 11/11/18 19:10 19:55 20:05 21:35 Pulse 87 B/P (MAP) 155/88 O2 Delivery Room Air Room Air Room Air 11/11/18 11/11/18 11/12/18 11/12/18 22:10 23:30 01:08 03:18 Temp 98.0 98.3 98.0 98.3 Pulse 81 81 Resp 18 20 B/P (MAP) 156/94 (114) 144/92 (109) Pulse Ox 98 100 O2 Delivery Room Air Room Air Room Air Room Air 11/12/18 11/12/18 11/12/18 11/12/18 04:08 05:08 06:15 06:45 O2 Delivery Room Air Room Air Room Air Nasal Cannula O2 Flow Rate 2.0 Intake and Output 11/11/18 11/11/18 11/12/18 15:00 23:00 07:00 Intake Total 300 ml Balance 300 ml KATHY AQUINO MD Nov 12, 2018 08:50
[2018-11-12] MEDS: HYDROmorphone 2 MG TABLET PO SCH ×3 (09:00→17:00)
[2018-11-12] MEDS: ALPRAZolam 1 MG TABLET PO SCH ×3 (09:27→20:39)
[2018-11-12] MEDS: CITALOPRAM 20 MG TABLET. PO SCH (09:27)
[2018-11-12] MEDS: METOPROLOL TART IMMED RELEASE 50 MG TABLET. PO SCH ×2 (09:28→20:40)
[2018-11-12] MEDS: MAGNESIUM OXIDE 400 MG TABLET PO SCH (09:28)
[2018-11-12] MEDS: NICOTINE 21MG PATCH. TD SCH (09:29)
[2018-11-12] MEDS: POTASSIUM CL 30MEQ D5-0.45NACL 1,000 ML IV SCH (09:31)
[2018-11-12] MEDS: ONDANSETRON PF 4 MG/2 ML VIAL. IV PRN ×2 (09:31→19:29)
--- NOTE | 2018-11-12 10:32 | CONS ---
DATE OF CONSULTATION: 11/11/2018 REQUESTING PHYSICIAN: Dr. Cesilia Field. REASON FOR CONSULTATION: Breast cancer, on chemotherapy. HISTORY OF PRESENT ILLNESS: The patient is a 68-year-old -[place] female who was noted to have retroperitoneal lymphadenopathy on 11/20/2016 and a biopsy on 01/03/2017 revealed poorly differentiated non-small cell carcinoma favoring adenocarcinoma of breast origin. PET scan on 01/25/2017 revealed multiple hypermetabolic foci in the upper abdomen, right epicardial and pleural diaphragmatic region, subcarinal and right internal mammary region compatible with metastatic disease. She was ER positive, OR positive, HER-2/soha negative. She was started on chemotherapy with Abraxane on 02/02/2017. She had evidence of disease progression in 02/2018 after 13 cycles and hence treatment with letrozole and Ibrance was initiated from 04/24/2018. PET scan on 07/04/2018 revealed worsening disease and hence it was discontinued and Xeloda was initiated on 08/07/2018. She is tolerating it quite well. She was admitted to [facility] with complaints of abdominal discomfort, nausea, vomiting and one loose stool. She underwent a CT scan of the abdomen and pelvis on 11/10/2018, which revealed increased bowel wall thickening, which may be seen in enteritis. There is known metastatic disease, liver lesion measuring somewhat larger than before and the right adrenal mass and the right retrocrural mass are fairly similar. Left retroperitoneal nodes are somewhat greater. I was asked to see the patient for further recommendations regarding breast cancer treatment. PAST MEDICAL HISTORY: Hypertension, diabetes mellitus, cervix cancer. FAMILY HISTORY: Positive for cancer in her brother and sister. SOCIAL HISTORY: She has history of smoking 1 pack of cigarettes per day. REVIEW OF SYSTEMS: A 12-point review of system was performed. Pertinent positives are mentioned in the history of present illness. Rest of the system review is negative. PHYSICAL EXAMINATION: GENERAL APPEARANCE: The patient is a 68-year-old -[place] female who is in no acute cardiorespiratory distress. VITAL SIGNS: Blood pressure 159/98, temperature 98.4. HEENT: Atraumatic, normocephalic. Eyes: No icterus. NECK: Supple. CHEST: Bilaterally symmetrical. No crepitations or rhonchi heard. HEART: S1, S2 normal. ABDOMEN: Soft. No hepatosplenomegaly. CENTRAL NERVOUS SYSTEM: No focal deficits. LYMPHATICS: No lymphadenopathy. SKIN: No rashes. PSYCHOLOGIC: Mood and affect are appropriate. LABORATORY DATA: WBC 6.5, hemoglobin 13.7, platelet count 458, creatinine 1.0. IMPRESSION AND PLAN: 1. Stage 4 breast cancer. She will continue treatment with Xeloda once the acute symptoms have resolved. I have advised her to follow up with me upon discharge. CT scan reveals overall stable disease. 2. Nausea and vomiting likely from viral gastroenteritis. CT reveals evidence of enteritis. I will continue to monitor. Abnormal MRI in 07/2018 with questionable metastatic focus. I will obtain a followup MRI of the brain. KATHY AQUINO MD DR: SUNITHA/kathy JOB#: [id number] / [id number] CHERI
[2018-11-12 11:00] VITALS: BP 140/87
--- NOTE | 2018-11-12 12:04 | PDOC ---
PROGRESS NOTES History of Present Illness History of Present Illness VTE Prophylaxis Ordered VTE Prophylaxis Devices: Yes VTE Pharmacological Prophylaxi: Yes Assessment/Plan Assessment/Plan Nausea, emesis, one episode of loose stool-could be chemotherapy related VS viral gastroenteritis check for loose stools C. difficile supportive meds Admitted for basically supportive meds-has been in the ER for 4 hours and could not control symptoms Mild hypokalemia-replace orally, liquid diet then ADA T Reactive thrombocytosis Metastatic breast cancer stage IV to lungs, on oral chemotherapy-known to Dr. Aquino ? Brain spots-July MRI brain distribution metastatic foci of uptake compatible with metastases to lymph nodes, liver, and the right adrenal gland in particular. There is slight increase in the right upper thoracic intramammary lymph node region mass. Right lower lobe small pulmonary nodule is similar in size compared to previous exam but of increased density. No abnormal uptake but this may be due to its small size. Attention on follow-up imaging studies recommended. focus of faint enhancement anterior right occipital lobe concerning for metastasis given history, other consideration of sequela of late subacute or early chronic as infarct given relatively mild degree of enhancement present. Given adjacent artifact, thin section postcontrast imaging such as with the treatment planning protocol may be beneficial for characterization. There also may be a tiny focus of enhancement of the left parietal lobe. multilevel cervical degenerative disc disease and spondylosis as well as abnormal alignment. Plan: palliative care consult Admit, full code, liquid diet then ADA T Replace potassium home meds PT OT when more able Dr. AQUINO following PET scan was REVIEWED 43 min pt exam, chart review, > 50% of time spent with pt exam, chart review, pt care coordination , there is increased bowel wall thickening most notable of the proximal small bowel in the abdomen to include duodenum and gastroduodenal junction as may be seen with enteritis. There is some nonspecific fecalization of small bowel in the pelvis, also retained stool in segments of colon. Vitals Vitals Vital Signs Date Time Temp Pulse Resp B/P (MAP) Pulse Ox O2 Delivery O2 Flow Rate FiO2 11/12/18 09:28 83 140/89 11/12/18 07:00 98.2 16 96 98.2 11/12/18 06:45 Nasal Cannula 2.0 Physical Exam General: Alert, Oriented X3, Cooperative, No acute distress, mild distress Heart: Regular rate, Normal S1, Normal S2 Lungs: Clear Abdomen: Normal bowel sounds, Soft, No tenderness, No hepatosplenomegaly, No masses Extremities: No clubbing, No cyanosis, No edema, Normal pulses, No tenderness/swelling Skin: No rashes, No breakdown, No significant lesion Labs LABS CT ABD PELV W/ IV CONTRST ONLY Indication: Abdominal pain for 24 hours Technique: Postcontrast CT imaging was performed of the abdomen pelvis, multiplanar reconstruction images submitted. No oral contrast was given. One or more of the following individualized dose reduction techniques were utilized for this examination: 1. Automated exposure control 2. Adjustment of the mA and/or kV according to patient size 3. Use of iterative reconstruction technique. Comparison: July 23, 2018 Findings: There is again right lower lobe pulmonary nodule about 0.5 cm. There is a nodule of the right hemidiaphragm image 6 about 0.8 cm, present previously. There is again mass along the anterior right pleural surface of the lung base about 2.6 cm transverse by 1.5 cm AP, fairly similar. There is again hypodense mass of the right lobe of the liver more medially, about 3.5 cm transverse by 2.9 cm AP, previously about 3 cm transverse by 2.7 cm AP. There is again right adrenal mass about 2.3 cm AP by 1.8 cm transverse, fairly similar. There is similar mild fullness of the left adrenal gland. Both kidneys enhance, no hydronephrosis. There are again small hypodense foci of the kidneys bilaterally, largest superiorly on the left about 1.2 cm. Evaluation of the bowel is limited without oral contrast and also due to the paucity of intra-abdominal and intrapelvic fat. There is no free air. There is increased of bowel wall thickening such as in the proximal small bowel in the superior left abdomen with adjacent mild nonorganized fluid density, also some increased wall thickening gastroduodenal junction and duodenum. There is mild nonorganized fluid density near the celiac axis and retroperitoneum although fairly similar in appearance. There is some variable retained stool the colon. There is some fecalization of small bowel in the pelvis with poor definition of the individual hartman on this exam. Appendix is not confidently identified. There is advanced degenerative disc disease L5-S1. There is multilevel lumbar facet degenerative change. There is scattered atherosclerotic calcification of the abdominal aorta. There is a known right retrocrural roxana mass as seen previously which is fairly similar, adjacent portal caval node about 1.3 cm short axis dimension. There are some retroperitoneal nodes such as lateral to the left aspect of the proximal suprarenal abdominal aorta about 0.9 cm short axis dimension somewhat greater as previously about 0.5 cm. IMPRESSION: 1. Somewhat limited evaluation due to lack of oral contrast, there is increased bowel wall thickening most notable of the proximal small bowel in the abdomen to include duodenum and gastroduodenal junction as may be seen with enteritis. There is some nonspecific fecalization of small bowel in the pelvis, also retained stool in segments of colon. 2. There is known metastatic disease, liver lesion measuring somewhat larger than previously, right adrenal mass and right retrocrural mass fairly similar. Left retroperitoneal nodes are somewhat greater. There are again nodules of the visualized right lung base. Electronically signed by: Stanford Bernabe MD (11/10/2018 3:42 PM) [facility] DICTATED and SIGNED BY: STANFORD BERNABE MD DATE: 11/10/18 1542 Laboratory Tests Test 11/11/18 17:13 11/11/18 20:58 Glucose (Fingerstick) 162 mg/dL (70-99) 148 mg/dL (70-99) Assessment and Plan Assessmemt and Plan Problems Medical Problems: (1) Intractable abdominal pain Status: Acute (2) Nausea & vomiting Status: Acute Comment Review of Relevant I have reviewed the following items arnulfo (where applicable) has been applied. Labs Laboratory Tests Test 11/10/18 12:10 11/10/18 13:44 11/10/18 14:13 11/10/18 16:35 White Blood Count 6.5 x10^3/uL (4.0-11.0) Red Blood Count 4.54 x10^6/uL (3.50-5.40) Hemoglobin 13.7 g/dL (12.0-15.5) Hematocrit 41.3 % (36.0-47.0) Mean Corpuscular Volume 91 fL (79-100) Mean Corpuscular Hemoglobin 30 pg (25-35) Mean Corpuscular Hemoglobin Concent 33 g/dL (31-37) Red Cell Distribution Width 23.0 % (11.5-14.5) Platelet Count 458 x10^3/uL (140-400) Neutrophils (%) (Auto) 80 % (31-73) Lymphocytes (%) (Auto) 12 % (24-48) Monocytes (%) (Auto) 7 % (0-9) Eosinophils (%) (Auto) 0 % (0-3) Basophils (%) (Auto) 1 % (0-3) Neutrophils # (Auto) 5.2 x10^3uL (1.8-7.7) Lymphocytes # (Auto) 0.8 x10^3/uL (1.0-4.8) Monocytes # (Auto) 0.4 x10^3/uL (0.0-1.1) Eosinophils # (Auto) 0.0 x10^3/uL (0.0-0.7) Basophils # (Auto) 0.1 x10^3/uL (0.0-0.2) Platelet Estimate Increased (ADEQUATE) Poikilocytosis Slight Anisocytosis Mod Sodium Level 137 mmol/L (136-145) Potassium Level 3.3 mmol/L (3.5-5.1) Chloride Level 100 mmol/L (98-107) Carbon Dioxide Level 28 mmol/L (21-32) Anion Gap 9 (6-14) Blood Urea Nitrogen 22 mg/dL (7-20) Creatinine 1.0 mg/dL (0.6-1.0) Estimated GFR (Cockcroft-Gault) 66.3 BUN/Creatinine Ratio 22 (6-20) Glucose Level 141 mg/dL (70-99) Lactic Acid Level 1.3 mmol/L (0.4-2.0) 1.0 mmol/L (0.4-2.0) Calcium Level 9.4 mg/dL (8.5-10.1) Total Bilirubin 0.4 mg/dL (0.2-1.0) Aspartate Amino Transf (AST/SGOT) 14 U/L (15-37) Alanine Aminotransferase (ALT/SGPT) 12 U/L (14-59) Alkaline Phosphatase 87 U/L (46-116) Troponin I Quantitative < 0.017 ng/mL (0.000-0.055) Total Protein 8.0 g/dL (6.4-8.2) Albumin 3.6 g/dL (3.4-5.0) Albumin/Globulin Ratio 0.8 (1.0-1.7) Lipase 65 U/L (73-393) Urine Collection Type Unknown Urine Color Yellow Urine Clarity Clear Urine pH 7.0 Urine Specific [place] 1.015 Urine Protein Negative mg/dL (NEG-TRACE) Urine Glucose (UA) Negative mg/dL (NEG) Urine Ketones (Stick) Negative mg/dL (NEG) Urine Blood Negative (NEG) Urine Nitrite Negative (NEG) Urine Bilirubin Negative (NEG) Urine Urobilinogen Dipstick 1.0 mg/dL (0.2 mg/dL) Urine Leukocyte Esterase Negative (NEG) Urine RBC 0 /HPF (0-2) Urine WBC 0 /HPF (0-4) Urine Squamous Epithelial Cells Few /LPF Urine Bacteria 0 /HPF (0-FEW) Test 11/11/18 06:37 11/11/18 07:48 11/11/18 11:45 11/11/18 17:13 Potassium Level 3.5 mmol/L (3.5-5.1) Glucose (Fingerstick) 153 mg/dL (70-99) 153 mg/dL (70-99) 162 mg/dL (70-99) Test 11/11/18 20:58 Glucose (Fingerstick) 148 mg/dL (70-99) Laboratory Tests Test 11/11/18 17:13 11/11/18 20:58 Glucose (Fingerstick) 162 mg/dL (70-99) 148 mg/dL (70-99) Microbiology 11/10/18 Blood Culture - Preliminary, Resulted NO GROWTH AFTER 1 DAY Medications Current Medications Sodium Chloride 1,000 ml @ 1,000 mls/hr Q1H IV Last administered on 11/10/18at 12:30; Start 11/10/18 at 12:07; Stop 11/10/18 at 13:06; Status DC Ondansetron HCl (Zofran) 4 mg STK-MED ONCE .ROUTE ; Start 11/10/18 at 12:17; Stop 11/10/18 at 12:18; Status DC Fentanyl Citrate (Fentanyl 2ml Vial) 100 mcg STK-MED ONCE .ROUTE ; Start 11/10/18 at 12:27; Stop 11/10/18 at 12:28; Status DC Albuterol/ Ipratropium (Duoneb) 3 ml 1X ONCE NEB Last administered on 11/10/18at 12:56; Start 11/10/18 at 12:45; Stop 11/10/18 at 12:49; Status DC Methylprednisolone Sodium Succinate (SOLU-Medrol 125MG VIAL) 125 mg 1X ONCE IV Last administered on 11/10/18at 12:45; Start 11/10/18 at 12:45; Stop 11/10/18 at 12:49; Status DC Fentanyl Citrate (Fentanyl 2ml Vial) 50 mcg 1X ONCE IM ; Start 11/10/18 at 13:00; Stop 11/10/18 at 13:18; Status DC Fentanyl Citrate (Fentanyl 2ml Vial) 50 mcg 1X ONCE IV Last administered on 11/10/18at 13:30; Start 11/10/18 at 13:30; Stop 11/10/18 at 13:31; Status DC Ondansetron HCl (Zofran) 4 mg 1X ONCE IV Last administered on 11/10/18at 13:30; Start 11/10/18 at 13:30; Stop 11/10/18 at 13:31; Status DC Fentanyl Citrate (Fentanyl 2ml Vial) 50 mcg 1X ONCE IV Last administered on 11/10/18at 15:00; Start 11/10/18 at 13:30; Stop 11/10/18 at 13:31; Status DC Sodium Chloride 1,000 ml @ 1,000 mls/hr 1X ONCE IV Last administered on 11/10/18at 13:30; Start 11/10/18 at 13:30; Stop 11/10/18 at 14:29; Status DC Iohexol (Omnipaque 300 Mg/ml) 75 ml 1X ONCE IV Last administered on 11/10/18at 15:15; Start 11/10/18 at 14:45; Stop 11/10/18 at 14:47; Status DC Iohexol (Omnipaque 350 Mg/ml) 100 ml STK-MED ONCE .ROUTE ; Start 11/10/18 at 14:46; Stop 11/10/18 at 14:47; Status DC Iohexol (Omnipaque 300 Mg/ml) 100 ml STK-MED ONCE .ROUTE ; Start 11/10/18 at 14:46; Stop 11/10/18 at 14:47; Status DC Info (CONTRAST GIVEN -- Rx MONITORING) 1 each PRN DAILY PRN MC SEE COMMENTS; Start 11/10/18 at 15:00; Stop 11/12/18 at 14:59 Prochlorperazine Edisylate (Compazine) 10 mg STK-MED ONCE .ROUTE ; Start 11/10/18 at 15:03; Stop 11/10/18 at 15:04; Status DC Prochlorperazine Edisylate (Compazine) 10 mg 1X ONCE IV Last administered on 11/10/18at 15:05; Start 11/10/18 at 15:15; Stop 11/10/18 at 15:16; Status DC Fentanyl Citrate (Fentanyl 2ml Vial) 50 mcg 1X ONCE IV Last administered on 11/10/18at 15:12; Start 11/10/18 at 15:15; Stop 11/10/18 at 15:16; Status DC Ondansetron HCl (Zofran) 4 mg PRN Q8HRS PRN IV NAUSEA/VOMITING; Start 11/10/18 at 16:00; Stop 11/10/18 at 16:04; Status DC Fentanyl Citrate (Fentanyl 2ml Vial) 50 mcg PRN Q1HR PRN IV PAIN Last administered on 11/11/18at 14:09; Start 11/10/18 at 16:00; Stop 11/11/18 at 15:59; Status DC Sodium Chloride 1,000 ml @ 75 mls/hr [id number] IV ; Start 11/10/18 at 15:57; Stop 11/10/18 at 16:04; Status DC Ondansetron HCl (Zofran) 4 mg PRN Q6HRS PRN IV NAUSEA/VOMITING, 1ST CHOICE Last administered on 11/12/18at 09:31; Start 11/10/18 at 16:15 Potassium Chloride/Dextrose/ Sod Cl 1,000 ml @ 75 mls/hr DAILY IV Last administered on 11/12/18at 09:31; Start 11/10/18 at 18:00 Prochlorperazine Edisylate (Compazine) 10 mg PRN Q6HRS PRN IV NAUSEA/VOMITING, 2nd choice; Start 11/10/18 at 16:15 Temazepam (Restoril) 7.5 mg PRN QHS PRN PO INSOMNIA, 2nd CHOICE; Start 11/10/18 at 16:15 Acetaminophen (Tylenol) 500 mg PRN Q6HRS PRN PO MILD PAIN / TEMP; Start 11/10/18 at 16:15 Acetaminophen/ Codeine Phosphate (Tylenol #3) 1 tab PRN Q6HRS PRN PO MODERATE PAIN; Start 11/10/18 at 16:15 Alprazolam (Xanax) 1 mg TID PO Last administered on 11/12/18 09:27; Start 11/10/18 at 21:00 Ondansetron HCl (Zofran Odt) 4 mg PRN Q4HRS PRN PO NAUSEA/VOMITING; Start 11/10/18 at 16:15 Citalopram Hydrobromide (CeleXA) 40 mg DAILY PO Last administered on 11/12/18 09:27; Start 11/11/18 at 09:00 Dronabinol (Marinol) 5 mg BIDACLD PO Last administered on 11/11/18 16:05; Start 11/10/18 at 18:00 Hydromorphone HCl (Dilaudid) 2 mg QID PO Last administered on 11/10/18 23:19; Start 11/10/18 at 21:00 Magnesium Oxide (Magnesium Oxide) 400 mg DAILY PO Last administered on 11/12/18 09:28; Start 11/11/18 at 09:00 Metoprolol Tartrate (Lopressor) 100 mg BID PO Last administered on 11/12/18 09:28; Start 11/10/18 at 21:00 Mirtazapine (Remeron) 7.5 mg QHS PO Last administered on 11/11/18 20:05; Start 11/10/18 at 21:00 Non-Formulary Medication (Ubidecarenone (Coq-10)) 200 mg DAILY PO ; Start 11/11/18 at 09:00; Status UNV Zolpidem Tartrate (Ambien) 5 mg PRN QHS PRN PO INSOMNIA, MAY REPEAT X1; Start 11/10/18 at 21:00 Nicotine (Nicoderm Cq 21mg) 1 patch DAILY TD ; Start 11/11/18 at 09:00; Stop 11/11/18 at 09:00; Status DC Fentanyl Citrate (Fentanyl 2ml Vial) 50 mcg 1X ONCE IV Last administered on 11/10/18at 16:45; Start 11/10/18 at 16:45; Stop 11/10/18 at 16:46; Status DC Metoprolol Tartrate (Lopressor Vial) 5 mg PRN Q6HRS PRN IVP HYPERTENSION, FOR SBP > 160 Last administered on 11/11/18at 00:23; Start 11/10/18 at 18:45; Stop 11/11/18 at 02:35; Status DC Acetaminophen/ Hydrocodone Bitart (Lortab 10/325) 1 tab PRN Q6HRS PRN PO SEVERE PAIN Last administered on 11/12/18at 04:08; Start 11/11/18 at 01:15 Metoprolol Tartrate (Lopressor Vial) 10 mg PRN Q6HRS PRN IVP HYPERTENSION, FOR SBP > 160; Start 11/11/18 at 02:45 Nicotine (Nicoderm Cq 21mg) 1 patch DAILY TD Last administered on 11/12/18at 09:29; Start 11/11/18 at 04:30 Fentanyl Citrate (Fentanyl 2ml Vial) 50 mcg PRN Q2HR PRN IV PAIN Last administered on 11/12/18at 06:15; Start 11/11/18 at 19:00 Active Scripts Active Dilaudid (Hydromorphone Hcl) 2 Mg Tablet 1 Tab PO QID Alprazolam 1 Mg Tablet 1 Mg PO TID 30 Days Lactulose 20 Gm/30 Ml Solution 20 Gm PO PRN Q12HR PRN 30 Days [Nicotine 21MG] 1 PATCH Patch 1 Patch TD DAILY 30 Days Mag-Oxide (Magnesium Oxide) 400 Mg Tablet 400 Mg PO DAILY 30 Days Reported Zolpidem Tartrate 10 Mg Tablet 10 Mg PO HS PRN Coq-10 (Ubidecarenone) 100 Mg Capsule 200 Mg PO DAILY Metoprolol Tartrate 100 Mg Tablet 100 Mg PO BID Ondansetron Odt (Ondansetron) 4 Mg Tab.rapdis 4 Mg IV PRN Q4HRS PRN Marinol (Dronabinol) 5 Mg Capsule 5 Mg PO BIDACLD Celexa (Citalopram Hydrobromide) 40 Mg Tablet 40 Mg PO DAILY Vitals/I & O Vital Sign - Last 24 Hours 11/11/18 11/11/18 11/11/18 11/11/18 14:09 14:40 15:00 16:03 Temp 98.6 98.6 Pulse 84 Resp 18 B/P (MAP) 149/93 (111) Pulse Ox 100 O2 Delivery Room Air Room Air Room Air Room Air 11/11/18 11/11/18 11/11/18 11/11/18 19:00 19:10 19:55 20:05 Temp 98.6 98.6 Pulse 87 87 Resp 18 B/P (MAP) 155/88 (110) 155/88 Pulse Ox 94 O2 Delivery Room Air Room Air Room Air 11/11/18 11/11/18 11/11/18 11/12/18 21:35 22:10 23:30 01:08 Temp 98.0 98.0 Pulse 81 Resp 18 B/P (MAP) 156/94 (114) Pulse Ox 98 O2 Delivery Room Air Room Air Room Air Room Air 11/12/18 11/12/18 11/12/18 11/12/18 03:18 04:08 05:08 06:15 Temp 98.3 98.3 Pulse 81 Resp 20 B/P (MAP) 144/92 (109) Pulse Ox 100 O2 Delivery Room Air Room Air Room Air Room Air 11/12/18 11/12/18 11/12/18 06:45 07:00 09:28 Temp 98.2 98.2 Pulse 83 83 Resp 16 B/P (MAP) 140/89 (106) 140/89 Pulse Ox 96 O2 Delivery Nasal Cannula O2 Flow Rate 2.0 Intake and Output 11/11/18 11/11/18 11/12/18 15:00 23:00 07:00 Intake Total 300 ml Balance 300 ml Nutrition Consultation Dietary Evaluation: Recommendations by RD: Increase Calorie Intake, Protein supplementation Comments: ensure enlive tid Expected Outcomes/Goals: to meet > 75% est nutr needs Malnutrition Findings: Food and Nutrition Intake (Sev: <50% est energy req 5days Body Fat Depletion (Non Severe: Mild Depletion Weight Status: Underweight HEATHER SMILEY MD Nov 12, 2018 12:04
[2018-11-12] MEDS: DRONABINOL 2.5 MG CAPSULE. PO SCH ×2 (12:26→17:13)
[2018-11-12 12:30] LABS: BASO % 1 % (0-3); EOS % 0 % (0-3); HEMATOCRIT 43.4 % (36.0-47.0); LYMPH # 1.4 x10^3/uL (1.0-4.8); LYMPH % 18 % (24-48); MEAN CORPUSCULAR HEMOGLOBIN 30 pg (25-35); MEAN CORPUSCULAR HGB CONC 32 g/dL (31-37); MEAN CORPUSCULAR VOLUME 92 fL (79-100); MONO # 1.1 x10^3/uL (0.0-1.1); MONO % 14 % (0-9); NEUT # 5.3 x10^3uL (1.8-7.7); NEUT % 67 % (31-73); PLATELET COUNT 403 x10^3/uL (140-400); RED BLOOD COUNT 4.72 x10^6/uL (3.50-5.40); RED CELL DISTRIBUTION WIDTH 23.2 % (11.5-14.5); WHITE BLOOD COUNT 7.9 x10^3/uL (4.0-11.0)
[2018-11-12] MEDS: PROCHLORPERAZINE 10 MG/2 ML VIAL. IV PRN ×2 (12:31→22:38)
[2018-11-12 12:40] LABS: CALCIUM 9.4 mg/dL (8.5-10.1); CREATININE 0.8 mg/dL (0.6-1.0); GFR 85.8; POTASSIUM 4.4 mmol/L (3.5-5.1)
--- NOTE | 2018-11-12 12:46 | PDOC2 ---
PALLIATIVE CARE Palliative Care Note Palliative Care Consult requested by Dr. Valdez/OUMAR for dx. Stage IV Breast Cancer. Medical Assessment per medical record; 1. Stage 4 breast cancer. She will continue treatment with Xeloda once the acute symptoms have resolved. CT scan reveals overall stable disease. Follow up after acute symptoms resolv ed. 2. Nausea and vomiting likely from viral gastroenteritis. CT reveals evidence of enteritis. . Abnormal MRI in 07/2018 with questionable metastatic focus. MRI of the brain. Patient alert. Complains of pain abdomen rating at 9. Good relief with Fentanyl. Patient is able to verbalize her medical condition. She wants to continue chemotherapy. Discussed Code Status; She requests DNR/DNI. "I don't want my kids to have to make that decision" Understands without this attempt she likely would . Spoke with Dr. Valdez. Outside the Hospital DNR/DNI form signed. Will continue to follow as needed. KATHARINE SMILEY Nov 12, 2018 12:46
[2018-11-12 15:00] VITALS: BP 140/93
[2018-11-12] MEDS ORDERED: GADOBUTROL 7.5 MMOL/7.5 ML VIAL IV ONE (15:30)
--- NOTE | 2018-11-12 17:19 | RAD ---
MRI Brain with and without contrast History: Headaches, lung cancer Technique: Multiplanar, multi sequential pre and postcontrast MR imaging was performed of the brain. Comparison: July 22, 2018 Findings: Exam is degraded by motion. Also only postcontrast axial images to be obtained as patient did not feel well after injection of contrast, no postcontrast sagittal coronal images available is some subtle residual enhancement of the right occipital lobe at site of previously seen enhancement again difficult to characterize due to very subtle enhancement present, size fairly similar about 1 cm transverse by 0.5 cm AP. This is again associated subtle FLAIR hyperintense signal, stable in appearance. There is a small subtle focus of enhancement of the left parietal lobe image 16 also unchanged about 0.4 cm, now mild associated FLAIR hyperintense signal. No new convincing abnormal enhancement is identified allowing for limitations of exam. Ventricular size is stable, within normal limits. There is other multifocal T2 and FLAIR hyperintense signal abnormality of the supratentorial parenchyma bilaterally not significantly changed. There are again old lacunar infarcts such as of the bilateral basal ganglia. There is preservation of the major arterial flow voids at the skull base. Some patchy fluid of the mastoid air cells greater on the left as seen previously. There is now a right sphenoid sinus mucous retention cyst 1.6 cm with adjacent mucosal thickening. There is patchy minimal ethmoid air cell mucosal thickening. There is multilevel cervical degenerative disc disease. Impress: 1. Only postcontrast axial images could be obtained. Subtle focus of enhancement of the right occipital lobe is fairly similar in size as is a subtle focus of enhancement of the left parietal lobe, no new convincing abnormal intercranial enhancement. There is again scattered T2 and FLAIR hyperintense signal of the supratentorial parenchyma probably due to chronic microvascular ischemic disease, also old lacunar infarcts of the bilateral basal ganglia. 2. There is again some fluid of the mastoid air cells greater on the left. There is new right sphenoid sinus mucous retention cyst with adjacent mucosal thickening. Electronically signed by: Tejinder Montesinos MD (11/12/2018 3:54 PM) [id number]
[2018-11-12 19:35] VITALS: BP 119/79
[2018-11-12] MEDS: MIRTAZAPINE 7.5 MG TABLET. PO SCH (20:39)
[2018-11-12 23:43] VITALS: BP 126/87
[2018-11-13] MEDS: fentaNYL PF VIAL 100 MCG/2 ML VIAL IV PRN ×5 (02:24→21:15)
[2018-11-13 03:29] VITALS: BP 144/95
[2018-11-13] MEDS: HYDROcodone/APAP 10/325 1 TAB TABLET PO PRN ×3 (04:39→17:18)
[2018-11-13 07:00] VITALS: BP 90/67
[2018-11-13] MEDS: MAGNESIUM OXIDE 400 MG TABLET PO SCH (09:29)
[2018-11-13] MEDS: CITALOPRAM 20 MG TABLET. PO SCH (09:30)
[2018-11-13] MEDS: ALPRAZolam 1 MG TABLET PO SCH ×3 (09:30→21:14)
[2018-11-13] MEDS: NICOTINE 21MG PATCH. TD SCH (09:31)
[2018-11-13] MEDS: METOPROLOL TART IMMED RELEASE 50 MG TABLET. PO SCH ×2 (10:02→22:40)
[2018-11-13 11:00] VITALS: BP 126/77
[2018-11-13] MEDS: DRONABINOL 2.5 MG CAPSULE. PO SCH ×2 (11:57→16:49)
--- NOTE | 2018-11-13 12:19 | PDOC ---
PROGRESS NOTES History of Present Illness History of Present Illness VTE Prophylaxis Ordered VTE Prophylaxis Devices: Yes VTE Pharmacological Prophylaxi: Yes Assessment/Plan Assessment/Plan Nausea, emesis, one episode of loose stool-could be chemotherapy related VS viral gastroenteritis check for loose stools C. difficile supportive meds Admitted for basically supportive meds-has been in the ER for 4 hours and could not control symptoms Mild hypokalemia-replace orally, liquid diet then ADA T Reactive thrombocytosis Metastatic breast cancer stage IV to lungs, on oral chemotherapy-known to Dr. Jimenez ? Brain spots-July MRI brain distribution metastatic foci of uptake compatible with metastases to lymph nodes, liver, and the right adrenal gland in particular. There is slight increase in the right upper thoracic intramammary lymph node region mass. Right lower lobe small pulmonary nodule is similar in size compared to previous exam but of increased density. No abnormal uptake but this may be due to its small size. Attention on follow-up imaging studies recommended. focus of faint enhancement anterior right occipital lobe concerning for metastasis given history, other consideration of sequela of late subacute or early chronic as infarct given relatively mild degree of enhancement present. Given adjacent artifact, thin section postcontrast imaging such as with the treatment planning protocol may be beneficial for characterization. There also may be a tiny focus of enhancement of the left parietal lobe. multilevel cervical degenerative disc disease and spondylosis as well as abnormal alignment. 11/13 still very nauseated, poor intake po Plan: palliative care consult, DNR status Admit, full code, liquid diet then ADA T Replace potassium home meds PT OT when more able Dr. JIMENEZ following PET scan was REVIEWED 35 min pt exam, chart review, > 50% of time spent with pt exam, chart review, pt care coordination , there is increased bowel wall thickening most notable of the proximal small bowel in the abdomen to include duodenum and gastroduodenal junction as may be seen with enteritis. There is some nonspecific fecalization of small bowel in the pelvis, also retained stool in segments of colon. Vitals Vitals Vital Signs Date Time Temp Pulse Resp B/P (MAP) Pulse Ox O2 Delivery O2 Flow Rate FiO2 11/13/18 11:58 16 Room Air 11/13/18 10:02 67 126/83 11/13/18 07:00 97.7 98 97.7 Physical Exam General: Alert, Oriented X3, Cooperative, No acute distress, mild distress Heart: Regular rate, Normal S1, Normal S2 Lungs: Clear Abdomen: Normal bowel sounds, Soft, No tenderness, No hepatosplenomegaly, No masses Extremities: No clubbing, No cyanosis, No edema, Normal pulses, No tenderness/swelling Skin: No rashes, No breakdown, No significant lesion Labs LABS Laboratory Tests Test 11/12/18 12:25 11/12/18 17:09 11/12/18 21:24 11/13/18 07:51 White Blood Count 7.9 x10^3/uL (4.0-11.0) Red Blood Count 4.72 x10^6/uL (3.50-5.40) Hemoglobin 14.0 g/dL (12.0-15.5) Hematocrit 43.4 % (36.0-47.0) Mean Corpuscular Volume 92 fL (79-100) Mean Corpuscular Hemoglobin 30 pg (25-35) Mean Corpuscular Hemoglobin Concent 32 g/dL (31-37) Red Cell Distribution Width 23.2 % (11.5-14.5) Platelet Count 403 x10^3/uL (140-400) Neutrophils (%) (Auto) 67 % (31-73) Lymphocytes (%) (Auto) 18 % (24-48) Monocytes (%) (Auto) 14 % (0-9) Eosinophils (%) (Auto) 0 % (0-3) Basophils (%) (Auto) 1 % (0-3) Neutrophils # (Auto) 5.3 x10^3uL (1.8-7.7) Lymphocytes # (Auto) 1.4 x10^3/uL (1.0-4.8) Monocytes # (Auto) 1.1 x10^3/uL (0.0-1.1) Eosinophils # (Auto) 0.0 x10^3/uL (0.0-0.7) Basophils # (Auto) 0.0 x10^3/uL (0.0-0.2) Sodium Level 127 mmol/L (136-145) Potassium Level 4.4 mmol/L (3.5-5.1) Chloride Level 94 mmol/L (98-107) Carbon Dioxide Level 23 mmol/L (21-32) Anion Gap 10 (6-14) Blood Urea Nitrogen 19 mg/dL (7-20) Creatinine 0.8 mg/dL (0.6-1.0) Estimated GFR (Cockcroft-Gault) 85.8 Glucose Level 147 mg/dL (70-99) Calcium Level 9.4 mg/dL (8.5-10.1) Glucose (Fingerstick) 133 mg/dL (70-99) 128 mg/dL (70-99) 124 mg/dL (70-99) Assessment and Plan Assessmemt and Plan Problems Medical Problems: (1) Intractable abdominal pain Status: Acute (2) Nausea & vomiting Status: Acute Comment Review of Relevant I have reviewed the following items arnulfo (where applicable) has been applied. Labs Laboratory Tests Test 11/11/18 17:13 11/11/18 20:58 11/12/18 07:58 11/12/18 11:10 Glucose (Fingerstick) 162 mg/dL (70-99) 148 mg/dL (70-99) 142 mg/dL (70-99) 143 mg/dL (70-99) Test 11/12/18 12:25 11/12/18 17:09 11/12/18 21:24 11/13/18 07:51 White Blood Count 7.9 x10^3/uL (4.0-11.0) Red Blood Count 4.72 x10^6/uL (3.50-5.40) Hemoglobin 14.0 g/dL (12.0-15.5) Hematocrit 43.4 % (36.0-47.0) Mean Corpuscular Volume 92 fL (79-100) Mean Corpuscular Hemoglobin 30 pg (25-35) Mean Corpuscular Hemoglobin Concent 32 g/dL (31-37) Red Cell Distribution Width 23.2 % (11.5-14.5) Platelet Count 403 x10^3/uL (140-400) Neutrophils (%) (Auto) 67 % (31-73) Lymphocytes (%) (Auto) 18 % (24-48) Monocytes (%) (Auto) 14 % (0-9) Eosinophils (%) (Auto) 0 % (0-3) Basophils (%) (Auto) 1 % (0-3) Neutrophils # (Auto) 5.3 x10^3uL (1.8-7.7) Lymphocytes # (Auto) 1.4 x10^3/uL (1.0-4.8) Monocytes # (Auto) 1.1 x10^3/uL (0.0-1.1) Eosinophils # (Auto) 0.0 x10^3/uL (0.0-0.7) Basophils # (Auto) 0.0 x10^3/uL (0.0-0.2) Sodium Level 127 mmol/L (136-145) Potassium Level 4.4 mmol/L (3.5-5.1) Chloride Level 94 mmol/L (98-107) Carbon Dioxide Level 23 mmol/L (21-32) Anion Gap 10 (6-14) Blood Urea Nitrogen 19 mg/dL (7-20) Creatinine 0.8 mg/dL (0.6-1.0) Estimated GFR (Cockcroft-Gault) 85.8 Glucose Level 147 mg/dL (70-99) Calcium Level 9.4 mg/dL (8.5-10.1) Glucose (Fingerstick) 133 mg/dL (70-99) 128 mg/dL (70-99) 124 mg/dL (70-99) Laboratory Tests Test 11/12/18 12:25 11/12/18 17:09 11/12/18 21:24 11/13/18 07:51 White Blood Count 7.9 x10^3/uL (4.0-11.0) Red Blood Count 4.72 x10^6/uL (3.50-5.40) Hemoglobin 14.0 g/dL (12.0-15.5) Hematocrit 43.4 % (36.0-47.0) Mean Corpuscular Volume 92 fL (79-100) Mean Corpuscular Hemoglobin 30 pg (25-35) Mean Corpuscular Hemoglobin Concent 32 g/dL (31-37) Red Cell Distribution Width 23.2 % (11.5-14.5) Platelet Count 403 x10^3/uL (140-400) Neutrophils (%) (Auto) 67 % (31-73) Lymphocytes (%) (Auto) 18 % (24-48) Monocytes (%) (Auto) 14 % (0-9) Eosinophils (%) (Auto) 0 % (0-3) Basophils (%) (Auto) 1 % (0-3) Neutrophils # (Auto) 5.3 x10^3uL (1.8-7.7) Lymphocytes # (Auto) 1.4 x10^3/uL (1.0-4.8) Monocytes # (Auto) 1.1 x10^3/uL (0.0-1.1) Eosinophils # (Auto) 0.0 x10^3/uL (0.0-0.7) Basophils # (Auto) 0.0 x10^3/uL (0.0-0.2) Sodium Level 127 mmol/L (136-145) Potassium Level 4.4 mmol/L (3.5-5.1) Chloride Level 94 mmol/L (98-107) Carbon Dioxide Level 23 mmol/L (21-32) Anion Gap 10 (6-14) Blood Urea Nitrogen 19 mg/dL (7-20) Creatinine 0.8 mg/dL (0.6-1.0) Estimated GFR (Cockcroft-Gault) 85.8 Glucose Level 147 mg/dL (70-99) Calcium Level 9.4 mg/dL (8.5-10.1) Glucose (Fingerstick) 133 mg/dL (70-99) 128 mg/dL (70-99) 124 mg/dL (70-99) Microbiology 11/10/18 Blood Culture - Preliminary, Resulted NO GROWTH AFTER 2 DAYS Medications Current Medications Sodium Chloride 1,000 ml @ 1,000 mls/hr Q1H IV Last administered on 11/10/18at 12:30; Start 11/10/18 at 12:07; Stop 11/10/18 at 13:06; Status DC Ondansetron HCl (Zofran) 4 mg STK-MED ONCE .ROUTE ; Start 11/10/18 at 12:17; Stop 11/10/18 at 12:18; Status DC Fentanyl Citrate (Fentanyl 2ml Vial) 100 mcg STK-MED ONCE .ROUTE ; Start 11/10/18 at 12:27; Stop 11/10/18 at 12:28; Status DC Albuterol/ Ipratropium (Duoneb) 3 ml 1X ONCE NEB Last administered on 11/10/18at 12:56; Start 11/10/18 at 12:45; Stop 11/10/18 at 12:49; Status DC Methylprednisolone Sodium Succinate (SOLU-Medrol 125MG VIAL) 125 mg 1X ONCE IV Last administered on 11/10/18at 12:45; Start 11/10/18 at 12:45; Stop 11/10/18 at 12:49; Status DC Fentanyl Citrate (Fentanyl 2ml Vial) 50 mcg 1X ONCE IM ; Start 11/10/18 at 13:00; Stop 11/10/18 at 13:18; Status DC Fentanyl Citrate (Fentanyl 2ml Vial) 50 mcg 1X ONCE IV Last administered on 11/10/18at 13:30; Start 11/10/18 at 13:30; Stop 11/10/18 at 13:31; Status DC Ondansetron HCl (Zofran) 4 mg 1X ONCE IV Last administered on 11/10/18at 13:30; Start 11/10/18 at 13:30; Stop 11/10/18 at 13:31; Status DC Fentanyl Citrate (Fentanyl 2ml Vial) 50 mcg 1X ONCE IV Last administered on 11/10/18at 15:00; Start 11/10/18 at 13:30; Stop 11/10/18 at 13:31; Status DC Sodium Chloride 1,000 ml @ 1,000 mls/hr 1X ONCE IV Last administered on 11/10/18at 13:30; Start 11/10/18 at 13:30; Stop 11/10/18 at 14:29; Status DC Iohexol (Omnipaque 300 Mg/ml) 75 ml 1X ONCE IV Last administered on 11/10/18at 15:15; Start 11/10/18 at 14:45; Stop 11/10/18 at 14:47; Status DC Iohexol (Omnipaque 350 Mg/ml) 100 ml STK-MED ONCE .ROUTE ; Start 11/10/18 at 14:46; Stop 11/10/18 at 14:47; Status DC Iohexol (Omnipaque 300 Mg/ml) 100 ml STK-MED ONCE .ROUTE ; Start 11/10/18 at 14:46; Stop 11/10/18 at 14:47; Status DC Info (CONTRAST GIVEN -- Rx MONITORING) 1 each PRN DAILY PRN MC SEE COMMENTS; Start 11/10/18 at 15:00; Stop 11/12/18 at 15:01; Status DC Prochlorperazine Edisylate (Compazine) 10 mg STK-MED ONCE .ROUTE ; Start at 15:03; Stop 11/10/18 at 15:04; Status DC Prochlorperazine Edisylate (Compazine) 10 mg 1X ONCE IV Last administered on 11/10/18at 15:05; Start 11/10/18 at 15:15; Stop 11/10/18 at 15:16; Status DC Fentanyl Citrate (Fentanyl 2ml Vial) 50 mcg 1X ONCE IV Last administered on 11/10/18at 15:12; Start 11/10/18 at 15:15; Stop 11/10/18 at 15:16; Status DC Ondansetron HCl (Zofran) 4 mg PRN Q8HRS PRN IV NAUSEA/VOMITING; Start 11/10/18 at 16:00; Stop 11/10/18 at 16:04; Status DC Fentanyl Citrate (Fentanyl 2ml Vial) 50 mcg PRN Q1HR PRN IV PAIN Last administered on 11/11/18at 14:09; Start 11/10/18 at 16:00; Stop 11/11/18 at 15:59; Status DC Sodium Chloride 1,000 ml @ 75 mls/hr [id number] IV ; Start 11/10/18 at 15:57; Stop 11/10/18 at 16:04; Status DC Ondansetron HCl (Zofran) 4 mg PRN Q6HRS PRN IV NAUSEA/VOMITING, 1ST CHOICE Last administered on 11/12/18at 19:29; Start 11/10/18 at 16:15 Potassium Chloride/Dextrose/ Sod Cl 1,000 ml @ 75 mls/hr DAILY IV Last administered on 11/12/18at 09:31; Start 11/10/18 at 18:00 Prochlorperazine Edisylate (Compazine) 10 mg PRN Q6HRS PRN IV NAUSEA/VOMITING, 2nd choice Last administered on 11/12/18at 22:38; Start 11/10/18 at 16:15 Temazepam (Restoril) 7.5 mg PRN QHS PRN PO INSOMNIA, 2nd CHOICE; Start 11/10/18 at 16:15 Acetaminophen (Tylenol) 500 mg PRN Q6HRS PRN PO MILD PAIN / TEMP; Start 11/10/18 at 16:15 Acetaminophen/ Codeine Phosphate (Tylenol #3) 1 tab PRN Q6HRS PRN PO MODERATE PAIN; Start 11/10/18 at 16:15 Alprazolam (Xanax) 1 mg TID PO Last administered on 11/13/18at 09:30; Start 11/10/18 at 21:00 Ondansetron HCl (Zofran Odt) 4 mg PRN Q4HRS PRN PO NAUSEA/VOMITING; Start 11/10/18 at 16:15 Citalopram Hydrobromide (CeleXA) 40 mg DAILY PO Last administered on 11/13/18at 09:30; Start 11/11/18 at 09:00 Dronabinol (Marinol) 5 mg BIDACLD PO Last administered on 11/13/18at 11:57; Start 11/10/18 at 18:00 Hydromorphone HCl (Dilaudid) 2 mg QID PO Last administered on 11/10/18at 23:19; Start 11/10/18 at 21:00; Stop 11/12/18 at 19:09; Status DC Magnesium Oxide (Magnesium Oxide) 400 mg DAILY PO Last administered on 11/13/18at 09:29; Start 11/11/18 at 09:00 Metoprolol Tartrate (Lopressor) 100 mg BID PO Last administered on 11/13/18at 10:02; Start 11/10/18 at 21:00 Mirtazapine (Remeron) 7.5 mg QHS PO Last administered on 11/12/18at 20:39; Start 11/10/18 at 21:00 Non-Formulary Medication (Ubidecarenone (Coq-10)) 200 mg DAILY PO ; Start 11/11/18 at 09:00; Status UNV Zolpidem Tartrate (Ambien) 5 mg PRN QHS PRN PO INSOMNIA, MAY REPEAT X1; Start 11/10/18 at 21:00 Nicotine (Nicoderm Cq 21mg) 1 patch DAILY TD ; Start 11/11/18 at 09:00; Stop 11/11/18 at 09:00; Status DC Fentanyl Citrate (Fentanyl 2ml Vial) 50 mcg 1X ONCE IV Last administered on 11/10/18at 16:45; Start 11/10/18 at 16:45; Stop 11/10/18 at 16:46; Status DC Metoprolol Tartrate (Lopressor Vial) 5 mg PRN Q6HRS PRN IVP HYPERTENSION, FOR SBP > 160 Last administered on 11/11/18at 00:23; Start 11/10/18 at 18:45; Stop 11/11/18 at 02:35; Status DC Acetaminophen/ Hydrocodone Bitart (Lortab 10/325) 1 tab PRN Q6HRS PRN PO SEVERE PAIN Last administered on 11/13/18at 09:29; Start 11/11/18 at 01:15 Metoprolol Tartrate (Lopressor Vial) 10 mg PRN Q6HRS PRN IVP HYPERTENSION, FOR SBP > 160; Start 11/11/18 at 02:45 Nicotine (Nicoderm Cq 21mg) 1 patch DAILY TD Last administered on 11/13/18at 09:31; Start 11/11/18 at 04:30 Fentanyl Citrate (Fentanyl 2ml Vial) 50 mcg PRN Q2HR PRN IV PAIN Last administered on 11/13/18at 11:58; Start 11/11/18 at 19:00 Gadobutrol (Gadavist) 4 mmol 1X ONCE IV ; Start 11/12/18 at 15:30; Stop 11/12/18 at 16:28; Status DC Active Scripts Active Dilaudid (Hydromorphone Hcl) 2 Mg Tablet 1 Tab PO QID Alprazolam 1 Mg Tablet 1 Mg PO TID 30 Days Lactulose 20 Gm/30 Ml Solution 20 Gm PO PRN Q12HR PRN 30 Days [Nicotine 21MG] 1 PATCH Patch 1 Patch TD DAILY 30 Days Mag-Oxide (Magnesium Oxide) 400 Mg Tablet 400 Mg PO DAILY 30 Days Reported Zolpidem Tartrate 10 Mg Tablet 10 Mg PO HS PRN Coq-10 (Ubidecarenone) 100 Mg Capsule 200 Mg PO DAILY Metoprolol Tartrate 100 Mg Tablet 100 Mg PO BID Ondansetron Odt (Ondansetron) 4 Mg Tab.rapdis 4 Mg IV PRN Q4HRS PRN Marinol (Dronabinol) 5 Mg Capsule 5 Mg PO BIDACLD Celexa (Citalopram Hydrobromide) 40 Mg Tablet 40 Mg PO DAILY Vitals/I & O Vital Sign - Last 24 Hours 11/12/18 11/12/18 11/12/18 11/12/18 12:26 15:00 17:00 17:14 Temp 98.6 98.6 Pulse 83 Resp 16 B/P (MAP) 140/93 (109) Pulse Ox 97 O2 Delivery Room Air Room Air Room Air Room Air 11/12/18 11/12/18 11/12/18 11/12/18 19:30 19:35 20:00 20:40 Temp 98.5 98.5 Pulse 97 97 Resp 18 B/P (MAP) 119/79 (92) 119/79 Pulse Ox 96 O2 Delivery Room Air Room Air Room Air 11/12/18 11/12/18 11/13/18 11/13/18 22:38 23:43 02:24 02:54 Temp 98.4 98.4 Pulse 85 Resp 18 B/P (MAP) 126/87 (100) Pulse Ox 92 O2 Delivery Room Air Room Air Room Air Room Air 11/13/18 11/13/18 11/13/18 11/13/18 03:29 04:39 05:39 07:00 Temp 97.4 97.7 97.4 97.7 Pulse 80 67 Resp 16 17 B/P (MAP) 144/95 (111) 90/67 (75) Pulse Ox 96 98 O2 Delivery Room Air Room Air Room Air Room Air 11/13/18 11/13/18 11/13/18 11/13/18 07:16 08:15 09:29 10:02 Pulse 67 Resp 16 B/P (MAP) 126/83 O2 Delivery Room Air Room Air Room Air 11/13/18 11:58 Resp 16 O2 Delivery Room Air Intake and Output 11/12/18 11/12/18 11/13/18 15:00 23:00 07:00 Intake Total 440 ml Balance 440 ml Nutrition Consultation Dietary Evaluation: Recommendations by RD: Increase Calorie Intake, Protein supplementation Comments: ensure enlive tid Expected Outcomes/Goals: to meet > 75% est nutr needs Malnutrition Findings: Food and Nutrition Intake (Sev: <50% est energy req 5days Body Fat Depletion (Non Severe: Mild Depletion Weight Status: Underweight HEATHER SMILEY MD November 13, 2018 12:19
[2018-11-13] MEDS: IV NORMAL SALINE 1000ML BAG 1,000 ML IV SCH ×2 (14:25→21:21)
[2018-11-13 15:00] VITALS: BP 75/46
[2018-11-13 19:00] VITALS: BP 110/70
[2018-11-13] MEDS ORDERED: IPRATRPIUM/ALBUTEROL 0.5/2.5MG 3 ML NEBU. NEB PRN (19:15)
[2018-11-13] MEDS: MIRTAZAPINE 7.5 MG TABLET. PO SCH (21:14)
[2018-11-13 23:00] VITALS: BP 128/70
[2018-11-14] MEDS: HYDROcodone/APAP 10/325 1 TAB TABLET PO PRN ×2 (00:44→10:10)
[2018-11-14 03:00] VITALS: BP 136/87
[2018-11-14] MEDS: fentaNYL PF VIAL 100 MCG/2 ML VIAL IV PRN ×3 (04:36→13:44)
[2018-11-14 05:17] LABS: BASO % 1 % (0-3); EOS # 0.1 x10^3/uL (0.0-0.7); EOS % 1 % (0-3); HEMATOCRIT 38.2 % (36.0-47.0); HEMOGLOBIN 12.6 g/dL (12.0-15.5); LYMPH # 1.4 x10^3/uL (1.0-4.8); LYMPH % 19 % (24-48); MEAN CORPUSCULAR HEMOGLOBIN 30 pg (25-35); MEAN CORPUSCULAR HGB CONC 33 g/dL (31-37); MEAN CORPUSCULAR VOLUME 91 fL (79-100); MONO # 1.4 x10^3/uL (0.0-1.1); MONO % 19 % (0-9); NEUT # 4.4 x10^3uL (1.8-7.7); NEUT % 60 % (31-73); PLATELET COUNT 350 x10^3/uL (140-400); RED BLOOD COUNT 4.19 x10^6/uL (3.50-5.40); RED CELL DISTRIBUTION WIDTH 22.6 % (11.5-14.5); WHITE BLOOD COUNT 7.3 x10^3/uL (4.0-11.0)
[2018-11-14 05:34] LABS: ALBUMIN 3.1 g/dL (3.4-5.0); ALBUMIN/GLOBULIN RATIO 0.8 (1.0-1.7); CREATININE 1.1 mg/dL (0.6-1.0); GFR 59.4; POTASSIUM 4.4 mmol/L (3.5-5.1); TOTAL BILIRUBIN 0.6 mg/dL (0.2-1.0); TOTAL PROTEIN 6.9 g/dL (6.4-8.2)
[2018-11-14 07:00] VITALS: BP 111/71
--- NOTE | 2018-11-14 09:00 | PDOC ---
PROGRESS NOTES Subjective Subjective HPI - f/u of Stage 4 breast cancer. ROS - mild LLQ abd pain Objective Objective Vital Signs Date Time Temp Pulse Resp B/P (MAP) Pulse Ox O2 Delivery O2 Flow Rate FiO2 11/14/18 08:25 16 Room Air 11/14/18 07:00 98.4 61 111/71 (84) 91 98.4 11/12/18 06:45 2.0 Intake and Output 11/14/18 06:59 Intake Total 1105 ml Balance 1105 ml Intake Oral 105 ml IV Total 1000 ml # Voids 3 # Bowel Movements 1 Physical Exam Abdomen: No masses Heart: Normal S1, Normal S2 General: Alert, Oriented X3, No acute distress Lungs: Clear to auscultation Neuro: Normal speech Psych/Mental Status: Mental status NL Assessment Assessment Problems Medical Problems: (1) Intractable abdominal pain Status: Acute (2) Nausea & vomiting Status: Acute IMPRESSION AND PLAN: 1. Stage 4 breast cancer. She will continue treatment with Xeloda once the acute symptoms have resolved. I have advised her to follow up with me upon discharge. CT scan reveals overall stable disease. 2. Nausea and vomiting likely from viral gastroenteritis. CT reveals evidence of enteritis. I will continue to monitor. Abnormal MRI in 07/2018 with questionable metastatic focus. followup MRI of the brain 11/12/18 is stable - Only postcontrast axial images could be obtained. Subtle focus of enhancement of the right occipital lobe is fairly similar in size as is a subtle focus of enhancement of the left parietal lobe, no new convincing abnormal intercranial enhancement. Comment Review of Relevant I have reviewed the following items arnulfo (where applicable) has been applied. Labs Laboratory Tests Test 11/12/18 11:10 11/12/18 12:25 11/12/18 17:09 11/12/18 21:24 Glucose (Fingerstick) 143 mg/dL (70-99) 133 mg/dL (70-99) 128 mg/dL (70-99) White Blood Count 7.9 x10^3/uL (4.0-11.0) Red Blood Count 4.72 x10^6/uL (3.50-5.40) Hemoglobin 14.0 g/dL (12.0-15.5) Hematocrit 43.4 % (36.0-47.0) Mean Corpuscular Volume 92 fL (79-100) Mean Corpuscular Hemoglobin 30 pg (25-35) Mean Corpuscular Hemoglobin Concent 32 g/dL (31-37) Red Cell Distribution Width 23.2 % (11.5-14.5) Platelet Count 403 x10^3/uL (140-400) Neutrophils (%) (Auto) 67 % (31-73) Lymphocytes (%) (Auto) 18 % (24-48) Monocytes (%) (Auto) 14 % (0-9) Eosinophils (%) (Auto) 0 % (0-3) Basophils (%) (Auto) 1 % (0-3) Neutrophils # (Auto) 5.3 x10^3uL (1.8-7.7) Lymphocytes # (Auto) 1.4 x10^3/uL (1.0-4.8) Monocytes # (Auto) 1.1 x10^3/uL (0.0-1.1) Eosinophils # (Auto) 0.0 x10^3/uL (0.0-0.7) Basophils # (Auto) 0.0 x10^3/uL (0.0-0.2) Sodium Level 127 mmol/L (136-145) Potassium Level 4.4 mmol/L (3.5-5.1) Chloride Level 94 mmol/L (98-107) Carbon Dioxide Level 23 mmol/L (21-32) Anion Gap 10 (6-14) Blood Urea Nitrogen 19 mg/dL (7-20) Creatinine 0.8 mg/dL (0.6-1.0) Estimated GFR (Cockcroft-Gault) 85.8 Glucose Level 147 mg/dL (70-99) Calcium Level 9.4 mg/dL (8.5-10.1) Test 11/13/18 07:51 11/13/18 11:35 11/13/18 16:47 11/13/18 20:36 Glucose (Fingerstick) 124 mg/dL (70-99) 133 mg/dL (70-99) 115 mg/dL (70-99) 102 mg/dL (70-99) Test 11/14/18 04:15 White Blood Count 7.3 x10^3/uL (4.0-11.0) Red Blood Count 4.19 x10^6/uL (3.50-5.40) Hemoglobin 12.6 g/dL (12.0-15.5) Hematocrit 38.2 % (36.0-47.0) Mean Corpuscular Volume 91 fL (79-100) Mean Corpuscular Hemoglobin 30 pg (25-35) Mean Corpuscular Hemoglobin Concent 33 g/dL (31-37) Red Cell Distribution Width 22.6 % (11.5-14.5) Platelet Count 350 x10^3/uL (140-400) Neutrophils (%) (Auto) 60 % (31-73) Lymphocytes (%) (Auto) 19 % (24-48) Monocytes (%) (Auto) 19 % (0-9) Eosinophils (%) (Auto) 1 % (0-3) Basophils (%) (Auto) 1 % (0-3) Neutrophils # (Auto) 4.4 x10^3uL (1.8-7.7) Lymphocytes # (Auto) 1.4 x10^3/uL (1.0-4.8) Monocytes # (Auto) 1.4 x10^3/uL (0.0-1.1) Eosinophils # (Auto) 0.1 x10^3/uL (0.0-0.7) Basophils # (Auto) 0.0 x10^3/uL (0.0-0.2) Sodium Level 130 mmol/L (136-145) Potassium Level 4.4 mmol/L (3.5-5.1) Chloride Level 99 mmol/L (98-107) Carbon Dioxide Level 25 mmol/L (21-32) Anion Gap 6 (6-14) Blood Urea Nitrogen 33 mg/dL (7-20) Creatinine 1.1 mg/dL (0.6-1.0) Estimated GFR (Cockcroft-Gault) 59.4 BUN/Creatinine Ratio 30 (6-20) Glucose Level 105 mg/dL (70-99) Calcium Level 9.0 mg/dL (8.5-10.1) Total Bilirubin 0.6 mg/dL (0.2-1.0) Aspartate Amino Transf (AST/SGOT) 13 U/L (15-37) Alanine Aminotransferase (ALT/SGPT) 13 U/L (14-59) Alkaline Phosphatase 69 U/L (46-116) Total Protein 6.9 g/dL (6.4-8.2) Albumin 3.1 g/dL (3.4-5.0) Albumin/Globulin Ratio 0.8 (1.0-1.7) Laboratory Tests Test 11/13/18 11:35 11/13/18 16:47 11/13/18 20:36 11/14/18 04:15 Glucose (Fingerstick) 133 mg/dL (70-99) 115 mg/dL (70-99) 102 mg/dL (70-99) White Blood Count 7.3 x10^3/uL (4.0-11.0) Red Blood Count 4.19 x10^6/uL (3.50-5.40) Hemoglobin 12.6 g/dL (12.0-15.5) Hematocrit 38.2 % (36.0-47.0) Mean Corpuscular Volume 91 fL (79-100) Mean Corpuscular Hemoglobin 30 pg (25-35) Mean Corpuscular Hemoglobin Concent 33 g/dL (31-37) Red Cell Distribution Width 22.6 % (11.5-14.5) Platelet Count 350 x10^3/uL (140-400) Neutrophils (%) (Auto) 60 % (31-73) Lymphocytes (%) (Auto) 19 % (24-48) Monocytes (%) (Auto) 19 % (0-9) Eosinophils (%) (Auto) 1 % (0-3) Basophils (%) (Auto) 1 % (0-3) Neutrophils # (Auto) 4.4 x10^3uL (1.8-7.7) Lymphocytes # (Auto) 1.4 x10^3/uL (1.0-4.8) Monocytes # (Auto) 1.4 x10^3/uL (0.0-1.1) Eosinophils # (Auto) 0.1 x10^3/uL (0.0-0.7) Basophils # (Auto) 0.0 x10^3/uL (0.0-0.2) Sodium Level 130 mmol/L (136-145) Potassium Level 4.4 mmol/L (3.5-5.1) Chloride Level 99 mmol/L (98-107) Carbon Dioxide Level 25 mmol/L (21-32) Anion Gap 6 (6-14) Blood Urea Nitrogen 33 mg/dL (7-20) Creatinine 1.1 mg/dL (0.6-1.0) Estimated GFR (Cockcroft-Gault) 59.4 BUN/Creatinine Ratio 30 (6-20) Glucose Level 105 mg/dL (70-99) Calcium Level 9.0 mg/dL (8.5-10.1) Total Bilirubin 0.6 mg/dL (0.2-1.0) Aspartate Amino Transf (AST/SGOT) 13 U/L (15-37) Alanine Aminotransferase (ALT/SGPT) 13 U/L (14-59) Alkaline Phosphatase 69 U/L (46-116) Total Protein 6.9 g/dL (6.4-8.2) Albumin 3.1 g/dL (3.4-5.0) Albumin/Globulin Ratio 0.8 (1.0-1.7) Microbiology 11/10/18 Blood Culture - Preliminary, Resulted NO GROWTH AFTER 3 DAYS Medications Current Medications Sodium Chloride 1,000 ml @ 1,000 mls/hr Q1H IV Last administered on 11/10/18at 12:30; Start 11/10/18 at 12:07; Stop 11/10/18 at 13:06; Status DC Ondansetron HCl (Zofran) 4 mg STK-MED ONCE .ROUTE ; Start 11/10/18 at 12:17; Stop 11/10/18 at 12:18; Status DC Fentanyl Citrate (Fentanyl 2ml Vial) 100 mcg STK-MED ONCE .ROUTE ; Start 11/10/18 at 12:27; Stop 11/10/18 at 12:28; Status DC Albuterol/ Ipratropium (Duoneb) 3 ml 1X ONCE NEB Last administered on 11/10/18at 12:56; Start 11/10/18 at 12:45; Stop 11/10/18 at 12:49; Status DC Methylprednisolone Sodium Succinate (SOLU-Medrol 125MG VIAL) 125 mg 1X ONCE IV Last administered on 11/10/18at 12:45; Start 11/10/18 at 12:45; Stop 11/10/18 at 12:49; Status DC Fentanyl Citrate (Fentanyl 2ml Vial) 50 mcg 1X ONCE IM ; Start 11/10/18 at 13:00; Stop 11/10/18 at 13:18; Status DC Fentanyl Citrate (Fentanyl 2ml Vial) 50 mcg 1X ONCE IV Last administered on 11/10/18at 13:30; Start 11/10/18 at 13:30; Stop 11/10/18 at 13:31; Status DC Ondansetron HCl (Zofran) 4 mg 1X ONCE IV Last administered on 11/10/18at 13:30; Start 11/10/18 at 13:30; Stop 11/10/18 at 13:31; Status DC Fentanyl Citrate (Fentanyl 2ml Vial) 50 mcg 1X ONCE IV Last administered on 11/10/18at 15:00; Start 11/10/18 at 13:30; Stop 11/10/18 at 13:31; Status DC Sodium Chloride 1,000 ml @ 1,000 mls/hr 1X ONCE IV Last administered on 11/10/18at 13:30; Start 11/10/18 at 13:30; Stop 11/10/18 at 14:29; Status DC Iohexol (Omnipaque 300 Mg/ml) 75 ml 1X ONCE IV Last administered on 11/10/18at 15:15; Start 11/10/18 at 14:45; Stop 11/10/18 at 14:47; Status DC Iohexol (Omnipaque 350 Mg/ml) 100 ml STK-MED ONCE .ROUTE ; Start 11/10/18 at 14:46; Stop 11/10/18 at 14:47; Status DC Iohexol (Omnipaque 300 Mg/ml) 100 ml STK-MED ONCE .ROUTE ; Start 11/10/18 at 14:46; Stop 11/10/18 at 14:47; Status DC Info (CONTRAST GIVEN -- Rx MONITORING) 1 each PRN DAILY PRN MC SEE COMMENTS; Start 11/10/18 at 15:00; Stop 11/12/18 at 15:01; Status DC Prochlorperazine Edisylate (Compazine) 10 mg STK-MED ONCE .ROUTE ; Start 11/10/18 at 15:03; Stop 11/10/18 at 15:04; Status DC Prochlorperazine Edisylate (Compazine) 10 mg 1X ONCE IV Last administered on 11/10/18at 15:05; Start 11/10/18 at 15:15; Stop 11/10/18 at 15:16; Status DC Fentanyl Citrate (Fentanyl 2ml Vial) 50 mcg 1X ONCE IV Last administered on 11/10/18at 15:12; Start 11/10/18 at 15:15; Stop 11/10/18 at 15:16; Status DC Ondansetron HCl (Zofran) 4 mg PRN Q8HRS PRN IV NAUSEA/VOMITING; Start 11/10/18 at 16:00; Stop 11/10/18 at 16:04; Status DC Fentanyl Citrate (Fentanyl 2ml Vial) 50 mcg PRN Q1HR PRN IV PAIN Last administered on 11/11/18at 14:09; Start 11/10/18 at 16:00; Stop 11/11/18 at 15:59; Status DC Sodium Chloride 1,000 ml @ 75 mls/hr [id number] IV ; Start 11/10/18 at 15:57; Stop 11/10/18 at 16:04; Status DC Ondansetron HCl (Zofran) 4 mg PRN Q6HRS PRN IV NAUSEA/VOMITING, 1ST CHOICE Last administered on 11/12/18at 19:29; Start 11/10/18 at 16:15 Potassium Chloride/Dextrose/ Sod Cl 1,000 ml @ 75 mls/hr DAILY IV Last administered on 11/12/18at 09:31; Start 11/10/18 at 18:00 Prochlorperazine Edisylate (Compazine) 10 mg PRN Q6HRS PRN IV NAUSEA/VOMITING, 2nd choice Last administered on 11/12/18at 22:38; Start 11/10/18 at 16:15 Temazepam (Restoril) 7.5 mg PRN QHS PRN PO INSOMNIA, 2nd CHOICE; Start 11/10/18 at 16:15 Acetaminophen (Tylenol) 500 mg PRN Q6HRS PRN PO MILD PAIN / TEMP; Start 11/10/18 at 16:15 Acetaminophen/ Codeine Phosphate (Tylenol #3) 1 tab PRN Q6HRS PRN PO MODERATE PAIN; Start 11/10/18 at 16:15 Alprazolam (Xanax) 1 mg TID PO Last administered on 11/13/18at 21:14; Start 11/10/18 at 21:00 Ondansetron HCl (Zofran Odt) 4 mg PRN Q4HRS PRN PO NAUSEA/VOMITING; Start 11/10/18 at 16:15 Citalopram Hydrobromide (CeleXA) 40 mg DAILY PO Last administered on 11/13/18 09:30; Start 11/11/18 at 09:00 Dronabinol (Marinol) 5 mg BIDACLD PO Last administered on 11/13/18 16:49; Start 11/10/18 at 18:00 Hydromorphone HCl (Dilaudid) 2 mg QID PO Last administered on 11/10/18at 23:19; Start 11/10/18 at 21:00; Stop 11/12/18 at 19:09; Status DC Magnesium Oxide (Magnesium Oxide) 400 mg DAILY PO Last administered on 11/13/18 09:29; Start 11/11/18 at 09:00 Metoprolol Tartrate (Lopressor) 100 mg BID PO Last administered on 11/13/18at 22:40; Start 11/10/18 at 21:00 Mirtazapine (Remeron) 7.5 mg QHS PO Last administered on 11/13/18 21:14; Start 11/10/18 at 21:00 Non-Formulary Medication (Ubidecarenone (Coq-10)) 200 mg DAILY PO ; Start at 09:00; Status UNV Zolpidem Tartrate (Ambien) 5 mg PRN QHS PRN PO INSOMNIA, MAY REPEAT X1; Start 11/10/18 at 21:00 Nicotine (Nicoderm Cq 21mg) 1 patch DAILY TD ; Start 11/11/18 at 09:00; Stop 11/11/18 at 09:00; Status DC Fentanyl Citrate (Fentanyl 2ml Vial) 50 mcg 1X ONCE IV Last administered on 11/10/18at 16:45; Start 11/10/18 at 16:45; Stop 11/10/18 at 16:46; Status DC Metoprolol Tartrate (Lopressor Vial) 5 mg PRN Q6HRS PRN IVP HYPERTENSION, FOR SBP > 160 Last administered on 11/11/18at 00:23; Start 11/10/18 at 18:45; Stop 11/11/18 at 02:35; Status DC Acetaminophen/ Hydrocodone Bitart (Lortab 10/325) 1 tab PRN Q6HRS PRN PO SEVERE PAIN Last administered on 11/14/18at 00:44; Start 11/11/18 at 01:15 Metoprolol Tartrate (Lopressor Vial) 10 mg PRN Q6HRS PRN IVP HYPERTENSION, FOR SBP > 160; Start 11/11/18 at 02:45 Nicotine (Nicoderm Cq 21mg) 1 patch DAILY TD Last administered on 11/13/18at 09:31; Start 11/11/18 at 04:30 Fentanyl Citrate (Fentanyl 2ml Vial) 50 mcg PRN Q2HR PRN IV PAIN Last administered on 11/13/18at 14:24; Start 11/11/18 at 19:00; Stop 11/13/18 at 16:13; Status DC Gadobutrol (Gadavist) 4 mmol 1X ONCE IV ; Start 11/12/18 at 15:30; Stop 11/12/18 at 16:28; Status DC Sodium Chloride 1,000 ml @ 75 mls/hr [id number] IV Last administered on 11/13/18at 21:21; Start 11/13/18 at 13:30 Fentanyl Citrate (Fentanyl 2ml Vial) 50 mcg PRN Q3HRS PRN IV PAIN Last administered on 11/14/18at 07:55; Start 11/13/18 at 16:15 Albuterol/ Ipratropium (Duoneb) 3 ml QIDPRN PRN NEB WHEEZING; Start 11/13/18 at 19:15 Active Scripts Active Dilaudid (Hydromorphone Hcl) 2 Mg Tablet 1 Tab PO QID Alprazolam 1 Mg Tablet 1 Mg PO TID 30 Days Lactulose 20 Gm/30 Ml Solution 20 Gm PO PRN Q12HR PRN 30 Days [Nicotine 21MG] 1 PATCH Patch 1 Patch TD DAILY 30 Days Mag-Oxide (Magnesium Oxide) 400 Mg Tablet 400 Mg PO DAILY 30 Days Reported Zolpidem Tartrate 10 Mg Tablet 10 Mg PO HS PRN Coq-10 (Ubidecarenone) 100 Mg Capsule 200 Mg PO DAILY Metoprolol Tartrate 100 Mg Tablet 100 Mg PO BID Ondansetron Odt (Ondansetron) 4 Mg Tab.rapdis 4 Mg IV PRN Q4HRS PRN Marinol (Dronabinol) 5 Mg Capsule 5 Mg PO BIDACLD Celexa (Citalopram Hydrobromide) 40 Mg Tablet 40 Mg PO DAILY Vitals/I & O Vital Sign - Last 24 Hours 11/13/18 11/13/18 11/13/18 11/13/18 09:29 10:02 10:29 11:00 Temp 98.4 98.4 Pulse 67 93 Resp 16 16 17 B/P (MAP) 126/83 126/77 (93) Pulse Ox 95 O2 Delivery Room Air Room Air 11/13/18 11/13/18 11/13/18 11/13/18 11:58 14:24 14:54 15:00 Temp 98.3 98.3 Pulse 79 Resp 16 16 14 16 B/P (MAP) 75/46 (56) Pulse Ox 94 O2 Delivery Room Air Room Air Room Air Room Air 11/13/18 11/13/18 11/13/18 11/13/18 17:18 19:00 20:00 21:15 Temp 98.2 98.2 Pulse 81 Resp 16 18 B/P (MAP) 110/70 (83) Pulse Ox 92 O2 Delivery Room Air Room Air Room Air Room Air 11/13/18 11/13/18 11/14/18 11/14/18 22:40 23:00 00:44 01:44 Temp 97.9 97.9 Pulse 79 79 Resp 18 B/P (MAP) 128/70 128/70 (89) Pulse Ox 100 O2 Delivery Room Air Room Air Room Air 11/14/18 11/14/18 11/14/18 11/14/18 03:00 04:36 07:00 07:55 Temp 98.9 98.4 98.9 98.4 Pulse 81 61 Resp 18 17 16 B/P (MAP) 136/87 (103) 111/71 (84) Pulse Ox 100 91 O2 Delivery Room Air Room Air Room Air Room Air 11/14/18 08:25 Resp 16 O2 Delivery Room Air Intake and Output 11/13/18 11/13/18 11/14/18 14:59 22:59 06:59 Intake Total 80 ml 1025 ml Balance 80 ml 1025 ml Nutrition Consultation Dietary Evaluation: Recommendations by RD: Increase Calorie Intake, Protein supplementation Comments: ensure enlive tid Expected Outcomes/Goals: to meet > 75% est nutr needs Malnutrition Findings: Food and Nutrition Intake (Sev: <50% est energy req 5days Body Fat Depletion (Non Severe: Mild Depletion Weight Status: Underweight KATHY AQUINO MD November 14, 2018 09:00
--- NOTE | 2018-11-14 09:53 | PDOC ---
PROGRESS NOTES History of Present Illness History of Present Illness VTE Prophylaxis Ordered VTE Prophylaxis Devices: Yes VTE Pharmacological Prophylaxi: Yes Assessment/Plan Assessment/Plan Nausea, emesis, one episode of loose stool-could be chemotherapy related VS viral gastroenteritis check for loose stools C. difficile supportive meds Admitted for basically supportive meds-has been in the ER for 4 hours and could not control symptoms Mild hypokalemia-replace orally, liquid diet then ADA T Reactive thrombocytosis Metastatic breast cancer stage IV to lungs, on oral chemotherapy-known to Dr. Jimenez ? Brain spots-July MRI brain distribution metastatic foci of uptake compatible with metastases to lymph nodes, liver, and the right adrenal gland in particular. There is slight increase in the right upper thoracic intramammary lymph node region mass. Right lower lobe small pulmonary nodule is similar in size compared to previous exam but of increased density. No abnormal uptake but this may be due to its small size. Attention on follow-up imaging studies recommended. focus of faint enhancement anterior right occipital lobe concerning for metastasis given history, other consideration of sequela of late subacute or early chronic as infarct given relatively mild degree of enhancement present. Given adjacent artifact, thin section postcontrast imaging such as with the treatment planning protocol may be beneficial for characterization. There also may be a tiny focus of enhancement of the left parietal lobe. multilevel cervical degenerative disc disease and spondylosis as well as abnormal alignment. 5/1 still very nauseated, poor intake po 5/2 BETTER, NO EMESIS TODAY Plan: palliative care consult REVIEWED , DNR status Admit, full code, liquid diet then ADA T Replace potassium home meds PT OT when more able Dr. JIMENEZ following PET scan was REVIEWED 35 min pt exam D/C PLANNING , chart review, > 50% of time spent with pt exam, chart review, pt care coordination , there is increased bowel wall thickening most notable of the proximal small bowel in the abdomen to include duodenum and gastroduodenal junction as may be seen with enteritis. There is some nonspecific fecalization of small bowel in the pelvis, also retained stool in segments of colon. Vitals Vitals Vital Signs Date Time Temp Pulse Resp B/P (MAP) Pulse Ox O2 Delivery O2 Flow Rate FiO2 11/14/18 08:25 16 Room Air 11/14/18 07:00 98.4 61 111/71 (84) 91 98.4 Physical Exam General: Alert, Oriented X3, Cooperative, No acute distress Heart: Regular rate, Normal S1, Normal S2 Lungs: Clear Abdomen: Normal bowel sounds, No masses Extremities: No clubbing, No cyanosis, No edema, Normal pulses, No tendernes s/swelling Skin: No rashes, No breakdown, No significant lesion Labs LABS Laboratory Tests Test 11/13/18 11:35 11/13/18 16:47 11/13/18 20:36 11/14/18 04:15 Glucose (Fingerstick) 133 mg/dL (70-99) 115 mg/dL (70-99) 102 mg/dL (70-99) White Blood Count 7.3 x10^3/uL (4.0-11.0) Red Blood Count 4.19 x10^6/uL (3.50-5.40) Hemoglobin 12.6 g/dL (12.0-15.5) Hematocrit 38.2 % (36.0-47.0) Mean Corpuscular Volume 91 fL (79-100) Mean Corpuscular Hemoglobin 30 pg (25-35) Mean Corpuscular Hemoglobin Concent 33 g/dL (31-37) Red Cell Distribution Width 22.6 % (11.5-14.5) Platelet Count 350 x10^3/uL (140-400) Neutrophils (%) (Auto) 60 % (31-73) Lymphocytes (%) (Auto) 19 % (24-48) Monocytes (%) (Auto) 19 % (0-9) Eosinophils (%) (Auto) 1 % (0-3) Basophils (%) (Auto) 1 % (0-3) Neutrophils # (Auto) 4.4 x10^3uL (1.8-7.7) Lymphocytes # (Auto) 1.4 x10^3/uL (1.0-4.8) Monocytes # (Auto) 1.4 x10^3/uL (0.0-1.1) Eosinophils # (Auto) 0.1 x10^3/uL (0.0-0.7) Basophils # (Auto) 0.0 x10^3/uL (0.0-0.2) Sodium Level 130 mmol/L (136-145) Potassium Level 4.4 mmol/L (3.5-5.1) Chloride Level 99 mmol/L (98-107) Carbon Dioxide Level 25 mmol/L (21-32) Anion Gap 6 (6-14) Blood Urea Nitrogen 33 mg/dL (7-20) Creatinine 1.1 mg/dL (0.6-1.0) Estimated GFR (Cockcroft-Gault) 59.4 BUN/Creatinine Ratio 30 (6-20) Glucose Level 105 mg/dL (70-99) Calcium Level 9.0 mg/dL (8.5-10.1) Total Bilirubin 0.6 mg/dL (0.2-1.0) Aspartate Amino Transf (AST/SGOT) 13 U/L (15-37) Alanine Aminotransferase (ALT/SGPT) 13 U/L (14-59) Alkaline Phosphatase 69 U/L (46-116) Total Protein 6.9 g/dL (6.4-8.2) Albumin 3.1 g/dL (3.4-5.0) Albumin/Globulin Ratio 0.8 (1.0-1.7) Assessment and Plan Assessmemt and Plan Problems Medical Problems: (1) Intractable abdominal pain Status: Acute (2) Nausea & vomiting Status: Acute Comment Review of Relevant I have reviewed the following items arnulfo (where applicable) has been applied. Labs Laboratory Tests Test 11/12/18 11:10 11/12/18 12:25 11/12/18 17:09 11/12/18 21:24 Glucose (Fingerstick) 143 mg/dL (70-99) 133 mg/dL (70-99) 128 mg/dL (70-99) White Blood Count 7.9 x10^3/uL (4.0-11.0) Red Blood Count 4.72 x10^6/uL (3.50-5.40) Hemoglobin 14.0 g/dL (12.0-15.5) Hematocrit 43.4 % (36.0-47.0) Mean Corpuscular Volume 92 fL (79-100) Mean Corpuscular Hemoglobin 30 pg (25-35) Mean Corpuscular Hemoglobin Concent 32 g/dL (31-37) Red Cell Distribution Width 23.2 % (11.5-14.5) Platelet Count 403 x10^3/uL (140-400) Neutrophils (%) (Auto) 67 % (31-73) Lymphocytes (%) (Auto) 18 % (24-48) Monocytes (%) (Auto) 14 % (0-9) Eosinophils (%) (Auto) 0 % (0-3) Basophils (%) (Auto) 1 % (0-3) Neutrophils # (Auto) 5.3 x10^3uL (1.8-7.7) Lymphocytes # (Auto) 1.4 x10^3/uL (1.0-4.8) Monocytes # (Auto) 1.1 x10^3/uL (0.0-1.1) Eosinophils # (Auto) 0.0 x10^3/uL (0.0-0.7) Basophils # (Auto) 0.0 x10^3/uL (0.0-0.2) Sodium Level 127 mmol/L (136-145) Potassium Level 4.4 mmol/L (3.5-5.1) Chloride Level 94 mmol/L (98-107) Carbon Dioxide Level 23 mmol/L (21-32) Anion Gap 10 (6-14) Blood Urea Nitrogen 19 mg/dL (7-20) Creatinine 0.8 mg/dL (0.6-1.0) Estimated GFR (Cockcroft-Gault) 85.8 Glucose Level 147 mg/dL (70-99) Calcium Level 9.4 mg/dL (8.5-10.1) Test 11/13/18 07:51 11/13/18 11:35 11/13/18 16:47 11/13/18 20:36 Glucose (Fingerstick) 124 mg/dL (70-99) 133 mg/dL (70-99) 115 mg/dL (70-99) 102 mg/dL (70-99) Test 11/14/18 04:15 White Blood Count 7.3 x10^3/uL (4.0-11.0) Red Blood Count 4.19 x10^6/uL (3.50-5.40) Hemoglobin 12.6 g/dL (12.0-15.5) Hematocrit 38.2 % (36.0-47.0) Mean Corpuscular Volume 91 fL (79-100) Mean Corpuscular Hemoglobin 30 pg (25-35) Mean Corpuscular Hemoglobin Concent 33 g/dL (31-37) Red Cell Distribution Width 22.6 % (11.5-14.5) Platelet Count 350 x10^3/uL (140-400) Neutrophils (%) (Auto) 60 % (31-73) Lymphocytes (%) (Auto) 19 % (24-48) Monocytes (%) (Auto) 19 % (0-9) Eosinophils (%) (Auto) 1 % (0-3) Basophils (%) (Auto) 1 % (0-3) Neutrophils # (Auto) 4.4 x10^3uL (1.8-7.7) Lymphocytes # (Auto) 1.4 x10^3/uL (1.0-4.8) Monocytes # (Auto) 1.4 x10^3/uL (0.0-1.1) Eosinophils # (Auto) 0.1 x10^3/uL (0.0-0.7) Basophils # (Auto) 0.0 x10^3/uL (0.0-0.2) Sodium Level 130 mmol/L (136-145) Potassium Level 4.4 mmol/L (3.5-5.1) Chloride Level 99 mmol/L (98-107) Carbon Dioxide Level 25 mmol/L (21-32) Anion Gap 6 (6-14) Blood Urea Nitrogen 33 mg/dL (7-20) Creatinine 1.1 mg/dL (0.6-1.0) Estimated GFR (Cockcroft-Gault) 59.4 BUN/Creatinine Ratio 30 (6-20) Glucose Level 105 mg/dL (70-99) Calcium Level 9.0 mg/dL (8.5-10.1) Total Bilirubin 0.6 mg/dL (0.2-1.0) Aspartate Amino Transf (AST/SGOT) 13 U/L (15-37) Alanine Aminotransferase (ALT/SGPT) 13 U/L (14-59) Alkaline Phosphatase 69 U/L (46-116) Total Protein 6.9 g/dL (6.4-8.2) Albumin 3.1 g/dL (3.4-5.0) Albumin/Globulin Ratio 0.8 (1.0-1.7) Laboratory Tests Test 11/13/18 11:35 11/13/18 16:47 11/13/18 20:36 11/14/18 04:15 Glucose (Fingerstick) 133 mg/dL (70-99) 115 mg/dL (70-99) 102 mg/dL (70-99) White Blood Count 7.3 x10^3/uL (4.0-11.0) Red Blood Count 4.19 x10^6/uL (3.50-5.40) Hemoglobin 12.6 g/dL (12.0-15.5) Hematocrit 38.2 % (36.0-47.0) Mean Corpuscular Volume 91 fL (79-100) Mean Corpuscular Hemoglobin 30 pg (25-35) Mean Corpuscular Hemoglobin Concent 33 g/dL (31-37) Red Cell Distribution Width 22.6 % (11.5-14.5) Platelet Count 350 x10^3/uL (140-400) Neutrophils (%) (Auto) 60 % (31-73) Lymphocytes (%) (Auto) 19 % (24-48) Monocytes (%) (Auto) 19 % (0-9) Eosinophils (%) (Auto) 1 % (0-3) Basophils (%) (Auto) 1 % (0-3) Neutrophils # (Auto) 4.4 x10^3uL (1.8-7.7) Lymphocytes # (Auto) 1.4 x10^3/uL (1.0-4.8) Monocytes # (Auto) 1.4 x10^3/uL (0.0-1.1) Eosinophils # (Auto) 0.1 x10^3/uL (0.0-0.7) Basophils # (Auto) 0.0 x10^3/uL (0.0-0.2) Sodium Level 130 mmol/L (136-145) Potassium Level 4.4 mmol/L (3.5-5.1) Chloride Level 99 mmol/L (98-107) Carbon Dioxide Level 25 mmol/L (21-32) Anion Gap 6 (6-14) Blood Urea Nitrogen 33 mg/dL (7-20) Creatinine 1.1 mg/dL (0.6-1.0) Estimated GFR (Cockcroft-Gault) 59.4 BUN/Creatinine Ratio 30 (6-20) Glucose Level 105 mg/dL (70-99) Calcium Level 9.0 mg/dL (8.5-10.1) Total Bilirubin 0.6 mg/dL (0.2-1.0) Aspartate Amino Transf (AST/SGOT) 13 U/L (15-37) Alanine Aminotransferase (ALT/SGPT) 13 U/L (14-59) Alkaline Phosphatase 69 U/L (46-116) Total Protein 6.9 g/dL (6.4-8.2) Albumin 3.1 g/dL (3.4-5.0) Albumin/Globulin Ratio 0.8 (1.0-1.7) Microbiology 11/10/18 Blood Culture - Preliminary, Resulted NO GROWTH AFTER 3 DAYS Medications Current Medications Sodium Chloride 1,000 ml @ 1,000 mls/hr Q1H IV Last administered on 11/10/18at 12:30; Start 11/10/18 at 12:07; Stop 11/10/18 at 13:06; Status DC Ondansetron HCl (Zofran) 4 mg STK-MED ONCE .ROUTE ; Start 11/10/18 at 12:17; Stop 11/10/18 at 12:18; Status DC Fentanyl Citrate (Fentanyl 2ml Vial) 100 mcg STK-MED ONCE .ROUTE ; Start 11/10/18 at 12:27; Stop 11/10/18 at 12:28; Status DC Albuterol/ Ipratropium (Duoneb) 3 ml 1X ONCE NEB Last administered on 11/10/18at 12:56; Start 11/10/18 at 12:45; Stop 11/10/18 at 12:49; Status DC Methylprednisolone Sodium Succinate (SOLU-Medrol 125MG VIAL) 125 mg 1X ONCE IV Last administered on 11/10/18at 12:45; Start 11/10/18 at 12:45; Stop 11/10/18 at 12:49; Status DC Fentanyl Citrate (Fentanyl 2ml Vial) 50 mcg 1X ONCE IM ; Start 11/10/18 at 13:00; Stop 11/10/18 at 13:18; Status DC Fentanyl Citrate (Fentanyl 2ml Vial) 50 mcg 1X ONCE IV Last administered on 11/10/18at 13:30; Start 11/10/18 at 13:30; Stop 11/10/18 at 13:31; Status DC Ondansetron HCl (Zofran) 4 mg 1X ONCE IV Last administered on 11/10/18at 13:30; Start 11/10/18 at 13:30; Stop 11/10/18 at 13:31; Status DC Fentanyl Citrate (Fentanyl 2ml Vial) 50 mcg 1X ONCE IV Last administered on 11/10/18at 15:00; Start 11/10/18 at 13:30; Stop 11/10/18 at 13:31; Status DC Sodium Chloride 1,000 ml @ 1,000 mls/hr 1X ONCE IV Last administered on 11/10/18at 13:30; Start 11/10/18 at 13:30; Stop 11/10/18 at 14:29; Status DC Iohexol (Omnipaque 300 Mg/ml) 75 ml 1X ONCE IV Last administered on 11/10/18at 15:15; Start 11/10/18 at 14:45; Stop 11/10/18 at 14:47; Status DC Iohexol (Omnipaque 350 Mg/ml) 100 ml STK-MED ONCE .ROUTE ; Start 11/10/18 at 14:46; Stop 11/10/18 at 14:47; Status DC Iohexol (Omnipaque 300 Mg/ml) 100 ml STK-MED ONCE .ROUTE ; Start 11/10/18 at 14:46; Stop 11/10/18 at 14:47; Status DC Info (CONTRAST GIVEN -- Rx MONITORING) 1 each PRN DAILY PRN MC SEE COMMENTS; Start 11/10/18 at 15:00; Stop 11/12/18 at 15:01; Status DC Prochlorperazine Edisylate (Compazine) 10 mg STK-MED ONCE .ROUTE ; Start 11/10/18 at 15:03; Stop 11/10/18 at 15:04; Status DC Prochlorperazine Edisylate (Compazine) 10 mg 1X ONCE IV Last administered on 11/10/18at 15:05; Start 11/10/18 at 15:15; Stop 11/10/18 at 15:16; Status DC Fentanyl Citrate (Fentanyl 2ml Vial) 50 mcg 1X ONCE IV Last administered on 11/10/18at 15:12; Start 11/10/18 at 15:15; Stop 11/10/18 at 15:16; Status DC Ondansetron HCl (Zofran) 4 mg PRN Q8HRS PRN IV NAUSEA/VOMITING; Start 11/10/18 at 16:00; Stop 11/10/18 at 16:04; Status DC Fentanyl Citrate (Fentanyl 2ml Vial) 50 mcg PRN Q1HR PRN IV PAIN Last administered on 11/11/18at 14:09; Start 11/10/18 at 16:00; Stop 11/11/18 at 15:59; Status DC Sodium Chloride 1,000 ml @ 75 mls/hr [id number] IV ; Start 11/10/18 at 15:57; Stop 11/10/18 at 16:04; Status DC Ondansetron HCl (Zofran) 4 mg PRN Q6HRS PRN IV NAUSEA/VOMITING, 1ST CHOICE Last administered on 11/12/18at 19:29; Start 11/10/18 at 16:15 Potassium Chloride/Dextrose/ Sod Cl 1,000 ml @ 75 mls/hr DAILY IV Last administered on 11/12/18at 09:31; Start 11/10/18 at 18:00 Prochlorperazine Edisylate (Compazine) 10 mg PRN Q6HRS PRN IV NAUSEA/VOMITING, 2nd choice Last administered on 11/12/18at 22:38; Start 11/10/18 at 16:15 Temazepam (Restoril) 7.5 mg PRN QHS PRN PO INSOMNIA, 2nd CHOICE; Start 11/10/18 at 16:15 Acetaminophen (Tylenol) 500 mg PRN Q6HRS PRN PO MILD PAIN / TEMP; Start 11/10/18 at 16:15 Acetaminophen/ Codeine Phosphate (Tylenol #3) 1 tab PRN Q6HRS PRN PO MODERATE PAIN; Start 11/10/18 at 16:15 Alprazolam (Xanax) 1 mg TID PO Last administered on 11/13/18at 21:14; Start 11/10/18 at 21:00 Ondansetron HCl (Zofran Odt) 4 mg PRN Q4HRS PRN PO NAUSEA/VOMITING; Start 11/10/18 at 16:15 Citalopram Hydrobromide (CeleXA) 40 mg DAILY PO Last administered on 11/13/18 09:30; Start 11/11/18 at 09:00 Dronabinol (Marinol) 5 mg BIDACLD PO Last administered on 11/13/18at 16:49; Start 11/10/18 at 18:00 Hydromorphone HCl (Dilaudid) 2 mg QID PO Last administered on 11/10/18at 23:19; Start 11/10/18 at 21:00; Stop 11/12/18 at 19:09; Status DC Magnesium Oxide (Magnesium Oxide) 400 mg DAILY PO Last administered on 11/13/18at 09:29; Start 11/11/18 at 09:00 Metoprolol Tartrate (Lopressor) 100 mg BID PO Last administered on 11/13/18at 22:40; Start 11/10/18 at 21:00 Mirtazapine (Remeron) 7.5 mg QHS PO Last administered on 11/13/18at 21:14; Start 11/10/18 at 21:00 Non-Formulary Medication (Ubidecarenone (Coq-10)) 200 mg DAILY PO ; Start 11/11/18 at 09:00; Status UNV Zolpidem Tartrate (Ambien) 5 mg PRN QHS PRN PO INSOMNIA, MAY REPEAT X1; Start 11/10/18 at 21:00 Nicotine (Nicoderm Cq 21mg) 1 patch DAILY TD ; Start 11/11/18 at 09:00; Stop 11/11/18 at 09:00; Status DC Fentanyl Citrate (Fentanyl 2ml Vial) 50 mcg 1X ONCE IV Last administered on 11/10/18at 16:45; Start 11/10/18 at 16:45; Stop 11/10/18 at 16:46; Status DC Metoprolol Tartrate (Lopressor Vial) 5 mg PRN Q6HRS PRN IVP HYPERTENSION, FOR SBP > 160 Last administered on 11/11/18at 00:23; Start 11/10/18 at 18:45; Stop 11/11/18 at 02:35; Status DC Acetaminophen/ Hydrocodone Bitart (Lortab 10/325) 1 tab PRN Q6HRS PRN PO SEVERE PAIN Last administered on 11/14/18at 00:44; Start 11/11/18 at 01:15 Metoprolol Tartrate (Lopressor Vial) 10 mg PRN Q6HRS PRN IVP HYPERTENSION, FOR SBP > 160; Start 11/11/18 at 02:45 Nicotine (Nicoderm Cq 21mg) 1 patch DAILY TD Last administered on 11/13/18at 09:31; Start 11/11/18 at 04:30 Fentanyl Citrate (Fentanyl 2ml Vial) 50 mcg PRN Q2HR PRN IV PAIN Last administered on 11/13/18at 14:24; Start 11/11/18 at 19:00; Stop 11/13/18 at 16:13; Status DC Gadobutrol (Gadavist) 4 mmol 1X ONCE IV ; Start 11/12/18 at 15:30; Stop 11/12/18 at 16:28; Status DC Sodium Chloride 1,000 ml @ 75 mls/hr [id number] IV Last administered on 11/13/18at 21:21; Start 11/13/18 at 13:30 Fentanyl Citrate (Fentanyl 2ml Vial) 50 mcg PRN Q3HRS PRN IV PAIN Last administered on 11/14/18at 07:55; Start 11/13/18 at 16:15 Albuterol/ Ipratropium (Duoneb) 3 ml QIDPRN PRN NEB WHEEZING; Start 11/13/18 at 19:15 Active Scripts Active Dilaudid (Hydromorphone Hcl) 2 Mg Tablet 1 Tab PO QID Alprazolam 1 Mg Tablet 1 Mg PO TID 30 Days Lactulose 20 Gm/30 Ml Solution 20 Gm PO PRN Q12HR PRN 30 Days [Nicotine 21MG] 1 PATCH Patch 1 Patch TD DAILY 30 Days Mag-Oxide (Magnesium Oxide) 400 Mg Tablet 400 Mg PO DAILY 30 Days Reported Zolpidem Tartrate 10 Mg Tablet 10 Mg PO HS PRN Coq-10 (Ubidecarenone) 100 Mg Capsule 200 Mg PO DAILY Metoprolol Tartrate 100 Mg Tablet 100 Mg PO BID Ondansetron Odt (Ondansetron) 4 Mg Tab.rapdis 4 Mg IV PRN Q4HRS PRN Marinol (Dronabinol) 5 Mg Capsule 5 Mg PO BIDACLD Celexa (Citalopram Hydrobromide) 40 Mg Tablet 40 Mg PO DAILY Vitals/I & O Vital Sign - Last 24 Hours 11/13/18 11/13/18 11/13/18 11/13/18 10:02 10:29 11:00 11:58 Temp 98.4 98.4 Pulse 67 93 Resp 16 17 16 B/P (MAP) 126/83 126/77 (93) Pulse Ox 95 O2 Delivery Room Air Room Air 11/13/18 11/13/18 11/13/18 11/13/18 14:24 14:54 15:00 17:18 Temp 98.3 98.3 Pulse 79 Resp 16 14 16 16 B/P (MAP) 75/46 (56) Pulse Ox 94 O2 Delivery Room Air Room Air Room Air Room Air 11/13/18 11/13/18 11/13/18 11/13/18 19:00 20:00 21:15 22:40 Temp 98.2 98.2 Pulse 81 79 Resp 18 B/P (MAP) 110/70 (83) 128/70 Pulse Ox 92 O2 Delivery Room Air Room Air Room Air 11/13/18 11/14/18 11/14/18 11/14/18 23:00 00:44 01:44 03:00 Temp 97.9 98.9 97.9 98.9 Pulse 79 81 Resp 18 18 B/P (MAP) 128/70 (89) 136/87 (103) Pulse Ox 100 100 O2 Delivery Room Air Room Air Room Air Room Air 11/14/18 11/14/18 11/14/18 11/14/18 04:36 07:00 07:55 08:25 Temp 98.4 98.4 Pulse 61 Resp 17 16 16 B/P (MAP) 111/71 (84) Pulse Ox 91 O2 Delivery Room Air Room Air Room Air Room Air Intake and Output 11/13/18 11/13/18 11/14/18 14:59 22:59 06:59 Intake Total 80 ml 1025 ml Balance 80 ml 1025 ml Nutrition Consultation Dietary Evaluation: Recommendations by RD: Increase Calorie Intake, Protein supplementation Comments: ensure enlive tid Expected Outcomes/Goals: to meet > 75% est nutr needs Malnutrition Findings: Food and Nutrition Intake (Sev: <50% est energy req 5days Body Fat Depletion (Non Severe: Mild Depletion Weight Status: Underweight HEATHER SMILEY MD November 14, 2018 09:53
[2018-11-14] MEDS ORDERED: LOPERAMIDE 2 MG CAPSULE PO PRN (10:00)
[2018-11-14] MEDS: NICOTINE 21MG PATCH. TD SCH (10:07)
[2018-11-14] MEDS: CITALOPRAM 20 MG TABLET. PO SCH (10:07)
[2018-11-14] MEDS: METOPROLOL TART IMMED RELEASE 50 MG TABLET. PO SCH (10:07)
[2018-11-14] MEDS: MAGNESIUM OXIDE 400 MG TABLET PO SCH (10:08)
[2018-11-14] MEDS: ALPRAZolam 1 MG TABLET PO SCH ×2 (10:08→13:40)
[2018-11-14] MEDS: POTASSIUM CL 30MEQ D5-0.45NACL 1,000 ML IV SCH (10:13)
[2018-11-14 10:27] LABS: % BASOS 3 % (0-3); % LYMPHS 28 % (24-48); % MONOS 13 % (0-10); % SEGS 56 % (35-66); PLT ESTIMATE ADEQUATE (ADEQUATE)
[2018-11-14 10:30] LABS: ANISOCYTOSIS MOD
[2018-11-14 11:00] VITALS: BP 110/67
[2018-11-14] MEDS: DRONABINOL 2.5 MG CAPSULE. PO SCH (11:24)
--- NOTE | 2018-11-14 13:58 | PDOC3 ---
Discharge Summary Date of Admission: Nov 10, 2018 Date of Discharge: November 14, 2018 Follow-Up: 3-5 days Admitting Diagnosis comment: DISCHARGE DX Assessment/Plan Nausea, emesis, INTRACTABLE one episode of loose stool-could be chemotherapy related VS viral gastroenteritis check for loose stools C. difficile supportive meds Admitted for basically supportive meds-has been in the ER for 4 hours and could not control symptoms Mild hypokalemia-replace orally, liquid diet then ADA T Reactive thrombocytosis Metastatic breast cancer stage IV to lungs, on oral chemotherapy-known to Dr. Jimenez ? Brain spots-July MRI brain distribution metastatic foci of uptake compatible with metastases to lymph nodes, liver, and the right adrenal gland in particular. There is slight increase in the right upper thoracic intramammary lymph node region mass. Right lower lobe small pulmonary nodule is similar in size compared to previous exam but of increased density. No abnormal uptake but this may be due to its small size. Attention on follow-up imaging studies recommended. focus of faint enhancement anterior right occipital lobe concerning for metastasis given history, other consideration of sequela of late subacute or early chronic as infarct given relatively mild degree of enhancement present. Given adjacent artifact, thin section postcontrast imaging such as with the treatment planning protocol may be beneficial for characterization. There also may be a tiny focus of enhancement of the left parietal lobe. multilevel cervical degenerative disc disease and spondylosis as well as abnormal alignment. 5/1 still very nauseated, poor intake po 5/2 BETTER, NO EMESIS TODAY Plan: palliative care consult REVIEWED , DNR status Admit, full code, liquid diet then ADA T Replace potassium home meds PT OT when more able Dr. JIMENEZ following PET scan was REVIEWED 35 min pt exam D/C PLANNING , chart review, > 50% of time spent with pt exam, chart review, pt care coordination , there is increased bowel wall thickening most notable of the proximal small bowel in the abdomen to include duodenum and gastroduodenal junction as may be seen with enteritis. There is some nonspecific fecalization of small bowel in the pelvis, also retained stool in segments of colon. Vitals Vitals Vital Signs Date Time Temp Pulse Resp B/P (MAP) Pulse Ox O2 Delivery O2 Flow Rate FiO2 11/14/18 08:25 16 Room Air 11/14/18 07:00 98.4 61 111/71 (84) 91 98.4 Physical Exam General: Alert, Oriented X3, Cooperative, No acute distress Heart: Regular rate, Normal S1, Normal S2 Lungs: Clear Abdomen: Normal bowel sounds, No masses Extremities: No clubbing, No cyanosis, No edema, Normal pulses, No tenderness/swelling Skin: No rashes, No breakdown, No significant lesion FINAL DIAGNOSIS Problems Medical Problems: (1) Intractable abdominal pain Status: Acute (2) Nausea & vomiting Status: Acute Brief Hospital Course Ms. Marin is a 68 old [sex] who presented with [INTRACTABLE VOMITING, NAUSEA ] CONDITION AT DISCHARGE: Improved Discharge Medications Current Medications Sodium Chloride 1,000 ml @ 1,000 mls/hr Q1H IV Last administered on 11/10/18at 12:30; Start 11/10/18 at 12:07; Stop 11/10/18 at 13:06; Status DC Ondansetron HCl (Zofran) 4 mg STK-MED ONCE .ROUTE ; Start 11/10/18 at 12:17; Stop 11/10/18 at 12:18; Status DC Fentanyl Citrate (Fentanyl 2ml Vial) 100 mcg STK-MED ONCE .ROUTE ; Start 11/10/18 at 12:27; Stop 11/10/18 at 12:28; Status DC Albuterol/ Ipratropium (Duoneb) 3 ml 1X ONCE NEB Last administered on 11/10/18at 12:56; Start 11/10/18 at 12:45; Stop 11/10/18 at 12:49; Status DC Methylprednisolone Sodium Succinate (SOLU-Medrol 125MG VIAL) 125 mg 1X ONCE IV Last administered on 11/10/18at 12:45; Start 11/10/18 at 12:45; Stop 11/10/18 at 12:49; Status DC Fentanyl Citrate (Fentanyl 2ml Vial) 50 mcg 1X ONCE IM ; Start 11/10/18 at 13:00; Stop 11/10/18 at 13:18; Status DC Fentanyl Citrate (Fentanyl 2ml Vial) 50 mcg 1X ONCE IV Last administered on 11/10/18at 13:30; Start 11/10/18 at 13:30; Stop 11/10/18 at 13:31; Status DC Ondansetron HCl (Zofran) 4 mg 1X ONCE IV Last administered on 11/10/18at 13:30; Start 11/10/18 at 13:30; Stop 11/10/18 at 13:31; Status DC Fentanyl Citrate (Fentanyl 2ml Vial) 50 mcg 1X ONCE IV Last administered on 11/10/18at 15:00; Start 11/10/18 at 13:30; Stop 11/10/18 at 13:31; Status DC Sodium Chloride 1,000 ml @ 1,000 mls/hr 1X ONCE IV Last administered on 11/10/18at 13:30; Start 11/10/18 at 13:30; Stop 11/10/18 at 14:29; Status DC Iohexol (Omnipaque 300 Mg/ml) 75 ml 1X ONCE IV Last administered on 11/10/18at 15:15; Start 11/10/18 at 14:45; Stop 11/10/18 at 14:47; Status DC Iohexol (Omnipaque 350 Mg/ml) 100 ml STK-MED ONCE .ROUTE ; Start 11/10/18 at 14:46; Stop 11/10/18 at 14:47; Status DC Iohexol (Omnipaque 300 Mg/ml) 100 ml STK-MED ONCE .ROUTE ; Start 11/10/18 at 14:46; Stop 11/10/18 at 14:47; Status DC Info (CONTRAST GIVEN -- Rx MONITORING) 1 each PRN DAILY PRN MC SEE COMMENTS; Start 11/10/18 at 15:00; Stop 11/12/18 at 15:01; Status DC Prochlorperazine Edisylate (Compazine) 10 mg STK-MED ONCE .ROUTE ; Start 11/10/18 at 15:03; Stop 11/10/18 at 15:04; Status DC Prochlorperazine Edisylate (Compazine) 10 mg 1X ONCE IV Last administered on 11/10/18at 15:05; Start 11/10/18 at 15:15; Stop 11/10/18 at 15:16; Status DC Fentanyl Citrate (Fentanyl 2ml Vial) 50 mcg 1X ONCE IV Last administered on 11/10/18at 15:12; Start 11/10/18 at 15:15; Stop 11/10/18 at 15:16; Status DC Ondansetron HCl (Zofran) 4 mg PRN Q8HRS PRN IV NAUSEA/VOMITING; Start 11/10/18 at 16:00; Stop 11/10/18 at 16:04; Status DC Fentanyl Citrate (Fentanyl 2ml Vial) 50 mcg PRN Q1HR PRN IV PAIN Last admin istered on 11/11/18at 14:09; Start 11/10/18 at 16:00; Stop 11/11/18 at 15:59; Status DC Sodium Chloride 1,000 ml @ 75 mls/hr [id number] IV ; Start 11/10/18 at 15:57; Stop 11/10/18 at 16:04; Status DC Ondansetron HCl (Zofran) 4 mg PRN Q6HRS PRN IV NAUSEA/VOMITING, 1ST CHOICE Last administered on 11/12/18 19:29; Start 11/10/18 at 16:15 Potassium Chloride/Dextrose/ Sod Cl 1,000 ml @ 75 mls/hr DAILY IV Last administered on 11/14/18 10:13; Start 11/10/18 at 18:00 Prochlorperazine Edisylate (Compazine) 10 mg PRN Q6HRS PRN IV NAUSEA/VOMITING, 2nd choice Last administered on 11/12/18 22:38; Start 11/10/18 at 16:15 Temazepam (Restoril) 7.5 mg PRN QHS PRN PO INSOMNIA, 2nd CHOICE; Start 11/10/18 at 16:15 Acetaminophen (Tylenol) 500 mg PRN Q6HRS PRN PO MILD PAIN / TEMP; Start 11/10/18 at 16:15 Acetaminophen/ Codeine Phosphate (Tylenol #3) 1 tab PRN Q6HRS PRN PO MODERATE PAIN; Start 11/10/18 at 16:15 Alprazolam (Xanax) 1 mg TID PO Last administered on 11/14/18 13:40; Start 11/10/18 at 21:00 Ondansetron HCl (Zofran Odt) 4 mg PRN Q4HRS PRN PO NAUSEA/VOMITING; Start 11/10/18 at 16:15 Citalopram Hydrobromide (CeleXA) 40 mg DAILY PO Last administered on 11/14/18 10:07; Start 11/11/18 at 09:00 Dronabinol (Marinol) 5 mg BIDACLD PO Last administered on 5/2/19at 11:24; Start 11/10/18 at 18:00 Hydromorphone HCl (Dilaudid) 2 mg QID PO Last administered on 11/10/18at 23:19; Start 11/10/18 at 21:00; Stop 11/12/18 at 19:09; Status DC Magnesium Oxide (Magnesium Oxide) 400 mg DAILY PO Last administered on 11/14/18 10:08; Start 11/11/18 at 09:00 Metoprolol Tartrate (Lopressor) 100 mg BID PO Last administered on 11/14/18 10:07; Start 11/10/18 at 21:00 Mirtazapine (Remeron) 7.5 mg QHS PO Last administered on 11/13/18 21:14; Start 11/10/18 at 21:00 Non-Formulary Medication (Ubidecarenone (Coq-10)) 200 mg DAILY PO ; Start 11/11/18 at 09:00; Status UNV Zolpidem Tartrate (Ambien) 5 mg PRN QHS PRN PO INSOMNIA, MAY REPEAT X1; Start 11/10/18 at 21:00 Nicotine (Nicoderm Cq 21mg) 1 patch DAILY TD ; Start 11/11/18 at 09:00; Stop 11/11/18 at 09:00; Status DC Fentanyl Citrate (Fentanyl 2ml Vial) 50 mcg 1X ONCE IV Last administered on 11/10/18at 16:45; Start 11/10/18 at 16:45; Stop 11/10/18 at 16:46; Status DC Metoprolol Tartrate (Lopressor Vial) 5 mg PRN Q6HRS PRN IVP HYPERTENSION, FOR SBP > 160 Last administered on 11/11/18at 00:23; Start 11/10/18 at 18:45; Stop 11/11/18 at 02:35; Status DC Acetaminophen/ Hydrocodone Bitart (Lortab 10/325) 1 tab PRN Q6HRS PRN PO SEVERE PAIN Last administered on 11/14/18at 10:10; Start 11/11/18 at 01:15 Metoprolol Tartrate (Lopressor Vial) 10 mg PRN Q6HRS PRN IVP HYPERTENSION, FOR SBP > 160; Start 11/11/18 at 02:45 Nicotine (Nicoderm Cq 21mg) 1 patch DAILY TD Last administered on 11/14/18at 10:07; Start 11/11/18 at 04:30 Fentanyl Citrate (Fentanyl 2ml Vial) 50 mcg PRN Q2HR PRN IV PAIN Last administered on 11/13/18at 14:24; Start 11/11/18 at 19:00; Stop 11/13/18 at 16:13; Status DC Gadobutrol (Gadavist) 4 mmol 1X ONCE IV ; Start 11/12/18 at 15:30; Stop 11/12/18 at 16:28; Status DC Sodium Chloride 1,000 ml @ 75 mls/hr [id number] IV Last administered on 11/13/18at 21:21; Start 11/13/18 at 13:30 Fentanyl Citrate (Fentanyl 2ml Vial) 50 mcg PRN Q3HRS PRN IV PAIN Last administered on 11/14/18at 13:44; Start 11/13/18 at 16:15 Albuterol/ Ipratropium (Duoneb) 3 ml QIDPRN PRN NEB WHEEZING; Start 11/13/18 at 19:15 Loperamide HCl (Imodium) 2 mg Q8HRS PRN PO DIARRHEA Last administered on 11/14/18at 10:07; Start 11/14/18 at 10:00 Active Scripts Active Dilaudid (Hydromorphone Hcl) 2 Mg Tablet 1 Tab PO QID Alprazolam 1 Mg Tablet 1 Mg PO TID 30 Days Lactulose 20 Gm/30 Ml Solution 20 Gm PO PRN Q12HR PRN 30 Days [Nicotine 21MG] 1 PATCH Patch 1 Patch TD DAILY 30 Days Mag-Oxide (Magnesium Oxide) 400 Mg Tablet 400 Mg PO DAILY 30 Days Reported Zolpidem Tartrate 10 Mg Tablet 10 Mg PO HS PRN Coq-10 (Ubidecarenone) 100 Mg Capsule 200 Mg PO DAILY Metoprolol Tartrate 100 Mg Tablet 100 Mg PO BID Ondansetron Odt (Ondansetron) 4 Mg Tab.rapdis 4 Mg IV PRN Q4HRS PRN Marinol (Dronabinol) 5 Mg Capsule 5 Mg PO BIDACLD Celexa (Citalopram Hydrobromide) 40 Mg Tablet 40 Mg PO DAILY Vital Signs Vital Signs Date Time Temp Pulse Resp B/P (MAP) Pulse Ox O2 Delivery O2 Flow Rate FiO2 11/14/18 13:44 16 Room Air 11/14/18 11:00 97.6 80 110/67 (81) 94 97.6 Labs Laboratory Tests Test 11/12/18 17:09 11/12/18 21:24 11/13/18 07:51 11/13/18 11:35 Glucose (Fingerstick) 133 mg/dL (70-99) 128 mg/dL (70-99) 124 mg/dL (70-99) 133 mg/dL (70-99) Test 11/13/18 16:47 11/13/18 20:36 11/14/18 04:15 Glucose (Fingerstick) 115 mg/dL (70-99) 102 mg/dL (70-99) White Blood Count 7.3 x10^3/uL (4.0-11.0) Red Blood Count 4.19 x10^6/uL (3.50-5.40) Hemoglobin 12.6 g/dL (12.0-15.5) Hematocrit 38.2 % (36.0-47.0) Mean Corpuscular Volume 91 fL (79-100) Mean Corpuscular Hemoglobin 30 pg (25-35) Mean Corpuscular Hemoglobin Concent 33 g/dL (31-37) Red Cell Distribution Width 22.6 % (11.5-14.5) Platelet Count 350 x10^3/uL (140-400) Neutrophils (%) (Auto) 60 % (31-73) Lymphocytes (%) (Auto) 19 % (24-48) Monocytes (%) (Auto) 19 % (0-9) Eosinophils (%) (Auto) 1 % (0-3) Basophils (%) (Auto) 1 % (0-3) Neutrophils # (Auto) 4.4 x10^3uL (1.8-7.7) Lymphocytes # (Auto) 1.4 x10^3/uL (1.0-4.8) Monocytes # (Auto) 1.4 x10^3/uL (0.0-1.1) Eosinophils # (Auto) 0.1 x10^3/uL (0.0-0.7) Basophils # (Auto) 0.0 x10^3/uL (0.0-0.2) Segmented Neutrophils % 56 % (35-66) Lymphocytes % 28 % (24-48) Monocytes % 13 % (0-10) Basophils % 3 % (0-3) Platelet Estimate Adequate (ADEQUATE) Large Platelets Present Anisocytosis Mod Sodium Level 130 mmol/L (136-145) Potassium Level 4.4 mmol/L (3.5-5.1) Chloride Level 99 mmol/L (98-107) Carbon Dioxide Level 25 mmol/L (21-32) Anion Gap 6 (6-14) Blood Urea Nitrogen 33 mg/dL (7-20) Creatinine 1.1 mg/dL (0.6-1.0) Estimated GFR (Cockcroft-Gault) 59.4 BUN/Creatinine Ratio 30 (6-20) Glucose Level 105 mg/dL (70-99) Calcium Level 9.0 mg/dL (8.5-10.1) Total Bilirubin 0.6 mg/dL (0.2-1.0) Aspartate Amino Transf (AST/SGOT) 13 U/L (15-37) Alanine Aminotransferase (ALT/SGPT) 13 U/L (14-59) Alkaline Phosphatase 69 U/L (46-116) Total Protein 6.9 g/dL (6.4-8.2) Albumin 3.1 g/dL (3.4-5.0) Albumin/Globulin Ratio 0.8 (1.0-1.7) Laboratory Tests Test 11/13/18 16:47 11/13/18 20:36 11/14/18 04:15 Glucose (Fingerstick) 115 mg/dL (70-99) 102 mg/dL (70-99) White Blood Count 7.3 x10^3/uL (4.0-11.0) Red Blood Count 4.19 x10^6/uL (3.50-5.40) Hemoglobin 12.6 g/dL (12.0-15.5) Hematocrit 38.2 % (36.0-47.0) Mean Corpuscular Volume 91 fL (79-100) Mean Corpuscular Hemoglobin 30 pg (25-35) Mean Corpuscular Hemoglobin Concent 33 g/dL (31-37) Red Cell Distribution Width 22.6 % (11.5-14.5) Platelet Count 350 x10^3/uL (140-400) Neutrophils (%) (Auto) 60 % (31-73) Lymphocytes (%) (Auto) 19 % (24-48) Monocytes (%) (Auto) 19 % (0-9) Eosinophils (%) (Auto) 1 % (0-3) Basophils (%) (Auto) 1 % (0-3) Neutrophils # (Auto) 4.4 x10^3uL (1.8-7.7) Lymphocytes # (Auto) 1.4 x10^3/uL (1.0-4.8) Monocytes # (Auto) 1.4 x10^3/uL (0.0-1.1) Eosinophils # (Auto) 0.1 x10^3/uL (0.0-0.7) Basophils # (Auto) 0.0 x10^3/uL (0.0-0.2) Segmented Neutrophils % 56 % (35-66) Lymphocytes % 28 % (24-48) Monocytes % 13 % (0-10) Basophils % 3 % (0-3) Platelet Estimate Adequate (ADEQUATE) Large Platelets Present Anisocytosis Mod Sodium Level 130 mmol/L (136-145) Potassium Level 4.4 mmol/L (3.5-5.1) Chloride Level 99 mmol/L (98-107) Carbon Dioxide Level 25 mmol/L (21-32) Anion Gap 6 (6-14) Blood Urea Nitrogen 33 mg/dL (7-20) Creatinine 1.1 mg/dL (0.6-1.0) Estimated GFR (Cockcroft-Gault) 59.4 BUN/Creatinine Ratio 30 (6-20) Glucose Level 105 mg/dL (70-99) Calcium Level 9.0 mg/dL (8.5-10.1) Total Bilirubin 0.6 mg/dL (0.2-1.0) Aspartate Amino Transf (AST/SGOT) 13 U/L (15-37) Alanine Aminotransferase (ALT/SGPT) 13 U/L (14-59) Alkaline Phosphatase 69 U/L (46-116) Total Protein 6.9 g/dL (6.4-8.2) Albumin 3.1 g/dL (3.4-5.0) Albumin/Globulin Ratio 0.8 (1.0-1.7) Allergies Allergies Coded Allergies Type Severity Reaction Last Updated Verified No Known Drug Allergies 01/03/17 No Disposition/Orders: D/C to Home Patient Instructions D/C PLANNING 35 MIN HEATHER SMILEY MD November 14, 2018 13:58
[2018-11-14] MEDS ORDERED: IPRA3AMP29 NEB (13:59)
--- NOTE | 2018-11-14 14:01 | DISCH ---
DISCHARGE INSTRUCTIONS Condition on Discharge Condition on Discharge: Guarded Activity After Discharge Activity Instructions for Disc: No restrictions, Activity as tolerated Bathing Instructions: Shower-keep dressing dry Lifting Instructions after Dis: No heavy lifting, No pulling or pushing Exercise Instruction after Dis: Progress as tolerated Driving Instructions after Dis: Do not drive, Do not drive today Weight Bearing Status after Di: No restrictions Diet after Discharge Diet after Discharge: Regular Diet Texture: Regular Liquid Texture: Thin Liquid Swallowing Supervision: None needed Wound Incision Care Wound/Incision Care: No wound care needed Checks after Discharge Checks after discharge: Check blood press - daily, Check blood sugar, ac/hs, Check your Temp as needed Contacting the DR. after DC Call your doctor for: If your condition worsens Treatment/Equipment after DC Adaptive Equipment Issued: None HEATHER SMILEY MD November 14, 2018 14:01
== END 2018-11-14 15:54 | disposition home or self-care (01) | DRG 394 ==
LOC: ER 11:51 → 4 NORTH 16:11
PROVIDERS: ADMIT Internal Medicine; ATTEND Internal Medicine
DX: K52.1 Toxic gastroenteritis and colitis (principal); C78.7 Secondary malignant neoplasm of liver and intrahepatic bile duct; C79.71 Secondary malignant neoplasm of right adrenal gland; C77.9 Secondary and unspecified malignant neoplasm of lymph node, unspecified; Z68.1 Body mass index [BMI] 19.9 or less, adult; A08.4 Viral intestinal infection, unspecified; E87.6 Hypokalemia; C50.919 Malignant neoplasm of unspecified site of unspecified female breast; E11.9 Type 2 diabetes mellitus without complications; I10 Essential (primary) hypertension; T45.1X5A Adverse effect of antineoplastic and immunosuppressive drugs, initial encounter; J43.9 Emphysema, unspecified; Z66 Do not resuscitate; F41.9 Anxiety disorder, unspecified; M47.9 Spondylosis, unspecified; M50.30 Other cervical disc degeneration, unspecified cervical region; Z80.9 Family history of malignant neoplasm, unspecified; Z82.49 Family history of ischemic heart disease and other diseases of the circulatory system; Z85.41 Personal history of malignant neoplasm of cervix uteri; Z87.891 Personal history of nicotine dependence; Z90.49 Acquired absence of other specified parts of digestive tract; Z90.710 Acquired absence of both cervix and uterus; Z85.72 Personal history of non-Hodgkin lymphomas; Z85.3 Personal history of malignant neoplasm of breast; Y92.89 Other specified places as the place of occurrence of the external cause; R63.6 Underweight
CPT/HCPCS: 36415; 70553; 71045; 74177; 78815; 80048; 80053; 81001; 82962; 83605; 83690; 84132; 84484; 85007; 85025; 85347; 87040; 93005; 94640; 96361; 96374; 96375; A9552; J0780; J2405; J2930; J3010; J3490; J7030; J7620; Q0167; Q9967; 97110; 99285-25

== ENCOUNTER → 2019-02-13 | Outpatient (CLI) | payer MEDICARE ==
[~2019-02-13] MED LIST changes: +ALBU2.5V5 INH; +AMLO5TAB10 PO; +CAPE500T13 PO; +CHLO25TA2 PO; +FAMO20TA5 PO; +HYDR-52 PO; +IPRA3AMP29 NEB; +LETR2.5T PO; +ONDA4TAB11 PO
--- NOTE | 2019-02-14 10:01 | RAD ---
PET/CT imaging from the skull through the midthigh History: History of breast cancer. Restaging. Comparison: PET/CT dated November 07, 2018. Technique: PET examination was performed from the skull base to the proximal thighs after intravenous administration of 12.2 mCi Fluorine [address] scan was performed for the purposes of localization and attenuation, not for primary diagnosis. Blood glucose level at time of injection was 78 mg/dl. PQRS Compliance Statement: One or more of the following individualized dose reduction techniques were utilized for this examination: 1. Automated exposure control 2. Adjustment of the mA and/or kV according to patient size 3. Use of iterative reconstruction technique Findings: HEAD AND NECK: On the noncontrast head CT, there is a hyperdense nodule seen just posterior to the right lateral ventricle of the right occipital lobe which measures 13 mm. It is difficult to evaluate for hypermetabolic activity given the normal adjacent brain parenchymal hypermetabolic activity. This corresponds to the MRI brain finding seen on November 12, 2018. There is physiologic muscle activity. There is symmetric activity involving both sides of the lower neck which most likely is due to physiologic muscle activity as well due to the symmetry and no new enlarging mass lesions or cervical lymphadenopathy seen on the CT images. No other hypermetabolic activity is seen. CHEST: Again seen is a soft tissue mass of the right internal mammary chain measuring 20 mm in greatest AP and transverse dimensions. The max SUV is 5.8. Therefore, there has been no significant change. There is a right lower lobe lung nodule measuring 6 mm which is unchanged this is not hypermetabolic. No new lung nodule is evident. Subcarinal lymph node is seen with a maximum SUV of 5.9. Aortopulmonary window lymph node is seen with a maximum SUV of 2.9. A right pericardial lymph node versus anterior medial right pleural thickening is seen with a max SUV of 6.9. This is unchanged. Again seen is a pleural-based focal thickening of the medial posterior right inferior pleural space with a max SUV of 4.7. It measures 2.9 cm in greatest dimension. It is unchanged. ABDOMEN AND PELVIS: There is a lesion within the posterior upper aspect of the right lobe of the liver max SUV of 6.1. It measures approximately 4.4 cm although it is difficult to visualize without IV contrast. This demonstrated a max SUV of 5.4 previously. Retrocrural lymph node is seen on the right side with a max SUV of 4.6. Upper retroperitoneal lymphadenopathy is seen with a max SUV of 5.3. There is a right adrenal nodule present with a max SUV is 6.3. It measures 3.5 cm. These findings are all unchanged. Physiologic activity is seen within the GI and tract. MUSCULOSKELETAL: No hypermetabolic osseous activity is evident. No lytic process is seen. IMPRESSION: Stable abnormal findings as discussed above including chest and abdominal lymph nodes and right pleural-based thickening and hepatic lesion and right adrenal nodule. Right occipital abnormality is not completely seen in this study but corresponds to MRI brain finding on November 12, 2018. No new abnormality.
== END | disposition home or self-care (01) ==
LOC: PETSC 08:02
PROVIDERS: ATTEND Internal Medicine Hematology & Oncology
DX: Z08 Encounter for follow-up examination after completed treatment for malignant neoplasm (principal); K76.89 Other specified diseases of liver; R59.0 Localized enlarged lymph nodes; E27.8 Other specified disorders of adrenal gland; Z17.0 Estrogen receptor positive status [ER+]; Z85.118 Personal history of other malignant neoplasm of bronchus and lung
CPT/HCPCS: 78815; A9552

== ENCOUNTER → 2019-05-30 | Outpatient (CLI) | payer MEDICARE ==
[2019-03-08 14:27] VITALS: BP 101/64
--- NOTE | 2019-05-30 17:07 | RAD ---
Examination: PET W CT SKULL TO MIDTHIGH History: Restaging of right breast cancer Comparison/Correlation: 07/04/2018, 11/07/2018, and 02/13/2019 PET/CT examinations, MRCP exam 03/05/2019 FINDINGS: Net dose 12.69 mCi F-18 FDG was administered intravenously for purposes of PET/CT exam. Blood glucose level at the time of radiotracer administration was 133 mg/dL. Imaging was performed from the skull base to the proximal thighs. Hepatic reference uptake is SUV max of 1.6 . Uptake of radiotracer along the visualized head and neck is unremarkable. Right-sided infusion port with associated catheter is present. Incidental note is made of marked coronary arterial calcification. There is new uptake involving a left superior paratracheal lymph node with SUV max of 3.3. There are a few lymph nodes at this level and these measure less than 0.7 cm in short axis dimension. Intense uptake corresponding to known mass involving the right upper chest wall at the anterior first rib junction with the sternum is evident. This mass extends to the right second rib costochondral junction also. It abuts the superior mediastinum and extends into the chest wall musculature. SUV max of 6 is present. Morphology is similar to the previous exam. Uptake involving a right upper paratracheal lymph node is present. Uptake of the left lower paratracheal lymph node is again identified. Subcarinal lymph node uptake is again evident. Nodular uptake involving medial right basilar pleural is again seen. Small new nodular focus of intense uptake along the posterior aspect of the heart at the interventricular septum level is present best seen on axial image #5 of PET series 4. SUV max of 4.4 is evident. Centrilobular emphysema is present. Diffuse emphysematous involvement of the lung lara is present. No pleural or pericardial effusion. Right lower lobe pulmonary nodule measuring 0.7 cm in diameter is present without definite uptake. No change in size. Multiple foci of uptake involving the liver are again identified without definite change. Upper retroperitoneal lymphadenopathy with intense uptake is similar to the previous exam. Right retrocrural lymphadenopathy is again seen similar to the previous exam of intense uptake. Mass involvement of the adrenal glands is greater on the right with intense uptake again noted. Upper ureters involving the lower abdomen and pelvis is unremarkable. Surgical clips within pelvis noted. Uterus is atrophic or absent. Uptake involving bowel is physiologic in distribution. No new suspicious uptake involving bony structures in the interval. IMPRESSION: New intense focus of uptake along the posterior aspect of the base of the heart at the interventricular septum level of concern for metastasis. No change in numerous foci of uptake otherwise evident involving the thoracic lymph nodes, right chest wall, upper abdominal lymphadenopathy, liver, and right adrenal gland and particular. PQRS Compliance Statement: One or more of the following individualized dose reduction techniques were utilized for this examination: 1. Automated exposure control 2. Adjustment of the mA and/or kV according to patient size 3. Use of iterative reconstruction technique Electronically signed by: Markus Carrera MD (05/30/2019 5:04 PM) [facility]
== END | disposition home or self-care (01) ==
LOC: PETSC 08:45
PROVIDERS: ATTEND Internal Medicine Hematology & Oncology
DX: C50.811 Malignant neoplasm of overlapping sites of right female breast (principal); J43.2 Centrilobular emphysema; I25.10 Atherosclerotic heart disease of native coronary artery without angina pectoris; I31.3 Pericardial effusion (noninflammatory); R59.0 Localized enlarged lymph nodes; R91.1 Solitary pulmonary nodule; Z17.0 Estrogen receptor positive status [ER+]
CPT/HCPCS: 78815; A9552